=== PATIENT | male | born 1975 | race Caucasian/White ===

== ENCOUNTER 2017-12-10 16:51 | Inpatient (IN) | payer BC, OTHER ==
[~2017-12-10] VITALS: Ht 177.8 cm; Wt 96.8 kg
[2017-12-10] VITALS (19 sets, daily range): BP systolic 0–182; BP diastolic 0–94; PULSE 0–124; RESP 14–26; TEMP 99.1; O2SAT 95–100
[~2017-12-10 16:51] MED LIST: NOREPINEPHRINE 4 MG/4 ML AMP IV ONE; SODIUM BICARBONATE 8.4% INJ 50 MEQ/50 ML SYR IV ONE; ZOLP10TA3 PO
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
[2017-12-10 17:36] LABS: AUTOMATED NEUTROPHIL # 4.9 TH/MM3 (1.8-7.7); BASOPHIL % 0.2 % (0.0-2.0); EOSINOPHIL # 0.2 TH/MM3 (0-0.4); EOSINOPHIL % 1.8 % (0.0-4.0); HEMATOCRIT 41.1 % (39.0-51.0); HEMOGLOBIN 13.6 GM/DL (13.0-17.0); LYMPH % 52.8 % (9.0-44.0); LYMPHOCYTE # 6.6 TH/MM3 (1.0-4.8); MEAN CELL VOLUME 91.8 FL (80.0-100.0); MEAN CORPUSCULAR HEMOGLOBIN 30.3 PG (27.0-34.0); MEAN PLATELET VOLUME 8.8 FL (7.0-11.0); MONOCYTE # 0.8 TH/MM3 (0-0.9); NEUT % 39.2 % (16.0-70.0); PLATELET COUNT 197 TH/MM3 (150-450); RED BLOOD COUNT 4.48 MIL/MM3 (4.50-5.90); RED CELL DISTRIBUTION WIDTH 13.6 % (11.6-17.2); WHITE BLOOD COUNT 12.5 TH/MM3 (4.0-11.0)
[2017-12-10] MEDS ORDERED: NOREPINEPHRINE-DEXTROSE DRIP 250 ML IV PRN (17:45)
[2017-12-10] MEDS ORDERED: MIDAZOLAM HCL 2 MG/2 ML VIAL IV PUSH ONE (17:45)
[2017-12-10] MEDS ORDERED: TERBUTALINE INJ 1 MG/ML AMP SQ PRN (17:45)
--- NOTE | 2017-12-10 17:46 | RADRPT ---
EXAM DATE/TIME: 12/10/2017 17:33 [facility] COMPARISON: No previous studies available for comparison. INDICATIONS : Post intubation. Stemi alert. MEDICAL HISTORY : None. SURGICAL HISTORY : None. ENCOUNTER: Initial ACUITY: 1 day PAIN SCORE: Non-responsive. LOCATION: Bilateral chest FINDINGS: Endotracheal tube is present in satisfactory position with tip 4-5 cm above the clara. Nasogastric t ube descends into the stomach. There are small areas of linear parenchymal opacity in the lung bases which may be areas of scarring or atelectasis. No evidence of effusion. Cardiac contours are satisfac tory for technique and projection. CONCLUSION: Satisfactory ET tube position. Minimal bibasilar parenchymal opacities. Karsten Vazquez MD on December 10, 2017 at 17:43 Board Certified Radiologist. This report was verified electronically.
[2017-12-10 17:48] LABS: PROTHROMBIN TIME - PATIENT 10.4 SEC (9.8-11.6)
[2017-12-10] MEDS ORDERED: PROPOFOL 1000 MG/100 ML INJ 100 ML ONE (17:52)
[2017-12-10 18:00] LABS: ALBUMIN 3.3 GM/DL (3.4-5.0); ALT (GPT) 195 U/L (12-78); AST (GOT) 222 U/L (15-37); BICARBONATE 17.5 MEQ/L (21.0-32.0); BLOOD UREA NITROGEN 16 MG/DL (7-18); CALCIUM 8.1 MG/DL (8.5-10.1); CHLORIDE 106 MEQ/L (98-107); CREATININE 1.51 MG/DL (0.60-1.30); GLOMERULAR FILTRATION RATE 51 ML/MIN (>89); GLUCOSE,RANDOM 295 MG/DL (74-106); LIPASE 130 U/L (73-393); SODIUM (NA) 140 MEQ/L (136-145)
[2017-12-10 18:09] LABS: ALKALINE PHOSPHATASE 57 U/L (45-117); TOTAL BILIRUBIN ADULT 0.1 MG/DL (0.2-1.0); TOTAL PROTEIN 6.7 GM/DL (6.4-8.2)
[2017-12-10 18:19] LABS: TROPONIN I 3.95 NG/ML (0.02-0.05)
[2017-12-10 18:28] LABS: METAMYELOCYTES 1 % (0-1); MONOCYTES 4 % (0-8); NEUTROPHIL # MANUAL DIFF 4.9 TH/MM3 (1.8-7.7); POLYS (SEG NEUTROPHILS) 38 % (16-70)
[2017-12-10 18:33] LABS: LYMPHOCYTES 56 % (9-44)
--- NOTE | 2017-12-10 18:45 | RADRPT ---
EXAM DATE/TIME: 12/10/2017 18:18 [facility] COMPARISON: No previous studies available for comparison. INDICATIONS : Altered mental status post cardiac arrest. RADIATION DOSE: 35.97 CTDIvol (mGy) MEDICAL HISTORY : None SURGICAL HISTORY : None. ENCOUNTER: Initial ACUITY: 1 day PAIN SCALE: Non-responsive LOCATION: cranial TECHNIQUE: Multiple contiguous axial images were obtained of the head. Using automated exposure control and adj ustment of the mA and/or kV according to patient size, radiation dose was kept as low as reasonably a chievable to obtain optimal diagnostic quality images. DICOM format image data is available electro nically for review and comparison. FINDINGS: There is some reduction in the distinction of the ledezma-white matter junction and basal ganglia involv ing the right cerebral hemisphere concerning for a right sided infarction. No mass effect observed. V entricles remain normal in size. No hemorrhage. The coastal thickening is seen involving multiple eth moid air cells bilaterally. Calvarium is intact. CONCLUSION: 1. Concern for right-sided nonhemorrhagic cerebral infarction. Jose Glaser Jr., MD on December 10, 2017 at 18:40 Board Certified Radiologist. This report was verified electronically.
[2017-12-10] MEDS ORDERED: MAGNESIUM HYDROXIDE SUSP 30 ML CUP PO PRN (20:30)
[2017-12-10] MEDS ORDERED: ACETAMINOPHEN 325 MG TAB PO PRN (20:30)
[2017-12-10] MEDS ORDERED: LACTULOSE SYRUP 20 GM/30 ML CUP PO PRN (20:30)
[2017-12-10] MEDS ORDERED: MISCELLANEOUS NURSING INFORMATION XX SCH (20:30)
[2017-12-10] MEDS ORDERED: BISACODYL 10 MG SUPP RECTAL PRN (20:30)
[2017-12-10] MEDS ORDERED: CHLORHEXIDINE GLUCONATE 2 % 1 PACK (2 CLOTHS) TOP PRN (20:30)
[2017-12-10] MEDS ORDERED: SODIUM CHLORIDE 0.9% FLUSH 10 ML FLUSH IV FLUSH PRN ×3 (20:30→23:30)
[2017-12-10] MEDS ORDERED: SENNOSIDES 8.6 MG TAB PO PRN (20:30)
[2017-12-10] MEDS ORDERED: PROPOFOL 1000 MG/100 ML INJ 100 ML IV PRN (20:45)
[2017-12-10] MEDS: DOCUSATE SODIUM 50 MG/SENNA 8.6 MG TAB PO SCH (21:00)
[2017-12-10] MEDS: SODIUM CHLORIDE 0.9% FLUSH 10 ML FLUSH IV FLUSH SCH (21:00)
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
[2017-12-10] MEDS ORDERED: MAGNESIUM OXIDE 400 MG TAB PO PRN (21:45)
[2017-12-10] MEDS ORDERED: POTASSIUM CHLOR 40 MEQ PREMIX 100 ML IV-CENTRAL PRN (21:45)
[2017-12-10] MEDS ORDERED: POTASSIUM PHOSPHATE MONOBASIC 500 MG TAB PO/TUBE PRN (21:45)
[2017-12-10] MEDS ORDERED: POTASSIUM CHLORIDE 25 MEQ EFFERVESCENT TAB PO PRN (21:45)
[2017-12-10] MEDS ORDERED: POTASSIUM PHOSPHATE INJ 30 MMOL in SODIUM CHLOR 0.9% 250 ML INJ 250 ML IV PRN (21:45)
[2017-12-10] MEDS ORDERED: MAGNESIUM SULFATE INJ 2 GM in SODIUM CHLORIDE 0.9% INJ 96 ML IV PRN (21:45)
[2017-12-10] MEDS ORDERED: MAGNESIUM SULFATE INJ 4 GM in SODIUM CHLORIDE 0.9% INJ 92 ML IV PRN (21:45)
[2017-12-10] MEDS ORDERED: DEXTROSE 50% IN WATER 50 ML VIAL(D50) IV PUSH PRN (21:45)
[2017-12-10] MEDS ORDERED: SODIUM PHOSPHATE INJ 30 MMOL in SODIUM CHLOR 0.9% 250 ML INJ 240 ML IV PRN (21:45)
[2017-12-10] MEDS ORDERED: POTASSIUM CHLOR 20 MEQ PREMIX 100 ML IV PRN (21:45)
[2017-12-10] MEDS ORDERED: POTASSIUM PHOSPHATE MONOBASIC 500 MG TAB PO PRN (21:45)
[2017-12-10] MEDS ORDERED: GLUCAGON 1 MG/ML VIAL OTHER PRN (21:45)
[2017-12-10] MEDS: RESP: ALBUTEROL 2.5 MG/IPRATROPIUM 0.5 MG NEB (SCH) INH (21:54)
[2017-12-10] MEDS: SODIUM CHLOR 0.9% 1000 ML INJ 1,000 ML IV SCH (22:00)
[2017-12-10] MEDS ORDERED: HEPARIN-D5W 25,000 U/250 ML 250 ML IV PRN (22:00)
[2017-12-10] MEDS ORDERED: PROPOFOL 500 MG/50 ML INJ 50 ML ONE (22:15)
[2017-12-10] MEDS ORDERED: AMIODARONE INJ 450 MG in DEXTROSE 5% IN WATE(EXCEL) INJ 241 ML IV PRN ×2 (22:37)
[2017-12-10 22:39] LABS: AMORPHOUS SEDIMENT, URINE OCC; BACTERIA, URINE MANY /hpf; BILIRUBIN, URINE NEG (NEG); BLOOD, URINE MOD (NEG); GLUCOSE,URINE 300 mg/dL (NEG); KETONE, URINE TRACE mg/dL (NEG); NITRITE,URINE NEG (NEG); PH, URINE 7.5 (5.0-8.5); URINE COLOR YELLOW (YELLW/STRAW); URINE LEUKOCYTE ESTERASE NEG (NEG)
[2017-12-10] MEDS ORDERED: NOREPINEPHRINE INJ 4 MG in SODIUM CHLOR 0.9% 250 ML INJ 246 ML IV PRN (23:00)
[2017-12-10] MEDS ORDERED: HEPARIN SODIUM - IV 10,000 UNITS/10 ML VIAL IV PRN (23:00)
[2017-12-10] MEDS: HEPARIN INJ 25,000 UNITS in SODIUM CHLOR 0.9% 250 ML INJ 247.5 ML IV PRN (23:12)
[2017-12-10] MEDS: AMIODARONE INJ 450 MG in SODIUM CHLOR 0.9% (EXCEL) INJ 241 ML IV PRN (23:14)
[2017-12-10] MEDS ORDERED: Mix all IV Meds in NS IV SCH (23:30)
[2017-12-10] MEDS: PROPOFOL 1000 MG/100 ML IV PRN (23:39)
[2017-12-10] MEDS: MIDAZOLAM HCL 2 MG/2 ML VIAL IV PUSH PRN (23:43)
[2017-12-10] MEDS: MEPERIDINE HCL 25 MG/ML VIAL IV PUSH PRN (23:45)
[2017-12-10] MEDS ORDERED: CISATRACURIUM BESYLATE 10 MG/5 ML VIAL IV PUSH ONE (23:45)
[2017-12-11] VITALS (27 sets, daily range): BP systolic 90–131; BP diastolic 58–87; PULSE 51–91; RESP 16; TEMP 97.6; O2SAT 92–97
[2017-12-11] MEDS: FAMOTIDINE 20 MG/2 ML VIAL IV PUSH SCH ×3 (00:02→19:47)
[2017-12-11] MEDS: CISATRACURIUM 100 MG/NS 250 ML IV PRN ×8 (00:39→22:38)
[2017-12-11 00:51] LABS: PHOSPHORUS 2.9 MG/DL (2.5-4.9)
[2017-12-11 01:15] LABS: TROPONIN I GREATER THAN 40.00 NG/ML (0.02-0.05)
[2017-12-11] MEDS: MIDAZOLAM HCL 2 MG/2 ML VIAL IV PUSH PRN (01:54)
[2017-12-11] MEDS ORDERED: HEPARIN SODIUM - IV 10,000 UNITS/10 ML VIAL IV PRN (03:00)
[2017-12-11] MEDS: PROPOFOL 1000 MG/100 ML IV PRN ×6 (03:04→23:41)
[2017-12-11] MEDS: ARTIFICIAL TEARS OPTH OINT 3.5 APPLIC/3.5 GM TUBO EACH EYE PRN ×3 (03:08→22:10)
[2017-12-11] MEDS: RESP: ALBUTEROL 2.5 MG/IPRATROPIUM 0.5 MG NEB (SCH) INH ×4 (03:19→20:53)
[2017-12-11] MEDS: CHLORHEXIDINE GLUCONATE 2 % 1 PACK (2 CLOTHS) TOP SCH (04:00)
[2017-12-11 04:29] LABS: AUTOMATED NEUTROPHIL # 14.8 TH/MM3 (1.8-7.7); BASOPHIL # 0.1 TH/MM3 (0-0.2); BASOPHIL % 0.5 % (0.0-2.0); EOSINOPHIL % 0.2 % (0.0-4.0); HEMATOCRIT 41.7 % (39.0-51.0); LYMPH % 16.2 % (9.0-44.0); MEAN CELL VOLUME 88.8 FL (80.0-100.0); MEAN CORPUSCULAR HEMOGLOBIN 29.8 PG (27.0-34.0); MEAN CORPUSCULAR HGB CONC 33.5 % (32.0-36.0); MEAN PLATELET VOLUME 8.6 FL (7.0-11.0); MONO % 3.4 % (0.0-8.0); MONOCYTE # 0.6 TH/MM3 (0-0.9); NEUT % 79.7 % (16.0-70.0); PLATELET COUNT 223 TH/MM3 (150-450); RED CELL DISTRIBUTION WIDTH 14.2 % (11.6-17.2); WHITE BLOOD COUNT 18.6 TH/MM3 (4.0-11.0)
[2017-12-11 04:59] LABS: ALBUMIN 3.3 GM/DL (3.4-5.0); ALKALINE PHOSPHATASE 52 U/L (45-117); ALT (GPT) 268 U/L (12-78); AST (GOT) 437 U/L (15-37); BICARBONATE 22.8 MEQ/L (21.0-32.0); BLOOD UREA NITROGEN 14 MG/DL (7-18); CALCIUM 7.6 MG/DL (8.5-10.1); CHLORIDE 110 MEQ/L (98-107); GLOMERULAR FILTRATION RATE 106 ML/MIN (>89); GLUCOSE,RANDOM 180 MG/DL (74-106); MAGNESIUM 2.3 MG/DL (1.5-2.5); PHOSPHORUS 3.1 MG/DL (2.5-4.9); SODIUM (NA) 141 MEQ/L (136-145); TOTAL BILIRUBIN ADULT 0.4 MG/DL (0.2-1.0); TOTAL PROTEIN 6.8 GM/DL (6.4-8.2)
[2017-12-11] MEDS: NOREPINEPHRINE 4 MG/250 ML NS IV PRN ×4 (05:14→16:04)
--- NOTE | 2017-12-11 05:35 | PD.PROCEDR ---
Procedure Note Procedure Centerline placement A time-out was completed verifying correct patient, procedure, site, positioning , and special equipment if applicable. The patient was placed in a dependent position appropriate for central line placement based on the vein to be cannulated. The patients right groin was prepped and draped in sterile fashion. 1% Lidocaine was used to anesthetize the surrounding skin area. A triple lumen 9-Burkin[place] Cordis catheter was introduced into the the common femoral vein using the Seldinger technique and under ultrasound guidance. The catheter was threaded smoothly over the guide wire and appropriate blood return was obtained. Each lumen of the catheter was evacuated of air and flushed with sterile saline. The catheter was then sutured in place to the skin and a sterile dressing applied. Perfusion to the extremity distal to the point of catheter insertion was checked and found to be adequate. Estimated Blood Loss: 1ml The patient tolerated the procedure well and there were no complications. Buck Escobedo MD Dec 11, 2017 5:35 am
[2017-12-11] MEDS: AMIODARONE INJ 450 MG in SODIUM CHLOR 0.9% (EXCEL) INJ 241 ML IV PRN (06:27)
[2017-12-11 06:40] LABS: INTERNATIONAL NORMALIZED RATIO 1.1 RATIO
[2017-12-11] MEDS: CHLORHEXIDINE 0.12% (ORAL KIT) 15 ML CUP MT SCH ×2 (08:00→19:49)
[2017-12-11] MEDS ORDERED: INSULIN NovoLIN REGULAR SUPPLEMENTAL SCALE SQ SCH (08:00)
[2017-12-11] MEDS: SODIUM CHLOR 0.9% 1000 ML INJ 1,000 ML IV SCH ×2 (08:48→21:33)
[2017-12-11] MEDS: DOCUSATE SODIUM 50 MG/SENNA 8.6 MG TAB PO SCH ×2 (08:48→19:47)
[2017-12-11] MEDS: MEPERIDINE HCL 25 MG/ML VIAL IV PUSH PRN (08:48)
[2017-12-11] MEDS: SODIUM CHLORIDE 0.9% FLUSH 10 ML FLUSH IV FLUSH SCH ×2 (08:48→19:47)
[2017-12-11] MEDS ORDERED: ASPIRIN 325 MG TAB PO ONE (09:45)
[2017-12-11] MEDS ORDERED: DEXTROSE 50% IN WATER 50 ML VIAL(D50) IV PUSH PRN (09:45)
[2017-12-11] MEDS ORDERED: GLUCAGON 1 MG/ML VIAL OTHER PRN (09:45)
--- NOTE | 2017-12-11 09:47 | HHI.CCPN ---
Subjective Remarks/Hospital Course 42-year-old gentleman brought in by EMS after he apparently had an episode of chest pain after which he clutched his chest an collapsed at home. Patient's called 911 and initiated CPR prior to EMS arriving there. Once EMS arrived they were able to start an IV, intubated the patient and initiated ACLS protocol giving 4 rounds of epi 7 rounds of chest compressions along with 3 separate defibrillations. Initial EKG at the scene showed ST elevation, however the repeat EKG in the emergency department showed no ST elevations. The case was discussed by ED attending with timber killer client consultant who recommended hypothermia protocol and conservative management. 12/11 Patient is sedated and intubated. On Levophed, Amio and Nimbex drips. Objective Vital Signs Date Time Temp Pulse Resp B/P (MAP) Pulse Ox O2 Delivery O2 Flow Rate FiO2 12/11/17 07:28 92 50 12/11/17 06:27 60 96/69 12/11/17 04:00 92.3 16 12/10/17 19:45 Ventilator 12/10/17 17:46 15.00 Intake and Output 12/11/17 12/11/17 12/12/17 08:00 16:00 00:00 Intake Total 1562 ml Output Total 440 ml Balance 1122 ml Result Diagram: 12/11/17 0415 12/11/17 0415 Other Results Laboratory Tests Test 12/10/17 17:13 12/10/17 17:30 12/10/17 18:30 12/10/17 22:40 White Blood Count 12.5 TH/MM3 Red Blood Count 4.48 MIL/MM3 Hemoglobin 13.6 GM/DL Bedside Hemoglobin 13.3 G/DL Hematocrit 41.1 % Bedside Hematocrit 39.0 % Mean Corpuscular Volume 91.8 FL Mean Corpuscular Hemoglobin 30.3 PG Mean Corpuscular Hemoglobin Concent 33.0 % Red Cell Distribution Width 13.6 % Platelet Count 197 TH/MM3 Mean Platelet Volume 8.8 FL Neutrophils (%) (Auto) 39.2 % Lymphocytes (%) (Auto) 52.8 % Monocytes (%) (Auto) 6.0 % Eosinophils (%) (Auto) 1.8 % Basophils (%) (Auto) 0.2 % Neutrophils # (Auto) 4.9 TH/MM3 Lymphocytes # (Auto) 6.6 TH/MM3 Monocytes # (Auto) 0.8 TH/MM3 Eosinophils # (Auto) 0.2 TH/MM3 Basophils # (Auto) 0.0 TH/MM3 CBC Comment AUTO DIFF Differential Total Cells Counted 100 Neutrophils % (Manual) 38 % Lymphocytes % 56 % Monocytes % 4 % Eosinophils % 1 % Neutrophils # (Manual) 4.9 TH/MM3 Metamyelocytes 1 % Differential Comment FINAL DIFF MANUAL Atypical Lymphocytes % Platelet Estimate NORMAL Platelet Morphology Comment NORMAL Prothrombin Time 10.4 SEC Prothromb Time International Ratio 1.0 RATIO Activated Partial Thromboplast Time 22.6 SEC Bedside Sodium 139 MMOL/L Blood Urea Nitrogen 16 MG/DL Creatinine 1.51 MG/DL Random Glucose 295 MG/DL Total Protein 6.7 GM/DL Albumin 3.3 GM/DL Calcium Level 8.1 MG/DL Alkaline Phosphatase 57 U/L Aspartate Amino Transf (AST/SGOT) 222 U/L Alanine Aminotransferase (ALT/SGPT) 195 U/L Total Bilirubin 0.1 MG/DL Sodium Level 140 MEQ/L Potassium Level 3.5 MEQ/L Chloride Level 106 MEQ/L Carbon Dioxide Level 17.5 MEQ/L Bedside Potassium 3.4 MMOL/L Bedside Chloride 105 MMOL/L Anion Gap 17 MEQ/L Bedside Blood Urea Nitrogen 18 MG/DL Bedside Creatinine 1.2 MG/DL Estimat Glomerular Filtration Rate 51 ML/MIN Bedside Glucose 296 MG/DL Total Creatine Kinase 878 U/L Creatine Kinase MB 34.1 NG/ML Creatine Kinase MB % 3.9 % Troponin I 3.95 NG/ML B-Type Natriuretic Peptide 64 PG/ML Lipase 130 U/L Urine Color YELLOW Urine Turbidity HAZY Urine pH 7.5 Urine Specific [place] 1.011 Urine Protein 300 mg/dL Urine Glucose (UA) 300 mg/dL Urine Ketones TRACE mg/dL Urine Occult Blood MOD Urine Nitrite NEG Urine Bilirubin NEG Urine Urobilinogen 2.0 MG/DL Urine Leukocyte Esterase NEG Urine RBC 12 /hpf Urine WBC 16 /hpf Urine Amorphous Sediment OCC Urine Bacteria MANY /hpf Microscopic Urinalysis Comment CATH-CULTURE IND Blood Gas Puncture Site LT RADIAL Blood Gas Patient Temperature 98.6 Blood Gas HCO3 23 mmol/L Blood Gas Base Excess -0.8 mmol/L Blood Gas Oxygen Saturation 95 % Arterial Blood pH 7.44 Arterial Blood Partial Pressure CO2 35 mmHg Arterial Blood Partial Pressure O2 99 mmHG Arterial Blood Oxygen Content 19.1 Vol % Arterial Blood Carboxyhemoglobin 1.8 % Arterial Blood Methemoglobin 0.8 % Blood Gas Hemoglobin 14.2 G/DL Oxygen Delivery Device VENTILATOR Blood Gas Ventilator Setting [id number]/AC/R16/VT500/P5 Blood Gas Inspired Oxygen 50 % Urine Opiates Screen NEG Urine Barbiturates Screen NEG Urine Amphetamines Screen NEG Urine Benzodiazepines Screen POS Urine Cocaine Screen POS Urine Cannabinoids Screen NEG Test 12/10/17 23:51 12/11/17 01:00 12/11/17 04:15 12/11/17 05:00 Phosphorus Level 2.9 MG/DL 3.1 MG/DL Troponin I GREATER THAN 40.00 NG/ML Nasal Screen MRSA (PCR) MRSA NOT DETECTED White Blood Count 18.6 TH/MM3 Red Blood Count 4.70 MIL/MM3 Hemoglobin 14.0 GM/DL Hematocrit 41.7 % Mean Corpuscular Volume 88.8 FL Mean Corpuscular Hemoglobin 29.8 PG Mean Corpuscular Hemoglobin Concent 33.5 % Red Cell Distribution Width 14.2 % Platelet Count 223 TH/MM3 Mean Platelet Volume 8.6 FL Neutrophils (%) (Auto) 79.7 % Lymphocytes (%) (Auto) 16.2 % Monocytes (%) (Auto) 3.4 % Eosinophils (%) (Auto) 0.2 % Basophils (%) (Auto) 0.5 % Neutrophils # (Auto) 14.8 TH/MM3 Lymphocytes # (Auto) 3.0 TH/MM3 Monocytes # (Auto) 0.6 TH/MM3 Eosinophils # (Auto) 0.0 TH/MM3 Basophils # (Auto) 0.1 TH/MM3 CBC Comment DIFF FINAL Differential Comment Blood Urea Nitrogen 14 MG/DL Creatinine 0.80 MG/DL Random Glucose 180 MG/DL Total Protein 6.8 GM/DL Albumin 3.3 GM/DL Calcium Level 7.6 MG/DL Magnesium Level 2.3 MG/DL Alkaline Phosphatase 52 U/L Aspartate Amino Transf (AST/SGOT) 437 U/L Alanine Aminotransferase (ALT/SGPT) 268 U/L Total Bilirubin 0.4 MG/DL Sodium Level 141 MEQ/L Potassium Level 4.4 MEQ/L Chloride Level 110 MEQ/L Carbon Dioxide Level 22.8 MEQ/L Anion Gap 8 MEQ/L Estimat Glomerular Filtration Rate 106 ML/MIN Lactic Acid Level 1.3 mmol/L Prothrombin Time 11.0 SEC Prothromb Time International Ratio 1.1 RATIO Activated Partial Thromboplast Time 86.1 SEC Imaging Last Impressions Head CT 12/10/17 1714 Signed Impressions: Service Date/Time: Sunday, December 10, 2017 18:18 - CONCLUSION: 1. Concern for right-sided nonhemorrhagic cerebral infarction. Jose Glaser Jr., MD Chest X-Ray 12/10/17 0000 Signed Impressions: Service Date/Time: Sunday, December 10, 2017 17:33 - CONCLUSION: Satisfactory ET tube position. Minimal bibasilar parenchymal opacities. Karsten Vazquez MD Objective Remarks GENERAL: Sedated and intubated SKIN: Warm and dry. HEAD: Atraumatic. Normocephalic. EYES: Pupils equal and briskly reactive to light, ENT: No nasal bleeding or discharge. Mucous membranes pink and moist. NECK: Trachea midline. No JVD....INTUBATED 8-0 AT 24 LIP CARDIOVASCULAR: Regular rate and rhythm. RESPIRATORY: SPONTANEOUSLY BREATHING No accessory muscle use. Clear to auscultation. Breath sounds equal bilaterally. GASTROINTESTINAL: Abdomen soft, non-tender, nondistended. Hepatic and splenic margins not palpable. MUSCULOSKELETAL: Extremities without clubbing, cyanosis, or edema. No obvious deformities. NEUROLOGICAL: Sedated and intubated. No obvious cranial nerve deficits. Motor localizes to pain on all 4 extremities. Five out of 5 muscle strength in the arms and legs. A/P Assessment and Plan VDRF s/p V. fib arrest outside the hospital Hyperglycemia Non-STEMI ? Acute CVA on a CT Elevated LFT's Leukocytosis Plan Neuro: On Diprivan infusion for sedation. In addition patient is on Nimbex - monitor train of 4. CT brain showed non hemorrhagic cerebral infarction. For MRI brain, neuro consulted. Pulm: Continue with vent support keep sat >92% Bronchodilators, ICU vent bundle. CV: Wean off Levophed Monitor HR and BP keep MAP>65mmHg On Hypothermia protocol. Cards is following- Dr. Dubose. Check 2D echo to eval LV function. Continue with Heparin drip. Monitor PTT. Place on ASA. D/C Amio drip for elevated LFT's. : Monitor renal function, I/O's, electrolytes replacement per protocol. On NS@84ml/hr GI: On Pepcid for GI prophylaxis Monitor LFT's, check US liver, Hepatitis profile. Start tube feeds- Glucerna 1.5 with goal rate 45ml/hr ID: Place on Zosyn for possible aspiration and increase in WBC.Monitor or signs of infections ( Fever, WBC) follow up on urine cx. Check BC x 2 sets, Sputum cx Heme: Monitor CBC, coags- on Heparin drip Endo: SSI for glycemic control GI prophylaxis- on Pepcid DVT prophylaxis- On Heparin drip. Lines: Right Femoral line placed 12/11 CCT 30 mins Kayleen Diaz MD Dec 11, 2017 09:47
[2017-12-11] MEDS: PIPERACIL-TAZO 4.5 GM PREMIX 100 ML IV SCH ×3 (10:00→21:44)
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
[2017-12-11] MEDS: INSULIN NovoLIN REGULAR SUPPLEMENTAL SCALE SQ SCH ×3 (13:45→21:33)
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
--- NOTE | 2017-12-11 21:39 | EKG ---
Date Performed: 12/11/2017 Time Performed: 20:58:21 PTAGE: 42 years EKG: SINUS BRADYCARDIA PROBABLE INFERIOR MYOCARDIAL INFARCTION , PROBABLY OLD ABNORMAL ECG Ezio red to prior electrocardiogram, rate has decreased and Nonspecific ST changes no longer present. PREVIOUS TRACING : 12/10/2017 18.33 DOCTOR: Norris Duong Interpretating Date/Time 12/11/2017 21:39:40
--- NOTE | 2017-12-11 22:26 | EKG ---
Date Performed: 12/10/2017 Time Performed: 18:33:26 PTAGE: 42 years EKG: Sinus rhythm WITH SHORT OH INTERVAL INFERIOR MYOCARDIAL INFARCTION ST DEPRESSION, CONSIDER SUBENDOCARDIAL INJURY ABNORMAL ECG PREVIOUS TRACING : 10/20/2003 18.27 Compared to previous tracing ST abnormalities are less prom inent DOCTOR: Medardo Adams Interpretating Date/Time 12/11/2017 22:24:39
--- NOTE | 2017-12-11 22:30 | EKG ---
Date Performed: 12/10/2017 Time Performed: 17:04:54 PTAGE: 42 years EKG: SINUS TACHYCARDIA WITH FREQUENT VENTRICULAR PREMATURE COMPLEXES IN A BIGEMINAL PATTERN MODE RATE INTRAVENTRICULAR CONDUCTION DELAY MARKED ST ELEVATION, CONSIDER INFERIOR INJURY MARKED ST ELEVAT ION, CONSIDER ANTEROLATERAL INJURY ACUTE MO INTERPRETATION BASED ON A DEFAULT AGE OF 40 YEARS NO PREVIOUS TRACING DOCTOR: Medardo Adams Interpretating Date/Time 12/11/2017 22:29:46
[2017-12-11] MEDS: HEPARIN INJ 25,000 UNITS in SODIUM CHLOR 0.9% 250 ML INJ 247.5 ML IV PRN (22:40)
[2017-12-12] VITALS (19 sets, daily range): BP systolic 95–138; BP diastolic 50–88; PULSE 55–126; RESP 16–28; O2SAT 92–100
[2017-12-12] MEDS: INSULIN NovoLIN REGULAR SUPPLEMENTAL SCALE SQ SCH ×6 (01:45→21:45)
[2017-12-12] MEDS: RESP: ALBUTEROL 2.5 MG/IPRATROPIUM 0.5 MG NEB (SCH) INH ×4 (03:23→21:01)
[2017-12-12] MEDS: MIDAZOLAM HCL 2 MG/2 ML VIAL IV PUSH PRN ×3 (03:44→11:17)
[2017-12-12] MEDS: PROPOFOL 1000 MG/100 ML IV PRN ×5 (03:45→19:22)
[2017-12-12] MEDS: CHLORHEXIDINE GLUCONATE 2 % 1 PACK (2 CLOTHS) TOP SCH (04:00)
[2017-12-12 04:20] LABS: BASOPHIL # 0.1 TH/MM3 (0-0.2); BASOPHIL % 0.5 % (0.0-2.0); EOSINOPHIL % 0.3 % (0.0-4.0); HEMATOCRIT 40.3 % (39.0-51.0); HEMOGLOBIN 13.7 GM/DL (13.0-17.0); LYMPH % 10.4 % (9.0-44.0); LYMPHOCYTE # 1.3 TH/MM3 (1.0-4.8); MEAN CELL VOLUME 88.5 FL (80.0-100.0); MEAN PLATELET VOLUME 8.8 FL (7.0-11.0); MONO % 3.5 % (0.0-8.0); MONOCYTE # 0.5 TH/MM3 (0-0.9); NEUT % 85.3 % (16.0-70.0); PLATELET COUNT 141 TH/MM3 (150-450); RED BLOOD COUNT 4.56 MIL/MM3 (4.50-5.90); RED CELL DISTRIBUTION WIDTH 13.8 % (11.6-17.2); WHITE BLOOD COUNT 12.8 TH/MM3 (4.0-11.0)
[2017-12-12 04:40] LABS: ALKALINE PHOSPHATASE 46 U/L (45-117); ALT (GPT) 242 U/L (12-78); PHOSPHORUS 3.1 MG/DL (2.5-4.9); TOTAL BILIRUBIN ADULT 0.9 MG/DL (0.2-1.0); TOTAL PROTEIN 6.3 GM/DL (6.4-8.2)
[2017-12-12 04:49] LABS: ALBUMIN 2.9 GM/DL (3.4-5.0); AST (GOT) 504 U/L (15-37); BLOOD UREA NITROGEN 14 MG/DL (7-18); CALCIUM 7.8 MG/DL (8.5-10.1); CHLORIDE 112 MEQ/L (98-107); CREATININE 0.78 MG/DL (0.60-1.30); GLOMERULAR FILTRATION RATE 109 ML/MIN (>89); GLUCOSE,RANDOM 143 MG/DL (74-106); MAGNESIUM 2.3 MG/DL (1.5-2.5); SODIUM (NA) 141 MEQ/L (136-145)
[2017-12-12] MEDS: PIPERACIL-TAZO 4.5 GM PREMIX 100 ML IV SCH ×4 (04:51→21:44)
[2017-12-12] MEDS: DOCUSATE SODIUM 50 MG/SENNA 8.6 MG TAB PO SCH ×2 (07:44→20:21)
[2017-12-12] MEDS: FAMOTIDINE 20 MG/2 ML VIAL IV PUSH SCH ×2 (07:44→20:22)
[2017-12-12] MEDS: CHLORHEXIDINE 0.12% (ORAL KIT) 15 ML CUP MT SCH ×2 (07:45→20:23)
[2017-12-12] MEDS: SODIUM CHLORIDE 0.9% FLUSH 10 ML FLUSH IV FLUSH SCH (07:45)
[2017-12-12] MEDS: ASPIRIN 81 MG CHEW TAB CHEW SCH (07:45)
--- NOTE | 2017-12-12 07:58 | HHI.CCPN ---
Subjective Remarks/Hospital Course 42-year-old gentleman brought in by EMS after he apparently had an episode of chest pain after which he clutched his chest an collapsed at home. Patient's called 911 and initiated CPR prior to EMS arriving there. Once EMS arrived they were able to start an IV, intubated the patient and initiated ACLS protocol giving 4 rounds of epi 7 rounds of chest compressions along with 3 separate defibrillations. Initial EKG at the scene showed ST elevation, however the repeat EKG in the emergency department showed no ST elevations. The case was discussed by ED attending with community health education coordinator health outcomes liaison who recommended hypothermia protocol and conservative management. 12/11 Patient is sedated and intubated. On Levophed, Amio and Nimbex drips. 12/12 Patient remains intubated and sedated with Diprivan in addition he is on Nimbex. Off Levophed and Amio drips. Remains on Heparin drip. Objective Vital Signs Date Time Temp Pulse Resp B/P (MAP) Pulse Ox O2 Delivery O2 Flow Rate FiO2 12/12/17 07:45 16 12/12/17 06:35 74 128/79 12/12/17 04:20 95 50 12/12/17 04:00 92.7 12/10/17 19:45 Ventilator 12/10/17 17:46 15.00 Intake and Output 12/12/17 12/12/17 12/13/17 08:00 16:00 00:00 Intake Total 1680 ml Output Total 120 ml Balance 1560 ml Result Diagram: 12/12/17 0400 12/12/17 0400 Other Results Laboratory Tests Test 12/11/17 13:00 12/11/17 19:45 12/12/17 04:00 Activated Partial Thromboplast Time 66.0 SEC 64.7 SEC 57.6 SEC White Blood Count 12.8 TH/MM3 Red Blood Count 4.56 MIL/MM3 Hemoglobin 13.7 GM/DL Hematocrit 40.3 % Mean Corpuscular Volume 88.5 FL Mean Corpuscular Hemoglobin 30.0 PG Mean Corpuscular Hemoglobin Concent 34.0 % Red Cell Distribution Width 13.8 % Platelet Count 141 TH/MM3 Mean Platelet Volume 8.8 FL Neutrophils (%) (Auto) 85.3 % Lymphocytes (%) (Auto) 10.4 % Monocytes (%) (Auto) 3.5 % Eosinophils (%) (Auto) 0.3 % Basophils (%) (Auto) 0.5 % Neutrophils # (Auto) 11.0 TH/MM3 Lymphocytes # (Auto) 1.3 TH/MM3 Monocytes # (Auto) 0.5 TH/MM3 Eosinophils # (Auto) 0.0 TH/MM3 Basophils # (Auto) 0.1 TH/MM3 CBC Comment DIFF FINAL Differential Comment Blood Urea Nitrogen 14 MG/DL Creatinine 0.78 MG/DL Random Glucose 143 MG/DL Total Protein 6.3 GM/DL Albumin 2.9 GM/DL Calcium Level 7.8 MG/DL Phosphorus Level 3.1 MG/DL Magnesium Level 2.3 MG/DL Alkaline Phosphatase 46 U/L Aspartate Amino Transf (AST/SGOT) 504 U/L Alanine Aminotransferase (ALT/SGPT) 242 U/L Total Bilirubin 0.9 MG/DL Sodium Level 141 MEQ/L Potassium Level 4.4 MEQ/L Chloride Level 112 MEQ/L Carbon Dioxide Level 23.0 MEQ/L Anion Gap 6 MEQ/L Estimat Glomerular Filtration Rate 109 ML/MIN B-Type Natriuretic Peptide 208 PG/ML Imaging Last Impressions Liver Ultrasound 12/11/17 0000 Signed Impressions: Service Date/Time: November 10:26 - CONCLUSION: Solitary echogenic lesion left lobe liver I suspect a hemangioma. Central venous catheter within the IVC otherwise unremarkable study. Glenn James MD Head CT 12/10/17 1714 Signed Impressions: Service Date/Time: Sunday, December 10, 2017 18:18 - CONCLUSION: 1. Concern for right-sided nonhemorrhagic cerebral infarction. Jose Glaser Jr., MD Chest X-Ray 12/10/17 0000 Signed Impressions: Service Date/Time: Sunday, December 10, 2017 17:33 - CONCLUSION: Satisfactory ET tube position. Minimal bibasilar parenchymal opacities. Karsten Vazquez MD Objective Remarks GENERAL: Sedated and intubated SKIN: Warm and dry. HEAD: Atraumatic. Normocephalic. EYES: Pupils equal and briskly reactive to light, ENT: No nasal bleeding or discharge. Mucous membranes pink and moist. NECK: Trachea midline. No JVD....INTUBATED 8-0 AT 24 LIP CARDIOVASCULAR: Regular rate and rhythm. RESPIRATORY: SPONTANEOUSLY BREATHING No accessory muscle use. Clear to auscultation. Breath sounds equal bilaterally. GASTROINTESTINAL: Abdomen soft, non-tender, nondistended. Hepatic and splenic margins not palpable. MUSCULOSKELETAL: Extremities without clubbing, cyanosis, or edema. No obvious deformities. NEUROLOGICAL: Sedated and intubated. No obvious cranial nerve deficits. Motor localizes to pain on all 4 extremities. Five out of 5 muscle strength in the arms and legs. A/P Assessment and Plan VDRF s/p V. fib arrest outside the hospital Hyperglycemia Non-STEMI ? Acute CVA on a CT Elevated LFT's Leukocytosis Plan Neuro: On Diprivan infusion for sedation. In addition patient is on Nimbex - monitor train of 4. CT brain showed non hemorrhagic cerebral infarction. For MRI brain, neuro is following-Dr. Vasquez Check EEG Pulm: Continue with vent support keep sat >92% Bronchodilators, ICU vent bundle. CV: Wean off Levophed Monitor HR and BP keep MAP>65mmHg On Hypothermia protocol. Patient is on rewarming phase Cards is following- Dr. Dubose. For 2D echo to eval LV function. If patient recovers neurologically might be a candidate for cardiac cath per cards. Continue with Heparin drip. Monitor PTT. On ASA. : Monitor renal function, I/O's, electrolytes replacement per protocol. d/c IVF, diurese with Lasix 40mg x1 GI: On Pepcid for GI prophylaxis Monitor LFT's,Hepatitis profile pending US liver: Solitary echogenic lesion left lobe liver I suspect a hemangioma. On Glucerna 1.5 with goal rate 45ml/hr ID: Continue Zosyn for possible aspiration..Monitor or signs of infections ( Fever, WBC) follow up on urine cx. Follow up on Blood, sputum and urine cx Heme: Monitor CBC, coags- on Heparin drip Endo: SSI for glycemic control GI prophylaxis- on Pepcid DVT prophylaxis- On Heparin drip. Lines: Right Femoral line placed 12/11 Palliative care eval to asses with goals of care CCT 30 mins Kayleen Diaz MD Dec 12, 2017 07:58
[2017-12-12] MEDS: CISATRACURIUM 100 MG/NS 250 ML IV PRN ×2 (08:22)
--- NOTE | 2017-12-12 08:28 | MB ---
cc: ALESHA PEREZ MD DATE OF CONSULTATION 12/11/2017 REASON FOR CONSULTATION Stroke on head CT HISTORY OF PRESENT ILLNESS Mr. Stern is seen in the ICU, sedated and intubated. Past medical history is obtained from the medical records and a registered nurse. A 42-year-old male is brought by EMS after he apparently had an episode of chest pain and collapsed at home. The patient's called and initiated CPR, they intubated the patient and initiated ACLS protocol. Initial EKG showed ST elevation and the emergency department did show ST elevation. Hypothermia protocol was recommended with conservative management. The head CT scan done in the intensive care unit revealed a possible concern for stroke and neurology was consulted. REVIEW OF SYSTEMS Unable to obtain. The patient is sedated and intubated. PAST MEDICAL HISTORY Chronic back pain ALLERGIES No known allergies. PAST SURGICAL HISTORY Unobtainable MEDICATIONS Ambien 10 mg FAMILY HISTORY Unable to obtain. SOCIAL HISTORY Uses alcohol occasionally, three-quarters of a pack of tobacco and review of medical records reveals previous substance abuse. PHYSICAL EXAM GENERAL: The patient is intubated and sedated. HEENT: Atraumatic, normocephalic. Pupils equal, react to light. NECK: Trachea in the midline. CARDIOVASCULAR: Regular rate and rhythm. RESPIRATORY: Clear. No wheezes. GASTROINTESTINAL: Soft abdomen not distended. MUSCULOSKELETAL: No cyanosis, edema or clubbing. NEUROLOGIC: Sedated and intubated. Pupils 2 mm reacting. No gaze deviation. Plantars are bilaterally diminished. DIAGNOSTICS IMAGING STUDIES - Head CT scan without contrast revealed reduction in distinction between ledezma- white matter junction and the basal ganglia on the right cerebral hemisphere concerning for right-sided infarction. No mass effect was observed. Ventricles remained normal in size, no hemorrhage. Abnormal head CT scan findings. ASSESSMENT/PLAN 1. Neuro checks q. one hourly. 2. MRI brain without contrast after the completion of hypothermia protocol which would be tomorrow mid day as per registered e. 3. I discussed the case with Dr. Diaz, attending and registered nurse and agreed that we need to do an MRI to verify the abnormal radiological findings and also to allow mild permissive hypertension 160-170/85-90 for next 24 hours. 4. DVT prophylaxis. 5. GI prophylaxis. 6. Continue supportive therapy. Thank you for the opportunity to participate in the care of this patient. MD MIGNON Solorzano/JAZZ /10:58 PM /8:06 AM MTDD
--- NOTE | 2017-12-12 11:02 | PD.CARD.PN ---
Subjective Subjective Remarks intubated, sedated, hypothermia stopped @ 9 am today Objective Medications Current Medications Medications (Trade) Dose Ordered Sig/Yuri Route Start Time Stop Time Status Last Admin (Brethine Inj) 1 mg UNSCH PRN SQ 12/10/17 17:45 (NS Flush) 2 ml UNSCH PRN IV FLUSH 12/10/17 20:30 (NS Flush) 2 ml BID IV FLUSH 12/10/17 21:00 12/12/17 07:45 (Tylenol) 650 mg Q6H PRN PO 12/10/17 20:30 (Pepcid Inj) 20 mg Q12HR IV PUSH 12/10/17 21:00 12/12/17 07:44 (Versed Inj) 2 mg Q1H PRN IV PUSH 12/10/17 20:30 12/12/17 06:49 (Zofran Inj) 4 mg Q6H PRN IV PUSH 12/10/17 20:30 (Duoneb Neb) 1 ampule Q6HR NEB INH 12/10/17 22:00 12/12/17 08:44 (Duoneb Neb) 1 ampule Q2HR NEB PRN INH 12/10/17 20:30 Miscellaneous Information 1 Q361D XX 12/10/17 20:30 12/10/17 20:30 (Chlorhexidine 2% Cloth) 3 pack Taper DAILY@04 TOP 12/11/17 04:00 12/07/18 03:59 (Chlorhexidine 2% Cloth) 3 pack UNSCH PRN TOP 12/10/17 20:30 (Chelsea-Colace) 1 tab BID PO 12/10/17 21:00 12/12/17 07:44 (Milk Of Magnesia Liq) 30 ml Q12H PRN PO 12/10/17 20:30 (Senokot) 17.2 mg Q12H PRN PO 12/10/17 20:30 (Dulcolax Supp) 10 mg DAILY PRN RECTAL 12/10/17 20:30 (Lactulose Liq) 30 ml DAILY PRN PO 12/10/17 20:30 (Peridex 0.12% Liq) 15 ml BID@08,20 MT 12/11/17 08:00 12/12/17 07:45 (Heparin Inj) 2,500 units UNSCH PRN IV 12/11/17 03:00 Potassium Chloride 100 ml @ 50 mls/hr Q2H PRN IV-CENTRAL 12/10/17 21:45 Potassium Chloride 100 ml @ 50 mls/hr Q2H PRN IV 12/10/17 21:45 (K-Lyte Cl Eff) 50 meq UNSCH PRN PO 12/10/17 21:45 Potassium Chloride 100 ml @ 25 mls/hr UNSCH PRN IV-CENTRAL 12/10/17 21:45 Potassium Chloride 100 ml @ 50 mls/hr Q2H PRN IV 12/10/17 21:45 Magnesium Sulfate 4 gm/Sodium Chloride 100 ml @ 50 mls/hr UNSCH PRN IV 12/10/17 21:45 (Mag-Ox) 800 mg UNSCH PRN PO 12/10/17 21:45 Magnesium Sulfate 2 gm/Sodium Chloride 100 ml @ 50 mls/hr UNSCH PRN IV 12/10/17 21:45 (K-Phos) 2,000 mg Q4H PRN PO 12/10/17 21:45 Sodium Phosphate 30 mmol/Sodium Chloride 250 ml @ 42 mls/hr UNSCH PRN IV 12/10/17 21:45 (K-Phos) 2,000 mg UNSCH PRN PO/TUBE 12/10/17 21:45 Potassium Phosphate 30 mmol/ Sodium Chloride 260 ml @ 42 mls/hr UNSCH PRN IV 12/10/17 21:45 (Heparin Inj) 5,000 units UNSCH PRN IV 12/10/17 23:00 12/10/17 23:13 Heparin Sodium (Porcine) 69682 units/Sodium Chloride 250 ml @ 10 mls/hr TITRATE PRN IV 12/10/17 23:00 12/11/17 22:40 Norepinephrine Bitartrate 4 mg/ Sodium Chloride 250 ml @ 7.5 mls/hr TITRATE PRN IV 12/10/17 23:00 12/10/17 23:13 (Ativan Inj) 1 mg Q1H PRN IV PUSH 12/10/17 23:30 (fentaNYL INJ) 50 mcg Q1H PRN IV PUSH 12/10/17 23:30 12/12/17 06:49 Miscellaneous Information ml @ 0 mls/hr UNSCH IV 12/10/17 23:30 (NS Flush) 2 ml UNSCH PRN IV FLUSH 12/10/17 23:30 (NS Flush) 2 ml UNSCH PRN IV FLUSH 12/10/17 23:30 (Demerol Inj) 25 mg Q2H PRN IV PUSH 12/10/17 23:30 12/11/17 08:48 (Lacrilube Opht Oint) 1 applic Q4H PRN EACH EYE 12/10/17 23:30 12/11/17 22:10 Norepinephrine Bitartrate 4 mg/ Sodium Chloride 250 ml @ 7.5 mls/hr Q24H PRN IV 12/10/17 23:30 12/11/17 16:04 Cisatracurium Besylate 100 mg/ Sodium Chloride 250 ml @ 44.55 mls/ hr TITRATE PRN IV 12/10/17 23:45 12/12/17 08:22 (Aspirin Chew) 81 mg DAILY CHEW 12/12/17 09:00 12/12/17 07:45 Piperacillin Sod/ Tazobactam Sod 100 ml @ 200 mls/hr Q6H IV 12/11/17 10:00 12/12/17 09:34 (D50w (Vial) Inj) 50 ml UNSCH PRN IV PUSH 12/11/17 09:45 (Glucagon Inj) 1 mg UNSCH PRN OTHER 12/11/17 09:45 (NovoLIN R SUPPLEMENTAL SCALE) 1 Q4H SQ 12/11/17 09:45 Propofol 100 ml @ 2.7 mls/hr TITRATE PRN IV 12/12/17 05:15 12/12/17 08:27 Vital Signs / I&O Vital Signs Date Time Temp Pulse Resp B/P (MAP) Pulse Ox O2 Delivery O2 Flow Rate FiO2 12/12/17 08:44 95 50 12/12/17 08:00 96.3 79 16 114/78 (90) 96 119/71 (87) 12/12/17 08:00 50 12/12/17 08:00 79 12/12/17 07:45 16 12/12/17 06:35 74 128/79 12/12/17 06:19 74 129/77 12/12/17 06:00 70 12/12/17 04:20 95 50 12/12/17 04:00 63 12/12/17 04:00 92.7 63 16 117/83 (94) 98 122/76 (91) 12/12/17 04:00 50 18 03:55 68 125/77 12/12/17 02:00 55 12/12/17 01:03 94 50 18 00:20 56 114/74 18 00:00 50 18 00:00 65 12/12/17 00:00 91.9 65 16 135/88 (104) 92 138/85 (102) 12/11/17 22:14 54 124/80 18 22:05 97 50 18 22:00 53 18 20:00 55 18 20:00 50 12/11/17 20:00 91.8 55 16 118/86 (97) 94 131/86 (101) 12/11/17 19:30 51 115/72 12/11/17 19:05 93 50 18 18:00 51 18 17:00 59 12/11/17 16:16 92 50 18 16:04 56 112/74 18 16:00 50 18 16:00 54 18 16:00 91.9 54 16 124/82 (96) 92 124/79 (94) 12/11/17 15:00 91.6 54 16 123/79 (94) 94 18 15:00 54 18 14:00 56 18 14:00 91.9 56 16 96/65 (75) 95 12/11/17 13:00 51 18 13:00 91.9 51 16 104/67 (79) 97 18 12:00 91.6 53 16 93/62 (72) 94 18 12:00 50 18 12:00 53 18 11:30 91.9 52 16 90/60 (70) 92 18 11:25 93 50 18 11:00 92.1 55 16 90/62 (71) 94 18 11:00 55 I/O 12/11/1718 18 12/12/17 12/12/17 12/12/17 07:00 15:00 23:00 07:00 15:00 23:00 Intake Total 1612 ml 850 ml 900 ml 1659 ml 302 ml Output Total 500 ml 495 ml 430 ml 210 ml 20 ml Balance 1112 ml 355 ml 470 ml 1449 ml 282 ml Intake IV Total 1612 ml 850 ml 900 ml 1429 ml 302 ml Tube Feeding 230 ml Output Urine Total 500 ml 495 ml 430 ml 210 ml 20 ml # Voids 75 Physical Exam GENERAL: SKIN: Warm and dry. HEAD: Normocephalic. EYES: No scleral icterus. No injection or drainage. NECK: Supple, trachea midline. No JVD or lymphadenopathy. CARDIOVASCULAR: Regular rate and rhythm without murmurs, gallops, or rubs. RESPIRATORY: Breath sounds equal bilaterally. No accessory muscle use. GASTROINTESTINAL: Abdomen soft, non-tender, nondistended. MUSCULOSKELETAL: No cyanosis, or edema. BACK: Nontender without obvious deformity. No CVA tenderness. Laboratory Laboratory Tests Test 12/11/17 13:00 12/11/17 19:45 12/12/17 04:00 Activated Partial Thromboplast Time 66.0 SEC 64.7 SEC 57.6 SEC White Blood Count 12.8 TH/MM3 Red Blood Count 4.56 MIL/MM3 Hemoglobin 13.7 GM/DL Hematocrit 40.3 % Mean Corpuscular Volume 88.5 FL Mean Corpuscular Hemoglobin 30.0 PG Mean Corpuscular Hemoglobin Concent 34.0 % Red Cell Distribution Width 13.8 % Platelet Count 141 TH/MM3 Mean Platelet Volume 8.8 FL Neutrophils (%) (Auto) 85.3 % Lymphocytes (%) (Auto) 10.4 % Monocytes (%) (Auto) 3.5 % Eosinophils (%) (Auto) 0.3 % Basophils (%) (Auto) 0.5 % Neutrophils # (Auto) 11.0 TH/MM3 Lymphocytes # (Auto) 1.3 TH/MM3 Monocytes # (Auto) 0.5 TH/MM3 Eosinophils # (Auto) 0.0 TH/MM3 Basophils # (Auto) 0.1 TH/MM3 CBC Comment DIFF FINAL Differential Comment Blood Urea Nitrogen 14 MG/DL Creatinine 0.78 MG/DL Random Glucose 143 MG/DL Total Protein 6.3 GM/DL Albumin 2.9 GM/DL Calcium Level 7.8 MG/DL Phosphorus Level 3.1 MG/DL Magnesium Level 2.3 MG/DL Alkaline Phosphatase 46 U/L Aspartate Amino Transf (AST/SGOT) 504 U/L Alanine Aminotransferase (ALT/SGPT) 242 U/L Total Bilirubin 0.9 MG/DL Sodium Level 141 MEQ/L Potassium Level 4.4 MEQ/L Chloride Level 112 MEQ/L Carbon Dioxide Level 23.0 MEQ/L Anion Gap 6 MEQ/L Estimat Glomerular Filtration Rate 109 ML/MIN B-Type Natriuretic Peptide 208 PG/ML Assessment and Plan Problem List: (1) STEMI (ST elevation myocardial infarction) ICD Codes: I21.3 - ST elevation (STEMI) myocardial infarction of unspecified site (2) Cocaine abuse ICD Codes: F14.10 - Cocaine abuse, uncomplicated (3) Cardiac arrest ICD Codes: I46.9 - Cardiac arrest, cause unspecified (4) Head trauma ICD Codes: S09.90XA - Unspecified injury of head, initial encounter (5) CVA (cerebral vascular accident) ICD Codes: I63.9 - Cerebral infarction, unspecified (6) Tobacco abuse ICD Codes: Z72.0 - Tobacco use (7) Encephalopathy ICD Codes: G93.40 - Encephalopathy, unspecified Assessment and Plan 1.) s/p cardiac arrest - initial gcs=3, possible acute cva, completed hypothermia protocol, mri results pending, on aspirin, heparin drip, sedation weaning attempt probably today, reported ef@50-55% on echo this am, official report pending, repeat ekg wnl; cath if neurologic prognosis is adequate and patient or surrogate consents, dc tobacco and cocaine Ameya Dubose MD Dec 12, 2017 11:02
--- NOTE | 2017-12-12 11:21 | RADRPT ---
EXAM DATE/TIME: 12/12/2017 10:21 [facility] COMPARISON: CT BRAIN W/O CONTRAST, December 10, 2017, 18:18. INDICATIONS : CVA. MEDICAL HISTORY : None. SURGICAL HISTORY : ORIF right arm. ENCOUNTER: Initial ACUITY: 1 day PAIN SCORE: 0/10 LOCATION: cranial TECHNIQUE: Multiplanar, multisequence MRI of the brain was performed without contrast. FINDINGS: CEREBRUM: The ventricles are normal for age. No evidence of midline shift, mass lesion, hemorrhage or acute in farction. No extraaxial fluid collections are seen. The pituitary gland and suprasellar cistern are normal in configuration. WHITE MATTER: No significant signal abnormalities are seen in the white matter. POSTERIOR FOSSA: The cerebellum and brainstem are intact. The 4th ventricle is midline. The cerebellopontine angle is unremarkable. The cerebellar tonsils are normal in position. DIFFUSION IMAGING: No focal areas of restricted diffusion are seen. No evidence of acute infarction. EXTRACRANIAL: The visualized portions of the orbits and paranasal sinuses are unremarkable. CONCLUSION: Normal examination. Addy Souza MD on December 12, 2017 at 11:18 Board Certified Radiologist. This report was verified electronically.
[2017-12-12] MEDS: NOREPINEPHRINE 4 MG/250 ML NS IV PRN ×2 (11:30)
--- NOTE | 2017-12-12 11:50 | RADRPT ---
EXAM DATE/TIME: 12/12/2017 11:21 [facility] COMPARISON: CHEST SINGLE AP, December 10, 2017, 17:33. INDICATIONS : Shortness of breath. MEDICAL HISTORY : Cardiac arrest SURGICAL HISTORY : None. ENCOUNTER: Subsequent ACUITY: 2 days PAIN SCORE: Non-responsive. LOCATION: Bilateral chest FINDINGS: Portable AP view of the chest demonstrates a normal-sized cardiac silhouette. Endotracheal tube tip i s at the aortic knob level measuring 4.1 cm from the clara a nasogastric tube courses beyond the GE junction. Lungs are mildly underinflated and there are interstitial opacities bilaterally, new since the prior study and there is a retrocardiac/left lower lobe consolidation versus atelectasis. No pneu mothorax or definite pleural effusion is identified. Bones and soft tissues demonstrate no acute find ing. CONCLUSION: 1. There are new bilateral abnormal interstitial opacities. Although nonspecific pulmonary edema coul d have this appearance. 2. There is a new left lower lobe atelectasis versus airspace consolidation. Karsten Figueroa MD on December 12, 2017 at 11:47 Board Certified Radiologist. This report was verified electronically.
[2017-12-12] MEDS ORDERED: FUROSEMIDE 40 MG/4 ML VIAL IV PUSH ONE (12:15)
--- NOTE | 2017-12-12 12:58 | EKG ---
Date Performed: 12/12/2017 Time Performed: 05:05:48 PTAGE: 42 years EKG: Sinus rhythm . Prolonged QT interval Inferior infarct - age undetermined Septal and lateral ST-T changes are nonsp ecific Abnormal ECG No significant change from prior electrocardiogram. DOCTOR: Norris Duong Interpretating Date/Time 12/12/2017 12:57:44
[2017-12-12 14:45] LABS: HEPATITIS A AB IGM NEGATIVE (NEGATIVE); HEPATITIS B CORE AB IGM NEGATIVE (NEGATIVE); HEPATITIS B SURFACE ANTIGEN NEGATIVE (NEGATIVE); HEPATITIS C AB IgG NEGATIVE (NEGATIVE)
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
--- NOTE | 2017-12-12 18:24 | MG ---
cc: BRIGETTE BARRIOS M.D. Lab No: Date: Age: Sex: M Race: Intubated, chest pain, collapsed. Heparin, aspirin. Diffuse 5 Hz, 60 microvolt to 70 microvolt rhythms are noted. Some muscle artifact is seen over the central head region. The recording overall is synchronous and symmetric. Bitemporal muscle artifact is seen throughout much of the recording. At times, some bitemporal 4 Hz slowing is noted. Photic stimulation is performed without significant posterior driving. IMPRESSION: Diffuse slowing consistent with a moderate diffuse encephalopathy. I did not see any epileptiform or seizure activity. No hemisphere asymmetry was noted. MD CYNDY Mckay/ZOLTAN /5:55 PM /6:03 PM
--- NOTE | 2017-12-12 19:59 | ECHRPT ---
Indication: V-FIB CONCLUSIONS The left ventricular systolic function is low normal with an estimated ejection fraction in the rang e of 50- 55%. Normal left ventricular size. Wall thickness is normal. No definite regional wall motion abnorm alities. Mild to moderate calcification of the left coronary cusp of the aortic valve. There is mild tricuspid valve regurgitation. The estimated pulmonary arterial pressure is 49 mmHg. BP: 96 / 69 HR: 60 Rhythm: Sinus MEASUREMENTS (Male / Female) Normal Values Technical Quality:Good 2D ECHO LV Diastolic Diameter PLAX 4.7 cm 4.2 - 5.9 / 3.9 - 5.3 cm LV Systolic Diameter PLAX 3.7 cm IVS Diastolic Thickness 1.0 cm 0.6 - 1.0 / 0.6 - 0.9 cm LVPW Diastolic Thickness 1.1 cm 0.6 - 1.0 / 0.6 - 0.9 cm LV Relative Wall Thickness 0.4 RV Internal Dim ED PLAX 2.9 cm LVOT Diameter 2.0 cm LA Systolic Diameter LX 3.5 cm 3.0 - 4.0 / 2.7 - 3.8 cm LV Ejection Fraction MOD 4C 52.3 % LV Cardiac Index MOD 4C 1291.9 cm/minm LV Ejection Fraction 4C AL 53.8 % LV Cardiac Index 4C AL 1369.6 cm/minm M-MODE Aortic Root Diameter MM 2.8 cm LA Systolic Diameter MM 3.3 cm LA Ao Ratio MM 1.2 AV Cusp Separation MM 1.7 cm DOPPLER AV Peak Velocity 115.0 cm/s AV Peak Gradient 5.3 mmHg LVOT Peak Velocity 86.9 cm/s LVOT Peak Gradient 3.0 mmHg AV Area Cont Eq pk 2.4 cm MV Area PHT 3.7 cm Mitral E Point Velocity 60.7 cm/s Mitral A Point Velocity 74.5 cm/s Mitral E to A Ratio 0.8 LV E' Lateral Velocity 8.6 cm/s Mitral E to LV E' Lateral Ratio 7.1 LV E' Septal Velocity 6.8 cm/s Mitral E to LV E' Septal Ratio 8.9 TR Peak Velocity 314.0 cm/s TR Peak Gradient 39.4 mmHg Right Atrial Pressure 10.0 mmHg Pulmonary Artery Systolic Pressu 49.4 mmHg Right Ventricular Systolic Press 49.4 mmHg PV Peak Velocity 125.0 cm/s PV Peak Gradient 6.3 mmHg FINDINGS LEFT VENTRICLE The left ventricular systolic function is low normal with an estimated ejection fraction in the rang e of 50- 55%. Normal left ventricular size. Wall thickness is normal. No definite regional wall motion abnormalities are present. RIGHT VENTRICLE Normal right ventricular size and systolic function. LEFT ATRIUM The left atrial size is normal. RIGHT ATRIUM The right atrial size is normal. ATRIAL SEPTUM Normal atrial septal thickness without atrial level shunting by limited color doppler interrogation. AORTA The aortic root and proximal ascending aorta are normal in size on limited imaging. MITRAL VALVE Structurally normal mitral valve. No mitral valve stenosis or regurgitation. AORTIC VALVE Trileaflet aortic valve. Calcification of the left coronary cusp. TRICUSPID VALVE Structurally normal tricuspid valve. There is mild tricuspid valve regurgitation. The estimated pulmonary arterial pressure is 49 mmHg. PULMONARY VALVE Trivial pulmonary valve regurgitation. VESSELS The inferior vena cava is normal in size. PERICARDIUM No pericardial effusion. Deng Vázquez MD (Electronically Signed) Final Date:12 December 2017 19:58
[2017-12-13] VITALS (19 sets, daily range): BP systolic 103–133; BP diastolic 53–70; PULSE 76–107; RESP 12–19; TEMP 99.5; O2SAT 99–100
[2017-12-13] MEDS: PROPOFOL 1000 MG/100 ML IV PRN ×5 (01:24→21:35)
[2017-12-13] MEDS: INSULIN NovoLIN REGULAR SUPPLEMENTAL SCALE SQ SCH ×6 (01:45→20:41)
[2017-12-13] MEDS: RESP: ALBUTEROL 2.5 MG/IPRATROPIUM 0.5 MG NEB (SCH) INH ×4 (03:06→20:07)
[2017-12-13] MEDS: CHLORHEXIDINE GLUCONATE 2 % 1 PACK (2 CLOTHS) TOP SCH (03:14)
[2017-12-13] MEDS: PIPERACIL-TAZO 4.5 GM PREMIX 100 ML IV SCH ×4 (03:14→20:41)
[2017-12-13 04:34] LABS: BASOPHIL # 0.1 TH/MM3 (0-0.2); BASOPHIL % 0.5 % (0.0-2.0); EOSINOPHIL % 0.4 % (0.0-4.0); HEMATOCRIT 35.4 % (39.0-51.0); LYMPH % 19.7 % (9.0-44.0); LYMPHOCYTE # 2.2 TH/MM3 (1.0-4.8); MEAN CORPUSCULAR HEMOGLOBIN 29.8 PG (27.0-34.0); MEAN CORPUSCULAR HGB CONC 33.9 % (32.0-36.0); MEAN PLATELET VOLUME 9.3 FL (7.0-11.0); MONO % 7.3 % (0.0-8.0); MONOCYTE # 0.8 TH/MM3 (0-0.9); NEUT % 72.1 % (16.0-70.0); PLATELET COUNT 134 TH/MM3 (150-450); RED BLOOD COUNT 4.02 MIL/MM3 (4.50-5.90); RED CELL DISTRIBUTION WIDTH 13.6 % (11.6-17.2); WHITE BLOOD COUNT 11.1 TH/MM3 (4.0-11.0)
[2017-12-13 04:56] LABS: ALBUMIN 2.5 GM/DL (3.4-5.0); ALT (GPT) 172 U/L (12-78); AST (GOT) 225 U/L (15-37); BICARBONATE 29.5 MEQ/L (21.0-32.0); BLOOD UREA NITROGEN 10 MG/DL (7-18); CHLORIDE 107 MEQ/L (98-107); CREATININE 0.81 MG/DL (0.60-1.30); GLOMERULAR FILTRATION RATE 105 ML/MIN (>89); GLUCOSE,RANDOM 119 MG/DL (74-106); MAGNESIUM 2.1 MG/DL (1.5-2.5); PHOSPHORUS 2.6 MG/DL (2.5-4.9); SODIUM (NA) 145 MEQ/L (136-145)
[2017-12-13 04:58] LABS: ALKALINE PHOSPHATASE 47 U/L (45-117); TOTAL BILIRUBIN ADULT 0.4 MG/DL (0.2-1.0); TOTAL PROTEIN 5.9 GM/DL (6.4-8.2)
[2017-12-13] MEDS: POTASSIUM CHLOR 40 MEQ PREMIX 100 ML IV-CENTRAL PRN (05:21)
[2017-12-13] MEDS: NOREPINEPHRINE 4 MG/250 ML NS IV PRN ×2 (05:22)
[2017-12-13] MEDS: HEPARIN SODIUM - IV 10,000 UNITS/10 ML VIAL IV PRN (06:47)
[2017-12-13] MEDS: CHLORHEXIDINE 0.12% (ORAL KIT) 15 ML CUP MT SCH ×2 (08:00→20:00)
--- NOTE | 2017-12-13 08:23 | HHI.CCPN ---
Subjective Remarks/Hospital Course 42-year-old gentleman brought in by EMS after he apparently had an episode of chest pain after which he clutched his chest an collapsed at home. Patient's called 911 and initiated CPR prior to EMS arriving there. Once EMS arrived they were able to start an IV, intubated the patient and initiated ACLS protocol giving 4 rounds of epi 7 rounds of chest compressions along with 3 separate defibrillations. Initial EKG at the scene showed ST elevation, however the repeat EKG in the emergency department showed no ST elevations. The case was discussed by ED attending with office automation clerk law firm receptionist who recommended hypothermia protocol and conservative management. 12/11 Patient is sedated and intubated. On Levophed, Amio and Nimbex drips. 12/12 Patient remains intubated and sedated with Diprivan in addition he is on Nimbex. Off Levophed and Amio drips. Remains on Heparin drip. 12/13 Patient remains intubated and sedated with Diprivan. Placed on Levophed 3 mics overnight, on heparin drip. T:101.7 last night. Objective Vital Signs Date Time Temp Pulse Resp B/P (MAP) Pulse Ox O2 Delivery O2 Flow Rate FiO2 12/13/17 07:59 100 40 12/13/17 06:00 96 12/13/17 05:22 116/53 12/13/17 04:00 100.6 16 12/10/17 19:45 Ventilator 12/10/17 17:46 15.00 Intake and Output 12/13/17 12/13/17 12/14/17 08:00 16:00 00:00 Intake Total 855 ml Output Total 1100 ml Balance -245 ml Result Diagram: 12/13/17 0310 12/13/17 0310 Other Results Laboratory Tests Test 12/13/17 03:10 White Blood Count 11.1 TH/MM3 Red Blood Count 4.02 MIL/MM3 Hemoglobin 12.0 GM/DL Hematocrit 35.4 % Mean Corpuscular Volume 88.0 FL Mean Corpuscular Hemoglobin 29.8 PG Mean Corpuscular Hemoglobin Concent 33.9 % Red Cell Distribution Width 13.6 % Platelet Count 134 TH/MM3 Mean Platelet Volume 9.3 FL Neutrophils (%) (Auto) 72.1 % Lymphocytes (%) (Auto) 19.7 % Monocytes (%) (Auto) 7.3 % Eosinophils (%) (Auto) 0.4 % Basophils (%) (Auto) 0.5 % Neutrophils # (Auto) 8.0 TH/MM3 Lymphocytes # (Auto) 2.2 TH/MM3 Monocytes # (Auto) 0.8 TH/MM3 Eosinophils # (Auto) 0.0 TH/MM3 Basophils # (Auto) 0.1 TH/MM3 CBC Comment DIFF FINAL Differential Comment Activated Partial Thromboplast Time 32.2 SEC Blood Urea Nitrogen 10 MG/DL Creatinine 0.81 MG/DL Random Glucose 119 MG/DL Total Protein 5.9 GM/DL Albumin 2.5 GM/DL Calcium Level 8.0 MG/DL Phosphorus Level 2.6 MG/DL Magnesium Level 2.1 MG/DL Alkaline Phosphatase 47 U/L Aspartate Amino Transf (AST/SGOT) 225 U/L Alanine Aminotransferase (ALT/SGPT) 172 U/L Total Bilirubin 0.4 MG/DL Sodium Level 145 MEQ/L Potassium Level 3.1 MEQ/L Chloride Level 107 MEQ/L Carbon Dioxide Level 29.5 MEQ/L Anion Gap 9 MEQ/L Estimat Glomerular Filtration Rate 105 ML/MIN Imaging Last Impressions Chest X-Ray 12/12/17 0000 Signed Impressions: Service Date/Time: Tuesday, December 12, 2017 11:21 - CONCLUSION: 1. There are new bilateral abnormal interstitial opacities. Although nonspecific pulmonary edema could have this appearance. 2. There is a new left lower lobe atelectasis versus airspace consolidation. Karsten Figueroa MD Brain MRI 12/12/17 0000 Signed Impressions: Service Date/Time: Tuesday, December 12, 2017 10:21 - CONCLUSION: Normal examination. Addy Souza MD Liver Ultrasound 12/11/17 0000 Signed Impressions: Service Date/Time: November 10:26 - CONCLUSION: Solitary echogenic lesion left lobe liver I suspect a hemangioma. Central venous catheter within the IVC otherwise unremarkable study. Glenn James MD Head CT 12/10/17 [id number] Signed Impressions: Service Date/Time: Sunday, December 10, 2017 18:18 - CONCLUSION: 1. Concern for right-sided nonhemorrhagic cerebral infarction. Jose Glaser Jr., MD Objective Remarks GENERAL: Sedated and intubated SKIN: Warm and dry. HEAD: Atraumatic. Normocephalic. EYES: Pupils equal and briskly reactive to light, ENT: No nasal bleeding or discharge. Mucous membranes pink and moist. NECK: Trachea midline. No JVD....INTUBATED 8-0 AT 24 LIP CARDIOVASCULAR: Regular rate and rhythm. RESPIRATORY: SPONTANEOUSLY BREATHING No accessory muscle use. Clear to auscultation. Breath sounds equal bilaterally. GASTROINTESTINAL: Abdomen soft, non-tender, nondistended. Hepatic and splenic margins not palpable. MUSCULOSKELETAL: Extremities without clubbing, cyanosis, or edema. No obvious deformities. NEUROLOGICAL: Sedated and intubated. No obvious cranial nerve deficits. Motor localizes to pain on all 4 extremities. Five out of 5 muscle strength in the arms and legs. A/P Assessment and Plan VDRF s/p V. fib arrest outside the hospital Hyperglycemia Non-STEMI ? Acute CVA on a CT Elevated LFT's Leukocytosis Plan Neuro: On Diprivan infusion for sedation. Off Nimbex, daily sedation vacation CT brain showed non hemorrhagic cerebral infarction. MRI brain 12/12: within normal, neuro is following-Dr. Vasquez EEG: moderate diffuse encephalopathy, no seizure activity Pulm: Continue with vent support keep sat >92% Bronchodilators, ICU vent bundle. CV: Wean off Levophed Monitor HR and BP keep MAP>65mmHg s/p Hypothermia protocol. Cards is following- Dr. Dubose. Echo showed EF 50-55% If patient recovers neurologically might be a candidate for cardiac cath per cards. Continue with Heparin drip. Monitor PTT. On ASA. : Monitor renal function, I/O's, electrolytes replacement per protocol. Will need K replacement today GI: On Pepcid for GI prophylaxis Monitor LFT's,Hepatitis profile negative US liver: Solitary echogenic lesion left lobe liver I suspect a hemangioma. On Glucerna 1.5 with goal rate 45ml/hr ID: Continue Zosyn, add Vanco . Panculture ( Blood, sputum, UA with cx if indicated) Blood, sputum 12/11: NGTD, urine cx: 12/10: No growth Heme: Monitor CBC, coags- on Heparin drip Endo: SSI for glycemic control GI prophylaxis- on Pepcid DVT prophylaxis- On Heparin drip. Lines: Right Femoral line placed 12/11 Palliative care eval to asses with goals of care CCT 30 mins Emily,Alaa MD Dec 13, 2017 08:23
[2017-12-13] MEDS ORDERED: VANCOMYCIN 1 GM/200 ML INJ 200 ML IV SCH (08:30)
[2017-12-13] MEDS: VANCOMYCIN 1,000 MG/NS 250 ML IV SCH ×4 (08:50→20:38)
[2017-12-13] MEDS: DOCUSATE SODIUM 50 MG/SENNA 8.6 MG TAB PO SCH ×2 (08:50→20:38)
[2017-12-13] MEDS: ASPIRIN 81 MG CHEW TAB CHEW SCH (08:50)
[2017-12-13] MEDS: FAMOTIDINE 20 MG/2 ML VIAL IV PUSH SCH ×2 (09:00→20:38)
--- NOTE | 2017-12-13 09:00 | PD.CARD.PN ---
Subjective Subjective Remarks intubated, sedated, nurse, Nilesh, reports patient not following commands and posturing off sedation this am Objective Medications Current Medications Medications (Trade) Dose Ordered Sig/Yuri Route Start Time Stop Time Status Last Admin (Brethine Inj) 1 mg UNSCH PRN SQ 12/10/17 17:45 (Tylenol) 650 mg Q6H PRN PO 12/10/17 20:30 12/12/17 20:42 (Pepcid Inj) 20 mg Q12HR IV PUSH 12/10/17 21:00 12/12/17 20:22 (Versed Inj) 2 mg Q1H PRN IV PUSH 12/10/17 20:30 12/12/17 11:17 (Zofran Inj) 4 mg Q6H PRN IV PUSH 12/10/17 20:30 (Duoneb Neb) 1 ampule Q6HR NEB INH 12/10/17 22:00 12/13/17 08:02 (Duoneb Neb) 1 ampule Q2HR NEB PRN INH 12/10/17 20:30 Miscellaneous Information 1 Q361D XX 12/10/17 20:30 12/10/17 20:30 (Chlorhexidine 2% Cloth) 3 pack Taper DAILY@04 TOP 12/11/17 04:00 12/07/18 03:59 12/13/17 03:14 (Chlorhexidine 2% Cloth) 3 pack UNSCH PRN TOP 12/10/17 20:30 (Chelsea-Colace) 1 tab BID PO 12/10/17 21:00 12/13/17 08:50 (Milk Of Magnesia Liq) 30 ml Q12H PRN PO 12/10/17 20:30 (Senokot) 17.2 mg Q12H PRN PO 12/10/17 20:30 (Dulcolax Supp) 10 mg DAILY PRN RECTAL 12/10/17 20:30 (Lactulose Liq) 30 ml DAILY PRN PO 12/10/17 20:30 (Peridex 0.12% Liq) 15 ml BID@08,20 MT 12/11/17 08:00 12/12/17 20:23 (Heparin Inj) 2,500 units UNSCH PRN IV 12/11/17 03:00 12/13/17 06:47 Potassium Chloride 100 ml @ 50 mls/hr Q2H PRN IV-CENTRAL 12/10/17 21:45 12/13/17 05:21 Potassium Chloride 100 ml @ 50 mls/hr Q2H PRN IV 12/10/17 21:45 (K-Lyte Cl Eff) 50 meq UNSCH PRN PO 12/10/17 21:45 Potassium Chloride 100 ml @ 25 mls/hr UNSCH PRN IV-CENTRAL 12/10/17 21:45 Potassium Chloride 100 ml @ 50 mls/hr Q2H PRN IV 12/10/17 21:45 Magnesium Sulfate 4 gm/Sodium Chloride 100 ml @ 50 mls/hr UNSCH PRN IV 12/10/17 21:45 (Mag-Ox) 800 mg UNSCH PRN PO 12/10/17 21:45 Magnesium Sulfate 2 gm/Sodium Chloride 100 ml @ 50 mls/hr UNSCH PRN IV 12/10/17 21:45 (K-Phos) 2,000 mg Q4H PRN PO 12/10/17 21:45 Sodium Phosphate 30 mmol/Sodium Chloride 250 ml @ 42 mls/hr UNSCH PRN IV 12/10/17 21:45 (K-Phos) 2,000 mg UNSCH PRN PO/TUBE 12/10/17 21:45 Potassium Phosphate 30 mmol/ Sodium Chloride 260 ml @ 42 mls/hr UNSCH PRN IV 12/10/17 21:45 (Heparin Inj) 5,000 units UNSCH PRN IV 12/10/17 23:00 12/10/17 23:13 Heparin Sodium (Porcine) 87511 units/Sodium Chloride 250 ml @ 10 mls/hr TITRATE PRN IV 12/10/17 23:00 12/11/17 22:40 (Ativan Inj) 1 mg Q1H PRN IV PUSH 12/10/17 23:30 (fentaNYL INJ) 50 mcg Q1H PRN IV PUSH 12/10/17 23:30 12/12/17 11:17 Miscellaneous Information ml @ 0 mls/hr UNSCH IV 12/10/17 23:30 (NS Flush) 2 ml UNSCH PRN IV FLUSH 12/10/17 23:30 (NS Flush) 2 ml UNSCH PRN IV FLUSH 12/10/17 23:30 (Demerol Inj) 25 mg Q2H PRN IV PUSH 12/10/17 23:30 1/18/18 08:48 (Lacrilube Opht Oint) 1 applic Q4H PRN EACH EYE 12/10/17 23:30 12/11/17 22:10 Norepinephrine Bitartrate 4 mg/ Sodium Chloride 250 ml @ 7.5 mls/hr Q24H PRN IV 12/10/17 23:30 12/13/17 05:22 Cisatracurium Besylate 100 mg/ Sodium Chloride 250 ml @ 44.55 mls/ hr TITRATE PRN IV 12/10/17 23:45 12/12/17 08:22 (Aspirin Chew) 81 mg DAILY CHEW 12/12/17 09:00 12/13/17 08:50 Piperacillin Sod/ Tazobactam Sod 100 ml @ 200 mls/hr Q6H IV 12/11/17 10:00 12/13/17 08:51 (D50w (Vial) Inj) 50 ml UNSCH PRN IV PUSH 12/11/17 09:45 (Glucagon Inj) 1 mg UNSCH PRN OTHER 12/11/17 09:45 (NovoLIN R SUPPLEMENTAL SCALE) 1 Q4H SQ 12/11/17 09:45 Propofol 100 ml @ 2.7 mls/hr TITRATE PRN IV 12/12/17 23:45 12/13/17 06:31 Vancomycin HCl 1000 mg/Sodium Chloride 250 ml @ 250 mls/hr Q12H IV 12/13/17 09:00 12/13/17 08:50 Vital Signs / I&O Vital Signs Date Time Temp Pulse Resp B/P (MAP) Pulse Ox O2 Delivery O2 Flow Rate FiO2 12/13/17 07:59 100 40 12/13/17 06:00 96 12/13/17 05:22 81 116/53 12/13/17 04:10 100 50 12/13/17 04:00 91 12/13/17 04:00 100.6 91 16 111/63 (79) 100 128/59 (82) 12/13/17 04:00 50 12/13/17 02:00 81 12/13/17 01:09 100 50 12/13/17 00:00 79 12/13/17 00:00 50 12/13/17 00:00 100.4 79 19 103/57 (72) 100 110/53 (72) 12/13/17 00:00 79 110/53 12/12/17 22:02 98 50 12/12/17 22:00 126 12/12/17 21:45 19 12/12/17 20:00 101.7 86 21 95/50 (65) 100 115/56 (75) 12/12/17 20:00 60 12/12/17 20:00 86 12/12/17 19:07 100 60 12/12/17 18:19 109 103/58 12/12/17 18:00 121 12/12/17 17:17 112 121/67 12/12/17 16:00 123 12/12/17 16:00 60 12/12/17 16:00 102.2 123 28 121/76 (91) 100 132/74 (93) 12/12/17 15:50 100 60 12/12/17 14:30 118 142/67 12/12/17 14:00 98 12/12/17 12:27 26 12/12/17 12:15 91 108/60 12/12/17 12:11 94 60 12/12/17 12:00 89 12/12/17 12:00 98.8 89 21 115/82 (93) 96 96/55 (69) 12/12/17 12:00 60 12/12/17 11:45 84 98/60 12/12/17 11:40 86 87/51 12/12/17 11:35 83 86/49 12/12/17 11:30 50 12/12/17 11:30 84 73/41 12/12/17 10:30 100 12/12/17 10:00 98 I/O 12/12/17 12/12/17 12/12/17 12/13/17 12/13/17 12/13/17 07:00 15:00 23:00 07:00 15:00 23:00 Intake Total 1659 ml 402 ml 731 ml 855 ml Output Total 210 ml 90 ml 3100 ml 1100 ml Balance 1449 ml 312 ml -2369 ml -245 ml Intake IV Total 1429 ml 402 ml 512 ml 458 ml Tube Feeding 230 ml 99 ml 397 ml Tube Irrigant 120 ml Output Urine Total 210 ml 90 ml 3100 ml 1100 ml # Voids 75 # Bowel Movements 0 Physical Exam GENERAL: SKIN: Warm and dry. HEAD: Normocephalic. EYES: No scleral icterus. No injection or drainage. NECK: Supple, trachea midline. No JVD or lymphadenopathy. CARDIOVASCULAR: Regular rate and rhythm without murmurs, gallops, or rubs. RESPIRATORY: Breath sounds equal bilaterally. No accessory muscle use. GASTROINTESTINAL: Abdomen soft, non-tender, nondistended. MUSCULOSKELETAL: No cyanosis, or edema. BACK: Nontender without obvious deformity. No CVA tenderness. Laboratory Laboratory Tests Test 12/13/17 03:10 White Blood Count 11.1 TH/MM3 Red Blood Count 4.02 MIL/MM3 Hemoglobin 12.0 GM/DL Hematocrit 35.4 % Mean Corpuscular Volume 88.0 FL Mean Corpuscular Hemoglobin 29.8 PG Mean Corpuscular Hemoglobin Concent 33.9 % Red Cell Distribution Width 13.6 % Platelet Count 134 TH/MM3 Mean Platelet Volume 9.3 FL Neutrophils (%) (Auto) 72.1 % Lymphocytes (%) (Auto) 19.7 % Monocytes (%) (Auto) 7.3 % Eosinophils (%) (Auto) 0.4 % Basophils (%) (Auto) 0.5 % Neutrophils # (Auto) 8.0 TH/MM3 Lymphocytes # (Auto) 2.2 TH/MM3 Monocytes # (Auto) 0.8 TH/MM3 Eosinophils # (Auto) 0.0 TH/MM3 Basophils # (Auto) 0.1 TH/MM3 CBC Comment DIFF FINAL Differential Comment Activated Partial Thromboplast Time 32.2 SEC Blood Urea Nitrogen 10 MG/DL Creatinine 0.81 MG/DL Random Glucose 119 MG/DL Total Protein 5.9 GM/DL Albumin 2.5 GM/DL Calcium Level 8.0 MG/DL Phosphorus Level 2.6 MG/DL Magnesium Level 2.1 MG/DL Alkaline Phosphatase 47 U/L Aspartate Amino Transf (AST/SGOT) 225 U/L Alanine Aminotransferase (ALT/SGPT) 172 U/L Total Bilirubin 0.4 MG/DL Sodium Level 145 MEQ/L Potassium Level 3.1 MEQ/L Chloride Level 107 MEQ/L Carbon Dioxide Level 29.5 MEQ/L Anion Gap 9 MEQ/L Estimat Glomerular Filtration Rate 105 ML/MIN Assessment and Plan Problem List: (1) STEMI (ST elevation myocardial infarction) ICD Codes: I21.3 - ST elevation (STEMI) myocardial infarction of unspecified site (2) Cocaine abuse ICD Codes: F14.10 - Cocaine abuse, uncomplicated (3) Cardiac arrest ICD Codes: I46.9 - Cardiac arrest, cause unspecified (4) Head trauma ICD Codes: S09.90XA - Unspecified injury of head, initial encounter (5) CVA (cerebral vascular accident) ICD Codes: I63.9 - Cerebral infarction, unspecified (6) Tobacco abuse ICD Codes: Z72.0 - Tobacco use (7) Encephalopathy ICD Codes: G93.40 - Encephalopathy, unspecified Assessment and Plan 1.) s/p cardiac arrest - initial gcs=3, possible acute cva, completed hypothermia protocol, mri brain wnl, on aspirin, heparin drip, failed sedation weaning attempt 12/12/17, 12/13/17, reported ef@50-55% on ech, official report pending, repeat ekg wnl; cath if neurologic prognosis is adequate and patient or surrogate consents, dc tobacco and cocaine; palliative care following, eeg c/ w moderate encephalopathy, prognosis appears poor; off pressors Ameya Dubose MD Dec 13, 2017 09:00
[2017-12-13] MEDS: HEPARIN INJ 25,000 UNITS in SODIUM CHLOR 0.9% 250 ML INJ 247.5 ML IV PRN (10:46)
[2017-12-13 19:23] LABS: BILIRUBIN, URINE NEG (NEG); BLOOD, URINE SMALL (NEG); GLUCOSE,URINE NEG (NEG); KETONE, URINE TRACE mg/dL (NEG); NITRITE,URINE NEG (NEG); PH, URINE 8.5 (5.0-8.5); SQUAMOUS EPITHELIAL CELL URINE <1 /hpf (0-5); URINE COLOR YELLOW (YELLW/STRAW); URINE LEUKOCYTE ESTERASE NEG (NEG)
[2017-12-13] MEDS: DEXMEDETOMIDINE INJ 400 MCG in SODIUM CHLORIDE 0.9% INJ 100 ML IV PRN (23:16)
[2017-12-13] MEDS ORDERED: LORazepam 2 MG/ML VIAL ONE (23:37)
[2017-12-13] MEDS ORDERED: LORazepam 2 MG/ML VIAL IV ONE (23:45)
[2017-12-14] VITALS (18 sets, daily range): BP systolic 85–143; BP diastolic 48–79; PULSE 66–129; RESP 14–24; O2SAT 86–100
[2017-12-14] MEDS: INSULIN NovoLIN REGULAR SUPPLEMENTAL SCALE SQ SCH ×6 (01:45→20:49)
[2017-12-14] MEDS: RESP: ALBUTEROL 2.5 MG/IPRATROPIUM 0.5 MG NEB (SCH) INH ×4 (03:25→19:48)
[2017-12-14] MEDS: CHLORHEXIDINE GLUCONATE 2 % 1 PACK (2 CLOTHS) TOP SCH (04:00)
[2017-12-14] MEDS: PIPERACIL-TAZO 4.5 GM PREMIX 100 ML IV SCH ×4 (04:45→20:49)
[2017-12-14 05:31] LABS: AUTOMATED NEUTROPHIL # 8.1 TH/MM3 (1.8-7.7); BASOPHIL % 0.3 % (0.0-2.0); EOSINOPHIL # 0.2 TH/MM3 (0-0.4); EOSINOPHIL % 1.4 % (0.0-4.0); HEMATOCRIT 32.4 % (39.0-51.0); HEMOGLOBIN 10.8 GM/DL (13.0-17.0); LYMPH % 14.8 % (9.0-44.0); LYMPHOCYTE # 1.6 TH/MM3 (1.0-4.8); MEAN CELL VOLUME 88.9 FL (80.0-100.0); MEAN CORPUSCULAR HEMOGLOBIN 29.6 PG (27.0-34.0); MEAN CORPUSCULAR HGB CONC 33.3 % (32.0-36.0); MEAN PLATELET VOLUME 8.9 FL (7.0-11.0); MONO % 7.5 % (0.0-8.0); MONOCYTE # 0.8 TH/MM3 (0-0.9); PLATELET COUNT 118 TH/MM3 (150-450); RED BLOOD COUNT 3.65 MIL/MM3 (4.50-5.90); RED CELL DISTRIBUTION WIDTH 13.6 % (11.6-17.2); WHITE BLOOD COUNT 10.7 TH/MM3 (4.0-11.0)
[2017-12-14 05:46] LABS: ALBUMIN 2.5 GM/DL (3.4-5.0); AST (GOT) 141 U/L (15-37); BLOOD UREA NITROGEN 11 MG/DL (7-18); CALCIUM 8.7 MG/DL (8.5-10.1); CHLORIDE 109 MEQ/L (98-107); CREATININE 0.83 MG/DL (0.60-1.30); GLOMERULAR FILTRATION RATE 102 ML/MIN (>89); GLUCOSE,RANDOM 114 MG/DL (74-106); MAGNESIUM 2.1 MG/DL (1.5-2.5); SODIUM (NA) 144 MEQ/L (136-145)
[2017-12-14 05:49] LABS: ALKALINE PHOSPHATASE 42 U/L (45-117); ALT (GPT) 140 U/L (12-78); PHOSPHORUS 2.7 MG/DL (2.5-4.9); TOTAL BILIRUBIN ADULT 0.4 MG/DL (0.2-1.0); TOTAL PROTEIN 6.2 GM/DL (6.4-8.2)
[2017-12-14] MEDS ORDERED: SODIUM BICARBONATE 8.4% INJ 50 ML ONE (07:06)
[2017-12-14] MEDS ORDERED: CALCIUM CHLORIDE 10% SOLN 1 GRAM/10 ML SYR ONE (07:07)
[2017-12-14] MEDS ORDERED: CALCIUM GLUCONATE 10% 1 GM/10 ML VIAL ONE (07:07)
--- NOTE | 2017-12-14 07:48 | HHI.CCPN ---
Subjective Remarks/Hospital Course 42-year-old gentleman brought in by EMS after he apparently had an episode of chest pain after which he clutched his chest an collapsed at home. Patient's called 911 and initiated CPR prior to EMS arriving there. Once EMS arrived they were able to start an IV, intubated the patient and initiated ACLS protocol giving 4 rounds of epi 7 rounds of chest compressions along with 3 separate defibrillations. Initial EKG at the scene showed ST elevation, however the repeat EKG in the emergency department showed no ST elevations. The case was discussed by ED attending with siding mechanic skin lap bonder who recommended hypothermia protocol and conservative management. 12/11 Patient is sedated and intubated. On Levophed, Amio and Nimbex drips. 12/12 Patient remains intubated and sedated with Diprivan in addition he is on Nimbex. Off Levophed and Amio drips. Remains on Heparin drip. 12/13 Patient remains intubated and sedated with Diprivan. Placed on Levophed 3 mics overnight, on heparin drip. T:101.7 last night. 12/14 No events overnight. Off Levophed. Afebrile. Off Diprivan placed on Precedex drip overnight. T:101.1 Objective Vital Signs Date Time Temp Pulse Resp B/P (MAP) Pulse Ox O2 Delivery O2 Flow Rate FiO2 12/14/17 07:16 100 40 12/14/17 06:00 92 12/14/17 04:00 100.2 20 109/58 (75) 111/53 (72) 12/10/17 19:45 Ventilator 12/10/17 17:46 15.00 Intake and Output 12/14/17 12/14/17 12/15/17 08:00 16:00 00:00 Intake Total 100 ml Output Total 900 ml Balance -800 ml Result Diagram: 12/14/17 0455 12/14/17 0455 Other Results Laboratory Tests Test 12/13/17 13:20 12/13/17 18:40 12/13/17 21:31 12/14/17 04:55 Activated Partial Thromboplast Time 40.1 SEC 27.6 SEC Urine Color YELLOW Urine Turbidity HAZY Urine pH 8.5 Urine Specific [place] 1.034 Urine Protein 30 mg/dL Urine Glucose (UA) NEG mg/dL Urine Ketones TRACE mg/dL Urine Occult Blood SMALL Urine Nitrite NEG Urine Bilirubin NEG Urine Urobilinogen LESS THAN 2.0 MG/DL Urine Leukocyte Esterase NEG Urine RBC 1 /hpf Urine WBC 1 /hpf Urine Squamous Epithelial Cells <1 /hpf Microscopic Urinalysis Comment CATH-CULT NOT IND Potassium Level 3.5 MEQ/L 3.5 MEQ/L White Blood Count 10.7 TH/MM3 Red Blood Count 3.65 MIL/MM3 Hemoglobin 10.8 GM/DL Hematocrit 32.4 % Mean Corpuscular Volume 88.9 FL Mean Corpuscular Hemoglobin 29.6 PG Mean Corpuscular Hemoglobin Concent 33.3 % Red Cell Distribution Width 13.6 % Platelet Count 118 TH/MM3 Mean Platelet Volume 8.9 FL Neutrophils (%) (Auto) 76.0 % Lymphocytes (%) (Auto) 14.8 % Monocytes (%) (Auto) 7.5 % Eosinophils (%) (Auto) 1.4 % Basophils (%) (Auto) 0.3 % Neutrophils # (Auto) 8.1 TH/MM3 Lymphocytes # (Auto) 1.6 TH/MM3 Monocytes # (Auto) 0.8 TH/MM3 Eosinophils # (Auto) 0.2 TH/MM3 Basophils # (Auto) 0.0 TH/MM3 CBC Comment DIFF FINAL Differential Comment Blood Urea Nitrogen 11 MG/DL Creatinine 0.83 MG/DL Random Glucose 114 MG/DL Total Protein 6.2 GM/DL Albumin 2.5 GM/DL Calcium Level 8.7 MG/DL Phosphorus Level 2.7 MG/DL Magnesium Level 2.1 MG/DL Alkaline Phosphatase 42 U/L Aspartate Amino Transf (AST/SGOT) 141 U/L Alanine Aminotransferase (ALT/SGPT) 140 U/L Total Bilirubin 0.4 MG/DL Sodium Level 144 MEQ/L Chloride Level 109 MEQ/L Carbon Dioxide Level 28.0 MEQ/L Anion Gap 7 MEQ/L Estimat Glomerular Filtration Rate 102 ML/MIN Imaging Last Impressions Chest X-Ray 12/12/17 0000 Signed Impressions: Service Date/Time: Tuesday, December 12, 2017 11:21 - CONCLUSION: 1. There are new bilateral abnormal interstitial opacities. Although nonspecific pulmonary edema could have this appearance. 2. There is a new left lower lobe atelectasis versus airspace consolidation. Karsten Figueroa MD Brain MRI 12/12/17 0000 Signed Impressions: Service Date/Time: Tuesday, December 12, 2017 10:21 - CONCLUSION: Normal examination. Addy Souza MD Liver Ultrasound 12/11/17 0000 Signed Impressions: Service Date/Time: November 10:26 - CONCLUSION: Solitary echogenic lesion left lobe liver I suspect a hemangioma. Central venous catheter within the IVC otherwise unremarkable study. Glenn James MD Head CT 12/10/17 1714 Signed Impressions: Service Date/Time: Sunday, December 10, 2017 18:18 - CONCLUSION: 1. Concern for right-sided nonhemorrhagic cerebral infarction. Jose Glaser Jr., MD Objective Remarks GENERAL: Sedated and intubated SKIN: Warm and dry. HEAD: Atraumatic. Normocephalic. EYES: Pupils equal and briskly reactive to light, ENT: No nasal bleeding or discharge. Mucous membranes pink and moist. NECK: Trachea midline. No JVD....INTUBATED 8-0 AT 24 LIP CARDIOVASCULAR: Regular rate and rhythm. RESPIRATORY: SPONTANEOUSLY BREATHING No accessory muscle use. Clear to auscultation. Breath sounds equal bilaterally. GASTROINTESTINAL: Abdomen soft, non-tender, nondistended. Hepatic and splenic margins not palpable. MUSCULOSKELETAL: Extremities without clubbing, cyanosis, or edema. No obvious deformities. NEUROLOGICAL: Sedated and intubated. No obvious cranial nerve deficits. Motor localizes to pain on all 4 extremities. Five out of 5 muscle strength in the arms and legs. A/P Assessment and Plan VDRF s/p V. fib arrest outside the hospital Hyperglycemia Non-STEMI ? Acute CVA on a CT Elevated LFT's Leukocytosis Plan Neuro: Off Diprivan , on Precedex drip ,daily sedation vacation CT brain showed non hemorrhagic cerebral infarction. MRI brain 12/12: within normal, neuro is following-Dr. Vasquez EEG: moderate diffuse encephalopathy, no seizure activity Pulm: Continue with vent support keep sat >92% Bronchodilators, ICU vent bundle. CV: Off Levophed Monitor HR and BP keep MAP>65mmHg s/p Hypothermia protocol. Cards is following- Dr. Dubose. Echo showed EF 50-55% If patient recovers neurologically might be a candidate for cardiac cath per cards. Continue with Heparin drip. Monitor PTT. On ASA. : Monitor renal function, I/O's, electrolytes replacement per protocol. GI: On Pepcid for GI prophylaxis Monitor LFT's,Hepatitis profile negative US liver: Solitary echogenic lesion left lobe liver I suspect a hemangioma. On Glucerna 1.5 with goal rate 45ml/hr ID: Continue Zosyn, Vanco . Pancultured 12/13 ( Blood, sputum) ID eval Blood, sputum 12/11: NGTD, urine cx: 12/10: No growth Sputum cx: Group A beta strep. Heme: Monitor CBC, coags- on Heparin drip Endo: SSI for glycemic control GI prophylaxis- on Pepcid DVT prophylaxis- On Heparin drip. Lines: Right Femoral line placed 12/11 Palliative care is following CCT 30 mins Kayleen Diaz MD Dec 14, 2017 07:48
[2017-12-14] MEDS: CHLORHEXIDINE 0.12% (ORAL KIT) 15 ML CUP MT SCH ×2 (08:00→20:00)
[2017-12-14] MEDS: FAMOTIDINE 20 MG/2 ML VIAL IV PUSH SCH ×2 (08:03→20:49)
[2017-12-14] MEDS: LORazepam 2 MG/ML VIAL IV PUSH PRN ×3 (08:03→22:07)
[2017-12-14] MEDS: VANCOMYCIN 1,000 MG/NS 250 ML IV SCH ×4 (08:04→20:48)
[2017-12-14] MEDS: DOCUSATE SODIUM 50 MG/SENNA 8.6 MG TAB PO SCH ×2 (09:00→20:49)
--- NOTE | 2017-12-14 10:58 | PD.CARD.PN ---
Subjective Subjective Remarks intubated, sedated, nurse, Nilesh, reports patient beginning to possibly be following some commands off sedation this am according to nurseNilesh Objective Medications Current Medications Medications (Trade) Dose Ordered Sig/Yuri Route Start Time Stop Time Status Last Admin (Brethine Inj) 1 mg UNSCH PRN SQ 12/10/17 17:45 (Tylenol) 650 mg Q6H PRN PO 12/10/17 20:30 12/12/17 20:42 (Pepcid Inj) 20 mg Q12HR IV PUSH 12/10/17 21:00 12/14/17 08:03 (Versed Inj) 2 mg Q1H PRN IV PUSH 12/10/17 20:30 12/12/17 11:17 (Zofran Inj) 4 mg Q6H PRN IV PUSH 12/10/17 20:30 (Duoneb Neb) 1 ampule Q6HR NEB INH 12/10/17 22:00 12/14/17 07:26 (Duoneb Neb) 1 ampule Q2HR NEB PRN INH 12/10/17 20:30 Miscellaneous Information 1 Q361D XX 12/10/17 20:30 12/10/17 20:30 (Chlorhexidine 2% Cloth) 3 pack Taper DAILY@04 TOP 12/11/17 04:00 12/07/18 03:59 12/14/17 04:00 (Chlorhexidine 2% Cloth) 3 pack UNSCH PRN TOP 12/10/17 20:30 ([place]-Colace) 1 tab BID PO 12/10/17 21:00 12/13/17 08:50 (Milk Of Magnesia Liq) 30 ml Q12H PRN PO 12/10/17 20:30 (Senokot) 17.2 mg Q12H PRN PO 12/10/17 20:30 (Dulcolax Supp) 10 mg DAILY PRN RECTAL 12/10/17 20:30 (Lactulose Liq) 30 ml DAILY PRN PO 12/10/17 20:30 (Peridex 0.12% Liq) 15 ml BID@08,20 MT 12/11/17 08:00 12/14/17 08:00 (Heparin Inj) 2,500 units UNSCH PRN IV 12/11/17 03:00 12/13/17 06:47 Potassium Chloride 100 ml @ 50 mls/hr Q2H PRN IV-CENTRAL 12/10/17 21:45 12/13/17 05:21 Potassium Chloride 100 ml @ 50 mls/hr Q2H PRN IV 12/10/17 21:45 (K-Lyte Cl Eff) 50 meq UNSCH PRN PO 12/10/17 21:45 Potassium Chloride 100 ml @ 25 mls/hr UNSCH PRN IV-CENTRAL 12/10/17 21:45 Potassium Chloride 100 ml @ 50 mls/hr Q2H PRN IV 12/10/17 21:45 Magnesium Sulfate 4 gm/Sodium Chloride 100 ml @ 50 mls/hr UNSCH PRN IV 12/10/17 21:45 (Mag-Ox) 800 mg UNSCH PRN PO 12/10/17 21:45 Magnesium Sulfate 2 gm/Sodium Chloride 100 ml @ 50 mls/hr UNSCH PRN IV 12/10/17 21:45 (K-Phos) 2,000 mg Q4H PRN PO 12/10/17 21:45 Sodium Phosphate 30 mmol/Sodium Chloride 250 ml @ 42 mls/hr UNSCH PRN IV 12/10/17 21:45 (K-Phos) 2,000 mg UNSCH PRN PO/TUBE 12/10/17 21:45 Potassium Phosphate 30 mmol/ Sodium Chloride 260 ml @ 42 mls/hr UNSCH PRN IV 12/10/17 21:45 (Heparin Inj) 5,000 units UNSCH PRN IV 12/10/17 23:00 12/10/17 23:13 Heparin Sodium (Porcine) 91511 units/Sodium Chloride 250 ml @ 10 mls/hr TITRATE PRN IV 12/10/17 23:00 12/13/17 10:46 (Ativan Inj) 1 mg Q1H PRN IV PUSH 12/10/17 23:30 12/14/17 08:03 (fentaNYL INJ) 50 mcg Q1H PRN IV PUSH 12/10/17 23:30 12/12/17 11:17 Miscellaneous Information ml @ 0 mls/hr UNSCH IV 12/10/17 23:30 (NS Flush) 2 ml UNSCH PRN IV FLUSH 12/10/17 23:30 (NS Flush) 2 ml UNSCH PRN IV FLUSH 12/10/17 23:30 (Demerol Inj) 25 mg Q2H PRN IV PUSH 12/10/17 23:30 12/11/17 08:48 (Lacrilube Opht Oint) 1 applic Q4H PRN EACH EYE 12/10/17 23:30 12/11/17 22:10 (Aspirin Chew) 81 mg DAILY CHEW 12/12/17 09:00 12/13/17 08:50 Piperacillin Sod/ Tazobactam Sod 100 ml @ 200 mls/hr Q6H IV 12/11/17 10:00 12/14/17 04:45 (D50w (Vial) Inj) 50 ml UNSCH PRN IV PUSH 12/11/17 09:45 (Glucagon Inj) 1 mg UNSCH PRN OTHER 12/11/17 09:45 (NovoLIN R SUPPLEMENTAL SCALE) 1 Q4H SQ 12/11/17 09:45 Vancomycin HCl 1000 mg/Sodium Chloride 250 ml @ 250 mls/hr Q12H IV 12/13/17 09:00 12/14/17 08:04 Dexmedetomidine HCl 400 mcg/ Sodium Chloride 104 ml @ 0 mls/hr TITRATE PRN IV 12/13/17 22:30 12/13/17 23:16 Vital Signs / I&O Vital Signs Date Time Temp Pulse Resp B/P (MAP) Pulse Ox O2 Delivery O2 Flow Rate FiO2 12/14/17 07:16 100 40 12/14/17 06:00 92 12/14/17 04:06 100 40 12/14/17 04:00 101 12/14/17 04:00 40 12/14/17 04:00 100.2 101 20 109/58 (75) 91 111/53 (72) 12/14/17 02:00 105 12/14/17 00:00 101.1 129 21 143/73 (96) 89 129/79 (96) 12/14/17 00:00 129 12/14/17 00:00 40 12/13/17 22:30 100 40 12/13/17 22:00 107 12/13/17 20:07 100 40 12/13/17 20:00 40 12/13/17 20:00 107 12/13/17 20:00 100.6 107 12 116/70 (85) 99 118/66 (83) 12/13/17 18:00 86 12/13/17 16:00 40 12/13/17 16:00 86 12/13/17 16:00 99.5 76 16 105/57 (73) 100 12/13/17 15:48 100 40 12/13/17 14:00 86 12/13/17 12:00 40 12/13/17 12:00 40 12/13/17 12:00 86 12/13/17 12:00 100.2 98 16 108/66 (80) 100 133/66 (88) 12/13/17 11:45 100 40 I/O 12/13/17 12/13/17 12/13/17 12/14/17 12/14/17 12/14/17 07:00 15:00 23:00 07:00 15:00 23:00 Intake Total 855 ml 969 ml 100 ml Output Total 1100 ml 1700 ml 900 ml Balance -245 ml -731 ml -800 ml Intake IV Total 458 ml 200 ml 100 ml Tube Feeding 397 ml 569 ml Other 200 ml Output Urine Total 1100 ml 1700 ml 900 ml # Bowel Movements 2 2 Physical Exam GENERAL: SKIN: Warm and dry. HEAD: Normocephalic. EYES: No scleral icterus. No injection or drainage. NECK: Supple, trachea midline. No JVD or lymphadenopathy. CARDIOVASCULAR: Regular rate and rhythm without murmurs, gallops, or rubs. RESPIRATORY: Breath sounds equal bilaterally. No accessory muscle use. GASTROINTESTINAL: Abdomen soft, non-tender, nondistended. MUSCULOSKELETAL: No cyanosis, or edema. BACK: Nontender without obvious deformity. No CVA tenderness. Laboratory Laboratory Tests Test 12/13/17 13:20 12/13/17 18:40 12/13/17 21:31 12/14/17 04:55 Activated Partial Thromboplast Time 40.1 SEC 27.6 SEC Urine Color YELLOW Urine Turbidity HAZY Urine pH 8.5 Urine Specific [place] 1.034 Urine Protein 30 mg/dL Urine Glucose (UA) NEG mg/dL Urine Ketones TRACE mg/dL Urine Occult Blood SMALL Urine Nitrite NEG Urine Bilirubin NEG Urine Urobilinogen LESS THAN 2.0 MG/DL Urine Leukocyte Esterase NEG Urine RBC 1 /hpf Urine WBC 1 /hpf Urine Squamous Epithelial Cells <1 /hpf Microscopic Urinalysis Comment CATH-CULT NOT IND Potassium Level 3.5 MEQ/L 3.5 MEQ/L White Blood Count 10.7 TH/MM3 Red Blood Count 3.65 MIL/MM3 Hemoglobin 10.8 GM/DL Hematocrit 32.4 % Mean Corpuscular Volume 88.9 FL Mean Corpuscular Hemoglobin 29.6 PG Mean Corpuscular Hemoglobin Concent 33.3 % Red Cell Distribution Width 13.6 % Platelet Count 118 TH/MM3 Mean Platelet Volume 8.9 FL Neutrophils (%) (Auto) 76.0 % Lymphocytes (%) (Auto) 14.8 % Monocytes (%) (Auto) 7.5 % Eosinophils (%) (Auto) 1.4 % Basophils (%) (Auto) 0.3 % Neutrophils # (Auto) 8.1 TH/MM3 Lymphocytes # (Auto) 1.6 TH/MM3 Monocytes # (Auto) 0.8 TH/MM3 Eosinophils # (Auto) 0.2 TH/MM3 Basophils # (Auto) 0.0 TH/MM3 CBC Comment DIFF FINAL Differential Comment Blood Urea Nitrogen 11 MG/DL Creatinine 0.83 MG/DL Random Glucose 114 MG/DL Total Protein 6.2 GM/DL Albumin 2.5 GM/DL Calcium Level 8.7 MG/DL Phosphorus Level 2.7 MG/DL Magnesium Level 2.1 MG/DL Alkaline Phosphatase 42 U/L Aspartate Amino Transf (AST/SGOT) 141 U/L Alanine Aminotransferase (ALT/SGPT) 140 U/L Total Bilirubin 0.4 MG/DL Sodium Level 144 MEQ/L Chloride Level 109 MEQ/L Carbon Dioxide Level 28.0 MEQ/L Anion Gap 7 MEQ/L Estimat Glomerular Filtration Rate 102 ML/MIN Test 12/14/17 08:30 12/14/17 10:14 Activated Partial Thromboplast Time 28.2 SEC Lab Scanned Report Lab Reports - Other [id number] Assessment and Plan Problem List: (1) STEMI (ST elevation myocardial infarction) ICD Codes: I21.3 - ST elevation (STEMI) myocardial infarction of unspecified site (2) Cocaine abuse ICD Codes: F14.10 - Cocaine abuse, uncomplicated (3) Cardiac arrest ICD Codes: I46.9 - Cardiac arrest, cause unspecified (4) Head trauma ICD Codes: S09.90XA - Unspecified injury of head, initial encounter (5) CVA (cerebral vascular accident) ICD Codes: I63.9 - Cerebral infarction, unspecified (6) Tobacco abuse ICD Codes: Z72.0 - Tobacco use (7) Encephalopathy ICD Codes: G93.40 - Encephalopathy, unspecified Assessment and Plan 1.) s/p cardiac arrest - initial gcs=3, possible acute cva, completed hypothermia protocol, mri brain wnl, on aspirin, heparin drip, failed sedation weaning attempt 12/12/17, 12/13/17, reported ef@50-55% on ech, official report pending, repeat ekg wnl; cath if neurologic prognosis is adequate and patient or surrogate consents, dc tobacco and cocaine; palliative care following, eeg c/ w moderate encephalopathy, prognosis appears possibly improving off pressors Ameya Dubose MD Dec 14, 2017 10:58
[2017-12-14] MEDS: ASPIRIN 81 MG CHEW TAB CHEW SCH (11:19)
[2017-12-14] MEDS: HEPARIN INJ 25,000 UNITS in SODIUM CHLOR 0.9% 250 ML INJ 247.5 ML IV PRN (14:37)
[2017-12-14] MEDS: DEXMEDETOMIDINE INJ 400 MCG in SODIUM CHLORIDE 0.9% INJ 100 ML IV PRN ×2 (14:38→21:01)
[2017-12-14] MEDS ORDERED: PROPOFOL 500 MG/50 ML INJ 50 ML ONE (15:33)
--- NOTE | 2017-12-14 15:58 | PD.ID.CON ---
History of Present Illness Service ID Consult Requested By Dr Baig Reason for Consult fever, PNA Primary Care Physician Unknown Diagnoses: History of Present Illness 42-year-old male brought in by EMS on 12/10 after he collapsed at home. Patient's called 911 and initiated CPR prior to EMS arriving there. sp ACLS defibrillations in filed. Pt was intubated, placed on mech vent' and started on pressors Pt came on STEMI alert but cath is delauyed P neurological outcome Pt was on hypothermia protocol and after it was completed developped fever up to 102 BC negative 2/2 @ 3 days and 2/2 @ 1 day Urine negative Today pt is afebrile. Over 24 hrs T [id number] Grew GAS in sputum clx from 12/11 Repeat sputum clx no growth so far 12/12 CXR showed a new left lower lobe atelectasis versus airspace consolidation Review of Systems ROS Limitations: Clinical Condition, Intubated, Altered Mental Status Past Family Social History Allergies: Coded Allergies: No Known Allergies (Verified Allergy, Unknown, 12/10/17) Active Ordered Medications Medications where reviewed in EMR Antibiotics Include: vancomycin zosyn Physical Exam Vital Signs Vital Signs Date Time Temp Pulse Resp B/P (MAP) Pulse Ox O2 Delivery O2 Flow Rate FiO2 12/14/17 14:00 68 12/14/17 12:00 40 12/14/17 12:00 68 12/14/17 12:00 99.0 66 16 85/51 (62) 100 88/48 (61) 12/14/17 11:47 100 40 12/14/17 10:00 68 12/14/17 08:00 68 12/14/17 08:00 99.3 94 17 105/69 (81) 94 130/77 (94) 12/14/17 08:00 40 12/14/17 07:16 100 40 12/14/17 06:00 92 12/14/17 04:06 100 40 12/14/17 04:00 101 12/14/17 04:00 40 12/14/17 04:00 100.2 101 20 109/58 (75) 91 111/53 (72) 12/14/17 02:00 105 12/14/17 00:00 101.1 129 21 143/73 (96) 89 129/79 (96) 12/14/17 00:00 129 12/14/17 00:00 40 12/13/17 22:30 100 40 12/13/17 22:00 107 12/13/17 20:07 100 40 12/13/17 20:00 40 12/13/17 20:00 107 12/13/17 20:00 100.6 107 12 116/70 (85) 99 118/66 (83) 12/13/17 18:00 86 12/13/17 16:00 40 12/13/17 16:00 86 12/13/17 16:00 99.5 76 16 105/57 (73) 100 12/13/17 15:48 100 40 Physical Exam CONSTITUTIONAL/GENERAL: This is an adequately nourished patient, in no apparent distress. TUBES/LINES/DRAINS: SKIN: No jaundice, rashes, or lesions. Skin temperature appropriate. Not diaphoretic. No [place] lesions, no splintere hemorrhages HEAD: Atraumatic. Normocephalic. EYES: Pupils equal and round and reactive. Extraocular motions intact. No scleral icterus. No injection or drainage. Fundi not examined. ENT: Hearing grossly normal. Nose without bleeding or purulent drainage. Throat without visible erythema, exudates, masses, or lesions. NECK: Trachea midline. Supple, nontender. No palpable thyroid enlargement or nodularity. CARDIOVASCULAR: Regular rate and rhythm without murmurs, gallops, or rubs. No JVD. Peripheral pulses symmetric. RESPIRATORY/CHEST: Symmetric, unlabored respirations. Clear to auscultation. Breath sounds equal bilaterally. No wheezes, rales, or rhonchi. GASTROINTESTINAL: Abdomen soft, non-tender, nondistended. No hepato-splenomegaly , or palpable masses. No guarding. Bowel sounds present. GENITOURINARY: Without palpable bladder distension. Dan catheter in place with clear yellow urine MUSCULOSKELETAL: Extremities without clubbing, cyanosis, or edema. No joint tenderness or effusion noted. No calf tenderness. No mottling or clubbing. LYMPHATICS: No palpable cervical or supraclavicular adenopathy. NEUROLOGICAL: Unresponsive, but RN reports some response with eye opening to stimulation PSYCHIATRIC: unable to assess Laboratory Laboratory Tests Test 12/13/17 18:40 12/13/17 21:31 12/14/17 04:55 12/14/17 08:30 Urine Color YELLOW Urine Turbidity HAZY Urine pH 8.5 Urine Specific [place] 1.034 Urine Protein 30 Urine Glucose (UA) NEG Urine Ketones TRACE Urine Occult Blood SMALL Urine Nitrite NEG Urine Bilirubin NEG Urine Urobilinogen LESS THAN 2.0 Urine Leukocyte Esterase NEG Urine RBC 1 Urine WBC 1 Urine Squamous Epithelial Cells <1 Microscopic Urinalysis Comment CATH-CULT NOT IND Potassium Level 3.5 3.5 White Blood Count 10.7 Red Blood Count 3.65 Hemoglobin 10.8 Hematocrit 32.4 Mean Corpuscular Volume 88.9 Mean Corpuscular Hemoglobin 29.6 Mean Corpuscular Hemoglobin Concent 33.3 Red Cell Distribution Width 13.6 Platelet Count 118 Mean Platelet Volume 8.9 Neutrophils (%) (Auto) 76.0 Lymphocytes (%) (Auto) 14.8 Monocytes (%) (Auto) 7.5 Eosinophils (%) (Auto) 1.4 Basophils (%) (Auto) 0.3 Neutrophils # (Auto) 8.1 Lymphocytes # (Auto) 1.6 Monocytes # (Auto) 0.8 Eosinophils # (Auto) 0.2 Basophils # (Auto) 0.0 CBC Comment DIFF FINAL Differential Comment Activated Partial Thromboplast Time 27.6 28.2 Blood Urea Nitrogen 11 Creatinine 0.83 Random Glucose 114 Total Protein 6.2 Albumin 2.5 Calcium Level 8.7 Phosphorus Level 2.7 Magnesium Level 2.1 Alkaline Phosphatase 42 Aspartate Amino Transf (AST/SGOT) 141 Alanine Aminotransferase (ALT/SGPT) 140 Total Bilirubin 0.4 Sodium Level 144 Chloride Level 109 Carbon Dioxide Level 28.0 Anion Gap 7 Estimat Glomerular Filtration Rate 102 Test 12/14/17 10:14 Lab Scanned Report Lab Reports - Other Date/Time Source Procedure Growth Status 12/13/17 18:28 Blood Peripheral Aerobic Blood Culture - Preliminary NO GROWTH IN 1 DAY Resulted 12/13/17 18:28 Blood Peripheral Anaerobic Blood Culture - Preliminary NO GROWTH IN 1 DAY Resulted 12/13/17 18:40 Sputum Endotracheal Gram Stain - Final Resulted 12/13/17 18:40 Sputum Endotracheal Sputum Culture - Preliminary NO GROWTH IN 24 HOURS. Resulted 12/10/17 17:30 Urine Clean Catch Urine Culture - Final NO GROWTH IN 48 HOURS. Complete Result Diagram: 12/14/17 0455 12/14/17 0455 Imaging Last Impressions Chest X-Ray 12/12/17 0000 Signed Impressions: Service Date/Time: Tuesday, December 12, 2017 11:21 - CONCLUSION: 1. There are new bilateral abnormal interstitial opacities. Although nonspecific pulmonary edema could have this appearance. 2. There is a new left lower lobe atelectasis versus airspace consolidation. Karsten Figueroa MD Brain MRI 12/12/17 0000 Signed Impressions: Service Date/Time: Tuesday, December 12, 2017 10:21 - CONCLUSION: Normal examination. Addy Souza MD Liver Ultrasound 12/11/17 0000 Signed Impressions: Service Date/Time: November 10:26 - CONCLUSION: Solitary echogenic lesion left lobe liver I suspect a hemangioma. Central venous catheter within the IVC otherwise unremarkable study. Glenn James MD Head CT 12/10/17 1714 Signed Impressions: Service Date/Time: Sunday, December 10, 2017 18:18 - CONCLUSION: 1. Concern for right-sided nonhemorrhagic cerebral infarction. Jose Glaser Jr., MD Assessment and Plan Assessment and Plan STEMI Cocaine abiuse SDp cardiac arrest Encephalopathy Acute VDRF Fever, differetial anclude PNA, UTI, bloodstream infx, also can be non - infectious cont broad spectrum abx (zosyn, vanco ) for now Discussed Condition With Jovanni Dubose,Neli Toledo MD Dec 14, 2017 15:58
[2017-12-14] MEDS ORDERED: RASS Change Order XX ONE (16:45)
[2017-12-14] MEDS: HEPARIN SODIUM - IV 10,000 UNITS/10 ML VIAL IV PRN (17:58)
[2017-12-14] MEDS: PROPOFOL 1000 MG/100 ML IV PRN (20:49)
[2017-12-15] VITALS (23 sets, daily range): BP systolic 89–154; BP diastolic 49–94; PULSE 65–119; RESP 15–41; TEMP 99.4; O2SAT 90–100
[2017-12-15] MEDS: INSULIN NovoLIN REGULAR SUPPLEMENTAL SCALE SQ SCH ×6 (01:36→21:45)
[2017-12-15] MEDS: PIPERACIL-TAZO 4.5 GM PREMIX 100 ML IV SCH ×4 (03:27→22:00)
[2017-12-15] MEDS: CHLORHEXIDINE GLUCONATE 2 % 1 PACK (2 CLOTHS) TOP SCH (03:27)
[2017-12-15] MEDS: LORazepam 2 MG/ML VIAL IV PUSH PRN (04:00)
[2017-12-15] MEDS: DEXMEDETOMIDINE INJ 400 MCG in SODIUM CHLORIDE 0.9% INJ 100 ML IV PRN ×2 (04:29→14:35)
[2017-12-15] MEDS: HEPARIN SODIUM - IV 10,000 UNITS/10 ML VIAL IV PRN ×2 (05:23→22:04)
[2017-12-15 05:31] LABS: AUTOMATED NEUTROPHIL # 4.5 TH/MM3 (1.8-7.7); BASOPHIL % 0.4 % (0.0-2.0); EOSINOPHIL # 0.3 TH/MM3 (0-0.4); EOSINOPHIL % 3.7 % (0.0-4.0); HEMATOCRIT 28.9 % (39.0-51.0); HEMOGLOBIN 10.1 GM/DL (13.0-17.0); LYMPH % 24.4 % (9.0-44.0); LYMPHOCYTE # 1.8 TH/MM3 (1.0-4.8); MEAN CELL VOLUME 88.1 FL (80.0-100.0); MEAN CORPUSCULAR HEMOGLOBIN 30.7 PG (27.0-34.0); MEAN CORPUSCULAR HGB CONC 34.9 % (32.0-36.0); MEAN PLATELET VOLUME 9.1 FL (7.0-11.0); MONO % 11.1 % (0.0-8.0); MONOCYTE # 0.8 TH/MM3 (0-0.9); NEUT % 60.4 % (16.0-70.0); PLATELET COUNT 127 TH/MM3 (150-450); RED BLOOD COUNT 3.28 MIL/MM3 (4.50-5.90); RED CELL DISTRIBUTION WIDTH 13.4 % (11.6-17.2); WHITE BLOOD COUNT 7.4 TH/MM3 (4.0-11.0)
[2017-12-15 05:51] LABS: ALBUMIN 2.4 GM/DL (3.4-5.0); AST (GOT) 100 U/L (15-37); BICARBONATE 26.2 MEQ/L (21.0-32.0); BLOOD UREA NITROGEN 20 MG/DL (7-18); CALCIUM 8.5 MG/DL (8.5-10.1); CHLORIDE 111 MEQ/L (98-107); CREATININE 0.74 MG/DL (0.60-1.30); GLOMERULAR FILTRATION RATE 116 ML/MIN (>89); GLUCOSE,RANDOM 111 MG/DL (74-106); MAGNESIUM 2.3 MG/DL (1.5-2.5); SODIUM (NA) 144 MEQ/L (136-145)
[2017-12-15 05:53] LABS: ALT (GPT) 113 U/L (12-78); PHOSPHORUS 3.3 MG/DL (2.5-4.9)
[2017-12-15 05:56] LABS: ALKALINE PHOSPHATASE 37 U/L (45-117); TOTAL BILIRUBIN ADULT 0.4 MG/DL (0.2-1.0); TOTAL PROTEIN 6.1 GM/DL (6.4-8.2)
[2017-12-15] MEDS: POTASSIUM CHLOR 20 MEQ PREMIX 100 ML IV PRN ×2 (06:50→10:06)
[2017-12-15] MEDS: CHLORHEXIDINE 0.12% (ORAL KIT) 15 ML CUP MT SCH ×2 (08:00→20:00)
[2017-12-15] MEDS: FAMOTIDINE 20 MG/2 ML VIAL IV PUSH SCH ×2 (08:23→21:00)
[2017-12-15] MEDS: VANCOMYCIN 1,000 MG/NS 250 ML IV SCH ×4 (08:23→21:00)
[2017-12-15] MEDS: ASPIRIN 81 MG CHEW TAB CHEW SCH (08:23)
[2017-12-15] MEDS: DOCUSATE SODIUM 50 MG/SENNA 8.6 MG TAB PO SCH ×2 (08:23→21:00)
[2017-12-15] MEDS: POTASSIUM CHLOR 40 MEQ PREMIX 100 ML IV-CENTRAL PRN (08:26)
--- NOTE | 2017-12-15 09:01 | HHI.CCPN ---
Subjective Remarks/Hospital Course 42-year-old gentleman brought in by EMS after he apparently had an episode of chest pain after which he clutched his chest an collapsed at home. Patient's called 911 and initiated CPR prior to EMS arriving there. Once EMS arrived they were able to start an IV, intubated the patient and initiated ACLS protocol giving 4 rounds of epi 7 rounds of chest compressions along with 3 separate defibrillations. Initial EKG at the scene showed ST elevation, however the repeat EKG in the emergency department showed no ST elevations. The case was discussed by ED attending with real estate underwriter low emission automobile designer who recommended hypothermia protocol and conservative management. 12/11 Patient is sedated and intubated. On Levophed, Amio and Nimbex drips. 12/12 Patient remains intubated and sedated with Diprivan in addition he is on Nimbex. Off Levophed and Amio drips. Remains on Heparin drip. 12/13 Patient remains intubated and sedated with Diprivan. Placed on Levophed 3 mics overnight, on heparin drip. T:101.7 last night. 12/14 No events overnight. Off Levophed. Afebrile. Off Diprivan placed on Precedex drip overnight. T:101.1 12/15 Patient remains intubated and sedated with Diprivan and Precedex drip. Afebrile. Objective Vital Signs Date Time Temp Pulse Resp B/P (MAP) Pulse Ox O2 Delivery O2 Flow Rate FiO2 12/15/17 08:30 99.3 86 25 99/56 (70) 90 89/50 (63) 12/15/17 08:11 40 Intake and Output 12/15/17 12/15/17 12/16/17 08:00 16:00 00:00 Intake Total 634 ml Output Total 300 ml Balance 334 ml Result Diagram: 12/15/17 0405 12/15/17 0405 Other Results Laboratory Tests Test 12/14/17 10:14 12/14/17 16:03 12/15/17 01:15 12/15/17 04:05 Lab Scanned Report Lab Reports - Other [id number] Activated Partial Thromboplast Time 28.8 SEC 30.4 SEC 28.7 SEC White Blood Count 7.4 TH/MM3 Red Blood Count 3.28 MIL/MM3 Hemoglobin 10.1 GM/DL Hematocrit 28.9 % Mean Corpuscular Volume 88.1 FL Mean Corpuscular Hemoglobin 30.7 PG Mean Corpuscular Hemoglobin Concent 34.9 % Red Cell Distribution Width 13.4 % Platelet Count 127 TH/MM3 Mean Platelet Volume 9.1 FL Neutrophils (%) (Auto) 60.4 % Lymphocytes (%) (Auto) 24.4 % Monocytes (%) (Auto) 11.1 % Eosinophils (%) (Auto) 3.7 % Basophils (%) (Auto) 0.4 % Neutrophils # (Auto) 4.5 TH/MM3 Lymphocytes # (Auto) 1.8 TH/MM3 Monocytes # (Auto) 0.8 TH/MM3 Eosinophils # (Auto) 0.3 TH/MM3 Basophils # (Auto) 0.0 TH/MM3 CBC Comment DIFF FINAL Differential Comment Blood Urea Nitrogen 20 MG/DL Creatinine 0.74 MG/DL Random Glucose 111 MG/DL Total Protein 6.1 GM/DL Albumin 2.4 GM/DL Calcium Level 8.5 MG/DL Phosphorus Level 3.3 MG/DL Magnesium Level 2.3 MG/DL Alkaline Phosphatase 37 U/L Aspartate Amino Transf (AST/SGOT) 100 U/L Alanine Aminotransferase (ALT/SGPT) 113 U/L Total Bilirubin 0.4 MG/DL Sodium Level 144 MEQ/L Potassium Level 3.2 MEQ/L Chloride Level 111 MEQ/L Carbon Dioxide Level 26.2 MEQ/L Anion Gap 7 MEQ/L Estimat Glomerular Filtration Rate 116 ML/MIN Imaging Last Impressions Chest X-Ray 12/12/17 0000 Signed Impressions: Service Date/Time: Tuesday, December 12, 2017 11:21 - CONCLUSION: 1. There are new bilateral abnormal interstitial opacities. Although nonspecific pulmonary edema could have this appearance. 2. There is a new left lower lobe atelectasis versus airspace consolidation. Karsten Figueroa MD Brain MRI 12/12/17 0000 Signed Impressions: Service Date/Time: Tuesday, December 12, 2017 10:21 - CONCLUSION: Normal examination. Addy Souza MD Liver Ultrasound 12/11/17 0000 Signed Impressions: Service Date/Time: November 10:26 - CONCLUSION: Solitary echogenic lesion left lobe liver I suspect a hemangioma. Central venous catheter within the IVC otherwise unremarkable study. Glenn James MD Head CT 12/10/17 0400 Signed Impressions: Service Date/Time: Sunday, December 10, 2017 18:18 - CONCLUSION: 1. Concern for right-sided nonhemorrhagic cerebral infarction. Jose Glaser Jr., MD Objective Remarks GENERAL: Sedated and intubated SKIN: Warm and dry. HEAD: Atraumatic. Normocephalic. EYES: Pupils equal and briskly reactive to light, ENT: No nasal bleeding or discharge. Mucous membranes pink and moist. NECK: Trachea midline. No JVD....INTUBATED 8-0 AT 24 LIP CARDIOVASCULAR: Regular rate and rhythm. RESPIRATORY: SPONTANEOUSLY BREATHING No accessory muscle use. Clear to auscultation. Breath sounds equal bilaterally. GASTROINTESTINAL: Abdomen soft, non-tender, nondistended. Hepatic and splenic margins not palpable. MUSCULOSKELETAL: Extremities without clubbing, cyanosis, or edema. No obvious deformities. NEUROLOGICAL: Sedated and intubated. No obvious cranial nerve deficits. Motor localizes to pain on all 4 extremities. Five out of 5 muscle strength in the arms and legs. A/P Assessment and Plan VDRF s/p V. fib arrest outside the hospital Hyperglycemia Non-STEMI ? Acute CVA on a CT Elevated LFT's Leukocytosis Plan Neuro: On Precedex drip, change Diprivan drip to Fentanyl ,daily sedation vacation CT brain showed non hemorrhagic cerebral infarction. MRI brain 12/12: within normal, neuro is following-Dr. Vasquez EEG: moderate diffuse encephalopathy, no seizure activity Pulm: Continue with vent support keep sat >92% Bronchodilators, ICU vent bundle. SBT daily as giovanna. Check CXR CV: Monitor HR and BP keep MAP>65mmHg s/p Hypothermia protocol. Cards is following- Dr. Dbuose. Echo showed EF 50-55% If patient recovers neurologically might be a candidate for cardiac cath per cards. Continue with Heparin drip. Monitor PTT. On ASA. : Monitor renal function, I/O's, electrolytes replacement per protocol. Will need K replacement today GI: On Pepcid for GI prophylaxis Monitor LFT's,Hepatitis profile negative US liver: Solitary echogenic lesion left lobe liver I suspect a hemangioma. On Glucerna 1.5 with goal rate 45ml/hr ID: Continue Zosyn, Vanco . Pancultured 12/13 ( Blood, sputum) ID is following Blood, sputum 12/11: NGTD, urine cx: 12/10: No growth Sputum cx: Group A beta strep. Heme: Monitor CBC, coags- on Heparin drip Endo: SSI for glycemic control GI prophylaxis- on Pepcid DVT prophylaxis- On Heparin drip. Lines: Right Femoral line placed 12/11, d/c central line Peripheral IV's Palliative care is following CCT 30 mins Kayleen Diaz MD Dec 15, 2017 09:01
--- NOTE | 2017-12-15 09:35 | RADRPT ---
EXAM DATE/TIME: 12/15/2017 09:03 [facility] COMPARISON: CHEST SINGLE AP, December 12, 2017, 11:21. INDICATIONS : Shortness of breath. MEDICAL HISTORY : Cardiac arrest SURGICAL HISTORY : None. ENCOUNTER: Subsequent ACUITY: 4 - 6 days PAIN SCORE: Non-responsive. LOCATION: Bilateral chest FINDINGS: Stable ETT and NGT. Progressive patchy airspace disease in the left lower lung zone. Mild persistent diffuse interstitial prominence. Cardiomediastinal contours are stable. Remainder of the exam is unch anged. CONCLUSION: 1. Stable ETT and NGT. 2. Progressive patchy left lower lung zone airspace disease. 3. Persistent mild interstitial prominence likely reflecting positive fluid balance. Tucker Zimmer MD on December 15, 2017 at 9:31 Board Certified Radiologist. This report was verified electronically.
[2017-12-15] MEDS: fentaNYL DRIP 250 ML IV PRN (10:22)
[2017-12-15] MEDS ORDERED: FUROSEMIDE 40 MG/4 ML VIAL IV PUSH ONE (10:30)
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
--- NOTE | 2017-12-15 13:33 | PD.CARD.PN ---
Subjective Subjective Remarks intubated, sedated, sedation wean not attempted today per nurse Objective Medications Current Medications Medications (Trade) Dose Ordered Sig/Yuri Route Start Time Stop Time Status Last Admin (Brethine Inj) 1 mg UNSCH PRN SQ 12/10/17 17:45 (Tylenol) 650 mg Q6H PRN PO 12/10/17 20:30 12/12/17 20:42 (Pepcid Inj) 20 mg Q12HR IV PUSH 12/10/17 21:00 12/15/17 08:23 (Versed Inj) 2 mg Q1H PRN IV PUSH 12/10/17 20:30 12/12/17 11:17 (Zofran Inj) 4 mg Q6H PRN IV PUSH 12/10/17 20:30 (Duoneb Neb) 1 ampule Q2HR NEB PRN INH 12/10/17 20:30 Miscellaneous Information 1 Q361D XX 12/10/17 20:30 12/10/17 20:30 (Chlorhexidine 2% Cloth) 3 pack Taper DAILY@04 TOP 12/11/17 04:00 12/07/18 03:59 12/15/17 03:27 (Chlorhexidine 2% Cloth) 3 pack UNSCH PRN TOP 12/10/17 20:30 (Chelsea-Colace) 1 tab BID PO 12/10/17 21:00 12/13/17 08:50 (Milk Of Magnesia Liq) 30 ml Q12H PRN PO 12/10/17 20:30 (Senokot) 17.2 mg Q12H PRN PO 12/10/17 20:30 (Dulcolax Supp) 10 mg DAILY PRN RECTAL 12/10/17 20:30 (Lactulose Liq) 30 ml DAILY PRN PO 12/10/17 20:30 (Peridex 0.12% Liq) 15 ml BID@08,20 MT 12/11/17 08:00 12/15/17 08:00 (Heparin Inj) 2,500 units UNSCH PRN IV 12/11/17 03:00 12/15/17 05:23 Potassium Chloride 100 ml @ 50 mls/hr Q2H PRN IV-CENTRAL 12/10/17 21:45 12/15/17 08:26 Potassium Chloride 100 ml @ 50 mls/hr Q2H PRN IV 12/10/17 21:45 12/15/17 10:06 (K-Lyte Cl Eff) 50 meq UNSCH PRN PO 12/10/17 21:45 Potassium Chloride 100 ml @ 25 mls/hr UNSCH PRN IV-CENTRAL 12/10/17 21:45 Potassium Chloride 100 ml @ 50 mls/hr Q2H PRN IV 12/10/17 21:45 Magnesium Sulfate 4 gm/Sodium Chloride 100 ml @ 50 mls/hr UNSCH PRN IV 12/10/17 21:45 (Mag-Ox) 800 mg UNSCH PRN PO 12/10/17 21:45 Magnesium Sulfate 2 gm/Sodium Chloride 100 ml @ 50 mls/hr UNSCH PRN IV 12/10/17 21:45 (K-Phos) 2,000 mg Q4H PRN PO 12/10/17 21:45 Sodium Phosphate 30 mmol/Sodium Chloride 250 ml @ 42 mls/hr UNSCH PRN IV 12/10/17 21:45 (K-Phos) 2,000 mg UNSCH PRN PO/TUBE 12/10/17 21:45 Potassium Phosphate 30 mmol/ Sodium Chloride 260 ml @ 42 mls/hr UNSCH PRN IV 12/10/17 21:45 (Heparin Inj) 5,000 units UNSCH PRN IV 12/10/17 23:00 12/10/17 23:13 Heparin Sodium (Porcine) 80198 units/Sodium Chloride 250 ml @ 10 mls/hr TITRATE PRN IV 12/10/17 23:00 12/14/17 14:37 (Ativan Inj) 1 mg Q1H PRN IV PUSH 12/10/17 23:30 12/15/17 04:00 (fentaNYL INJ) 50 mcg Q1H PRN IV PUSH 12/10/17 23:30 12/15/17 11:32 Miscellaneous Information ml @ 0 mls/hr UNSCH IV 12/10/17 23:30 (NS Flush) 2 ml UNSCH PRN IV FLUSH 12/10/17 23:30 (NS Flush) 2 ml UNSCH PRN IV FLUSH 12/10/17 23:30 (Demerol Inj) 25 mg Q2H PRN IV PUSH 12/10/17 23:30 12/11/17 08:48 (Lacrilube Opht Oint) 1 applic Q4H PRN EACH EYE 12/10/17 23:30 12/11/17 22:10 (Aspirin Chew) 81 mg DAILY CHEW 12/12/17 09:00 12/15/17 08:23 Piperacillin Sod/ Tazobactam Sod 100 ml @ 200 mls/hr Q6H IV 12/11/17 10:00 12/15/17 10:04 (D50w (Vial) Inj) 50 ml UNSCH PRN IV PUSH 12/11/17 09:45 (Glucagon Inj) 1 mg UNSCH PRN OTHER 12/11/17 09:45 (NovoLIN R SUPPLEMENTAL SCALE) 1 Q4H SQ 12/11/17 09:45 Vancomycin HCl 1000 mg/Sodium Chloride 250 ml @ 250 mls/hr Q12H IV 12/13/17 09:00 12/15/17 08:23 Dexmedetomidine HCl 400 mcg/ Sodium Chloride 104 ml @ 4.81 mls/hr TITRATE PRN IV 12/13/17 22:30 12/15/17 04:29 Propofol 100 ml @ 2.802 mls/ hr TITRATE PRN IV 12/14/17 15:45 12/14/17 20:49 Fentanyl Citrate 250 ml @ 5 mls/hr TITRATE PRN IV 12/15/17 10:00 12/15/17 10:22 Vital Signs / I&O Vital Signs Date Time Temp Pulse Resp B/P (MAP) Pulse Ox O2 Delivery O2 Flow Rate FiO2 12/15/17 11:59 96 40 12/15/17 10:04 19 12/15/17 10:00 101 12/15/17 08:30 99.3 86 25 99/56 (70) 90 89/50 (63) 12/15/17 08:15 40 12/15/17 08:15 99.1 119 41 109/63 (78) 91 154/94 (114) 12/15/17 08:11 90 40 12/15/17 08:00 40 12/15/17 08:00 96 12/15/17 08:00 99.4 96 15 107/72 (84) 94 129/75 (93) 12/15/17 07:39 40 12/15/17 07:38 98 40 12/15/17 07:35 98 40 12/15/17 07:00 68 12/15/17 06:00 69 12/15/17 04:26 100 50 12/15/17 04:00 82 12/15/17 04:00 98.6 82 23 106/56 (73) 91 93/49 (64) 12/15/17 04:00 50 12/15/17 02:00 65 12/15/17 00:00 72 12/15/17 00:00 97.9 72 17 106/61 (76) 97 101/59 (73) 12/15/17 00:00 50 12/14/17 23:30 94 50 12/14/17 22:00 77 12/14/17 20:00 98.8 105 14 101/79 (86) 88 117/70 (86) 12/14/17 20:00 105 12/14/17 20:00 50 12/14/17 19:40 97 50 12/14/17 18:00 68 12/14/17 16:00 99.0 86 24 93/54 (67) 86 90/52 (65) 12/14/17 16:00 40 12/14/17 16:00 68 12/14/17 15:36 100 40 12/14/17 14:00 68 I/O 12/14/17 12/14/17 12/14/17 12/15/17 12/15/17 12/15/17 07:00 15:00 23:00 07:00 15:00 23:00 Intake Total 100 ml 1115 ml 634 ml Output Total 900 ml 600 ml 300 ml Balance -800 ml 515 ml 334 ml Intake IV Total 100 ml 350 ml 100 ml Tube Feeding 565 ml 534 ml Other 200 ml Output Urine Total 900 ml 600 ml 300 ml # Bowel Movements 2 2 Physical Exam GENERAL: SKIN: Warm and dry. HEAD: Normocephalic. EYES: No scleral icterus. No injection or drainage. NECK: Supple, trachea midline. No JVD or lymphadenopathy. CARDIOVASCULAR: Regular rate and rhythm without murmurs, gallops, or rubs. RESPIRATORY: Breath sounds equal bilaterally. No accessory muscle use. GASTROINTESTINAL: Abdomen soft, non-tender, nondistended. MUSCULOSKELETAL: No cyanosis, or edema. BACK: Nontender without obvious deformity. No CVA tenderness. Laboratory Laboratory Tests Test 12/14/17 16:03 12/15/17 01:15 12/15/17 04:05 Activated Partial Thromboplast Time 28.8 SEC 30.4 SEC 28.7 SEC White Blood Count 7.4 TH/MM3 Red Blood Count 3.28 MIL/MM3 Hemoglobin 10.1 GM/DL Hematocrit 28.9 % Mean Corpuscular Volume 88.1 FL Mean Corpuscular Hemoglobin 30.7 PG Mean Corpuscular Hemoglobin Concent 34.9 % Red Cell Distribution Width 13.4 % Platelet Count 127 TH/MM3 Mean Platelet Volume 9.1 FL Neutrophils (%) (Auto) 60.4 % Lymphocytes (%) (Auto) 24.4 % Monocytes (%) (Auto) 11.1 % Eosinophils (%) (Auto) 3.7 % Basophils (%) (Auto) 0.4 % Neutrophils # (Auto) 4.5 TH/MM3 Lymphocytes # (Auto) 1.8 TH/MM3 Monocytes # (Auto) 0.8 TH/MM3 Eosinophils # (Auto) 0.3 TH/MM3 Basophils # (Auto) 0.0 TH/MM3 CBC Comment DIFF FINAL Differential Comment Blood Urea Nitrogen 20 MG/DL Creatinine 0.74 MG/DL Random Glucose 111 MG/DL Total Protein 6.1 GM/DL Albumin 2.4 GM/DL Calcium Level 8.5 MG/DL Phosphorus Level 3.3 MG/DL Magnesium Level 2.3 MG/DL Alkaline Phosphatase 37 U/L Aspartate Amino Transf (AST/SGOT) 100 U/L Alanine Aminotransferase (ALT/SGPT) 113 U/L Total Bilirubin 0.4 MG/DL Sodium Level 144 MEQ/L Potassium Level 3.2 MEQ/L Chloride Level 111 MEQ/L Carbon Dioxide Level 26.2 MEQ/L Anion Gap 7 MEQ/L Estimat Glomerular Filtration Rate 116 ML/MIN Imaging Last 24 hours Impressions Chest X-Ray 12/15/17 0000 Signed Impressions: Service Date/Time: Friday, December 15, 2017 09:03 - CONCLUSION: 1. Stable ETT and NGT. 2. Progressive patchy left lower lung zone airspace disease. 3. Persistent mild interstitial prominence likely reflecting positive fluid balance. Tucker Zimmer MD Assessment and Plan Problem List: (1) STEMI (ST elevation myocardial infarction) ICD Codes: I21.3 - ST elevation (STEMI) myocardial infarction of unspecified site (2) Cocaine abuse ICD Codes: F14.10 - Cocaine abuse, uncomplicated (3) Cardiac arrest ICD Codes: I46.9 - Cardiac arrest, cause unspecified (4) Head trauma ICD Codes: S09.90XA - Unspecified injury of head, initial encounter (5) CVA (cerebral vascular accident) ICD Codes: I63.9 - Cerebral infarction, unspecified (6) Tobacco abuse ICD Codes: Z72.0 - Tobacco use (7) Encephalopathy ICD Codes: G93.40 - Encephalopathy, unspecified Assessment and Plan 1.) s/p cardiac arrest - initial gcs=3, possible acute cva, completed hypothermia protocol, mri brain wnl, on aspirin, heparin drip, failed sedation weaning attempt 12/12/17, 12/13/17, reported ef@50-55% on ech, official report pending, repeat ekg wnl; cath if neurologic prognosis is adequate and patient or surrogate consents, dc tobacco and cocaine; palliative care following, eeg c/ w moderate encephalopathy, prognosis appears possibly improving off pressors; awaiting re assessment of mental status off sedation and surrogate or patient goals of treatment Ameya Dubose MD Dec 15, 2017 13:33
[2017-12-15] MEDS: HEPARIN INJ 25,000 UNITS in SODIUM CHLOR 0.9% 250 ML INJ 247.5 ML IV PRN (14:37)
[2017-12-15] MEDS: DEXMEDETOMIDINE INJ 1,000 MCG in SODIUM CHLOR 0.9% 250 ML INJ 240 ML IV PRN (17:30)
--- NOTE | 2017-12-15 18:54 | HHI.IDPN ---
Subjective Subjective Remarks pt has low grade fever Mental status is not improving and now on sedation 2/2 agitation Antibiotics vancomycin zosyn Allergies: Coded Allergies: No Known Allergies (Verified Allergy, Unknown, 12/10/17) Objective . Vital Signs Date Time Temp Pulse Resp B/P (MAP) Pulse Ox O2 Delivery O2 Flow Rate FiO2 12/15/17 18:00 71 12/15/17 16:00 92 12/15/17 16:00 40 12/15/17 16:00 100.2 74 17 107/64 (78) 98 114/67 (83) 12/15/17 15:34 99 40 12/15/17 14:00 92 12/15/17 12:32 20 12/15/17 12:00 106 12/15/17 12:00 100.0 105 28 98/54 (69) 124/77 (93) 12/15/17 12:00 40 12/15/17 11:59 96 40 12/15/17 10:00 101 12/15/17 08:30 99.3 86 25 99/56 (70) 90 89/50 (63) 12/15/17 08:15 40 12/15/17 08:15 99.1 119 41 109/63 (78) 91 154/94 (114) 12/15/17 08:11 90 40 12/15/17 08:00 40 12/15/17 08:00 96 12/15/17 08:00 99.4 96 15 107/72 (84) 94 129/75 (93) 12/15/17 07:39 40 12/15/17 07:38 98 40 12/15/17 07:35 98 40 12/15/17 07:00 68 12/15/17 06:00 69 12/15/17 04:26 100 50 12/15/17 04:00 82 12/15/17 04:00 98.6 82 23 106/56 (73) 91 93/49 (64) 12/15/17 04:00 50 12/15/17 02:00 65 12/15/17 00:00 72 12/15/17 00:00 97.9 72 17 106/61 (76) 97 101/59 (73) 12/15/17 00:00 50 12/14/17 23:30 94 50 12/14/17 22:00 77 12/14/17 20:00 98.8 105 14 101/79 (86) 88 117/70 (86) 12/14/17 20:00 105 12/14/17 20:00 50 12/14/17 19:40 97 50 12/15/17 12/15/17 12/16/17 15:00 23:00 07:00 Intake Total 646 ml 863 ml Output Total 4250 ml Balance 646 ml -3387 ml Intake Oral 0 ml IV Total 646 ml 223 ml Tube Feeding 540 ml Other 100 ml Output Urine Total 4250 ml # Bowel Movements 3 . Laboratory Tests Test 12/14/17 04:55 12/15/17 04:05 White Blood Count 10.7 TH/MM3 7.4 TH/MM3 Red Blood Count 3.65 MIL/MM3 3.28 MIL/MM3 Hemoglobin 10.8 GM/DL 10.1 GM/DL Hematocrit 32.4 % 28.9 % Mean Corpuscular Volume 88.9 FL 88.1 FL Mean Corpuscular Hemoglobin 29.6 PG 30.7 PG Mean Corpuscular Hemoglobin Concent 33.3 % 34.9 % Red Cell Distribution Width 13.6 % 13.4 % Platelet Count 118 TH/MM3 127 TH/MM3 Mean Platelet Volume 8.9 FL 9.1 FL Neutrophils (%) (Auto) 76.0 % 60.4 % Lymphocytes (%) (Auto) 14.8 % 24.4 % Monocytes (%) (Auto) 7.5 % 11.1 % Eosinophils (%) (Auto) 1.4 % 3.7 % Basophils (%) (Auto) 0.3 % 0.4 % Neutrophils # (Auto) 8.1 TH/MM3 4.5 TH/MM3 Lymphocytes # (Auto) 1.6 TH/MM3 1.8 TH/MM3 Monocytes # (Auto) 0.8 TH/MM3 0.8 TH/MM3 Eosinophils # (Auto) 0.2 TH/MM3 0.3 TH/MM3 Basophils # (Auto) 0.0 TH/MM3 0.0 TH/MM3 CBC Comment DIFF FINAL DIFF FINAL Differential Comment Laboratory Tests Test 12/13/17 21:31 12/14/17 04:55 12/15/17 04:05 12/15/17 18:05 Potassium Level 3.5 MEQ/L 3.5 MEQ/L 3.2 MEQ/L Blood Urea Nitrogen 11 MG/DL 20 MG/DL Creatinine 0.83 MG/DL 0.74 MG/DL Random Glucose 114 MG/DL 111 MG/DL Total Protein 6.2 GM/DL 6.1 GM/DL Albumin 2.5 GM/DL 2.4 GM/DL Calcium Level 8.7 MG/DL 8.5 MG/DL Phosphorus Level 2.7 MG/DL 3.3 MG/DL Magnesium Level 2.1 MG/DL 2.3 MG/DL Alkaline Phosphatase 42 U/L 37 U/L Aspartate Amino Transf (AST/SGOT) 141 U/L 100 U/L Alanine Aminotransferase (ALT/SGPT) 140 U/L 113 U/L Total Bilirubin 0.4 MG/DL 0.4 MG/DL Sodium Level 144 MEQ/L 144 MEQ/L Chloride Level 109 MEQ/L 111 MEQ/L Carbon Dioxide Level 28.0 MEQ/L 26.2 MEQ/L Anion Gap 7 MEQ/L 7 MEQ/L Estimat Glomerular Filtration Rate 102 ML/MIN 116 ML/MIN Microbiology Date/Time Source Procedure Growth Status 12/13/17 18:28 Blood Peripheral Aerobic Blood Culture - Preliminary NO GROWTH IN 2 DAYS Resulted 12/13/17 18:28 Blood Peripheral Anaerobic Blood Culture - Preliminary NO GROWTH IN 2 DAYS Resulted 12/13/17 18:23 Blood Peripheral Aerobic Blood Culture - Preliminary NO GROWTH IN 2 DAYS Resulted 12/13/17 18:23 Blood Peripheral Anaerobic Blood Culture - Preliminary NO GROWTH IN 2 DAYS Resulted 12/13/17 18:40 Sputum Endotracheal Gram Stain - Final Resulted 12/13/17 18:40 Sputum Endotracheal Sputum Culture - Preliminary IMMATURE GROWTH - REINCUBATE Resulted Imaging Last Impressions Chest X-Ray 12/15/17 0000 Signed Impressions: Service Date/Time: Friday, December 15, 2017 09:03 - CONCLUSION: 1. Stable ETT and NGT. 2. Progressive patchy left lower lung zone airspace disease. 3. Persistent mild interstitial prominence likely reflecting positive fluid balance. Tucker Zimmer MD Brain MRI 12/12/17 0000 Signed Impressions: Service Date/Time: Tuesday, December 12, 2017 10:21 - CONCLUSION: Normal examination. Addy Souza MD Liver Ultrasound 12/11/17 0000 Signed Impressions: Service Date/Time: November 10:26 - CONCLUSION: Solitary echogenic lesion left lobe liver I suspect a hemangioma. Central venous catheter within the IVC otherwise unremarkable study. Glenn James MD Head CT 12/10/17 1714 Signed Impressions: Service Date/Time: Sunday, December 10, 2017 18:18 - CONCLUSION: 1. Concern for right-sided nonhemorrhagic cerebral infarction. Jose Glaser Jr., MD Physical Exam CONSTITUTIONAL/GENERAL: This is an adequately nourished patient, in no apparent distress. TUBES/LINES/DRAINS: SKIN: No jaundice, rashes, or lesions. Skin temperature appropriate. Not diaphoretic. No [place] lesions, no splinter hemorrhages EYES: Pupils equal and round and reactive. Extraocular motions intact. No scleral icterus. No injection or drainage. Fundi not examined. ENT: Hearing grossly normal. Nose without bleeding or purulent drainage. Throat without visible erythema, exudates, masses, or lesions. NECK: Trachea midline. Supple, nontender. No palpable thyroid enlargement or nodularity. CARDIOVASCULAR: Regular rate and rhythm without murmurs, gallops, or rubs. No JVD. Peripheral pulses symmetric. RESPIRATORY/CHEST: Symmetric, unlabored respirations. Clear to auscultation. Breath sounds equal bilaterally. No wheezes, rales, or rhonchi. GASTROINTESTINAL: Abdomen soft, non-tender, nondistended. No hepato-splenomegaly , or palpable masses. No guarding. Bowel sounds present. GENITOURINARY: Without palpable bladder distension. Dan catheter in place with clear yellow urine MUSCULOSKELETAL: Extremities without clubbing, cyanosis, or edema. No joint tenderness or effusion noted. No calf tenderness. No mottling or clubbing. LYMPHATICS: No palpable cervical or supraclavicular adenopathy. NEUROLOGICAL: Unresponsive, sedated 2/2 prior agitation PSYCHIATRIC: unable to assess Assessment & Plan Remarks STEMI Cocaine abiuse SDp cardiac arrest Encephalopathy Acute VDRF ? PNA - sputum is + for growth again Fever, differetial anclude PNA, UTI, bloodstream infx, also can be non - infectious: again low grade fever cont broad spectrum abx (zosyn, vanco ) for now fu sputum clx and will de-escalate based on sputum clx result dw Neli Davis MD Dec 15, 2017 18:54
[2017-12-16] VITALS (18 sets, daily range): BP systolic 94–130; BP diastolic 53–75; PULSE 62–100; RESP 16–38; TEMP 99–101.3; O2SAT 92–100
[2017-12-16] MEDS: INSULIN NovoLIN REGULAR SUPPLEMENTAL SCALE SQ SCH ×6 (01:45→21:45)
[2017-12-16] MEDS: PIPERACIL-TAZO 4.5 GM PREMIX 100 ML IV SCH ×2 (02:18→11:34)
[2017-12-16] MEDS: DEXMEDETOMIDINE INJ 1,000 MCG in SODIUM CHLOR 0.9% 250 ML INJ 240 ML IV PRN ×3 (02:18→21:36)
[2017-12-16] MEDS: CHLORHEXIDINE GLUCONATE 2 % 1 PACK (2 CLOTHS) TOP SCH (02:18)
[2017-12-16] MEDS: fentaNYL DRIP 250 ML IV PRN (02:19)
[2017-12-16] MEDS ORDERED: SODIUM CHLORID 0.9% 500 ML INJ 500 ML IV ONE (03:00)
[2017-12-16 03:10] LABS: AUTOMATED NEUTROPHIL # 3.4 TH/MM3 (1.8-7.7); BASOPHIL % 0.4 % (0.0-2.0); EOSINOPHIL # 0.3 TH/MM3 (0-0.4); EOSINOPHIL % 5.4 % (0.0-4.0); HEMATOCRIT 28.7 % (39.0-51.0); LYMPH % 25.7 % (9.0-44.0); LYMPHOCYTE # 1.6 TH/MM3 (1.0-4.8); MEAN CELL VOLUME 88.2 FL (80.0-100.0); MEAN CORPUSCULAR HEMOGLOBIN 30.7 PG (27.0-34.0); MEAN CORPUSCULAR HGB CONC 34.8 % (32.0-36.0); MEAN PLATELET VOLUME 8.9 FL (7.0-11.0); MONO % 12.8 % (0.0-8.0); MONOCYTE # 0.8 TH/MM3 (0-0.9); NEUT % 55.7 % (16.0-70.0); PLATELET COUNT 134 TH/MM3 (150-450); RED BLOOD COUNT 3.25 MIL/MM3 (4.50-5.90); RED CELL DISTRIBUTION WIDTH 13.6 % (11.6-17.2); WHITE BLOOD COUNT 6.1 TH/MM3 (4.0-11.0)
[2017-12-16 03:31] LABS: ALBUMIN 2.4 GM/DL (3.4-5.0); ALT (GPT) 122 U/L (12-78); AST (GOT) 108 U/L (15-37); BICARBONATE 28.3 MEQ/L (21.0-32.0); BLOOD UREA NITROGEN 25 MG/DL (7-18); CHLORIDE 112 MEQ/L (98-107); GLOMERULAR FILTRATION RATE 124 ML/MIN (>89); GLUCOSE,RANDOM 114 MG/DL (74-106); SODIUM (NA) 146 MEQ/L (136-145)
[2017-12-16 03:33] LABS: ALKALINE PHOSPHATASE 35 U/L (45-117); TOTAL BILIRUBIN ADULT 0.3 MG/DL (0.2-1.0); TOTAL PROTEIN 6.3 GM/DL (6.4-8.2)
[2017-12-16] MEDS: HEPARIN SODIUM - IV 10,000 UNITS/10 ML VIAL IV PRN ×3 (03:54→23:04)
[2017-12-16] MEDS: SODIUM CHLOR 0.9% 1000 ML INJ 1,000 ML IV SCH ×2 (03:55→13:18)
--- NOTE | 2017-12-16 07:01 | HHI.CCPN ---
Subjective Remarks/Hospital Course 42-year-old gentleman brought in by EMS after he apparently had an episode of chest pain after which he clutched his chest an collapsed at home. Patient's called 911 and initiated CPR prior to EMS arriving there. Once EMS arrived they were able to start an IV, intubated the patient and initiated ACLS protocol giving 4 rounds of epi 7 rounds of chest compressions along with 3 separate defibrillations. Initial EKG at the scene showed ST elevation, however the repeat EKG in the emergency department showed no ST elevations. The case was discussed by ED attending with buffing wheel operator concrete pump operator who recommended hypothermia protocol and conservative management. 12/11 Patient is sedated and intubated. On Levophed, Amio and Nimbex drips. 12/12 Patient remains intubated and sedated with Diprivan in addition he is on Nimbex. Off Levophed and Amio drips. Remains on Heparin drip. 12/13 Patient remains intubated and sedated with Diprivan. Placed on Levophed 3 mics overnight, on heparin drip. T:101.7 last night. 12/14 No events overnight. Off Levophed. Afebrile. Off Diprivan placed on Precedex drip overnight. T:101.1 12/15 Patient remains intubated and sedated with Diprivan and Precedex drip. Afebrile. 12/16 Patient is sedated with Precedex and Fentanyl infusion. T:100.0 last night. Objective Vital Signs Date Time Temp Pulse Resp B/P (MAP) Pulse Ox O2 Delivery O2 Flow Rate FiO2 12/16/17 06:00 62 12/16/17 04:00 98.1 16 94/53 (67) 98 109/62 (78) 12/16/17 04:00 40 Intake and Output 12/16/17 12/16/17 12/17/17 08:00 16:00 00:00 Intake Total 1557 ml Output Total 450 ml Balance 1107 ml Result Diagram: 12/16/17 0215 12/16/17 0215 Other Results Laboratory Tests Test 12/15/17 18:05 12/15/17 19:05 12/16/17 02:15 Potassium Level 3.6 MEQ/L 3.6 MEQ/L Activated Partial Thromboplast Time 30.6 SEC 34.8 SEC White Blood Count 6.1 TH/MM3 Red Blood Count 3.25 MIL/MM3 Hemoglobin 10.0 GM/DL Hematocrit 28.7 % Mean Corpuscular Volume 88.2 FL Mean Corpuscular Hemoglobin 30.7 PG Mean Corpuscular Hemoglobin Concent 34.8 % Red Cell Distribution Width 13.6 % Platelet Count 134 TH/MM3 Mean Platelet Volume 8.9 FL Neutrophils (%) (Auto) 55.7 % Lymphocytes (%) (Auto) 25.7 % Monocytes (%) (Auto) 12.8 % Eosinophils (%) (Auto) 5.4 % Basophils (%) (Auto) 0.4 % Neutrophils # (Auto) 3.4 TH/MM3 Lymphocytes # (Auto) 1.6 TH/MM3 Monocytes # (Auto) 0.8 TH/MM3 Eosinophils # (Auto) 0.3 TH/MM3 Basophils # (Auto) 0.0 TH/MM3 CBC Comment DIFF FINAL Differential Comment Blood Urea Nitrogen 25 MG/DL Creatinine 0.70 MG/DL Random Glucose 114 MG/DL Total Protein 6.3 GM/DL Albumin 2.4 GM/DL Calcium Level 8.0 MG/DL Alkaline Phosphatase 35 U/L Aspartate Amino Transf (AST/SGOT) 108 U/L Alanine Aminotransferase (ALT/SGPT) 122 U/L Total Bilirubin 0.3 MG/DL Sodium Level 146 MEQ/L Chloride Level 112 MEQ/L Carbon Dioxide Level 28.3 MEQ/L Anion Gap 6 MEQ/L Estimat Glomerular Filtration Rate 124 ML/MIN Imaging Last Impressions Chest X-Ray 12/15/17 0000 Signed Impressions: Service Date/Time: Friday, December 15, 2017 09:03 - CONCLUSION: 1. Stable ETT and NGT. 2. Progressive patchy left lower lung zone airspace disease. 3. Persistent mild interstitial prominence likely reflecting positive fluid balance. Tucker Zimmer MD Brain MRI 12/12/17 0000 Signed Impressions: Service Date/Time: Tuesday, December 12, 2017 10:21 - CONCLUSION: Normal examination. Addy Souza MD Liver Ultrasound 12/11/17 0000 Signed Impressions: Service Date/Time: November 10:26 - CONCLUSION: Solitary echogenic lesion left lobe liver I suspect a hemangioma. Central venous catheter within the IVC otherwise unremarkable study. Glenn James MD Head CT 12/10/17 1718 Signed Impressions: Service Date/Time: Sunday, December 10, 2017 18:18 - CONCLUSION: 1. Concern for right-sided nonhemorrhagic cerebral infarction. Jose Glaser Jr., MD Objective Remarks GENERAL: Sedated and intubated SKIN: Warm and dry. HEAD: Atraumatic. Normocephalic. EYES: Pupils equal and briskly reactive to light, ENT: No nasal bleeding or discharge. Mucous membranes pink and moist. NECK: Trachea midline. No JVD....INTUBATED 8-0 AT 24 LIP CARDIOVASCULAR: Regular rate and rhythm. RESPIRATORY: SPONTANEOUSLY BREATHING No accessory muscle use. Clear to auscultation. Breath sounds equal bilaterally. GASTROINTESTINAL: Abdomen soft, non-tender, nondistended. Hepatic and splenic margins not palpable. MUSCULOSKELETAL: Extremities without clubbing, cyanosis, or edema. No obvious deformities. NEUROLOGICAL: Sedated and intubated. No obvious cranial nerve deficits. Motor localizes to pain on all 4 extremities. Five out of 5 muscle strength in the arms and legs. A/P Assessment and Plan VDRF s/p V. fib arrest outside the hospital Hyperglycemia Non-STEMI ? Acute CVA on a CT Elevated LFT's Leukocytosis Plan Neuro: On Precedex drip, Fentanyl infusion for sedation and vent synchrony, daily sedation vacation CT brain showed non hemorrhagic cerebral infarction. MRI brain 12/12: within normal, neuro is following-Dr. Vasquez EEG: moderate diffuse encephalopathy, no seizure activity UDS: + Cocaine, Benzo Pulm: Continue with vent support keep sat >92% Bronchodilators, ICU vent bundle. SBT daily as giovanna. CV: Monitor HR and BP keep MAP>65mmHg s/p Hypothermia protocol. Cards is following- Dr. Dubose. Echo showed EF 50-55% If patient recovers neurologically might be a candidate for cardiac cath per cards. Continue with Heparin drip. Monitor PTT. On ASA. : Monitor renal function, I/O's, electrolytes replacement per protocol. Decrease INF NS@75ml/hr GI: On Pepcid for GI prophylaxis Monitor LFT's,Hepatitis profile negative US liver: Solitary echogenic lesion left lobe liver I suspect a hemangioma. On Glucerna 1.5 with goal rate 45ml/hr ID: Continue Zosyn, Vanco . Pancultured 12/13 ( Blood, sputum) ID is following Blood, sputum 12/11: NGTD, urine cx: 12/10: No growth Sputum cx: Group A beta strep. Heme: Monitor CBC, coags- on Heparin drip Endo: SSI for glycemic control GI prophylaxis- on Pepcid DVT prophylaxis- On Heparin drip. Lines: Peripheral IV's Palliative care is following Level 3 Kayleen Diaz MD Dec 16, 2017 07:01
[2017-12-16] MEDS: RESP: ALBUTEROL 2.5 MG/IPRATROPIUM 0.5 MG NEB (PRN) INH (07:33)
[2017-12-16] MEDS: CHLORHEXIDINE 0.12% (ORAL KIT) 15 ML CUP MT SCH ×2 (07:54→20:00)
[2017-12-16] MEDS: ARTIFICIAL TEARS OPTH OINT 3.5 APPLIC/3.5 GM TUBO EACH EYE PRN (07:55)
[2017-12-16] MEDS: FAMOTIDINE 20 MG/2 ML VIAL IV PUSH SCH ×2 (07:55→21:26)
[2017-12-16] MEDS: ASPIRIN 81 MG CHEW TAB CHEW SCH (07:56)
[2017-12-16] MEDS: DOCUSATE SODIUM 50 MG/SENNA 8.6 MG TAB PO SCH ×2 (07:56→21:00)
[2017-12-16] MEDS: VANCOMYCIN 1,000 MG/NS 250 ML IV SCH ×2 (07:57)
--- NOTE | 2017-12-16 12:04 | HHI.IDPN ---
Subjective Subjective Remarks intermittent low grade fever Mental status is about the same Antibiotics vancomycin zosyn Allergies: Coded Allergies: No Known Allergies (Verified Allergy, Unknown, 12/10/17) Objective . Vital Signs Date Time Temp Pulse Resp B/P (MAP) Pulse Ox O2 Delivery O2 Flow Rate FiO2 12/16/17 10:47 40 12/16/17 10:45 92 40 12/16/17 08:00 99.0 80 18 95/71 (79) 100 125/75 (92) 12/16/17 08:00 40 12/16/17 08:00 80 12/16/17 07:33 97 40 12/16/17 06:00 62 12/16/17 04:00 98.1 62 16 94/53 (67) 98 109/62 (78) 12/16/17 04:00 40 12/16/17 04:00 62 12/16/17 03:39 99 40 12/16/17 02:00 64 12/16/17 00:00 98.6 71 19 106/58 (74) 98 12/16/17 00:00 40 12/16/17 00:00 71 12/15/17 23:11 99 40 12/15/17 22:00 66 12/15/17 20:00 69 12/15/17 20:00 100.0 69 18 102/60 (74) 96 110/64 (79) 12/15/17 20:00 40 12/15/17 19:53 96 40 12/15/17 18:00 71 12/15/17 16:00 92 12/15/17 16:00 40 12/15/17 16:00 100.2 74 17 107/64 (78) 98 114/67 (83) 12/15/17 15:34 99 40 12/15/17 14:00 92 12/15/17 12:32 20 12/15/17 12:00 106 12/15/17 12:00 100.0 105 28 98/54 (69) 124/77 (93) 12/15/17 12:00 40 12/15/17 11:59 96 40 . Laboratory Tests Test 12/15/17 04:05 12/16/17 02:15 White Blood Count 7.4 TH/MM3 6.1 TH/MM3 Red Blood Count 3.28 MIL/MM3 3.25 MIL/MM3 Hemoglobin 10.1 GM/DL 10.0 GM/DL Hematocrit 28.9 % 28.7 % Mean Corpuscular Volume 88.1 FL 88.2 FL Mean Corpuscular Hemoglobin 30.7 PG 30.7 PG Mean Corpuscular Hemoglobin Concent 34.9 % 34.8 % Red Cell Distribution Width 13.4 % 13.6 % Platelet Count 127 TH/MM3 134 TH/MM3 Mean Platelet Volume 9.1 FL 8.9 FL Neutrophils (%) (Auto) 60.4 % 55.7 % Lymphocytes (%) (Auto) 24.4 % 25.7 % Monocytes (%) (Auto) 11.1 % 12.8 % Eosinophils (%) (Auto) 3.7 % 5.4 % Basophils (%) (Auto) 0.4 % 0.4 % Neutrophils # (Auto) 4.5 TH/MM3 3.4 TH/MM3 Lymphocytes # (Auto) 1.8 TH/MM3 1.6 TH/MM3 Monocytes # (Auto) 0.8 TH/MM3 0.8 TH/MM3 Eosinophils # (Auto) 0.3 TH/MM3 0.3 TH/MM3 Basophils # (Auto) 0.0 TH/MM3 0.0 TH/MM3 CBC Comment DIFF FINAL DIFF FINAL Differential Comment Laboratory Tests Test 12/15/17 04:05 12/15/17 18:05 12/16/17 02:15 Blood Urea Nitrogen 20 MG/DL 25 MG/DL Creatinine 0.74 MG/DL 0.70 MG/DL Random Glucose 111 MG/DL 114 MG/DL Total Protein 6.1 GM/DL 6.3 GM/DL Albumin 2.4 GM/DL 2.4 GM/DL Calcium Level 8.5 MG/DL 8.0 MG/DL Phosphorus Level 3.3 MG/DL Magnesium Level 2.3 MG/DL Alkaline Phosphatase 37 U/L 35 U/L Aspartate Amino Transf (AST/SGOT) 100 U/L 108 U/L Alanine Aminotransferase (ALT/SGPT) 113 U/L 122 U/L Total Bilirubin 0.4 MG/DL 0.3 MG/DL Sodium Level 144 MEQ/L 146 MEQ/L Potassium Level 3.2 MEQ/L 3.6 MEQ/L 3.6 MEQ/L Chloride Level 111 MEQ/L 112 MEQ/L Carbon Dioxide Level 26.2 MEQ/L 28.3 MEQ/L Anion Gap 7 MEQ/L 6 MEQ/L Estimat Glomerular Filtration Rate 116 ML/MIN 124 ML/MIN Microbiology Date/Time Source Procedure Growth Status 12/13/17 18:28 Blood Peripheral Aerobic Blood Culture - Preliminary NO GROWTH IN 3 DAYS Resulted 12/13/17 18:28 Blood Peripheral Anaerobic Blood Culture - Preliminary NO GROWTH IN 3 DAYS Resulted 12/13/17 18:23 Blood Peripheral Aerobic Blood Culture - Preliminary NO GROWTH IN 3 DAYS Resulted 12/13/17 18:23 Blood Peripheral Anaerobic Blood Culture - Preliminary NO GROWTH IN 3 DAYS Resulted 12/13/17 18:40 Sputum Endotracheal Gram Stain - Final Complete 12/13/17 18:40 Sputum Endotracheal Sputum Culture - Final RARE GROWTH NORMAL RESPIRATORY PHILIP Complete Imaging Last Impressions Chest X-Ray 12/15/17 0000 Signed Impressions: Service Date/Time: Friday, December 15, 2017 09:03 - CONCLUSION: 1. Stable ETT and NGT. 2. Progressive patchy left lower lung zone airspace disease. 3. Persistent mild interstitial prominence likely reflecting positive fluid balance. Tucker Zimmer MD Brain MRI 12/12/17 0000 Signed Impressions: Service Date/Time: Tuesday, December 12, 2017 10:21 - CONCLUSION: Normal examination. Addy Souza MD Liver Ultrasound 12/11/17 0000 Signed Impressions: Service Date/Time: November 10:26 - CONCLUSION: Solitary echogenic lesion left lobe liver I suspect a hemangioma. Central venous catheter within the IVC otherwise unremarkable study. Glenn James MD Head CT 12/10/17 1714 Signed Impressions: Service Date/Time: Sunday, December 10, 2017 18:18 - CONCLUSION: 1. Concern for right-sided nonhemorrhagic cerebral infarction. Jose Glaser Jr., MD Physical Exam CONSTITUTIONAL/GENERAL: This is an adequately nourished patient, in no apparent distress. TUBES/LINES/DRAINS: SKIN: No jaundice, rashes, or lesions. Skin temperature appropriate. Not diaphoretic. No [place] lesions, no splinter hemorrhages EYES: Pupils equal and round and reactive. Extraocular motions intact. No scleral icterus. No injection or drainage. Fundi not examined. ENT: Hearing grossly normal. Nose without bleeding or purulent drainage. Throat without visible erythema, exudates, masses, or lesions. NECK: Trachea midline. Supple, nontender. CARDIOVASCULAR: Regular rate and rhythm without murmurs, gallops, or rubs. No JVD. Peripheral pulses symmetric. RESPIRATORY/CHEST: Symmetric, unlabored respirations. Clear to auscultation. Breath sounds equal bilaterally. No wheezes, rales, or rhonchi. GASTROINTESTINAL: Abdomen soft, non-tender, nondistended. No hepato-splenomegaly , or palpable masses. No guarding. Bowel sounds present. GENITOURINARY: Without palpable bladder distension. Dan catheter in place with clear yellow urine MUSCULOSKELETAL: Extremities without clubbing, cyanosis, or edema. No joint tenderness or effusion noted. No calf tenderness. No mottling or clubbing. NEUROLOGICAL: eyes opened, makes eye contact, maybe trying to mouth something, but not following commands or answering questions PSYCHIATRIC: unable to assess Assessment & Plan Remarks STEMI Cocaine abuse SDp cardiac arrest Encephalopathy Acute VDRF ? PNA - Fever, differential anclude PNA, UTI, bloodstream infx, also can be non - infectious: again low grade fever vero santiago start CFTX anticipate 7 days of total abx if improving dw Neli Davis MD Dec 16, 2017 12:04
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
--- NOTE | 2017-12-16 14:12 | PD.CARD.PN ---
Subjective Subjective Remarks intubated, sedated, not tolerating sedation wean or cpap; eye tracking voice, girlfriend reports he squeezes her hand and orients toward her Objective Medications Current Medications Medications (Trade) Dose Ordered Sig/Yuri Route Start Time Stop Time Status Last Admin (Brethine Inj) 1 mg UNSCH PRN SQ 12/10/17 17:45 (Tylenol) 650 mg Q6H PRN PO 12/10/17 20:30 12/12/17 20:42 (Pepcid Inj) 20 mg Q12HR IV PUSH 12/10/17 21:00 12/16/17 07:55 (Versed Inj) 2 mg Q1H PRN IV PUSH 12/10/17 20:30 12/12/17 11:17 (Zofran Inj) 4 mg Q6H PRN IV PUSH 12/10/17 20:30 (Duoneb Neb) 1 ampule Q2HR NEB PRN INH 12/10/17 20:30 12/16/17 07:33 Miscellaneous Information 1 Q361D XX 12/10/17 20:30 12/10/17 20:30 (Chlorhexidine 2% Cloth) Taper DAILY@04 TOP 12/11/17 04:00 12/07/18 03:59 12/16/17 02:18 (Chlorhexidine 2% Cloth) 3 pack UNSCH PRN TOP 12/10/17 20:30 (Chelsea-Colace) 1 tab BID PO 12/10/17 21:00 12/13/17 08:50 (Milk Of Magnesia Liq) 30 ml Q12H PRN PO 12/10/17 20:30 (Senokot) 17.2 mg Q12H PRN PO 12/10/17 20:30 (Dulcolax Supp) 10 mg DAILY PRN RECTAL 12/10/17 20:30 (Lactulose Liq) 30 ml DAILY PRN PO 12/10/17 20:30 (Peridex 0.12% Liq) 15 ml BID@08,20 MT 12/11/17 08:00 12/16/17 07:54 (Heparin Inj) 2,500 units UNSCH PRN IV 12/11/17 03:00 12/16/17 03:54 Potassium Chloride 100 ml @ 50 mls/hr Q2H PRN IV-CENTRAL 12/10/17 21:45 12/15/17 08:26 Potassium Chloride 100 ml @ 50 mls/hr Q2H PRN IV 12/10/17 21:45 12/15/17 10:06 (K-Lyte Cl Eff) 50 meq UNSCH PRN PO 12/10/17 21:45 Potassium Chloride 100 ml @ 25 mls/hr UNSCH PRN IV-CENTRAL 12/10/17 21:45 Potassium Chloride 100 ml @ 50 mls/hr Q2H PRN IV 12/10/17 21:45 Magnesium Sulfate 4 gm/Sodium Chloride 100 ml @ 50 mls/hr UNSCH PRN IV 12/10/17 21:45 (Mag-Ox) 800 mg UNSCH PRN PO 12/10/17 21:45 Magnesium Sulfate 2 gm/Sodium Chloride 100 ml @ 50 mls/hr UNSCH PRN IV 12/10/17 21:45 (K-Phos) 2,000 mg Q4H PRN PO 12/10/17 21:45 Sodium Phosphate 30 mmol/Sodium Chloride 250 ml @ 42 mls/hr UNSCH PRN IV 12/10/17 21:45 (K-Phos) 2,000 mg UNSCH PRN PO/TUBE 12/10/17 21:45 Potassium Phosphate 30 mmol/ Sodium Chloride 260 ml @ 42 mls/hr UNSCH PRN IV 12/10/17 21:45 (Heparin Inj) 5,000 units UNSCH PRN IV 12/10/17 23:00 12/10/17 23:13 Heparin Sodium (Porcine) 58340 units/Sodium Chloride 250 ml @ 10 mls/hr TITRATE PRN IV 12/10/17 23:00 12/15/17 14:37 (Ativan Inj) 1 mg Q1H PRN IV PUSH 12/10/17 23:30 12/15/17 04:00 (fentaNYL INJ) 50 mcg Q1H PRN IV PUSH 12/10/17 23:30 12/15/17 11:32 Miscellaneous Information ml @ 0 mls/hr UNSCH IV 12/10/17 23:30 (NS Flush) 2 ml UNSCH PRN IV FLUSH 12/10/17 23:30 (NS Flush) 2 ml UNSCH PRN IV FLUSH 12/10/17 23:30 (Demerol Inj) 25 mg Q2H PRN IV PUSH 12/10/17 23:30 12/11/17 08:48 (Lacrilube Opht Oint) 1 applic Q4H PRN EACH EYE 12/10/17 23:30 12/16/17 07:55 (Aspirin Chew) 81 mg DAILY CHEW 12/12/17 09:00 12/16/17 07:56 (D50w (Vial) Inj) 50 ml UNSCH PRN IV PUSH 12/11/17 09:45 (Glucagon Inj) 1 mg UNSCH PRN OTHER 12/11/17 09:45 (NovoLIN R SUPPLEMENTAL SCALE) 1 Q4H SQ 12/11/17 09:45 Propofol 100 ml @ 2.802 mls/ hr TITRATE PRN IV 12/14/17 15:45 12/14/17 20:49 Fentanyl Citrate 250 ml @ 5 mls/hr TITRATE PRN IV 12/15/17 10:00 12/16/17 02:19 Dexmedetomidine HCl 1000 mcg/ Sodium Chloride 250 ml @ 4.62 mls/hr TITRATE PRN IV 12/15/17 17:00 12/16/17 02:18 Sodium Chloride 1,000 ml @ 75 mls/hr [id number] IV 12/16/17 03:30 12/16/17 03:55 Ceftriaxone Sodium 2000 mg/ Sodium Chloride 100 ml @ 200 mls/hr Q24H IV 12/16/17 14:00 Vital Signs / I&O Vital Signs Date Time Temp Pulse Resp B/P (MAP) Pulse Ox O2 Delivery O2 Flow Rate FiO2 12/16/17 10:47 40 12/16/17 10:45 92 40 12/16/17 08:00 99.0 80 18 95/71 (79) 100 125/75 (92) 12/16/17 08:00 40 12/16/17 08:00 80 12/16/17 07:33 97 40 12/16/17 06:00 62 12/16/17 04:00 98.1 62 16 94/53 (67) 98 109/62 (78) 12/16/17 04:00 40 12/16/17 04:00 62 12/16/17 03:39 99 40 12/16/17 02:00 64 12/16/17 00:00 98.6 71 19 106/58 (74) 98 12/16/17 00:00 40 12/16/17 00:00 71 12/15/17 23:11 99 40 12/15/17 22:00 66 12/15/17 20:00 69 12/15/17 20:00 100.0 69 18 102/60 (74) 96 110/64 (79) 12/15/17 20:00 40 12/15/17 19:53 96 40 12/15/17 18:00 71 12/15/17 16:00 92 12/15/17 16:00 40 12/15/17 16:00 100.2 74 17 107/64 (78) 98 114/67 (83) 12/15/17 15:34 99 40 I/O 12/15/17 12/15/17 12/15/17 12/16/17 12/16/17 12/16/17 07:00 15:00 23:00 07:00 15:00 23:00 Intake Total 634 ml 646 ml 1113 ml 1557 ml Output Total 300 ml 4250 ml 450 ml Balance 334 ml 646 ml -3137 ml 1107 ml Intake Oral 0 ml IV Total 100 ml 646 ml 473 ml 1100 ml Tube Feeding 534 ml 540 ml 457 ml Other 100 ml Output Urine Total 300 ml 4250 ml 450 ml # Bowel Movements 3 0 Physical Exam GENERAL: SKIN: Warm and dry. HEAD: Normocephalic. EYES: No scleral icterus. No injection or drainage. NECK: Supple, trachea midline. No JVD or lymphadenopathy. CARDIOVASCULAR: Regular rate and rhythm without murmurs, gallops, or rubs. RESPIRATORY: Breath sounds equal bilaterally. No accessory muscle use. GASTROINTESTINAL: Abdomen soft, non-tender, nondistended. MUSCULOSKELETAL: No cyanosis, or edema. BACK: Nontender without obvious deformity. No CVA tenderness. Laboratory Laboratory Tests Test 12/15/17 18:05 12/15/17 19:05 12/16/17 02:15 12/16/17 11:00 Potassium Level 3.6 MEQ/L 3.6 MEQ/L Activated Partial Thromboplast Time 30.6 SEC 34.8 SEC 31.0 SEC White Blood Count 6.1 TH/MM3 Red Blood Count 3.25 MIL/MM3 Hemoglobin 10.0 GM/DL Hematocrit 28.7 % Mean Corpuscular Volume 88.2 FL Mean Corpuscular Hemoglobin 30.7 PG Mean Corpuscular Hemoglobin Concent 34.8 % Red Cell Distribution Width 13.6 % Platelet Count 134 TH/MM3 Mean Platelet Volume 8.9 FL Neutrophils (%) (Auto) 55.7 % Lymphocytes (%) (Auto) 25.7 % Monocytes (%) (Auto) 12.8 % Eosinophils (%) (Auto) 5.4 % Basophils (%) (Auto) 0.4 % Neutrophils # (Auto) 3.4 TH/MM3 Lymphocytes # (Auto) 1.6 TH/MM3 Monocytes # (Auto) 0.8 TH/MM3 Eosinophils # (Auto) 0.3 TH/MM3 Basophils # (Auto) 0.0 TH/MM3 CBC Comment DIFF FINAL Differential Comment Blood Urea Nitrogen 25 MG/DL Creatinine 0.70 MG/DL Random Glucose 114 MG/DL Total Protein 6.3 GM/DL Albumin 2.4 GM/DL Calcium Level 8.0 MG/DL Alkaline Phosphatase 35 U/L Aspartate Amino Transf (AST/SGOT) 108 U/L Alanine Aminotransferase (ALT/SGPT) 122 U/L Total Bilirubin 0.3 MG/DL Sodium Level 146 MEQ/L Chloride Level 112 MEQ/L Carbon Dioxide Level 28.3 MEQ/L Anion Gap 6 MEQ/L Estimat Glomerular Filtration Rate 124 ML/MIN Assessment and Plan Problem List: (1) STEMI (ST elevation myocardial infarction) ICD Codes: I21.3 - ST elevation (STEMI) myocardial infarction of unspecified site (2) Cocaine abuse ICD Codes: F14.10 - Cocaine abuse, uncomplicated (3) Cardiac arrest ICD Codes: I46.9 - Cardiac arrest, cause unspecified (4) Head trauma ICD Codes: S09.90XA - Unspecified injury of head, initial encounter (5) CVA (cerebral vascular accident) ICD Codes: I63.9 - Cerebral infarction, unspecified (6) Tobacco abuse ICD Codes: Z72.0 - Tobacco use (7) Encephalopathy ICD Codes: G93.40 - Encephalopathy, unspecified Assessment and Plan 1.) s/p cardiac arrest - initial gcs=3, possible acute cva, completed hypothermia protocol, mri brain wnl, on aspirin, heparin drip, failed sedation weaning attempt 12/12/17, 12/13/17, reported ef@50-55% on echo,, repeat ekg wnl; cath if neurologic prognosis is adequate and patient or surrogate consents, dc tobacco and cocaine; palliative care following, eeg c/w moderate encephalopathy , prognosis appears possibly improving off pressors; awaiting re assessment of mental status off sedation and surrogate or patient goals of treatment Ameya Dubose MD Dec 16, 2017 14:12
[2017-12-16] MEDS: cefTRIAXone INJ 2,000 MG in SODIUM CHLORIDE 0.9% INJ 100 ML IV SCH (15:14)
[2017-12-17] VITALS (24 sets, daily range): BP systolic 97–193; BP diastolic 56–104; PULSE 60–106; RESP 16–39; TEMP 98.8–100.8; O2SAT 81–100
[2017-12-17] MEDS: fentaNYL DRIP 250 ML IV PRN ×2 (00:26→22:06)
[2017-12-17] MEDS: INSULIN NovoLIN REGULAR SUPPLEMENTAL SCALE SQ SCH ×6 (01:45→21:45)
[2017-12-17] MEDS: SODIUM CHLOR 0.9% 1000 ML INJ 1,000 ML IV SCH ×2 (02:37→16:21)
[2017-12-17] MEDS: CHLORHEXIDINE GLUCONATE 2 % 1 PACK (2 CLOTHS) TOP SCH (04:00)
--- NOTE | 2017-12-17 04:08 | RADRPT ---
EXAM DATE/TIME: 12/17/2017 02:50 [facility] COMPARISON: CHEST SINGLE AP, December 15, 2017, 9:03. INDICATIONS : Shortness of breath. MEDICAL HISTORY : Cardiac arrest SURGICAL HISTORY : ORIF right arm ENCOUNTER: Subsequent ACUITY: 1 week PAIN SCORE: Non-responsive. LOCATION: Bilateral chest FINDINGS: ET tube tip is 1.8 cm above the clara. Gastric tube traverses the [id number]. Interval developm ent of patchy airspace opacities in the right perihilar and infrahilar region and increasing airspace opacities in the left lower lung. The heart is enlarged, stable in appearance. Both hemidiaphragms remain well delineated. CONCLUSION: 1. Increasing airspace opacities central and lower lungs bilaterally. 2. ET tube tip is now within 2 cm of the clara. Jose Duong MD on December 17, 2017 at 4:05 Board Certified Radiologist. This report was verified electronically.
[2017-12-17 04:48] LABS: AUTOMATED NEUTROPHIL # 2.8 TH/MM3 (1.8-7.7); BASOPHIL % 0.5 % (0.0-2.0); EOSINOPHIL # 0.2 TH/MM3 (0-0.4); HEMOGLOBIN 9.2 GM/DL (13.0-17.0); LYMPH % 32.5 % (9.0-44.0); LYMPHOCYTE # 1.8 TH/MM3 (1.0-4.8); MEAN CELL VOLUME 87.1 FL (80.0-100.0); MEAN CORPUSCULAR HEMOGLOBIN 30.7 PG (27.0-34.0); MEAN CORPUSCULAR HGB CONC 35.3 % (32.0-36.0); MEAN PLATELET VOLUME 8.5 FL (7.0-11.0); MONO % 13.5 % (0.0-8.0); MONOCYTE # 0.8 TH/MM3 (0-0.9); NEUT % 49.5 % (16.0-70.0); PLATELET COUNT 125 TH/MM3 (150-450); RED BLOOD COUNT 2.99 MIL/MM3 (4.50-5.90); RED CELL DISTRIBUTION WIDTH 13.4 % (11.6-17.2); WHITE BLOOD COUNT 5.6 TH/MM3 (4.0-11.0)
[2017-12-17 05:13] LABS: ALBUMIN 2.2 GM/DL (3.4-5.0); AST (GOT) 82 U/L (15-37); BICARBONATE 28.1 MEQ/L (21.0-32.0); BLOOD UREA NITROGEN 21 MG/DL (7-18); CHLORIDE 110 MEQ/L (98-107); CREATININE 0.58 MG/DL (0.60-1.30); GLOMERULAR FILTRATION RATE 154 ML/MIN (>89); GLUCOSE,RANDOM 111 MG/DL (74-106); MAGNESIUM 2.3 MG/DL (1.5-2.5); SODIUM (NA) 144 MEQ/L (136-145)
[2017-12-17 05:15] LABS: ALKALINE PHOSPHATASE 35 U/L (45-117); ALT (GPT) 127 U/L (12-78); PHOSPHORUS 3.6 MG/DL (2.5-4.9); TOTAL BILIRUBIN ADULT 0.2 MG/DL (0.2-1.0)
[2017-12-17] MEDS: DEXMEDETOMIDINE INJ 1,000 MCG in SODIUM CHLOR 0.9% 250 ML INJ 240 ML IV PRN ×3 (05:49→21:31)
[2017-12-17] MEDS: HEPARIN INJ 25,000 UNITS in SODIUM CHLOR 0.9% 250 ML INJ 247.5 ML IV PRN ×2 (05:51→23:23)
[2017-12-17] MEDS: RESP: ALBUTEROL 2.5 MG/IPRATROPIUM 0.5 MG NEB (PRN) INH (07:24)
[2017-12-17] MEDS: CHLORHEXIDINE 0.12% (ORAL KIT) 15 ML CUP MT SCH ×2 (08:00→20:00)
[2017-12-17] MEDS: DOCUSATE SODIUM 50 MG/SENNA 8.6 MG TAB PO SCH ×2 (08:30→21:00)
[2017-12-17] MEDS: FAMOTIDINE 20 MG/2 ML VIAL IV PUSH SCH ×2 (08:30→21:51)
[2017-12-17] MEDS: ASPIRIN 81 MG CHEW TAB CHEW SCH (08:30)
--- NOTE | 2017-12-17 13:34 | HHI.HCPN ---
Follow-up palliative care visit for ongoing support and conversations regarding goals of care. Spoke with RN Chana. Reports no change in patient's condition , awaiting input from metalsmith regarding sedation lightening and CPAP trails. Mr. Stern appears to be resting comfortably. Girlfriend at bedside. Spoke with aunt/health care proxy, Alicja. She is appropriately struggling with patient's medical condition. Answered her questions and concerns to the best of my ability. She understands she may be faced with decisions regarding tracheostomy and peg tube in the coming days. Remains appreciative of ongoing honest conversations regarding Mr. Stern's medical condition. Spoke with patient's ex-, Estee. Answered her questions and concerns to the best of my ability. She voices concern regarding Mr. Stern's inability to tolerate sedation lightening and CPAP trails over the past few days. Reflects on the dynamics and difficulty with their 2 sons. Offered emotional support and clinical supportive sessions with sons if desired. Tentative plan remains for family meeting Friday12-22-17. Will contact Jerm[facility] daily to provide medical updates. They have palliative care contact information and remain in contact with nursing [place] [facility] Palliative care will continue to follow throughout hospitalization. Kina Glaser, COMMUNICATIONS LEAD Dec 17, 2017 13:34
[2017-12-17] MEDS: cefTRIAXone INJ 2,000 MG in SODIUM CHLORIDE 0.9% INJ 100 ML IV SCH (13:43)
--- NOTE | 2017-12-17 14:29 | PD.CARD.PN ---
Subjective Subjective Remarks intubated, sedated, not tolerating sedation wean or cpap; eye tracking voice, girlfriend reports he squeezes her hand and orients toward her, nursing reports patient is not following simple commands, cpap trial not attempted today Objective Medications Current Medications Medications (Trade) Dose Ordered Sig/Yuri Route Start Time Stop Time Status Last Admin (Brethine Inj) 1 mg UNSCH PRN SQ 12/10/17 17:45 (Tylenol) 650 mg Q6H PRN PO 12/10/17 20:30 12/12/17 20:42 (Pepcid Inj) 20 mg Q12HR IV PUSH 12/10/17 21:00 12/17/17 08:30 (Versed Inj) 2 mg Q1H PRN IV PUSH 12/10/17 20:30 12/12/17 11:17 (Zofran Inj) 4 mg Q6H PRN IV PUSH 12/10/17 20:30 (Duoneb Neb) 1 ampule Q2HR NEB PRN INH 12/10/17 20:30 12/16/17 07:33 Miscellaneous Information 1 Q361D XX 12/10/17 20:30 12/10/17 20:30 (Chlorhexidine 2% Cloth) Taper DAILY@04 TOP 12/11/17 04:00 12/07/18 03:59 12/17/17 04:00 (Chlorhexidine 2% Cloth) 3 pack UNSCH PRN TOP 12/10/17 20:30 (Chelsea-Colace) 1 tab BID PO 12/10/17 21:00 12/17/17 08:30 (Milk Of Magnesia Liq) 30 ml Q12H PRN PO 12/10/17 20:30 (Senokot) 17.2 mg Q12H PRN PO 12/10/17 20:30 (Dulcolax Supp) 10 mg DAILY PRN RECTAL 12/10/17 20:30 (Lactulose Liq) 30 ml DAILY PRN PO 12/10/17 20:30 (Peridex 0.12% Liq) 15 ml BID@08,20 MT 12/11/17 08:00 12/17/17 08:00 (Heparin Inj) 2,500 units UNSCH PRN IV 12/11/17 03:00 12/16/17 23:04 Potassium Chloride 100 ml @ 50 mls/hr Q2H PRN IV-CENTRAL 12/10/17 21:45 12/15/17 08:26 Potassium Chloride 100 ml @ 50 mls/hr Q2H PRN IV 12/10/17 21:45 12/15/17 10:06 (K-Lyte Cl Eff) 50 meq UNSCH PRN PO 12/10/17 21:45 Potassium Chloride 100 ml @ 25 mls/hr UNSCH PRN IV-CENTRAL 12/10/17 21:45 Potassium Chloride 100 ml @ 50 mls/hr Q2H PRN IV 12/10/17 21:45 Magnesium Sulfate 4 gm/Sodium Chloride 100 ml @ 50 mls/hr UNSCH PRN IV 12/10/17 21:45 (Mag-Ox) 800 mg UNSCH PRN PO 12/10/17 21:45 Magnesium Sulfate 2 gm/Sodium Chloride 100 ml @ 50 mls/hr UNSCH PRN IV 12/10/17 21:45 (K-Phos) 2,000 mg Q4H PRN PO 12/10/17 21:45 Sodium Phosphate 30 mmol/Sodium Chloride 250 ml @ 42 mls/hr UNSCH PRN IV 12/10/17 21:45 (K-Phos) 2,000 mg UNSCH PRN PO/TUBE 12/10/17 21:45 Potassium Phosphate 30 mmol/ Sodium Chloride 260 ml @ 42 mls/hr UNSCH PRN IV 12/10/17 21:45 (Heparin Inj) 5,000 units UNSCH PRN IV 12/10/17 23:00 12/10/17 23:13 Heparin Sodium (Porcine) 93942 units/Sodium Chloride 250 ml @ 10 mls/hr TITRATE PRN IV 12/10/17 23:00 12/17/17 05:51 (Ativan Inj) 1 mg Q1H PRN IV PUSH 12/10/17 23:30 12/15/17 04:00 (fentaNYL INJ) 50 mcg Q1H PRN IV PUSH 12/10/17 23:30 12/15/17 11:32 Miscellaneous Information ml @ 0 mls/hr UNSCH IV 12/10/17 23:30 (NS Flush) 2 ml UNSCH PRN IV FLUSH 12/10/17 23:30 (NS Flush) 2 ml UNSCH PRN IV FLUSH 12/10/17 23:30 (Demerol Inj) 25 mg Q2H PRN IV PUSH 12/10/17 23:30 12/11/17 08:48 (Lacrilube Opht Oint) 1 applic Q4H PRN EACH EYE 12/10/17 23:30 12/16/17 07:55 (Aspirin Chew) 81 mg DAILY CHEW 12/12/17 09:00 12/17/17 08:30 (D50w (Vial) Inj) 50 ml UNSCH PRN IV PUSH 12/11/17 09:45 (Glucagon Inj) 1 mg UNSCH PRN OTHER 12/11/17 09:45 (NovoLIN R SUPPLEMENTAL SCALE) 1 Q4H SQ 12/11/17 09:45 Propofol 100 ml @ 2.802 mls/ hr TITRATE PRN IV 12/14/17 15:45 12/14/17 20:49 Fentanyl Citrate 250 ml @ 5 mls/hr TITRATE PRN IV 12/15/17 10:00 12/17/17 00:26 Dexmedetomidine HCl 1000 mcg/ Sodium Chloride 250 ml @ 4.62 mls/hr TITRATE PRN IV 12/15/17 17:00 12/17/17 13:40 Sodium Chloride 1,000 ml @ 75 mls/hr [id number] IV 12/16/17 03:30 12/17/17 02:37 Ceftriaxone Sodium 2000 mg/ Sodium Chloride 100 ml @ 200 mls/hr Q24H IV 12/16/17 14:00 12/17/17 13:43 Vital Signs / I&O Vital Signs Date Time Temp Pulse Resp B/P (MAP) Pulse Ox O2 Delivery O2 Flow Rate FiO2 12/17/17 12:00 76 12/17/17 12:00 40 12/17/17 12:00 100.5 76 18 104/78 (87) 99 134/70 (91) 12/17/17 11:18 99 40 12/17/17 11:00 70 12/17/17 10:00 76 12/17/17 09:00 68 12/17/17 08:00 61 12/17/17 08:00 98.8 61 16 97/58 (71) 99 118/61 (80) 12/17/17 08:00 40 12/17/17 07:25 99 40 12/17/17 07:00 65 12/17/17 06:00 63 12/17/17 04:20 100 40 12/17/17 04:00 100.2 60 16 98/61 (73) 100 111/62 (78) 12/17/17 04:00 60 12/17/17 04:00 40 12/17/17 02:00 63 12/17/17 01:06 97 40 12/17/17 00:00 100.8 67 16 102/56 (71) 98 112/60 (77) 12/17/17 00:00 40 12/17/17 00:00 67 12/16/17 22:15 96 40 12/16/17 22:00 70 12/16/17 20:00 101.3 72 16 112/61 (78) 98 130/71 (90) 12/16/17 20:00 40 12/16/17 20:00 72 12/16/17 19:04 99 40 12/16/17 18:00 75 12/16/17 16:00 100.7 74 16 112/59 (76) 96 123/71 (88) 12/16/17 16:00 40 12/16/17 16:00 80 12/16/17 15:16 97 40 I/O 12/16/17 12/16/17 12/16/17 12/17/17 12/17/17 12/17/17 07:00 15:00 23:00 07:00 15:00 23:00 Intake Total 1557 ml 3384 ml 2312 ml Output Total 450 ml 1600 ml 675 ml Balance 1107 ml 1784 ml 1637 ml IV Total 1100 ml 2777 ml 1750 ml Tube Feeding 457 ml 607 ml 512 ml Other 50 ml Output Urine Total 450 ml 1600 ml 675 ml # Bowel Movements 0 2 0 Physical Exam GENERAL: SKIN: Warm and dry. HEAD: Normocephalic. EYES: No scleral icterus. No injection or drainage. NECK: Supple, trachea midline. No JVD or lymphadenopathy. CARDIOVASCULAR: Regular rate and rhythm without murmurs, gallops, or rubs. RESPIRATORY: Breath sounds equal bilaterally. No accessory muscle use. GASTROINTESTINAL: Abdomen soft, non-tender, nondistended. MUSCULOSKELETAL: No cyanosis, or edema. BACK: Nontender without obvious deformity. No CVA tenderness. Laboratory Laboratory Tests Test 12/16/17 21:27 12/17/17 04:25 12/17/17 13:30 Activated Partial Thromboplast Time 37.4 SEC 40.1 SEC 34.2 SEC White Blood Count 5.6 TH/MM3 Red Blood Count 2.99 MIL/MM3 Hemoglobin 9.2 GM/DL Hematocrit 26.0 % Mean Corpuscular Volume 87.1 FL Mean Corpuscular Hemoglobin 30.7 PG Mean Corpuscular Hemoglobin Concent 35.3 % Red Cell Distribution Width 13.4 % Platelet Count 125 TH/MM3 Mean Platelet Volume 8.5 FL Neutrophils (%) (Auto) 49.5 % Lymphocytes (%) (Auto) 32.5 % Monocytes (%) (Auto) 13.5 % Eosinophils (%) (Auto) 4.0 % Basophils (%) (Auto) 0.5 % Neutrophils # (Auto) 2.8 TH/MM3 Lymphocytes # (Auto) 1.8 TH/MM3 Monocytes # (Auto) 0.8 TH/MM3 Eosinophils # (Auto) 0.2 TH/MM3 Basophils # (Auto) 0.0 TH/MM3 CBC Comment DIFF FINAL Differential Comment Blood Urea Nitrogen 21 MG/DL Creatinine 0.58 MG/DL Random Glucose 111 MG/DL Total Protein 6.0 GM/DL Albumin 2.2 GM/DL Calcium Level 8.0 MG/DL Phosphorus Level 3.6 MG/DL Magnesium Level 2.3 MG/DL Alkaline Phosphatase 35 U/L Aspartate Amino Transf (AST/SGOT) 82 U/L Alanine Aminotransferase (ALT/SGPT) 127 U/L Total Bilirubin 0.2 MG/DL Sodium Level 144 MEQ/L Potassium Level 3.7 MEQ/L Chloride Level 110 MEQ/L Carbon Dioxide Level 28.1 MEQ/L Anion Gap 6 MEQ/L Estimat Glomerular Filtration Rate 154 ML/MIN Imaging Last 24 hours Impressions Chest X-Ray 12/17/17 0600 Signed Impressions: Service Date/Time: Sunday, December 17, 2017 02:50 - CONCLUSION: 1. Increasing airspace opacities central and lower lungs bilaterally. 2. ET tube tip is now within 2 cm of the clara. Jose Duong MD Assessment and Plan Problem List: (1) STEMI (ST elevation myocardial infarction) ICD Codes: I21.3 - ST elevation (STEMI) myocardial infarction of unspecified site (2) Cocaine abuse ICD Codes: F14.10 - Cocaine abuse, uncomplicated (3) Cardiac arrest ICD Codes: I46.9 - Cardiac arrest, cause unspecified (4) Head trauma ICD Codes: S09.90XA - Unspecified injury of head, initial encounter (5) CVA (cerebral vascular accident) ICD Codes: I63.9 - Cerebral infarction, unspecified (6) Tobacco abuse ICD Codes: Z72.0 - Tobacco use (7) Encephalopathy ICD Codes: G93.40 - Encephalopathy, unspecified Assessment and Plan 1.) s/p cardiac arrest - initial gcs=3, possible acute cva, completed hypothermia protocol, mri brain wnl, on aspirin, heparin drip, failed sedation weaning attempt 12/12/17, 12/13/17, reported ef@50-55% on echo,, repeat ekg wnl; cath if neurologic prognosis is adequate and patient or surrogate consents, dc tobacco and cocaine; palliative care following, eeg c/w moderate encephalopathy , prognosis appears possibly improving off pressors; awaiting re assessment of mental status off sedation and surrogate or patient goals of treatment, palliative care following, family meeting set for 12/22/17 Ameya Dubose MD Dec 17, 2017 14:29
[2017-12-17] MEDS: PROPOFOL 1000 MG/100 ML IV PRN (21:53)
[2017-12-17] MEDS: HEPARIN SODIUM - IV 10,000 UNITS/10 ML VIAL IV PRN (23:03)
--- NOTE | 2017-12-17 23:13 | HHI.CCPN ---
Subjective Remarks/Hospital Course 42-year-old gentleman brought in by EMS after he apparently had an episode of chest pain after which he clutched his chest an collapsed at home. Patient's called 911 and initiated CPR prior to EMS arriving there. Once EMS arrived they were able to start an IV, intubated the patient and initiated ACLS protocol giving 4 rounds of epi 7 rounds of chest compressions along with 3 separate defibrillations. Initial EKG at the scene showed ST elevation, however the repeat EKG in the emergency department showed no ST elevations. The case was discussed by ED attending with digital imaging technician workers compensation adjuster who recommended hypothermia protocol and conservative management. 12/11 Patient is sedated and intubated. On Levophed, Amio and Nimbex drips. 12/12 Patient remains intubated and sedated with Diprivan in addition he is on Nimbex. Off Levophed and Amio drips. Remains on Heparin drip. 12/13 Patient remains intubated and sedated with Diprivan. Placed on Levophed 3 mics overnight, on heparin drip. T:101.7 last night. 12/14 No events overnight. Off Levophed. Afebrile. Off Diprivan placed on Precedex drip overnight. T:101.1 12/15 Patient remains intubated and sedated with Diprivan and Precedex drip. Afebrile. 12/16 Patient is sedated with Precedex and Fentanyl infusion. T:100.0 last night. Subjective 12/17: Tube feeds are currently goal. With Glucerna 1.5 at 45. Requiring dexmedetomidine for sedation while also on fentanyl drip. We'll start on quetiapine and scheduled oxycodone. Non purposeful movements to stimulation specifically with left upper extremity Objective Vital Signs Date Time Temp Pulse Resp B/P (MAP) Pulse Ox O2 Delivery O2 Flow Rate FiO2 12/17/17 22:00 86 12/17/17 21:26 100 100 12/17/17 20:00 100.8 39 193/104 (133) Intake and Output 12/17/17 12/17/17 12/18/17 08:00 16:00 00:00 Intake Total 2312 ml 600 ml 1742 ml Output Total 675 ml 1250 ml Balance 1637 ml 600 ml 492 ml Result Diagram: 12/17/17 0425 12/17/17 0425 Other Results Microbiology Date/Time Source Procedure Growth Status 12/13/17 18:28 Blood Peripheral Aerobic Blood Culture - Preliminary NO GROWTH IN 4 DAYS Resulted 12/13/17 18:28 Blood Peripheral Anaerobic Blood Culture - Preliminary NO GROWTH IN 4 DAYS Resulted 12/13/17 18:40 Sputum Endotracheal Gram Stain - Final Complete 12/13/17 18:40 Sputum Endotracheal Sputum Culture - Final RARE GROWTH NORMAL RESPIRATORY PHILIP Complete 12/10/17 17:30 Urine Clean Catch Urine Culture - Final NO GROWTH IN 48 HOURS. Complete Imaging Last Impressions Chest X-Ray 12/17/17 0600 Signed Impressions: Service Date/Time: Sunday, December 17, 2017 02:50 - CONCLUSION: 1. Increasing airspace opacities central and lower lungs bilaterally. 2. ET tube tip is now within 2 cm of the clara. Jose Duong MD Brain MRI 12/12/17 0000 Signed Impressions: Service Date/Time: Tuesday, December 12, 2017 10:21 - CONCLUSION: Normal examination. Addy Souza MD Liver Ultrasound 12/11/17 0000 Signed Impressions: Service Date/Time: November 10:26 - CONCLUSION: Solitary echogenic lesion left lobe liver I suspect a hemangioma. Central venous catheter within the IVC otherwise unremarkable study. Glenn James MD Head CT 12/10/17 1714 Signed Impressions: Service Date/Time: Sunday, December 10, 2017 18:18 - CONCLUSION: 1. Concern for right-sided nonhemorrhagic cerebral infarction. Jose Glaser Jr., MD Objective Remarks GENERAL: 42-year-old male currently orotracheally intubated SKIN: Warm and dry. HEAD: Atraumatic. Normocephalic. EYES: Pupils equal and briskly reactive to light by 2 mm bilaterally, ENT: No nasal bleeding or discharge. Mucous membranes pink and moist. NECK: Trachea midline. No JVD. CARDIOVASCULAR: RRR. S1, S2 no S4. Without murmur RESPIRATORY: Few crackles appreciated in the left. The right lower lobes posteriorly. No wheezing GASTROINTESTINAL: Abdomen soft, non-tender, nondistended. Positive bowel sounds appreciated MUSCULOSKELETAL: Extremities with trace bilateral lower extremity edema. No obvious deformities. NEUROLOGICAL: Sedated and intubated. No obvious cranial nerve deficits. Motor localizes to pain on all 4 extremities. Five out of 5 muscle strength in the arms and legs. Urinary Catheter: Yes Assessment to: Continue Dan insert reason: Prolonged Immobilization Vascular Central Line Catheter: No Assessment to: Continue A/P Assessment and Plan Neuro: Acute toxic metabolic encephalopathy UDS positive for cocaine and benzodiazepines On dexmedetomidine drip at 1.5 mcg/kg per minute, Fentanyl infusion 150 an hour for sedation and vent synchrony,daily sedation vacation CT brain showed possible non hemorrhagic cerebral infarction. MRI brain 12/12: within normal, neuro is following-Dr. Vasquez EEG: moderate diffuse encephalopathy, no seizure activity UDS: + Cocaine, Benzo Start quetiapine 25 twice a day and schedule oxycodone 5 mg to 6 hours scheduled in attempt to wean sedation Pulm: Acute respiratory failure PRVC 16/500/11/28/ Ventilator bundle Albuterol/ipratropium aerosols every 6 hours with albuterol aerosols every 2 hours. Dyspnea Continue with vent support keep sat >92% SBT daily as giovanna. Chest x-ray 12/17 revealed worsening left greater than right lower lobe infiltrates CV: OHCA - V. fib Elevated troponin Monitor HR and BP keep MAP>65mmHg s/p Hypothermia protocol. Cards is following- Dr. Dubose. Echo showed EF 50-55% If patient recovers neurologically might be a candidate for cardiac cath per cards. Continue with Heparin drip 8 1800 units an hour. Monitor PTT. On ASA. 81 mg daily Renal/: Monitor renal function, I/O's, electrolytes replacement per protocol. Currently on NS@75ml/hr GI: Elevated transaminases Looser 1.5 goal 45 cc an hour. Recommend beneprotein off propofol with goal 55 cc an hour On lansoprazole for GI prophylaxis Monitor LFT's,Hepatitis profile negative US liver: Solitary echogenic lesion left lobe liver I suspect a hemangioma. ID: Previously on piperacillin/tazobactam and vancomycin Currently on ceftriaxone per infectious disease. Pancultured 12/13 ( Blood, sputum) ID is following Blood, 12/11 urine cx: 12/10: No growth Sputum cx 12/11: Group A beta strep. Heme: Anemia/normocytic Thrombocytopenia Monitor CBC, coags- on Heparin drip Endo: Hyperglycemia Novulin R with Accu-Cheks every 4 hours to maintain euglycemia/moderate regimen for glycemic control GI prophylaxis- on lansoprazole DVT prophylaxis- On Heparin drip. Lines: Peripheral IV's Palliative care is following Level II follow-up Parag Pepper MD Dec 17, 2017 23:12
[2017-12-17] MEDS ORDERED: RESP: ALBUTEROL 2.5 MG/3 ML NEB (PRN) NEB (23:15)
[2017-12-17] MEDS ORDERED: ACETAMINOPHEN 650 MG/20.3 ML UDC OG-TUBE PRN (23:15)
[2017-12-17] MEDS ORDERED: POTASSIUM CHLORIDE 20 MEQ PWD PACKET PO ONE (23:30)
[2017-12-17] MEDS: oxyCODONE HCL ORAL CONC 5 MG/0.25 ML SYRINGE NG SCH (23:40)
[2017-12-18] VITALS (16 sets, daily range): BP systolic 95–131; BP diastolic 47–67; PULSE 61–90; RESP 15–22; TEMP 99.9–100.4; O2SAT 97–100
[2017-12-18] MEDS: INSULIN NovoLIN REGULAR SUPPLEMENTAL SCALE SQ SCH ×6 (01:45→21:28)
[2017-12-18] MEDS: CHLORHEXIDINE GLUCONATE 2 % 1 PACK (2 CLOTHS) TOP SCH (04:00)
[2017-12-18 05:22] LABS: HEMATOCRIT 26.4 % (39.0-51.0); HEMOGLOBIN 9.4 GM/DL (13.0-17.0); MEAN CELL VOLUME 85.7 FL (80.0-100.0); MEAN CORPUSCULAR HEMOGLOBIN 30.6 PG (27.0-34.0); MEAN CORPUSCULAR HGB CONC 35.7 % (32.0-36.0); MEAN PLATELET VOLUME 8.6 FL (7.0-11.0); PLATELET COUNT 147 TH/MM3 (150-450); RED BLOOD COUNT 3.08 MIL/MM3 (4.50-5.90); RED CELL DISTRIBUTION WIDTH 13.2 % (11.6-17.2); WHITE BLOOD COUNT 8.7 TH/MM3 (4.0-11.0)
[2017-12-18] MEDS: DEXMEDETOMIDINE INJ 1,000 MCG in SODIUM CHLOR 0.9% 250 ML INJ 240 ML IV PRN ×3 (05:32→22:53)
[2017-12-18 05:40] LABS: BICARBONATE 26.5 MEQ/L (21.0-32.0); CALCIUM 8.1 MG/DL (8.5-10.1); CREATININE 0.52 MG/DL (0.60-1.30); MAGNESIUM 2.1 MG/DL (1.5-2.5); PHOSPHORUS 3.2 MG/DL (2.5-4.9)
[2017-12-18] MEDS: ARTIFICIAL TEARS OPTH SOLN 15 ML BTL EACH EYE SCH ×3 (05:51→20:41)
[2017-12-18] MEDS: oxyCODONE HCL ORAL CONC 5 MG/0.25 ML SYRINGE NG SCH ×4 (05:52→23:39)
[2017-12-18] MEDS: CHLORHEXIDINE 0.12% (ORAL KIT) 15 ML CUP MT SCH ×2 (08:00→20:00)
[2017-12-18] MEDS: ASPIRIN 81 MG CHEW TAB CHEW SCH (08:11)
[2017-12-18] MEDS: LANSOPRAZOLE SOLUTAB 30 MG TAB NG SCH (08:11)
[2017-12-18] MEDS: QUEtiapine FUMARATE 25 MG TAB PO SCH ×2 (08:11→20:40)
[2017-12-18] MEDS: DOCUSATE SODIUM 50 MG/SENNA 8.6 MG TAB PO SCH ×2 (08:11→20:40)
--- NOTE | 2017-12-18 10:23 | PD.CARD.PN ---
Subjective Subjective Remarks intubated, sedated, not tolerating sedation wean or cpap; eye tracking voice, nurse reports he squeezes her hand and orients toward her, nursing reports patient is following simple commands, however Dr Pepper states the opposite today , cpap trial not attempted today Objective Medications Current Medications Medications (Trade) Dose Ordered Sig/Yuri Route Start Time Stop Time Status Last Admin (Brethine Inj) 1 mg UNSCH PRN SQ 12/10/17 17:45 (Versed Inj) 2 mg Q1H PRN IV PUSH 12/10/17 20:30 12/12/17 11:17 (Zofran Inj) 4 mg Q6H PRN IV PUSH 12/10/17 20:30 Miscellaneous Information 1 [id number] XX 12/10/17 20:30 12/10/17 20:30 (Chlorhexidine 2% Cloth) Taper DAILY@04 TOP 12/11/17 04:00 12/07/18 03:59 12/18/17 04:00 (Chlorhexidine 2% Cloth) 3 pack UNSCH PRN TOP 12/10/17 20:30 (Chelsea-Colace) 1 tab BID PO 12/10/17 21:00 12/17/17 08:30 (Milk Of Magnesia Liq) 30 ml Q12H PRN PO 12/10/17 20:30 (Senokot) 17.2 mg Q12H PRN PO 12/10/17 20:30 (Dulcolax Supp) 10 mg DAILY PRN RECTAL 12/10/17 20:30 (Lactulose Liq) 30 ml DAILY PRN PO 12/10/17 20:30 (Peridex 0.12% Liq) 15 ml BID@08,20 MT 12/11/17 08:00 12/17/17 08:00 (Heparin Inj) 2,500 units UNSCH PRN IV 12/11/17 03:00 12/17/17 23:03 Potassium Chloride 100 ml @ 50 mls/hr Q2H PRN IV-CENTRAL 12/10/17 21:45 12/15/17 08:26 Potassium Chloride 100 ml @ 50 mls/hr Q2H PRN IV 12/10/17 21:45 12/15/17 10:06 (K-Lyte Cl Eff) 50 meq UNSCH PRN PO 12/10/17 21:45 Potassium Chloride 100 ml @ 25 mls/hr UNSCH PRN IV-CENTRAL 12/10/17 21:45 Potassium Chloride 100 ml @ 50 mls/hr Q2H PRN IV 12/10/17 21:45 Magnesium Sulfate 4 gm/Sodium Chloride 100 ml @ 50 mls/hr UNSCH PRN IV 12/10/17 21:45 (Mag-Ox) 800 mg UNSCH PRN PO 12/10/17 21:45 Magnesium Sulfate 2 gm/Sodium Chloride 100 ml @ 50 mls/hr UNSCH PRN IV 12/10/17 21:45 (K-Phos) 2,000 mg Q4H PRN PO 12/10/17 21:45 Sodium Phosphate 30 mmol/Sodium Chloride 250 ml @ 42 mls/hr UNSCH PRN IV 12/10/17 21:45 (K-Phos) 2,000 mg UNSCH PRN PO/TUBE 12/10/17 21:45 Potassium Phosphate 30 mmol/ Sodium Chloride 260 ml @ 42 mls/hr UNSCH PRN IV 12/10/17 21:45 (Heparin Inj) 5,000 units UNSCH PRN IV 12/10/17 23:00 12/10/17 23:13 Heparin Sodium (Porcine) 77844 units/Sodium Chloride 250 ml @ 10 mls/hr TITRATE PRN IV 12/10/17 23:00 12/17/17 23:23 (Ativan Inj) 1 mg Q1H PRN IV PUSH 12/10/17 23:30 12/15/17 04:00 (fentaNYL INJ) 50 mcg Q1H PRN IV PUSH 12/10/17 23:30 12/15/17 11:32 Miscellaneous Information ml @ 0 mls/hr UNSCH IV 12/10/17 23:30 (NS Flush) 2 ml UNSCH PRN IV FLUSH 12/10/17 23:30 (NS Flush) 2 ml UNSCH PRN IV FLUSH 12/10/17 23:30 (Aspirin Chew) 81 mg DAILY CHEW 12/12/17 09:00 12/18/17 08:11 (D50w (Vial) Inj) 50 ml UNSCH PRN IV PUSH 12/11/17 09:45 (Glucagon Inj) 1 mg UNSCH PRN OTHER 12/11/17 09:45 (NovoLIN R SUPPLEMENTAL SCALE) 1 Q4H SQ 12/11/17 09:45 Propofol 100 ml @ 2.802 mls/ hr TITRATE PRN IV 12/14/17 15:45 12/17/17 21:53 Fentanyl Citrate 250 ml @ 5 mls/hr TITRATE PRN IV 12/15/17 10:00 12/17/17 22:06 Dexmedetomidine HCl 1000 mcg/ Sodium Chloride 250 ml @ 4.62 mls/hr TITRATE PRN IV 12/15/17 17:00 12/18/17 05:32 Ceftriaxone Sodium 2000 mg/ Sodium Chloride 100 ml @ 200 mls/hr Q24H IV 12/16/17 14:00 12/17/17 13:43 (Tylenol 650 Mg/ 20 ml Liq) 650 mg Q6H PRN OG-TUBE 12/17/17 23:15 (Tears Naturale Opth Soln) 1 drop Q8HR EACH EYE 12/18/17 06:00 12/18/17 05:51 (Albuterol Neb) 2.5 mg Q2HR NEB PRN NEB 12/17/17 23:15 (Prevacid Odt) 30 mg DAILY NG 12/18/17 09:00 12/18/17 08:11 (Roxicodone Intensol Liq) 5 mg Q6HR NG 12/18/17 00:00 12/18/17 05:52 (SEROquel) 25 mg BID PO 12/18/17 09:00 12/18/17 08:11 Vital Signs / I&O Vital Signs Date Time Temp Pulse Resp B/P (MAP) Pulse Ox O2 Delivery O2 Flow Rate FiO2 12/18/17 08:00 61 12/18/17 08:00 65 12/18/17 08:00 97.5 61 15 95/51 (66) 100 95/47 (63) 12/18/17 06:00 62 12/18/17 04:00 65 12/18/17 04:00 99.9 69 15 109/65 (80) 100 118/59 (78) 12/18/17 04:00 69 12/18/17 03:34 100 55 12/18/17 02:00 69 12/18/17 00:00 99.9 81 19 101/58 (72) 100 109/56 (73) 12/18/17 00:00 65 12/18/17 00:00 81 12/17/17 23:55 100 65 12/17/17 22:00 86 12/17/17 21:26 100 100 12/17/17 20:00 106 12/17/17 20:00 100.8 106 39 193/104 (133) 81 12/17/17 20:00 40 12/17/17 18:00 73 12/17/17 17:00 71 12/17/17 16:00 100.0 77 19 114/67 (83) 85 139/72 (94) 12/17/17 16:00 40 12/17/17 16:00 77 12/17/17 15:00 83 12/17/17 14:00 74 12/17/17 13:00 68 12/17/17 12:00 76 12/17/17 12:00 40 12/17/17 12:00 100.5 76 18 104/78 (87) 99 134/70 (91) 12/17/17 11:18 99 40 12/17/17 11:00 70 I/O 12/17/17 12/17/17 12/17/17 12/18/17 12/18/17 12/18/17 06:59 14:59 22:59 06:59 14:59 22:59 Intake Total 2312 ml 600 ml 2242 ml 984 ml Output Total 675 ml 1250 ml 1050 ml Balance 1637 ml 600 ml 992 ml -66 ml IV Total 1750 ml 600 ml 1500 ml 500 ml Tube Feeding 512 ml 562 ml 384 ml Other 50 ml 180 ml 100 ml Output Urine Total 675 ml 1250 ml 1050 ml # Bowel Movements 0 1 Physical Exam GENERAL: SKIN: Warm and dry. HEAD: Normocephalic. EYES: No scleral icterus. No injection or drainage. NECK: Supple, trachea midline. No JVD or lymphadenopathy. CARDIOVASCULAR: Regular rate and rhythm without murmurs, gallops, or rubs. RESPIRATORY: Breath sounds equal bilaterally. No accessory muscle use. GASTROINTESTINAL: Abdomen soft, non-tender, nondistended. MUSCULOSKELETAL: No cyanosis, or edema. BACK: Nontender without obvious deformity. No CVA tenderness. Laboratory Laboratory Tests Test 12/17/17 13:30 12/17/17 21:30 12/18/17 02:10 12/18/17 04:40 Activated Partial Thromboplast Time 34.2 SEC 26.6 SEC 42.6 SEC White Blood Count 8.7 TH/MM3 Red Blood Count 3.08 MIL/MM3 Hemoglobin 9.4 GM/DL Hematocrit 26.4 % Mean Corpuscular Volume 85.7 FL Mean Corpuscular Hemoglobin 30.6 PG Mean Corpuscular Hemoglobin Concent 35.7 % Red Cell Distribution Width 13.2 % Platelet Count 147 TH/MM3 Mean Platelet Volume 8.6 FL Blood Urea Nitrogen 14 MG/DL Creatinine 0.52 MG/DL Random Glucose 110 MG/DL Calcium Level 8.1 MG/DL Phosphorus Level 3.2 MG/DL Magnesium Level 2.1 MG/DL Sodium Level 140 MEQ/L Potassium Level 3.9 MEQ/L Chloride Level 107 MEQ/L Carbon Dioxide Level 26.5 MEQ/L Anion Gap 7 MEQ/L Estimat Glomerular Filtration Rate 174 ML/MIN Ammonia 42 MCMOL/L Amylase Level 41 U/L Lipase 43 U/L Assessment and Plan Problem List: (1) STEMI (ST elevation myocardial infarction) ICD Codes: I21.3 - ST elevation (STEMI) myocardial infarction of unspecified site (2) Cocaine abuse ICD Codes: F14.10 - Cocaine abuse, uncomplicated (3) Cardiac arrest ICD Codes: I46.9 - Cardiac arrest, cause unspecified (4) Head trauma ICD Codes: S09.90XA - Unspecified injury of head, initial encounter (5) CVA (cerebral vascular accident) ICD Codes: I63.9 - Cerebral infarction, unspecified (6) Tobacco abuse ICD Codes: Z72.0 - Tobacco use (7) Encephalopathy ICD Codes: G93.40 - Encephalopathy, unspecified Assessment and Plan 1.) s/p cardiac arrest - initial gcs=3, possible acute cva, completed hypothermia protocol, mri brain wnl, on aspirin, heparin drip, failed sedation weaning attempt 12/12/17, 12/13/17, reported ef@50-55% on echo,, repeat ekg wnl; cath if neurologic prognosis is adequate and patient or surrogate consents, dc tobacco and cocaine; palliative care following, eeg c/w moderate encephalopathy , prognosis appears possibly improving off pressors; awaiting re assessment of mental status off sedation and surrogate or patient goals of treatment, palliative care following, family meeting set for 12/22/17 Ameya Dubose MD Dec 18, 2017 10:23
--- NOTE | 2017-12-18 12:03 | HHI.CCPN ---
Subjective Remarks/Hospital Course 42-year-old gentleman brought in by EMS after he apparently had an episode of chest pain after which he clutched his chest an collapsed at home. Patient's called 911 and initiated CPR prior to EMS arriving there. Once EMS arrived they were able to start an IV, intubated the patient and initiated ACLS protocol giving 4 rounds of epi 7 rounds of chest compressions along with 3 separate defibrillations. Initial EKG at the scene showed ST elevation, however the repeat EKG in the emergency department showed no ST elevations. The case was discussed by ED attending with commissions coordinator professor of public administration who recommended hypothermia protocol and conservative management. 12/11 Patient is sedated and intubated. On Levophed, Amio and Nimbex drips. 12/12 Patient remains intubated and sedated with Diprivan in addition he is on Nimbex. Off Levophed and Amio drips. Remains on Heparin drip. 12/13 Patient remains intubated and sedated with Diprivan. Placed on Levophed 3 mics overnight, on heparin drip. T:101.7 last night. 12/14 No events overnight. Off Levophed. Afebrile. Off Diprivan placed on Precedex drip overnight. T:101.1 12/15 Patient remains intubated and sedated with Diprivan and Precedex drip. Afebrile. 12/16 Patient is sedated with Precedex and Fentanyl infusion. T:100.0 last night. 12/17: Tube feeds are currently goal. With Glucerna 1.5 at 45. Requiring dexmedetomidine for sedation while also on fentanyl drip. We'll start on quetiapine and scheduled oxycodone. Non purposeful movements to stimulation specifically with left upper extremity Subjective 12/18: Max 100.8. Currently 98.9. More awake and alert and interactive today. Ex- states asking "what happened". Explained in depth out of hospital cardiac arrest and events leading to his current situation. He nods head as if he understands. Objective Vital Signs Date Time Temp Pulse Resp B/P (MAP) Pulse Ox O2 Delivery O2 Flow Rate FiO2 12/18/17 11:15 100 40 12/18/17 10:00 65 12/18/17 08:00 97.5 15 95/51 (66) 95/47 (63) Intake and Output 12/18/17 12/18/17 12/19/17 08:00 16:00 00:00 Intake Total 734 ml Output Total 1050 ml Balance -316 ml Result Diagram: 12/18/17 0440 12/18/17 0440 Other Results Microbiology Date/Time Source Procedure Growth Status 12/13/17 18:28 Blood Peripheral Aerobic Blood Culture - Final NO GROWTH IN 5 DAYS Complete 12/13/17 18:28 Blood Peripheral Anaerobic Blood Culture - Final NO GROWTH IN 5 DAYS Complete 12/13/17 18:40 Sputum Endotracheal Gram Stain - Final Complete 12/13/17 18:40 Sputum Endotracheal Sputum Culture - Final RARE GROWTH NORMAL RESPIRATORY PHILIP Complete 12/10/17 17:30 Urine Clean Catch Urine Culture - Final NO GROWTH IN 48 HOURS. Complete Imaging Last Impressions Chest X-Ray 12/17/17 0600 Signed Impressions: Service Date/Time: Sunday, December 17, 2017 02:50 - CONCLUSION: 1. Increasing airspace opacities central and lower lungs bilaterally. 2. ET tube tip is now within 2 cm of the clara. Jose Duong MD Brain MRI 12/12/17 0000 Signed Impressions: Service Date/Time: Tuesday, December 12, 2017 10:21 - CONCLUSION: Normal examination. Addy Souza MD Liver Ultrasound 12/11/17 0000 Signed Impressions: Service Date/Time: November 10:26 - CONCLUSION: Solitary echogenic lesion left lobe liver I suspect a hemangioma. Central venous catheter within the IVC otherwise unremarkable study. Glenn James MD Head CT 12/10/17 1714 Signed Impressions: Service Date/Time: Sunday, December 10, 2017 18:18 - CONCLUSION: 1. Concern for right-sided nonhemorrhagic cerebral infarction. Jose Glaser Jr., MD Objective Remarks GENERAL: 42-year-old male currently orotracheally intubated SKIN: Warm and dry. No rash HEAD: Atraumatic. Normocephalic. EYES: Pupils equal and briskly reactive to light by 2 mm bilaterally, ENT: No nasal bleeding or discharge. Mucous membranes pink and moist. NECK: Trachea midline. No JVD. CARDIOVASCULAR: RRR. S1, S2 no S4. Without murmur RESPIRATORY: Few crackles appreciated in the left. The right lower lobes posteriorly. No wheezing GASTROINTESTINAL: Abdomen soft, non-tender, nondistended. Positive bowel sounds appreciated MUSCULOSKELETAL: Extremities with trace bilateral lower extremity edema. No obvious deformities. NEUROLOGICAL: Sedated and intubated. No obvious cranial nerve deficits. Motor localizes to pain on all 4 extremities. Five out of 5 muscle strength in the arms and legs. Urinary Catheter: No Assessment to: Continue Vascular Central Line Catheter: No Assessment to: Continue A/P Assessment and Plan Neuro/Psych: Acute toxic metabolic encephalopathy UDS positive for cocaine and benzodiazepines On dexmedetomidine drip at 1.5 mcg/kg per minute, Fentanyl infusion 150 an hour for sedation and vent synchrony,daily sedation vacation CT brain showed possible non hemorrhagic cerebral infarction. MRI brain 12/12: within normal, neuro is following-Dr. Vasquez EEG: moderate diffuse encephalopathy, no seizure activity UDS: + Cocaine, Benzo Initiated quetiapine 25 twice a day and scheduled oxycodone 5 mg to 6 hours scheduled in attempt to wean sedation on 12/17 Pulm: Acute respiratory failure PRVC 16/500/11/28/39 Ventilator bundle Albuterol/ipratropium aerosols every 6 hours with albuterol aerosols every 2 hours. Dyspnea Continue with vent support keep sat >92% SBT daily as giovanna. Will attempt today 12/18 Chest x-ray 12/17 revealed worsening left greater than right lower lobe infiltrates CV: OHCA - V. fib Elevated troponin Monitor HR and BP keep MAP>65mmHg s/p Hypothermia protocol. Cards is following- Dr. Dubose. Echo showed EF 50-55% If patient recovers neurologically might be a candidate for cardiac cath per cards. Continue with Heparin drip @ 1800 units an hour. Monitor PTT. On ASA. 81 mg daily Renal/: Monitor renal function, I/O's, electrolytes replacement per protocol. Discontinue IV fluids GI: Elevated transaminases Glucerna 1.5 goal 45 cc an hour. Recommend beneprotein off propofol with goal 55 cc an hour On lansoprazole 30 mg daily for GI prophylaxis Monitor LFT's,Hepatitis profile negative US liver: Solitary echogenic lesion left lobe liver I suspect a hemangioma. ID: Previously on piperacillin/tazobactam and vancomycin Currently on ceftriaxone per infectious disease. Pancultured 12/13 ( Blood, sputum) ID is following Blood, 12/11 urine cx: 12/10: No growth Sputum cx 12/11: Group A beta strep. Heme: Anemia/normocytic Thrombocytopenia Monitor CBC, coags- on Heparin drip Endo: Hyperglycemia Novulin R with Accu-Cheks every 4 hours to maintain euglycemia/moderate regimen for glycemic control GI prophylaxis- on lansoprazole DVT prophylaxis- On Heparin drip. Lines: Peripheral IV's Palliative care is following Level II follow-up Parag Pepper MD Dec 18, 2017 12:03
[2017-12-18] MEDS ORDERED: LACTULOSE SYRUP 20 GM/30 ML CUP PO ONE (12:15)
--- NOTE | 2017-12-18 13:59 | HHI.HCPN ---
Palliative care supportive visit for ongoing communication with Mr. Stern's aunt/HCP and ex-. Spoke with Dr. Pepper and patient's nurse. Mr. Stern is reported to be more alert, following commands, and tolerating CPAP trails. Patient's girlfriend at bedside. Did not visit with girlfriend. Per family meeting 12/15: Aunt Alicja/HCP would like no medical information to anyone except Alicja (HCP), Keegan (Alicja spouse), Estee (ex-), sons ( Familia and Wu). They would like girlfriend, Jina to get medical information from the aunt. Alicja will give PIN number to other family if she decides she wants them to have it due to miscommunication and misinformation amongst relatives. Telephone conversation with aunmiles Helm. Updated her with information provided from Dr. Pepper and RN. She is pleased with the information and hopeful he will continue to make progress. Denies any questions or concerns at this time. States she remains in contact with ex-. Plan remains for Friday family meeting. Telephone conversation with ex-, Estee. Confirms she was up to visit with Mr. Stern earlier today, sons also present with her. She is happy and more hopeful with his progress and overall condition today. She denies any questions or concerns at this time. Reports she is getting the boys something to eat and will be back up this afternoon. Offered supportive visit for sons when they return, declined at this time stating "they were very upset last night, we thought we were going to lose him then" but everyone is doing better today. Offered emotional support. Plan to follow-up with autumnmiles Helm and Estee again tomorrow. Meeting planned for Friday 12/22 at 330pm. Palliative care will continue to follow throughout hospitalization. Kina Glaser [employer], [employer] Dec 18, 2017 13:59
--- NOTE | 2017-12-18 15:21 | HHI.IDPN ---
Subjective Subjective Remarks cont to have primarily low grade fever Antibiotics CFTX Allergies: Coded Allergies: No Known Allergies (Verified Allergy, Unknown, 12/10/17) Objective . Vital Signs Date Time Temp Pulse Resp B/P (MAP) Pulse Ox O2 Delivery O2 Flow Rate FiO2 12/18/17 11:15 100 40 12/18/17 10:00 65 12/18/17 08:00 61 12/18/17 08:00 65 12/18/17 08:00 97.5 61 15 95/51 (66) 100 95/47 (63) 12/18/17 06:00 62 12/18/17 04:00 65 12/18/17 04:00 99.9 69 15 109/65 (80) 100 118/59 (78) 12/18/17 04:00 69 12/18/17 03:34 100 55 12/18/17 02:00 69 12/18/17 00:00 99.9 81 19 101/58 (72) 100 109/56 (73) 12/18/17 00:00 65 12/18/17 00:00 81 12/17/17 23:55 100 65 12/17/17 22:00 86 12/17/17 21:26 100 100 12/17/17 20:00 106 12/17/17 20:00 100.8 106 39 193/104 (133) 81 12/17/17 20:00 40 12/17/17 18:00 73 12/17/17 17:00 71 12/17/17 16:00 100.0 77 19 114/67 (83) 85 139/72 (94) 12/17/17 16:00 40 12/17/17 16:00 77 . Laboratory Tests Test 12/17/17 04:25 12/18/17 04:40 White Blood Count 5.6 TH/MM3 8.7 TH/MM3 Red Blood Count 2.99 MIL/MM3 3.08 MIL/MM3 Hemoglobin 9.2 GM/DL 9.4 GM/DL Hematocrit 26.0 % 26.4 % Mean Corpuscular Volume 87.1 FL 85.7 FL Mean Corpuscular Hemoglobin 30.7 PG 30.6 PG Mean Corpuscular Hemoglobin Concent 35.3 % 35.7 % Red Cell Distribution Width 13.4 % 13.2 % Platelet Count 125 TH/MM3 147 TH/MM3 Mean Platelet Volume 8.5 FL 8.6 FL Neutrophils (%) (Auto) 49.5 % Lymphocytes (%) (Auto) 32.5 % Monocytes (%) (Auto) 13.5 % Eosinophils (%) (Auto) 4.0 % Basophils (%) (Auto) 0.5 % Neutrophils # (Auto) 2.8 TH/MM3 Lymphocytes # (Auto) 1.8 TH/MM3 Monocytes # (Auto) 0.8 TH/MM3 Eosinophils # (Auto) 0.2 TH/MM3 Basophils # (Auto) 0.0 TH/MM3 CBC Comment DIFF FINAL Differential Comment Laboratory Tests Test 12/17/17 04:25 12/18/17 04:40 Blood Urea Nitrogen 21 MG/DL 14 MG/DL Creatinine 0.58 MG/DL 0.52 MG/DL Random Glucose 111 MG/DL 110 MG/DL Total Protein 6.0 GM/DL Albumin 2.2 GM/DL Calcium Level 8.0 MG/DL 8.1 MG/DL Phosphorus Level 3.6 MG/DL 3.2 MG/DL Magnesium Level 2.3 MG/DL 2.1 MG/DL Alkaline Phosphatase 35 U/L Aspartate Amino Transf (AST/SGOT) 82 U/L Alanine Aminotransferase (ALT/SGPT) 127 U/L Total Bilirubin 0.2 MG/DL Sodium Level 144 MEQ/L 140 MEQ/L Potassium Level 3.7 MEQ/L 3.9 MEQ/L Chloride Level 110 MEQ/L 107 MEQ/L Carbon Dioxide Level 28.1 MEQ/L 26.5 MEQ/L Anion Gap 6 MEQ/L 7 MEQ/L Estimat Glomerular Filtration Rate 154 ML/MIN 174 ML/MIN Ammonia 42 MCMOL/L Amylase Level 41 U/L Lipase 43 U/L Imaging Last Impressions Chest X-Ray 12/17/17 0600 Signed Impressions: Service Date/Time: Sunday, December 17, 2017 02:50 - CONCLUSION: 1. Increasing airspace opacities central and lower lungs bilaterally. 2. ET tube tip is now within 2 cm of the clara. Jose Duong MD Brain MRI 12/12/17 0000 Signed Impressions: Service Date/Time: Tuesday, December 12, 2017 10:21 - CONCLUSION: Normal examination. Addy Souza MD Liver Ultrasound 12/11/17 0000 Signed Impressions: Service Date/Time: November 10:26 - CONCLUSION: Solitary echogenic lesion left lobe liver I suspect a hemangioma. Central venous catheter within the IVC otherwise unremarkable study. Glenn James MD Head CT 12/10/17 7114 Signed Impressions: Service Date/Time: Sunday, December 10, 2017 18:18 - CONCLUSION: 1. Concern for right-sided nonhemorrhagic cerebral infarction. Jose Glaser Jr., MD Physical Exam CONSTITUTIONAL/GENERAL: This is an adequately nourished patient, in no apparent distress. TUBES/LINES/DRAINS: SKIN: No jaundice, rashes, or lesions. Skin temperature appropriate. Not diaphoretic. No [place] lesions, no splinter hemorrhages EYES: Pupils equal and round and reactive. Extraocular motions intact. No scleral icterus. No injection or drainage. Fundi not examined. ENT: Hearing grossly normal. Nose without bleeding or purulent drainage. Throat without visible erythema, exudates, masses, or lesions. NECK: Trachea midline. Supple, nontender. CARDIOVASCULAR: Regular rate and rhythm without murmurs, gallops, or rubs. No JVD. Peripheral pulses symmetric. RESPIRATORY/CHEST: Symmetric, unlabored respirations. Clear to auscultation. Breath sounds equal bilaterally. No wheezes, rales, or rhonchi. GASTROINTESTINAL: Abdomen soft, non-tender, nondistended. No hepato-splenomegaly , or palpable masses. No guarding. Bowel sounds present. GENITOURINARY: Without palpable bladder distension. Dan catheter in place with clear yellow urine MUSCULOSKELETAL: Extremities without clubbing, cyanosis, or edema. No joint tenderness or effusion noted. No calf tenderness. No mottling or clubbing. NEUROLOGICAL: sedated, not responding PSYCHIATRIC: unable to assess Assessment & Plan Remarks STEMI Cocaine abuse SDp cardiac arrest Encephalopathy Acute VDRF ? PNA - Fever, differential anclude PNA, UTI, bloodstream infx, also can be non - infectious: again low grade fever cont CFTX anticipate 7 days of total abx if improving rechk blood clx, UA/C+S and sputum dw Neli Davis MD Dec 18, 2017 15:21
[2017-12-18] MEDS: cefTRIAXone INJ 2,000 MG in SODIUM CHLORIDE 0.9% INJ 100 ML IV SCH (16:11)
[2017-12-18] MEDS: fentaNYL DRIP 250 ML IV PRN (17:32)
[2017-12-18 23:59] LABS: AMORPHOUS SEDIMENT, URINE RARE; BILIRUBIN, URINE NEG (NEG); BLOOD, URINE SMALL (NEG); GLUCOSE,URINE NEG (NEG); KETONE, URINE TRACE mg/dL (NEG); MUCUS URINE MANY /lpf (OCC); NITRITE,URINE NEG (NEG); SQUAMOUS EPITHELIAL CELL URINE <1 /hpf (0-5); URINE COLOR YELLOW (YELLW/STRAW); URINE LEUKOCYTE ESTERASE NEG (NEG)
[2017-12-19] VITALS (18 sets, daily range): BP systolic 93–145; BP diastolic 49–80; PULSE 62–102; RESP 10–18; TEMP 98.2–99.6; O2SAT 90–100
[2017-12-19] MEDS: INSULIN NovoLIN REGULAR SUPPLEMENTAL SCALE SQ SCH ×6 (01:13→20:44)
[2017-12-19] MEDS: CHLORHEXIDINE GLUCONATE 2 % 1 PACK (2 CLOTHS) TOP SCH ×2 (03:07→22:44)
[2017-12-19] MEDS: fentaNYL DRIP 250 ML IV PRN ×2 (03:26→14:23)
[2017-12-19] MEDS: oxyCODONE HCL ORAL CONC 5 MG/0.25 ML SYRINGE NG SCH ×4 (05:37→23:10)
[2017-12-19] MEDS: ARTIFICIAL TEARS OPTH SOLN 15 ML BTL EACH EYE SCH ×3 (05:37→20:42)
[2017-12-19] MEDS: DEXMEDETOMIDINE INJ 1,000 MCG in SODIUM CHLOR 0.9% 250 ML INJ 240 ML IV PRN ×2 (06:22→20:42)
[2017-12-19] MEDS: ASPIRIN 81 MG CHEW TAB CHEW SCH (07:30)
[2017-12-19] MEDS: LANSOPRAZOLE SOLUTAB 30 MG TAB NG SCH (07:30)
[2017-12-19] MEDS: LACTULOSE SYRUP 20 GM/30 ML CUP PO SCH (07:30)
[2017-12-19] MEDS: QUEtiapine FUMARATE 25 MG TAB PO SCH ×2 (07:30→20:42)
[2017-12-19] MEDS: DOCUSATE SODIUM 50 MG/SENNA 8.6 MG TAB PO SCH ×2 (07:30→20:27)
[2017-12-19] MEDS: CHLORHEXIDINE 0.12% (ORAL KIT) 15 ML CUP MT SCH ×2 (07:32→20:00)
[2017-12-19] MEDS: HEPARIN INJ 25,000 UNITS in SODIUM CHLOR 0.9% 250 ML INJ 247.5 ML IV PRN ×2 (07:48→21:51)
--- NOTE | 2017-12-19 07:49 | HHI.CCPN ---
Subjective Remarks/Hospital Course 42-year-old gentleman brought in by EMS after he apparently had an episode of chest pain after which he clutched his chest an collapsed at home. Patient's called 911 and initiated CPR prior to EMS arriving there. Once EMS arrived they were able to start an IV, intubated the patient and initiated ACLS protocol giving 4 rounds of epi 7 rounds of chest compressions along with 3 separate defibrillations. Initial EKG at the scene showed ST elevation, however the repeat EKG in the emergency department showed no ST elevations. The case was discussed by ED attending with certified medical aide tension machine operator who recommended hypothermia protocol and conservative management. 12/11 Patient is sedated and intubated. On Levophed, Amio and Nimbex drips. 12/12 Patient remains intubated and sedated with Diprivan in addition he is on Nimbex. Off Levophed and Amio drips. Remains on Heparin drip. 12/13 Patient remains intubated and sedated with Diprivan. Placed on Levophed 3 mics overnight, on heparin drip. T:101.7 last night. 12/14 No events overnight. Off Levophed. Afebrile. Off Diprivan placed on Precedex drip overnight. T:101.1 12/15 Patient remains intubated and sedated with Diprivan and Precedex drip. Afebrile. 12/16 Patient is sedated with Precedex and Fentanyl infusion. T:100.0 last night. 12/17: Tube feeds are currently goal. With Glucerna 1.5 at 45. Requiring dexmedetomidine for sedation while also on fentanyl drip. We'll start on quetiapine and scheduled oxycodone. Non purposeful movements to stimulation specifically with left upper extremity Subjective 12/18: Max 100.8. Currently 98.9. More awake and alert and interactive today. Ex- states asking "what happened". Explained in depth out of hospital cardiac arrest and events leading to his current situation. He nods head as if he understands. 12/19 No events overnight . Sedated with Fentanyl and Precedex drips. T:100.4 last night. Remains on Heparin drip. Objective Vital Signs Date Time Temp Pulse Resp B/P (MAP) Pulse Ox O2 Delivery O2 Flow Rate FiO2 1/26/18 06:00 63 12/19/17 04:15 35 12/19/17 04:07 98 12/19/17 04:00 99.1 18 93/49 (64) Intake and Output 12/19/17 12/19/17 12/20/17 08:00 16:00 00:00 Intake Total 735 ml Output Total 600 ml Balance 135 ml Result Diagram: 12/18/17 0440 12/18/17 0440 Other Results Laboratory Tests Test 12/18/17 10:50 12/18/17 21:30 12/18/17 21:40 Activated Partial Thromboplast Time 38.4 SEC 34.8 SEC Urine Color YELLOW Urine Turbidity CLEAR Urine pH 6.0 Urine Specific [place] 1.026 Urine Protein TRACE mg/dL Urine Glucose (UA) NEG mg/dL Urine Ketones TRACE mg/dL Urine Occult Blood SMALL Urine Nitrite NEG Urine Bilirubin NEG Urine Urobilinogen LESS THAN 2.0 MG/DL Urine Leukocyte Esterase NEG Urine RBC 64 /hpf Urine WBC 2 /hpf Urine Squamous Epithelial Cells <1 /hpf Urine Amorphous Sediment RARE Urine Mucus MANY /lpf Microscopic Urinalysis Comment CATH-CULT NOT IND Imaging Last Impressions Chest X-Ray 12/17/17 0600 Signed Impressions: Service Date/Time: Sunday, December 17, 2017 02:50 - CONCLUSION: 1. Increasing airspace opacities central and lower lungs bilaterally. 2. ET tube tip is now within 2 cm of the clara. Jose Duong MD Brain MRI 12/12/17 0000 Signed Impressions: Service Date/Time: Tuesday, December 12, 2017 10:21 - CONCLUSION: Normal examination. Addy Souza MD Liver Ultrasound 12/11/17 0000 Signed Impressions: Service Date/Time: November 10:26 - CONCLUSION: Solitary echogenic lesion left lobe liver I suspect a hemangioma. Central venous catheter within the IVC otherwise unremarkable study. Glenn James MD Head CT 12/10/17 1714 Signed Impressions: Service Date/Time: Sunday, December 10, 2017 18:18 - CONCLUSION: 1. Concern for right-sided nonhemorrhagic cerebral infarction. Jose Glaser Jr., MD Objective Remarks GENERAL: 42-year-old male currently orotracheally intubated SKIN: Warm and dry. No rash HEAD: Atraumatic. Normocephalic. EYES: Pupils equal and briskly reactive to light by 2 mm bilaterally, ENT: No nasal bleeding or discharge. Mucous membranes pink and moist. NECK: Trachea midline. No JVD. CARDIOVASCULAR: RRR. S1, S2 no S4. Without murmur RESPIRATORY: Few crackles appreciated in the left. The right lower lobes posteriorly. No wheezing GASTROINTESTINAL: Abdomen soft, non-tender, nondistended. Positive bowel sounds appreciated MUSCULOSKELETAL: Extremities with trace bilateral lower extremity edema. No obvious deformities. NEUROLOGICAL: Sedated and intubated. No obvious cranial nerve deficits. Motor localizes to pain on all 4 extremities. Five out of 5 muscle strength in the arms and legs. A/P Assessment and Plan Neuro/Psych: Acute toxic metabolic encephalopathy UDS positive for cocaine and benzodiazepines On Precedex and Fentanyl infusion for sedation and vent synchrony,daily sedation vacation CT brain showed possible non hemorrhagic cerebral infarction. MRI brain 12/12: within normal, neuro is following-Dr. Vasquez EEG: moderate diffuse encephalopathy, no seizure activity UDS: + Cocaine, Benzo Quetiapine 25 mg BID and oxycodone 5 mg to 6 hours scheduled in attempt to wean sedation on 12/17 Pulm: Acute respiratory failure PRVC 16/500/1//40 Ventilator bundle Albuterol/ipratropium aerosols every 6 hours with albuterol aerosols every 2 hours. Dyspnea Continue with vent support keep sat >92% SBT daily as giovanna. CV: OHCA - V. fib Elevated troponin Monitor HR and BP keep MAP>65mmHg s/p Hypothermia protocol. Cards is following- Dr. Dubose. Echo showed EF 50-55% If patient recovers neurologically might be a candidate for cardiac cath per cards. Continue with Heparin drip @ 1800 units an hour. Monitor PTT. On ASA. 81 mg daily Renal/: Monitor renal function, I/O's, electrolytes replacement per protocol. GI: Elevated transaminases Glucerna 1.5 goal 45 cc an hour. On lansoprazole 30 mg daily for GI prophylaxis Monitor LFT's,Hepatitis profile negative US liver: Solitary echogenic lesion left lobe liver I suspect a hemangioma. ID: Previously on piperacillin/tazobactam and vancomycin Currently on ceftriaxone per infectious disease. ID is following. Follow up on Blood and sputum cxs from 12/18 Blood, 12/11 urine cx: 12/10: No growth Sputum cx 12/11: Group A beta strep. Heme: Anemia/normocytic Thrombocytopenia Monitor CBC, coags- on Heparin drip Endo: Hyperglycemia Novulin R with Accu-Cheks every 4 hours to maintain euglycemia/moderate regimen for glycemic control GI prophylaxis- on lansoprazole DVT prophylaxis- On Heparin drip. Lines: Peripheral IV's Palliative care is following Check labs today Level III Kayleen Diaz MD Dec 19, 2017 07:49
[2017-12-19 09:25] LABS: AUTOMATED NEUTROPHIL # 5.7 TH/MM3 (1.8-7.7); BASOPHIL % 0.4 % (0.0-2.0); EOSINOPHIL # 0.2 TH/MM3 (0-0.4); EOSINOPHIL % 2.2 % (0.0-4.0); HEMATOCRIT 29.6 % (39.0-51.0); HEMOGLOBIN 10.4 GM/DL (13.0-17.0); LYMPH % 24.6 % (9.0-44.0); LYMPHOCYTE # 2.2 TH/MM3 (1.0-4.8); MEAN CELL VOLUME 85.8 FL (80.0-100.0); MEAN CORPUSCULAR HEMOGLOBIN 30.1 PG (27.0-34.0); MEAN CORPUSCULAR HGB CONC 35.1 % (32.0-36.0); MEAN PLATELET VOLUME 8.7 FL (7.0-11.0); MONO % 8.4 % (0.0-8.0); MONOCYTE # 0.7 TH/MM3 (0-0.9); NEUT % 64.4 % (16.0-70.0); PLATELET COUNT 204 TH/MM3 (150-450); RED BLOOD COUNT 3.45 MIL/MM3 (4.50-5.90); RED CELL DISTRIBUTION WIDTH 13.3 % (11.6-17.2); WHITE BLOOD COUNT 8.9 TH/MM3 (4.0-11.0)
--- NOTE | 2017-12-19 09:28 | PD.CARD.PN ---
Subjective Subjective Remarks intubated, sedated, appears better oriented to voice and simple commands today , tolerated cpap x 2.5 hours yesterday Objective Medications Current Medications Medications (Trade) Dose Ordered Sig/Yuri Route Start Time Stop Time Status Last Admin (Brethine Inj) 1 mg UNSCH PRN SQ 12/10/17 17:45 (Versed Inj) 2 mg Q1H PRN IV PUSH 12/10/17 20:30 12/12/17 11:17 (Zofran Inj) 4 mg Q6H PRN IV PUSH 12/10/17 20:30 Miscellaneous Information 1 Q361D XX 12/10/17 20:30 12/10/17 20:30 (Chlorhexidine 2% Cloth) Taper DAILY@04 TOP 12/11/17 04:00 12/07/18 03:59 12/18/17 04:00 (Chlorhexidine 2% Cloth) 3 pack UNSCH PRN TOP 12/10/17 20:30 ([place]sea-Colace) 1 tab BID PO 12/10/17 21:00 12/18/17 20:40 (Milk Of Magnesia Liq) 30 ml Q12H PRN PO 12/10/17 20:30 (Senokot) 17.2 mg Q12H PRN PO 12/10/17 20:30 (Dulcolax Supp) 10 mg DAILY PRN RECTAL 12/10/17 20:30 (Lactulose Liq) 30 ml DAILY PRN PO 12/10/17 20:30 (Peridex 0.12% Liq) 15 ml BID@08,20 MT 12/11/17 08:00 12/18/17 20:00 (Heparin Inj) 2,500 units UNSCH PRN IV 12/11/17 03:00 12/17/17 23:03 Potassium Chloride 100 ml @ 50 mls/hr Q2H PRN IV-CENTRAL 12/10/17 21:45 12/15/17 08:26 Potassium Chloride 100 ml @ 50 mls/hr Q2H PRN IV 12/10/17 21:45 12/15/17 10:06 (K-Lyte Cl Eff) 50 meq UNSCH PRN PO 12/10/17 21:45 Potassium Chloride 100 ml @ 25 mls/hr UNSCH PRN IV-CENTRAL 12/10/17 21:45 Potassium Chloride 100 ml @ 50 mls/hr Q2H PRN IV 12/10/17 21:45 Magnesium Sulfate 4 gm/Sodium Chloride 100 ml @ 50 mls/hr UNSCH PRN IV 12/10/17 21:45 (Mag-Ox) 800 mg UNSCH PRN PO 12/10/17 21:45 Magnesium Sulfate 2 gm/Sodium Chloride 100 ml @ 50 mls/hr UNSCH PRN IV 12/10/17 21:45 (K-Phos) 2,000 mg Q4H PRN PO 12/10/17 21:45 Sodium Phosphate 30 mmol/Sodium Chloride 250 ml @ 42 mls/hr UNSCH PRN IV 12/10/17 21:45 (K-Phos) 2,000 mg UNSCH PRN PO/TUBE 12/10/17 21:45 Potassium Phosphate 30 mmol/ Sodium Chloride 260 ml @ 42 mls/hr UNSCH PRN IV 12/10/17 21:45 (Heparin Inj) 5,000 units UNSCH PRN IV 12/10/17 23:00 12/10/17 23:13 Heparin Sodium (Porcine) 77533 units/Sodium Chloride 250 ml @ 10 mls/hr TITRATE PRN IV 12/10/17 23:00 12/19/17 07:48 (Ativan Inj) 1 mg Q1H PRN IV PUSH 12/10/17 23:30 12/15/17 04:00 (fentaNYL INJ) 50 mcg Q1H PRN IV PUSH 12/10/17 23:30 12/15/17 11:32 Miscellaneous Information ml @ 0 mls/hr UNSCH IV 12/10/17 23:30 (NS Flush) 2 ml UNSCH PRN IV FLUSH 12/10/17 23:30 (NS Flush) 2 ml UNSCH PRN IV FLUSH 12/10/17 23:30 (Aspirin Chew) 81 mg DAILY CHEW 12/12/17 09:00 12/19/17 07:30 (D50w (Vial) Inj) 50 ml UNSCH PRN IV PUSH 12/11/17 09:45 (Glucagon Inj) 1 mg UNSCH PRN OTHER 12/11/17 09:45 (NovoLIN R SUPPLEMENTAL SCALE) 1 Q4H SQ 12/11/17 09:45 Propofol 100 ml @ 2.802 mls/ hr TITRATE PRN IV 12/14/17 15:45 12/17/17 21:53 Fentanyl Citrate 250 ml @ 5 mls/hr TITRATE PRN IV 12/15/17 10:00 12/19/17 03:26 Dexmedetomidine HCl 1000 mcg/ Sodium Chloride 250 ml @ 4.62 mls/hr TITRATE PRN IV 12/15/17 17:00 12/19/17 06:22 Ceftriaxone Sodium 2000 mg/ Sodium Chloride 100 ml @ 200 mls/hr Q24H IV 12/16/17 14:00 12/18/17 16:11 (Tylenol 650 Mg/ 20 ml Liq) 650 mg Q6H PRN OG-TUBE 12/17/17 23:15 (Tears Naturale Opth Soln) 1 drop Q8HR EACH EYE 12/18/17 06:00 12/19/17 05:37 (Albuterol Neb) 2.5 mg Q2HR NEB PRN NEB 12/17/17 23:15 (Prevacid Odt) 30 mg DAILY NG 12/18/17 09:00 12/19/17 07:30 (Roxicodone Intensol Liq) 5 mg Q6HR NG 12/18/17 00:00 12/19/17 05:37 (SEROquel) 25 mg BID PO 12/18/17 09:00 12/19/17 07:30 (Lactulose Liq) 30 ml DAILY PO 12/19/17 09:00 12/19/17 07:30 Vital Signs / I&O Vital Signs Date Time Temp Pulse Resp B/P (MAP) Pulse Ox O2 Delivery O2 Flow Rate FiO2 12/19/17 08:00 100.0 102 13 131/63 (85) 90 12/19/17 08:00 102 12/19/17 08:00 35 12/19/17 07:52 100 35 12/19/17 07:52 35 12/19/17 06:00 63 12/19/17 04:15 35 12/19/17 04:07 98 35 12/19/17 04:00 64 12/19/17 04:00 40 12/19/17 04:00 99.1 64 18 93/49 (64) 94 12/19/17 02:00 64 12/19/17 01:08 99 40 12/19/17 00:00 99.6 64 16 107/58 (74) 100 12/19/17 00:00 64 12/19/17 00:00 40 12/18/17 22:06 100 40 12/18/17 22:00 65 12/18/17 20:00 40 12/18/17 20:00 100.4 65 16 102/54 (70) 100 Arterial Line 12/18/17 20:00 65 12/18/17 19:03 100 40 12/18/17 18:00 68 12/18/17 16:00 40 12/18/17 16:00 74 12/18/17 16:00 99.9 74 20 119/60 (79) 100 12/18/17 15:50 97 40 12/18/17 12:00 99.5 90 22 131/65 (87) 99 127/67 (87) 12/18/17 12:00 40 12/18/17 12:00 65 12/18/17 11:15 40 12/18/17 11:15 100 40 12/18/17 10:00 65 I/O 12/18/17 12/18/17 12/18/17 12/19/17 12/19/17 12/19/17 07:00 15:00 23:00 07:00 15:00 23:00 Intake Total 984 ml 250 ml 710 ml 735 ml Output Total 1050 ml 1800 ml 600 ml Balance -66 ml 250 ml -1090 ml 135 ml IV Total 500 ml 250 ml 350 ml 500 ml Tube Feeding 384 ml 270 ml 235 ml Tube Irrigant 90 ml Other 100 ml Output Urine Total 1050 ml 1800 ml 600 ml # Bowel Movements 1 1 Physical Exam GENERAL: SKIN: Warm and dry. HEAD: Normocephalic. EYES: No scleral icterus. No injection or drainage. NECK: Supple, trachea midline. No JVD or lymphadenopathy. CARDIOVASCULAR: Regular rate and rhythm without murmurs, gallops, or rubs. RESPIRATORY: Breath sounds equal bilaterally. No accessory muscle use. GASTROINTESTINAL: Abdomen soft, non-tender, nondistended. MUSCULOSKELETAL: No cyanosis, or edema. BACK: Nontender without obvious deformity. No CVA tenderness. Laboratory Laboratory Tests Test 12/18/17 10:50 12/18/17 21:30 12/18/17 21:40 12/19/17 09:00 Activated Partial Thromboplast Time 38.4 SEC 34.8 SEC 40.7 SEC Urine Color YELLOW Urine Turbidity CLEAR Urine pH 6.0 Urine Specific [place] 1.026 Urine Protein TRACE mg/dL Urine Glucose (UA) NEG mg/dL Urine Ketones TRACE mg/dL Urine Occult Blood SMALL Urine Nitrite NEG Urine Bilirubin NEG Urine Urobilinogen LESS THAN 2.0 MG/DL Urine Leukocyte Esterase NEG Urine RBC 64 /hpf Urine WBC 2 /hpf Urine Squamous Epithelial Cells <1 /hpf Urine Amorphous Sediment RARE Urine Mucus MANY /lpf Microscopic Urinalysis Comment CATH-CULT NOT IND Assessment and Plan Problem List: (1) STEMI (ST elevation myocardial infarction) ICD Codes: I21.3 - ST elevation (STEMI) myocardial infarction of unspecified site (2) Cocaine abuse ICD Codes: F14.10 - Cocaine abuse, uncomplicated (3) Cardiac arrest ICD Codes: I46.9 - Cardiac arrest, cause unspecified (4) Head trauma ICD Codes: S09.90XA - Unspecified injury of head, initial encounter (5) CVA (cerebral vascular accident) ICD Codes: I63.9 - Cerebral infarction, unspecified (6) Tobacco abuse ICD Codes: Z72.0 - Tobacco use (7) Encephalopathy ICD Codes: G93.40 - Encephalopathy, unspecified Assessment and Plan 1.) s/p cardiac arrest - initial gcs=3, possible acute cva, completed hypothermia protocol, mri brain wnl, on aspirin, heparin drip, failed sedation weaning attempt 12/12/17, 12/13/17, reported ef@50-55% on echo,, repeat ekg wnl; cath if neurologic prognosis is adequate and patient or surrogate consents, dc tobacco and cocaine; palliative care following, eeg c/w moderate encephalopathy , prognosis appears possibly improving off pressors; mental status appears to be improving, palliative care following, family meeting set for 12/22/17 for discussion of treatment options and goals Ameya Dubose MD Dec 19, 2017 09:28
[2017-12-19 09:49] LABS: ALBUMIN 2.2 GM/DL (3.4-5.0); ALKALINE PHOSPHATASE 40 U/L (45-117); ALT (GPT) 91 U/L (12-78); AST (GOT) 40 U/L (15-37); BICARBONATE 27.6 MEQ/L (21.0-32.0); BLOOD UREA NITROGEN 16 MG/DL (7-18); CALCIUM 8.9 MG/DL (8.5-10.1); CHLORIDE 105 MEQ/L (98-107); CREATININE 0.64 MG/DL (0.60-1.30); GLOMERULAR FILTRATION RATE 137 ML/MIN (>89); GLUCOSE,RANDOM 103 MG/DL (74-106); MAGNESIUM 2.3 MG/DL (1.5-2.5); PHOSPHORUS 3.3 MG/DL (2.5-4.9); SODIUM (NA) 140 MEQ/L (136-145); TOTAL BILIRUBIN ADULT 0.3 MG/DL (0.2-1.0); TOTAL PROTEIN 6.6 GM/DL (6.4-8.2)
[2017-12-19] MEDS: MIDAZOLAM HCL 2 MG/2 ML VIAL IV PUSH PRN ×2 (10:36→14:11)
--- NOTE | 2017-12-19 11:31 | HHI.HCPN ---
Palliative care visit for ongoing support and communication with patient's aunt/ HCP, Alicja, and ex-, Estee. Upon arrival to unit Estee speaking with RN for update. RN reports Mr. Stern tolerated CPAP about 2.5hrs this morning , became agitated with BM and had to be placed back on full ventilator support to increase sedation r/t increased agitation. Estee and 1 son in to visit with patient. Thankful for ongoing communication, updates and support. Deny any questions or concerns at this time. Confirm meeting Friday 12/22 at 330pm. Follow-up telephone call to aunt/HCP, Alicja. Updated her on above. She denies any questions or concerns at this time. Appreciative of call and update. Confirms meeting for Friday 12/22 at 330pm. Palliative care will continue to follow throughout the hospitalization. Kina Glaser E BUSINESS MANAGER, STACKER DRIVER Dec 19, 2017 11:30
[2017-12-19] MEDS: cefTRIAXone INJ 2,000 MG in SODIUM CHLORIDE 0.9% INJ 100 ML IV SCH (14:11)
[2017-12-19] MEDS: ONDANSETRON HCL 4 MG/2 ML VIAL IV PUSH PRN ×2 (14:12→20:41)
--- NOTE | 2017-12-19 14:33 | RADRPT ---
EXAM DATE/TIME: 12/19/2017 13:55 [facility] COMPARISON: No previous studies available for comparison. INDICATIONS : Vomiting and hard distended abdomen. MEDICAL HISTORY : Cardiac arrest. SURGICAL HISTORY : ORIF right arm ENCOUNTER: Subsequent ACUITY: 2 weeks PAIN SCORE: Non-responsive. LOCATION: Bilateral Abdomen. FINDINGS: Nasogastric tube across the GE junction. Gas-filled large and small bowel loops. More small bowel and large bowel. There is no free air or o bstruction. CONCLUSION: Probable ileus. There is no free air. Teodoro Wong MD FACR on December 19, 2017 at 14:30 Board Certified Radiologist. This report was verified electronically.
[2017-12-19] MEDS: METOCLOPRAMIDE HCL 10 MG/2 ML VIAL IV PUSH SCH ×2 (17:12→20:41)
[2017-12-20] VITALS (20 sets, daily range): BP systolic 114–172; BP diastolic 59–130; PULSE 68–95; RESP 7–23; TEMP 97.8–100.4; O2SAT 84–100
[2017-12-20] MEDS: INSULIN NovoLIN REGULAR SUPPLEMENTAL SCALE SQ SCH ×6 (01:45→21:14)
[2017-12-20] MEDS: fentaNYL DRIP 250 ML IV PRN ×2 (01:56→15:18)
[2017-12-20] MEDS: ONDANSETRON HCL 4 MG/2 ML VIAL IV PUSH PRN (01:56)
[2017-12-20 05:08] LABS: ALBUMIN 2.4 GM/DL (3.4-5.0); ALT (GPT) 82 U/L (12-78); AST (GOT) 36 U/L (15-37); BICARBONATE 23.4 MEQ/L (21.0-32.0); CALCIUM 8.5 MG/DL (8.5-10.1); CHLORIDE 105 MEQ/L (98-107); CREATININE 0.52 MG/DL (0.60-1.30); GLOMERULAR FILTRATION RATE 174 ML/MIN (>89); GLUCOSE,RANDOM 102 MG/DL (74-106); SODIUM (NA) 138 MEQ/L (136-145)
[2017-12-20 05:10] LABS: ALKALINE PHOSPHATASE 39 U/L (45-117); TOTAL BILIRUBIN ADULT 0.3 MG/DL (0.2-1.0)
[2017-12-20 05:11] LABS: BLOOD UREA NITROGEN 13 MG/DL (7-18)
[2017-12-20] MEDS: METOCLOPRAMIDE HCL 10 MG/2 ML VIAL IV PUSH SCH ×3 (05:11→21:15)
[2017-12-20] MEDS: ARTIFICIAL TEARS OPTH SOLN 15 ML BTL EACH EYE SCH ×3 (05:11→21:14)
[2017-12-20] MEDS: oxyCODONE HCL ORAL CONC 5 MG/0.25 ML SYRINGE NG SCH ×4 (05:11→21:16)
[2017-12-20] MEDS: DEXMEDETOMIDINE INJ 1,000 MCG in SODIUM CHLOR 0.9% 250 ML INJ 240 ML IV PRN ×3 (05:15→21:14)
[2017-12-20 05:32] LABS: AUTOMATED NEUTROPHIL # 6.2 TH/MM3 (1.8-7.7); BASOPHIL % 0.3 % (0.0-2.0); EOSINOPHIL # 0.1 TH/MM3 (0-0.4); EOSINOPHIL % 0.9 % (0.0-4.0); HEMATOCRIT 31.7 % (39.0-51.0); HEMOGLOBIN 11.2 GM/DL (13.0-17.0); LYMPH % 13.4 % (9.0-44.0); LYMPHOCYTE # 1.1 TH/MM3 (1.0-4.8); MEAN CELL VOLUME 85.6 FL (80.0-100.0); MEAN CORPUSCULAR HEMOGLOBIN 30.3 PG (27.0-34.0); MEAN CORPUSCULAR HGB CONC 35.4 % (32.0-36.0); MEAN PLATELET VOLUME 9.5 FL (7.0-11.0); MONO % 7.8 % (0.0-8.0); MONOCYTE # 0.6 TH/MM3 (0-0.9); NEUT % 77.6 % (16.0-70.0); PLATELET COUNT 198 TH/MM3 (150-450); RED BLOOD COUNT 3.71 MIL/MM3 (4.50-5.90); RED CELL DISTRIBUTION WIDTH 13.3 % (11.6-17.2)
--- NOTE | 2017-12-20 06:51 | HHI.CCPN ---
Subjective Remarks/Hospital Course 42-year-old gentleman brought in by EMS after he apparently had an episode of chest pain after which he clutched his chest an collapsed at home. Patient's called 911 and initiated CPR prior to EMS arriving there. Once EMS arrived they were able to start an IV, intubated the patient and initiated ACLS protocol giving 4 rounds of epi 7 rounds of chest compressions along with 3 separate defibrillations. Initial EKG at the scene showed ST elevation, however the repeat EKG in the emergency department showed no ST elevations. The case was discussed by ED attending with rotary filter operator seo professional who recommended hypothermia protocol and conservative management. 12/11 Patient is sedated and intubated. On Levophed, Amio and Nimbex drips. 12/12 Patient remains intubated and sedated with Diprivan in addition he is on Nimbex. Off Levophed and Amio drips. Remains on Heparin drip. 12/13 Patient remains intubated and sedated with Diprivan. Placed on Levophed 3 mics overnight, on heparin drip. T:101.7 last night. 12/14 No events overnight. Off Levophed. Afebrile. Off Diprivan placed on Precedex drip overnight. T:101.1 12/15 Patient remains intubated and sedated with Diprivan and Precedex drip. Afebrile. 12/16 Patient is sedated with Precedex and Fentanyl infusion. T:100.0 last night. 12/17: Tube feeds are currently goal. With Glucerna 1.5 at 45. Requiring dexmedetomidine for sedation while also on fentanyl drip. We'll start on quetiapine and scheduled oxycodone. Non purposeful movements to stimulation specifically with left upper extremity Subjective 12/18: Max 100.8. Currently 98.9. More awake and alert and interactive today. Ex- states asking "what happened". Explained in depth out of hospital cardiac arrest and events leading to his current situation. He nods head as if he understands. 12/19 No events overnight . Sedated with Fentanyl and Precedex drips. T:100.4 last night. Remains on Heparin drip. 12/20 Patient remains intubated and on Precedex and Fentanyl drips for sedation. T:100.8 Objective Vital Signs Date Time Temp Pulse Resp B/P (MAP) Pulse Ox O2 Delivery O2 Flow Rate FiO2 12/20/17 06:00 95 12/20/17 04:02 99 35 12/20/17 04:00 99.5 21 122/79 (93) Intake and Output 12/20/17 12/20/17 12/21/17 08:00 16:00 00:00 Intake Total 469 ml Output Total 675 ml Balance -206 ml Result Diagram: 12/20/17 0340 12/20/17 0340 Other Results Laboratory Tests Test 12/19/17 09:00 12/19/17 18:57 12/20/17 03:40 White Blood Count 8.9 TH/MM3 8.0 TH/MM3 Red Blood Count 3.45 MIL/MM3 3.71 MIL/MM3 Hemoglobin 10.4 GM/DL 11.2 GM/DL Hematocrit 29.6 % 31.7 % Mean Corpuscular Volume 85.8 FL 85.6 FL Mean Corpuscular Hemoglobin 30.1 PG 30.3 PG Mean Corpuscular Hemoglobin Concent 35.1 % 35.4 % Red Cell Distribution Width 13.3 % 13.3 % Platelet Count 204 TH/MM3 198 TH/MM3 Mean Platelet Volume 8.7 FL 9.5 FL Neutrophils (%) (Auto) 64.4 % 77.6 % Lymphocytes (%) (Auto) 24.6 % 13.4 % Monocytes (%) (Auto) 8.4 % 7.8 % Eosinophils (%) (Auto) 2.2 % 0.9 % Basophils (%) (Auto) 0.4 % 0.3 % Neutrophils # (Auto) 5.7 TH/MM3 6.2 TH/MM3 Lymphocytes # (Auto) 2.2 TH/MM3 1.1 TH/MM3 Monocytes # (Auto) 0.7 TH/MM3 0.6 TH/MM3 Eosinophils # (Auto) 0.2 TH/MM3 0.1 TH/MM3 Basophils # (Auto) 0.0 TH/MM3 0.0 TH/MM3 CBC Comment DIFF FINAL DIFF FINAL Differential Comment Activated Partial Thromboplast Time 40.7 SEC 41.7 SEC Blood Urea Nitrogen 16 MG/DL 13 MG/DL Creatinine 0.64 MG/DL 0.52 MG/DL Random Glucose 103 MG/DL 102 MG/DL Total Protein 6.6 GM/DL 7.0 GM/DL Albumin 2.2 GM/DL 2.4 GM/DL Calcium Level 8.9 MG/DL 8.5 MG/DL Phosphorus Level 3.3 MG/DL Magnesium Level 2.3 MG/DL Alkaline Phosphatase 40 U/L 39 U/L Aspartate Amino Transf (AST/SGOT) 40 U/L 36 U/L Alanine Aminotransferase (ALT/SGPT) 91 U/L 82 U/L Total Bilirubin 0.3 MG/DL 0.3 MG/DL Sodium Level 140 MEQ/L 138 MEQ/L Potassium Level 3.6 MEQ/L 3.6 MEQ/L Chloride Level 105 MEQ/L 105 MEQ/L Carbon Dioxide Level 27.6 MEQ/L 23.4 MEQ/L Anion Gap 7 MEQ/L 10 MEQ/L Estimat Glomerular Filtration Rate 137 ML/MIN 174 ML/MIN Ammonia 24 MCMOL/L Hematology Comments Imaging Last Impressions Abdomen X-Ray 12/19/17 0000 Signed Impressions: Service Date/Time: Tuesday, December 19, 2017 13:55 - CONCLUSION: Probable ileus. There is no free air. Teodoro Wong MD FACR Chest X-Ray 12/17/17 0600 Signed Impressions: Service Date/Time: Sunday, December 17, 2017 02:50 - CONCLUSION: 1. Increasing airspace opacities central and lower lungs bilaterally. 2. ET tube tip is now within 2 cm of the clara. Jose Duong MD Brain MRI 12/12/17 0000 Signed Impressions: Service Date/Time: Tuesday, December 12, 2017 10:21 - CONCLUSION: Normal examination. Addy Souza MD Liver Ultrasound 12/11/17 0000 Signed Impressions: Service Date/Time: November 10:26 - CONCLUSION: Solitary echogenic lesion left lobe liver I suspect a hemangioma. Central venous catheter within the IVC otherwise unremarkable study. Glenn James MD Head CT 12/10/17 1714 Signed Impressions: Service Date/Time: Sunday, December 10, 2017 18:18 - CONCLUSION: 1. Concern for right-sided nonhemorrhagic cerebral infarction. Jose Glaser Jr., MD Objective Remarks GENERAL: 42-year-old male currently orotracheally intubated SKIN: Warm and dry. No rash HEAD: Atraumatic. Normocephalic. EYES: Pupils equal and briskly reactive to light by 2 mm bilaterally, ENT: No nasal bleeding or discharge. Mucous membranes pink and moist. NECK: Trachea midline. No JVD. CARDIOVASCULAR: RRR. S1, S2 no S4. Without murmur RESPIRATORY: Few crackles appreciated in the left. The right lower lobes posteriorly. No wheezing GASTROINTESTINAL: Abdomen soft, non-tender,distended. Positive bowel sounds appreciated MUSCULOSKELETAL: Extremities with trace bilateral lower extremity edema. No obvious deformities. NEUROLOGICAL: Sedated and intubated. No obvious cranial nerve deficits. Motor localizes to pain on all 4 extremities. Five out of 5 muscle strength in the arms and legs. A/P Assessment and Plan Neuro/Psych: Acute toxic metabolic encephalopathy UDS positive for cocaine and benzodiazepines On Precedex and Fentanyl infusion for sedation and vent synchrony,daily sedation vacation CT brain showed possible non hemorrhagic cerebral infarction. MRI brain 12/12: within normal, neuro is following-Dr. Vasquez EEG: moderate diffuse encephalopathy, no seizure activity UDS: + Cocaine, Benzo Quetiapine 25 mg BID and oxycodone 5 mg to 6 hours scheduled in attempt to wean sedation on 12/17 Pulm: Acute respiratory failure PRVC 16/500/11/28/39 Ventilator bundle Albuterol/ipratropium aerosols every 6 hours with albuterol aerosols every 2 hours. Dyspnea Continue with vent support keep sat >92% SBT daily as giovanna. CV: OHCA - V. fib Elevated troponin Monitor HR and BP keep MAP>65mmHg. Place on Lopressor 25mg Q8 s/p Hypothermia protocol. Cards is following- Dr. Dubose. Echo showed EF 50-55% If patient recovers neurologically might be a candidate for cardiac cath per cards. Continue with Heparin drip @ 1800 units an hour. Monitor PTT. On ASA. 81 mg daily Renal/: Monitor renal function, I/O's, electrolytes replacement per protocol. GI: Elevated transaminases TF held for emesis (Glucerna 1.5 goal 45 cc an hour) KUB abdomen yesterday showed probable ileus. On Reglan 5mg Q8, Lactulose Will check CT abd/pelvis today On lansoprazole 30 mg daily for GI prophylaxis Monitor LFT's,Hepatitis profile negative US liver: Solitary echogenic lesion left lobe liver I suspect a hemangioma. ID: Previously on piperacillin/tazobactam and vancomycin Currently on ceftriaxone per infectious disease. ID is following. Follow up on Blood and sputum cxs from 12/18 Blood, 12/11 urine cx: 12/10: No growth Sputum cx 12/11: Group A beta strep. Heme: Anemia/normocytic Thrombocytopenia Monitor CBC, coags- on Heparin drip Endo: Hyperglycemia Novulin R with Accu-Cheks every 4 hours to maintain euglycemia/moderate regimen for glycemic control GI prophylaxis- on lansoprazole DVT prophylaxis- On Heparin drip. Lines: Peripheral IV's Palliative care is following Level III Kayleen Diaz MD Dec 20, 2017 06:51
[2017-12-20] MEDS: ASPIRIN 81 MG CHEW TAB CHEW SCH (09:00)
[2017-12-20] MEDS: DOCUSATE SODIUM 50 MG/SENNA 8.6 MG TAB PO SCH ×2 (09:00→21:00)
[2017-12-20] MEDS: LANSOPRAZOLE SOLUTAB 30 MG TAB NG SCH (09:00)
[2017-12-20] MEDS: QUEtiapine FUMARATE 25 MG TAB PO SCH ×2 (09:00→21:00)
[2017-12-20] MEDS: LACTULOSE SYRUP 20 GM/30 ML CUP PO SCH (09:00)
[2017-12-20] MEDS ORDERED: IOHEXOL 350 MG/ML 10 ML VIAL (for RAD DIAG) IVCONTRAST ONE (09:11)
--- NOTE | 2017-12-20 09:33 | RADRPT ---
EXAM DATE/TIME: 12/20/2017 09:09 [facility] COMPARISON: CHEST SINGLE AP, December 17, 2017, 2:50. ABDOMEN KUB ONLY, December 19, 2017, 13:55. INDICATIONS : Abdominal distension, fever; evaluate for ileus. IV CONTRAST: 95 cc Omnipaque 350 (iohexol) IV ORAL CONTRAST: No oral contrast ingested. RADIATION DOSE: 16.41 CTDIvol (mGy) MEDICAL HISTORY : Myocardial infarction. SURGICAL HISTORY : None. ENCOUNTER: Initial ACUITY: 2 days PAIN SCALE: Non-responsive LOCATION: upper quadrant TECHNIQUE: Volumetric scanning of the abdomen and pelvis was performed. Using automated exposure control and ad justment of the mA and/or kV according to patient size, radiation dose was kept as low as reasonably achievable to obtain optimal diagnostic quality images. DICOM format image data is available electro nically for review and comparison. FINDINGS: LOWER LUNGS: The lung bases demonstrate bilateral patchy areas of airspace consolidation. LIVER: Homogeneous density without lesion. There is no dilation of the biliary tree. No calcified gallston es. SPLEEN: Normal size without lesion. PANCREAS: Within normal limits. KIDNEYS: Normal in size and shape. There is no mass, stone or hydronephrosis. ADRENAL GLANDS: Within normal limits. VASCULAR: There is no aortic aneurysm. BOWEL/MESENTERY: The stomach and duodenum demonstrate normal caliber without evidence of wall thickening or obstructio n. There is a rapid transition point between the fourth portion of the duodenum and proximal jejunum with the very proximal jejunum collapsed and a rapid transition to fluid dilated jejunum and ileum id entified with the transition is in the left upper quadrant. The axial and coronal images demonstrate a focal area of calcific density seen within the mesenteric fat on axial image 3 through 61 and coron al image 395. Etiology of this is unknown. The colon is air-filled and largely decompressed. ABDOMINAL WALL: Within normal limits. RETROPERITONEUM: There is no lymphadenopathy. BLADDER: No wall thickening or mass. REPRODUCTIVE: Within normal limits. INGUINAL: There is no lymphadenopathy or hernia. MUSCULOSKELETAL: Within normal limits for patient age. CONCLUSION: There is abnormal dilation of the jejunum and ileum. There is transition from a normal appearing duod enum and optimal jejunum to a fluid dilated small bowel identified within the left upper quadrant. Th ere is a focal calcific density identified within the adjacent mesenteric fat. This does not may repr esent an area of calcified adhesion.. Guillermina Lee MD on December 20, 2017 at 9:24 Board Certified Radiologist. This report was verified electronically.
--- NOTE | 2017-12-20 11:22 | PD.CARD.PN ---
Subjective Subjective Remarks intubated, sedated, appears oriented Objective Medications Current Medications Medications (Trade) Dose Ordered Sig/Yuri Route Start Time Stop Time Status Last Admin (Brethine Inj) 1 mg UNSCH PRN SQ 12/10/17 17:45 (Versed Inj) 2 mg Q1H PRN IV PUSH 12/10/17 20:30 12/19/17 14:11 (Zofran Inj) 4 mg Q6H PRN IV PUSH 12/10/17 20:30 12/20/17 01:56 Miscellaneous Information 1 Q361D XX 12/10/17 20:30 12/10/17 20:30 (Chlorhexidine 2% Cloth) Taper DAILY@04 TOP 12/11/17 04:00 12/07/18 03:59 12/18/17 04:00 (Chlorhexidine 2% Cloth) 3 pack UNSCH PRN TOP 12/10/17 20:30 (Chelsea-Colace) 1 tab BID PO 12/10/17 21:00 12/18/17 20:40 (Milk Of Magnesia Liq) 30 ml Q12H PRN PO 12/10/17 20:30 (Senokot) 17.2 mg Q12H PRN PO 12/10/17 20:30 (Dulcolax Supp) 10 mg DAILY PRN RECTAL 12/10/17 20:30 (Lactulose Liq) 30 ml DAILY PRN PO 12/10/17 20:30 (Peridex 0.12% Liq) 15 ml BID@08,20 MT 12/11/17 08:00 12/18/17 20:00 (Heparin Inj) 2,500 units UNSCH PRN IV 12/11/17 03:00 12/17/17 23:03 Potassium Chloride 100 ml @ 50 mls/hr Q2H PRN IV-CENTRAL 12/10/17 21:45 12/15/17 08:26 Potassium Chloride 100 ml @ 50 mls/hr Q2H PRN IV 12/10/17 21:45 12/15/17 10:06 (K-Lyte Cl Eff) 50 meq UNSCH PRN PO 12/10/17 21:45 Potassium Chloride 100 ml @ 25 mls/hr UNSCH PRN IV-CENTRAL 12/10/17 21:45 Potassium Chloride 100 ml @ 50 mls/hr Q2H PRN IV 12/10/17 21:45 Magnesium Sulfate 4 gm/Sodium Chloride 100 ml @ 50 mls/hr UNSCH PRN IV 12/10/17 21:45 (Mag-Ox) 800 mg UNSCH PRN PO 12/10/17 21:45 Magnesium Sulfate 2 gm/Sodium Chloride 100 ml @ 50 mls/hr UNSCH PRN IV 12/10/17 21:45 (K-Phos) 2,000 mg Q4H PRN PO 12/10/17 21:45 Sodium Phosphate 30 mmol/Sodium Chloride 250 ml @ 42 mls/hr UNSCH PRN IV 12/10/17 21:45 (K-Phos) 2,000 mg UNSCH PRN PO/TUBE 12/10/17 21:45 Potassium Phosphate 30 mmol/ Sodium Chloride 260 ml @ 42 mls/hr UNSCH PRN IV 12/10/17 21:45 (Heparin Inj) 5,000 units UNSCH PRN IV 12/10/17 23:00 12/10/17 23:13 Heparin Sodium (Porcine) 13923 units/Sodium Chloride 250 ml @ 10 mls/hr TITRATE PRN IV 12/10/17 23:00 12/19/17 21:51 (Ativan Inj) 1 mg Q1H PRN IV PUSH 12/10/17 23:30 12/15/17 04:00 (fentaNYL INJ) 50 mcg Q1H PRN IV PUSH 12/10/17 23:30 12/15/17 11:32 Miscellaneous Information ml @ 0 mls/hr UNSCH IV 12/10/17 23:30 (NS Flush) 2 ml UNSCH PRN IV FLUSH 12/10/17 23:30 (NS Flush) 2 ml UNSCH PRN IV FLUSH 12/10/17 23:30 (Aspirin Chew) 81 mg DAILY CHEW 12/12/17 09:00 12/19/17 07:30 (D50w (Vial) Inj) 50 ml UNSCH PRN IV PUSH 12/11/17 09:45 (Glucagon Inj) 1 mg UNSCH PRN OTHER 12/11/17 09:45 (NovoLIN R SUPPLEMENTAL SCALE) 1 Q4H SQ 12/11/17 09:45 Propofol 100 ml @ 2.802 mls/ hr TITRATE PRN IV 12/14/17 15:45 12/17/17 21:53 Fentanyl Citrate 250 ml @ 5 mls/hr TITRATE PRN IV 12/15/17 10:00 12/20/17 01:56 Dexmedetomidine HCl 1000 mcg/ Sodium Chloride 250 ml @ 4.62 mls/hr TITRATE PRN IV 12/15/17 17:00 12/20/17 05:15 Ceftriaxone Sodium 2000 mg/ Sodium Chloride 100 ml @ 200 mls/hr Q24H IV 12/16/17 14:00 12/19/17 14:11 (Tylenol 650 Mg/ 20 ml Liq) 650 mg Q6H PRN OG-TUBE 12/17/17 23:15 12/19/17 10:36 (Tears Naturale Opth Soln) 1 drop Q8HR EACH EYE 12/18/17 06:00 12/20/17 05:11 (Albuterol Neb) 2.5 mg Q2HR NEB PRN NEB 12/17/17 23:15 (Prevacid Odt) 30 mg DAILY NG 12/18/17 09:00 12/19/17 07:30 (Roxicodone Intensol Liq) 5 mg Q6HR NG 12/18/17 00:00 12/20/17 05:11 (SEROquel) 25 mg BID PO 12/18/17 09:00 12/19/17 20:42 (Lactulose Liq) 30 ml DAILY PO 12/19/17 09:00 12/19/17 07:30 (Reglan Inj) 5 mg Q8HR IV PUSH 12/19/17 16:45 12/20/17 05:11 Vital Signs / I&O Vital Signs Date Time Temp Pulse Resp B/P (MAP) Pulse Ox O2 Delivery O2 Flow Rate FiO2 12/20/17 11:10 93 35 12/20/17 08:45 100 100 12/20/17 07:32 95 35 12/20/17 06:00 95 12/20/17 04:02 99 35 12/20/17 04:00 92 12/20/17 04:00 99.5 92 21 122/79 (93) 100 12/20/17 04:00 35 12/20/17 02:00 82 12/20/17 01:02 99 35 12/20/17 00:00 100.8 78 16 114/59 (77) 97 12/20/17 00:00 35 12/20/17 00:00 78 12/19/17 22:00 80 12/19/17 20:34 99 35 12/19/17 20:00 99.1 93 16 145/80 (101) 99 12/19/17 20:00 35 12/19/17 20:00 93 12/19/17 18:00 95 12/19/17 17:06 100 35 12/19/17 16:00 62 12/19/17 16:00 98.8 62 16 123/72 (89) 96 12/19/17 16:00 35 12/19/17 14:00 70 12/19/17 12:03 97 35 12/19/17 12:00 72 12/19/17 12:00 35 12/19/17 12:00 100.8 72 10 122/61 (81) 96 I/O 12/19/17 12/19/17 12/19/17 12/20/17 12/20/17 12/20/17 07:00 15:00 23:00 07:00 15:00 23:00 Intake Total 735 ml 595 ml 835 ml 469 ml Output Total 600 ml 700 ml 675 ml Balance 135 ml 595 ml 135 ml -206 ml IV Total 500 ml 595 ml 500 ml 250 ml Tube Feeding 235 ml 245 ml 219 ml Tube Irrigant 90 ml Output Urine Total 600 ml 700 ml 675 ml # Bowel Movements 1 2 Physical Exam GENERAL: SKIN: Warm and dry. HEAD: Normocephalic. EYES: No scleral icterus. No injection or drainage. NECK: Supple, trachea midline. No JVD or lymphadenopathy. CARDIOVASCULAR: Regular rate and rhythm without murmurs, gallops, or rubs. RESPIRATORY: Breath sounds equal bilaterally. No accessory muscle use. GASTROINTESTINAL: Abdomen soft, non-tender, nondistended. MUSCULOSKELETAL: No cyanosis, or edema. BACK: Nontender without obvious deformity. No CVA tenderness. Laboratory Laboratory Tests Test 12/19/17 18:57 12/20/17 03:40 Activated Partial Thromboplast Time 41.7 SEC White Blood Count 8.0 TH/MM3 Red Blood Count 3.71 MIL/MM3 Hemoglobin 11.2 GM/DL Hematocrit 31.7 % Mean Corpuscular Volume 85.6 FL Mean Corpuscular Hemoglobin 30.3 PG Mean Corpuscular Hemoglobin Concent 35.4 % Red Cell Distribution Width 13.3 % Platelet Count 198 TH/MM3 Mean Platelet Volume 9.5 FL Neutrophils (%) (Auto) 77.6 % Lymphocytes (%) (Auto) 13.4 % Monocytes (%) (Auto) 7.8 % Eosinophils (%) (Auto) 0.9 % Basophils (%) (Auto) 0.3 % Neutrophils # (Auto) 6.2 TH/MM3 Lymphocytes # (Auto) 1.1 TH/MM3 Monocytes # (Auto) 0.6 TH/MM3 Eosinophils # (Auto) 0.1 TH/MM3 Basophils # (Auto) 0.0 TH/MM3 CBC Comment DIFF FINAL Differential Comment Hematology Comments Blood Urea Nitrogen 13 MG/DL Creatinine 0.52 MG/DL Random Glucose 102 MG/DL Total Protein 7.0 GM/DL Albumin 2.4 GM/DL Calcium Level 8.5 MG/DL Alkaline Phosphatase 39 U/L Aspartate Amino Transf (AST/SGOT) 36 U/L Alanine Aminotransferase (ALT/SGPT) 82 U/L Total Bilirubin 0.3 MG/DL Sodium Level 138 MEQ/L Potassium Level 3.6 MEQ/L Chloride Level 105 MEQ/L Carbon Dioxide Level 23.4 MEQ/L Anion Gap 10 MEQ/L Estimat Glomerular Filtration Rate 174 ML/MIN Imaging Last 24 hours Impressions Abdomen/Pelvis CT 12/20/17 0000 Signed Impressions: Service Date/Time: Wednesday, December 20, 2017 09:09 - CONCLUSION: There is abnormal dilation of the jejunum and ileum. There is transition from a normal appearing duodenum and optimal jejunum to a fluid dilated small bowel identified within the left upper quadrant. There is a focal calcific density identified within the adjacent mesenteric fat. This does not may represent an area of calcified adhesion.. Guillermina Lee MD Assessment and Plan Problem List: (1) STEMI (ST elevation myocardial infarction) ICD Codes: I21.3 - ST elevation (STEMI) myocardial infarction of unspecified site (2) Cocaine abuse ICD Codes: F14.10 - Cocaine abuse, uncomplicated (3) Cardiac arrest ICD Codes: I46.9 - Cardiac arrest, cause unspecified (4) Head trauma ICD Codes: S09.90XA - Unspecified injury of head, initial encounter (5) CVA (cerebral vascular accident) ICD Codes: I63.9 - Cerebral infarction, unspecified (6) Tobacco abuse ICD Codes: Z72.0 - Tobacco use (7) Encephalopathy ICD Codes: G93.40 - Encephalopathy, unspecified Assessment and Plan 1.) s/p cardiac arrest - initial gcs=3, possible acute cva, completed hypothermia protocol, mri brain wnl, on aspirin, heparin drip, failed sedation weaning attempt 12/12/17, 12/13/17, reported ef@50-55% on echo,, repeat ekg wnl; cath if neurologic prognosis is adequate and patient or surrogate consents, dc tobacco and cocaine; palliative care following, eeg c/w moderate encephalopathy , prognosis appears possibly improving off pressors; mental status appears to be approaching baseline, pre arrest. rec to patient [facility], d/w nurse to notify surrogate jagdish as i will be leaving for vacation this week and rec doing the [facility] friday12/22/17, palliative care following, family meeting set for 12/22/17 for discussion of treatment options and goals Ameya Dubose MD Dec 20, 2017 11:22
[2017-12-20] MEDS: CHLORHEXIDINE 0.12% (ORAL KIT) 15 ML CUP MT SCH ×2 (11:53→20:00)
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
[2017-12-20] MEDS: cefTRIAXone INJ 2,000 MG in SODIUM CHLORIDE 0.9% INJ 100 ML IV SCH (15:04)
[2017-12-20] MEDS: HEPARIN INJ 25,000 UNITS in SODIUM CHLOR 0.9% 250 ML INJ 247.5 ML IV PRN (15:26)
[2017-12-20] MEDS: HEPARIN SODIUM - IV 10,000 UNITS/10 ML VIAL IV PRN (15:51)
[2017-12-20] MEDS ORDERED: MORPHINE SULFATE 2 MG/ML INJ IM PRN (16:30)
[2017-12-20] MEDS: METOPROLOL TARTRATE 25 MG TAB PO SCH ×2 (16:30→21:16)
--- NOTE | 2017-12-20 18:35 | HHI.IDPN ---
Subjective Subjective Remarks intermittent low grade fever mental status back to normal Antibiotics CFTX Allergies: Coded Allergies: No Known Allergies (Verified Allergy, Unknown, 12/10/17) Objective . Vital Signs Date Time Temp Pulse Resp B/P (MAP) Pulse Ox O2 Delivery O2 Flow Rate FiO2 12/20/17 16:00 99.7 83 7 167/130 (142) 99 12/20/17 16:00 83 12/20/17 16:00 35 12/20/17 15:55 35 12/20/17 15:36 94 35 12/20/17 14:00 83 12/20/17 12:00 97.8 90 15 165/75 (105) 12/20/17 12:00 90 12/20/17 12:00 35 12/20/17 11:10 93 35 12/20/17 10:00 88 12/20/17 08:45 100 100 12/20/17 08:00 35 12/20/17 08:00 95 12/20/17 08:00 100.4 95 23 172/77 (108) 95 12/20/17 07:32 95 35 12/20/17 06:00 95 12/20/17 04:02 99 35 12/20/17 04:00 92 12/20/17 04:00 99.5 92 21 122/79 (93) 100 12/20/17 04:00 35 12/20/17 02:00 82 12/20/17 01:02 99 35 12/20/17 00:00 100.8 78 16 114/59 (77) 97 12/20/17 00:00 35 12/20/17 00:00 78 12/19/17 22:00 80 12/19/17 20:34 99 35 12/19/17 20:00 99.1 93 16 145/80 (101) 99 12/19/17 20:00 35 12/19/17 20:00 93 . Laboratory Tests Test 12/19/17 09:00 12/20/17 03:40 White Blood Count 8.9 TH/MM3 8.0 TH/MM3 Red Blood Count 3.45 MIL/MM3 3.71 MIL/MM3 Hemoglobin 10.4 GM/DL 11.2 GM/DL Hematocrit 29.6 % 31.7 % Mean Corpuscular Volume 85.8 FL 85.6 FL Mean Corpuscular Hemoglobin 30.1 PG 30.3 PG Mean Corpuscular Hemoglobin Concent 35.1 % 35.4 % Red Cell Distribution Width 13.3 % 13.3 % Platelet Count 204 TH/MM3 198 TH/MM3 Mean Platelet Volume 8.7 FL 9.5 FL Neutrophils (%) (Auto) 64.4 % 77.6 % Lymphocytes (%) (Auto) 24.6 % 13.4 % Monocytes (%) (Auto) 8.4 % 7.8 % Eosinophils (%) (Auto) 2.2 % 0.9 % Basophils (%) (Auto) 0.4 % 0.3 % Neutrophils # (Auto) 5.7 TH/MM3 6.2 TH/MM3 Lymphocytes # (Auto) 2.2 TH/MM3 1.1 TH/MM3 Monocytes # (Auto) 0.7 TH/MM3 0.6 TH/MM3 Eosinophils # (Auto) 0.2 TH/MM3 0.1 TH/MM3 Basophils # (Auto) 0.0 TH/MM3 0.0 TH/MM3 CBC Comment DIFF FINAL DIFF FINAL Differential Comment Hematology Comments Laboratory Tests Test 12/19/17 09:00 12/20/17 03:40 12/20/17 14:59 Blood Urea Nitrogen 16 MG/DL 13 MG/DL Creatinine 0.64 MG/DL 0.52 MG/DL Random Glucose 103 MG/DL 102 MG/DL Total Protein 6.6 GM/DL 7.0 GM/DL Albumin 2.2 GM/DL 2.4 GM/DL Calcium Level 8.9 MG/DL 8.5 MG/DL Phosphorus Level 3.3 MG/DL Magnesium Level 2.3 MG/DL Alkaline Phosphatase 40 U/L 39 U/L Aspartate Amino Transf (AST/SGOT) 40 U/L 36 U/L Alanine Aminotransferase (ALT/SGPT) 91 U/L 82 U/L Total Bilirubin 0.3 MG/DL 0.3 MG/DL Sodium Level 140 MEQ/L 138 MEQ/L Potassium Level 3.6 MEQ/L 3.6 MEQ/L Chloride Level 105 MEQ/L 105 MEQ/L Carbon Dioxide Level 27.6 MEQ/L 23.4 MEQ/L Anion Gap 7 MEQ/L 10 MEQ/L Estimat Glomerular Filtration Rate 137 ML/MIN 174 ML/MIN Ammonia 24 MCMOL/L Microbiology Date/Time Source Procedure Growth Status 12/18/17 18:35 Blood Peripheral Aerobic Blood Culture - Preliminary NO GROWTH IN 2 DAYS Resulted 12/18/17 18:35 Blood Peripheral Anaerobic Blood Culture - Preliminary NO GROWTH IN 2 DAYS Resulted 12/18/17 18:30 Blood Peripheral Aerobic Blood Culture - Preliminary NO GROWTH IN 2 DAYS Resulted 12/18/17 18:30 Blood Peripheral Anaerobic Blood Culture - Preliminary NO GROWTH IN 2 DAYS Resulted 12/18/17 15:50 Sputum Endotracheal Gram Stain - Final Complete 12/18/17 15:50 Sputum Endotracheal Sputum Culture - Final NO GROWTH IN 48 HOURS. Complete Imaging Last Impressions Abdomen/Pelvis CT 12/20/17 0000 Signed Impressions: Service Date/Time: Wednesday, December 20, 2017 09:09 - CONCLUSION: There is abnormal dilation of the jejunum and ileum. There is transition from a normal appearing duodenum and optimal jejunum to a fluid dilated small bowel identified within the left upper quadrant. There is a focal calcific density identified within the adjacent mesenteric fat. This does not may represent an area of calcified adhesion.. Guillermina Lee MD Abdomen X-Ray 12/19/17 0000 Signed Impressions: Service Date/Time: Tuesday, December 19, 2017 13:55 - CONCLUSION: Probable ileus. There is no free air. Teodoro Wong MD FACR Chest X-Ray 12/17/17 0600 Signed Impressions: Service Date/Time: Sunday, December 17, 2017 02:50 - CONCLUSION: 1. Increasing airspace opacities central and lower lungs bilaterally. 2. ET tube tip is now within 2 cm of the clara. Jose Duong MD Brain MRI 12/12/17 0000 Signed Impressions: Service Date/Time: Tuesday, December 12, 2017 10:21 - CONCLUSION: Normal examination. Addy Souza MD Liver Ultrasound 12/11/17 0000 Signed Impressions: Service Date/Time: November 10:26 - CONCLUSION: Solitary echogenic lesion left lobe liver I suspect a hemangioma. Central venous catheter within the IVC otherwise unremarkable study. Glenn James MD Head CT 12/10/17 1714 Signed Impressions: Service Date/Time: Sunday, December 10, 2017 18:18 - CONCLUSION: 1. Concern for right-sided nonhemorrhagic cerebral infarction. Jose Glaser Jr., MD Physical Exam CONSTITUTIONAL/GENERAL: This is an adequately nourished patient, in no apparent distress. TUBES/LINES/DRAINS: SKIN: No jaundice, rashes, or lesions. Skin temperature appropriate. Not diaphoretic. No Jan[place]ay lesions, no splinter hemorrhages EYES: Pupils equal and round and reactive. Extraocular motions intact. No scleral icterus. No injection or drainage. Fundi not examined. ENT: Hearing grossly normal. Nose without bleeding or purulent drainage. Throat without visible erythema, exudates, masses, or lesions. NECK: Trachea midline. Supple, nontender. CARDIOVASCULAR: Regular rate and rhythm without murmurs, gallops, or rubs. No JVD. Peripheral pulses symmetric. RESPIRATORY/CHEST: Symmetric, unlabored respirations. Clear to auscultation. Breath sounds equal bilaterally. No wheezes, rales, or rhonchi. GASTROINTESTINAL: Abdomen soft,+tender, + distended. No hepato-splenomegaly, or palpable masses. No guarding. Bowel sounds present. GENITOURINARY: Without palpable bladder distension. Dan catheter in place with clear yellow urine MUSCULOSKELETAL: Extremities without clubbing, cyanosis, or edema. No joint tenderness or effusion noted. No calf tenderness. No mottling or clubbing. NEUROLOGICAL: sedated, not responding PSYCHIATRIC: unable to assess Assessment & Plan Remarks STEMI Cocaine abuse SDp cardiac arrest Encephalopathy - improved neuro status Acute VDRF ? PNA - Fever, differential anclude PNA, UTI, bloodstream infx, also can be non - infectious: again low grade fever repeat clx negative Ileus : CT results noted complete abx chk stool for c.diff dw Neli Davis MD Dec 20, 2017 18:35
[2017-12-20] MEDS: PANTOPRAZOLE SODIUM 40 MG VIAL IV PUSH SCH (18:54)
[2017-12-21] VITALS (17 sets, daily range): BP systolic 108–130; BP diastolic 57–73; PULSE 53–76; RESP 15–22; TEMP 97.6–99.1; O2SAT 92–100
[2017-12-21] MEDS: INSULIN NovoLIN REGULAR SUPPLEMENTAL SCALE SQ SCH ×5 (01:45→21:45)
[2017-12-21 01:56] LABS: % SATURATION IRON PROFILE 18.7 % (20-50); IRON (FE) 39 MCG/DL (65-175); TOTAL IRON BINDING CAPACITY 209 MCG/DL (250-450)
[2017-12-21 01:59] LABS: FERRITIN 474 NG/ML (26-388)
[2017-12-21] MEDS: fentaNYL DRIP 250 ML IV PRN ×2 (02:01→15:18)
[2017-12-21] MEDS: HEPARIN SODIUM - IV 10,000 UNITS/10 ML VIAL IV PRN (02:05)
[2017-12-21] MEDS: CHLORHEXIDINE GLUCONATE 2 % 1 PACK (2 CLOTHS) TOP SCH (04:00)
[2017-12-21] MEDS: DEXMEDETOMIDINE INJ 1,000 MCG in SODIUM CHLOR 0.9% 250 ML INJ 240 ML IV PRN ×3 (04:22→23:01)
--- NOTE | 2017-12-21 04:44 | RADRPT ---
EXAM DATE/TIME: 12/21/2017 03:27 [facility] COMPARISON: CHEST SINGLE AP, December 17, 2017, 2:50. INDICATIONS : Shortness of breath, possible pulmonary disease. MEDICAL HISTORY : Myocardial infarction. SURGICAL HISTORY : None. ENCOUNTER: Subsequent ACUITY: 1 week PAIN SCORE: Non-responsive. LOCATION: Bilateral chest FINDINGS: ET tube is well placed. The heart size is mild enlarged. There some hazy density at the left base. Th is also some mild increased density at the mid right lung. CONCLUSION: 1. Cardiomegaly. 2. Suspected consolidation or atelectasis at the left base and the right midlung. Karsten Pina MD on December 21, 2017 at 4:41 Board Certified Radiologist. This report was verified electronically.
[2017-12-21] MEDS: PANTOPRAZOLE SODIUM 40 MG VIAL IV PUSH SCH ×2 (05:17→15:16)
[2017-12-21] MEDS: METOCLOPRAMIDE HCL 10 MG/2 ML VIAL IV PUSH SCH ×3 (05:18→23:00)
[2017-12-21] MEDS: ARTIFICIAL TEARS OPTH SOLN 15 ML BTL EACH EYE SCH ×3 (05:19→23:00)
[2017-12-21] MEDS: oxyCODONE HCL ORAL CONC 5 MG/0.25 ML SYRINGE NG SCH ×3 (05:19→17:49)
[2017-12-21] MEDS: METOPROLOL TARTRATE 25 MG TAB PO SCH ×3 (05:19→22:00)
[2017-12-21] MEDS: HEPARIN INJ 25,000 UNITS in SODIUM CHLOR 0.9% 250 ML INJ 247.5 ML IV PRN ×2 (05:27→18:42)
[2017-12-21 05:58] LABS: AUTOMATED NEUTROPHIL # 5.6 TH/MM3 (1.8-7.7); BASOPHIL % 0.5 % (0.0-2.0); EOSINOPHIL # 0.3 TH/MM3 (0-0.4); EOSINOPHIL % 3.2 % (0.0-4.0); HEMOGLOBIN 9.9 GM/DL (13.0-17.0); LYMPH % 21.9 % (9.0-44.0); LYMPHOCYTE # 1.8 TH/MM3 (1.0-4.8); MEAN CORPUSCULAR HEMOGLOBIN 29.9 PG (27.0-34.0); MEAN CORPUSCULAR HGB CONC 35.2 % (32.0-36.0); MEAN PLATELET VOLUME 8.9 FL (7.0-11.0); MONO % 6.6 % (0.0-8.0); MONOCYTE # 0.5 TH/MM3 (0-0.9); NEUT % 67.8 % (16.0-70.0); PLATELET COUNT 279 TH/MM3 (150-450); RED CELL DISTRIBUTION WIDTH 13.1 % (11.6-17.2); WHITE BLOOD COUNT 8.3 TH/MM3 (4.0-11.0)
[2017-12-21 06:19] LABS: ALBUMIN 2.3 GM/DL (3.4-5.0); AST (GOT) 36 U/L (15-37); BICARBONATE 28.8 MEQ/L (21.0-32.0); BLOOD UREA NITROGEN 12 MG/DL (7-18); CALCIUM 8.9 MG/DL (8.5-10.1); CHLORIDE 103 MEQ/L (98-107); CREATININE 0.53 MG/DL (0.60-1.30); GLOMERULAR FILTRATION RATE 170 ML/MIN (>89); GLUCOSE,RANDOM 96 MG/DL (74-106); SODIUM (NA) 140 MEQ/L (136-145)
[2017-12-21 06:20] LABS: ALT (GPT) 65 U/L (12-78); PHOSPHORUS 3.1 MG/DL (2.5-4.9)
[2017-12-21 06:22] LABS: ALKALINE PHOSPHATASE 35 U/L (45-117); TOTAL BILIRUBIN ADULT 0.3 MG/DL (0.2-1.0); TOTAL PROTEIN 6.4 GM/DL (6.4-8.2)
[2017-12-21] MEDS: CHLORHEXIDINE 0.12% (ORAL KIT) 15 ML CUP MT SCH ×2 (08:00→22:59)
--- NOTE | 2017-12-21 08:57 | PD.CARD.PN ---
Subjective Subjective Remarks intubated, sedated, oriented Objective Medications Current Medications Medications (Trade) Dose Ordered Sig/Yuri Route Start Time Stop Time Status Last Admin (Brethine Inj) 1 mg UNSCH PRN SQ 12/10/17 17:45 (Versed Inj) 2 mg Q1H PRN IV PUSH 12/10/17 20:30 12/19/17 14:11 (Zofran Inj) 4 mg Q6H PRN IV PUSH 12/10/17 20:30 12/20/17 01:56 Miscellaneous Information 1 Q361D XX 12/10/17 20:30 12/10/17 20:30 (Chlorhexidine 2% Cloth) Taper DAILY@04 TOP 12/11/17 04:00 12/07/18 03:59 12/21/17 04:00 (Chlorhexidine 2% Cloth) 3 pack UNSCH PRN TOP 12/10/17 20:30 (Chelsea-Colace) 1 tab BID PO 12/10/17 21:00 12/18/17 20:40 (Milk Of Magnesia Liq) 30 ml Q12H PRN PO 12/10/17 20:30 (Senokot) 17.2 mg Q12H PRN PO 12/10/17 20:30 (Dulcolax Supp) 10 mg DAILY PRN RECTAL 12/10/17 20:30 (Lactulose Liq) 30 ml DAILY PRN PO 12/10/17 20:30 (Peridex 0.12% Liq) 15 ml BID@08,20 MT 12/11/17 08:00 12/20/17 20:00 (Heparin Inj) 2,500 units UNSCH PRN IV 12/11/17 03:00 12/21/17 02:05 Potassium Chloride 100 ml @ 50 mls/hr Q2H PRN IV-CENTRAL 12/10/17 21:45 12/15/17 08:26 Potassium Chloride 100 ml @ 50 mls/hr Q2H PRN IV 12/10/17 21:45 12/15/17 10:06 (K-Lyte Cl Eff) 50 meq UNSCH PRN PO 12/10/17 21:45 Potassium Chloride 100 ml @ 25 mls/hr UNSCH PRN IV-CENTRAL 12/10/17 21:45 Potassium Chloride 100 ml @ 50 mls/hr Q2H PRN IV 12/10/17 21:45 Magnesium Sulfate 4 gm/Sodium Chloride 100 ml @ 50 mls/hr UNSCH PRN IV 12/10/17 21:45 (Mag-Ox) 800 mg UNSCH PRN PO 12/10/17 21:45 Magnesium Sulfate 2 gm/Sodium Chloride 100 ml @ 50 mls/hr UNSCH PRN IV 12/10/17 21:45 (K-Phos) 2,000 mg Q4H PRN PO 12/10/17 21:45 Sodium Phosphate 30 mmol/Sodium Chloride 250 ml @ 42 mls/hr UNSCH PRN IV 12/10/17 21:45 (K-Phos) 2,000 mg UNSCH PRN PO/TUBE 12/10/17 21:45 Potassium Phosphate 30 mmol/ Sodium Chloride 260 ml @ 42 mls/hr UNSCH PRN IV 12/10/17 21:45 (Heparin Inj) 5,000 units UNSCH PRN IV 12/10/17 23:00 12/10/17 23:13 Heparin Sodium (Porcine) 35551 units/Sodium Chloride 250 ml @ 10 mls/hr TITRATE PRN IV 12/10/17 23:00 12/21/17 05:27 (Ativan Inj) 1 mg Q1H PRN IV PUSH 12/10/17 23:30 12/15/17 04:00 (fentaNYL INJ) 50 mcg Q1H PRN IV PUSH 12/10/17 23:30 12/15/17 11:32 Miscellaneous Information ml @ 0 mls/hr UNSCH IV 12/10/17 23:30 (NS Flush) 2 ml UNSCH PRN IV FLUSH 12/10/17 23:30 12/20/17 21:15 (NS Flush) 2 ml UNSCH PRN IV FLUSH 12/10/17 23:30 (Aspirin Chew) 81 mg DAILY CHEW 12/12/17 09:00 12/19/17 07:30 (D50w (Vial) Inj) 50 ml UNSCH PRN IV PUSH 12/11/17 09:45 (Glucagon Inj) 1 mg UNSCH PRN OTHER 12/11/17 09:45 (NovoLIN R SUPPLEMENTAL SCALE) 1 Q4H SQ 12/11/17 09:45 Propofol 100 ml @ 2.802 mls/ hr TITRATE PRN IV 12/14/17 15:45 12/17/17 21:53 Fentanyl Citrate 250 ml @ 5 mls/hr TITRATE PRN IV 12/15/17 10:00 12/21/17 02:01 Dexmedetomidine HCl 1000 mcg/ Sodium Chloride 250 ml @ 4.62 mls/hr TITRATE PRN IV 12/15/17 17:00 12/21/17 04:22 Ceftriaxone Sodium 2000 mg/ Sodium Chloride 100 ml @ 200 mls/hr Q24H IV 12/16/17 14:00 12/20/17 15:04 (Tylenol 650 Mg/ 20 ml Liq) 650 mg Q6H PRN OG-TUBE 12/17/17 23:15 12/19/17 10:36 (Tears Naturale Opth Soln) 1 drop Q8HR EACH EYE 12/18/17 06:00 12/21/17 05:19 (Albuterol Neb) 2.5 mg Q2HR NEB PRN NEB 12/17/17 23:15 (Roxicodone Intensol Liq) 5 mg Q6HR NG 12/18/17 00:00 12/20/17 05:11 (SEROquel) 25 mg BID PO 12/18/17 09:00 12/19/17 20:42 (Lactulose Liq) 30 ml DAILY PO 12/19/17 09:00 12/19/17 07:30 (Reglan Inj) 5 mg Q8HR IV PUSH 12/19/17 16:45 12/21/17 05:18 (Protonix Inj) 40 mg Q12H IV PUSH 12/20/17 17:00 12/21/17 05:17 (Lopressor) 25 mg Q8HR PO 12/20/17 16:30 (Morphine Inj) 1 mg Q4H PRN IM 12/20/17 16:30 Vital Signs / I&O Vital Signs Date Time Temp Pulse Resp B/P (MAP) Pulse Ox O2 Delivery O2 Flow Rate FiO2 12/21/17 07:40 98 35 12/21/17 07:40 35 12/21/17 06:00 59 12/21/17 04:00 98.8 62 15 130/73 (92) 100 12/21/17 04:00 67 12/21/17 04:00 35 12/21/17 03:12 98 100 12/21/17 02:00 63 12/21/17 00:00 35 12/21/17 00:00 62 12/21/17 00:00 98.6 62 16 108/57 (74) 98 12/20/17 23:30 99 35 12/20/17 22:00 77 12/20/17 20:00 82 12/20/17 20:00 35 12/20/17 20:00 98.8 82 15 140/76 (97) 84 12/20/17 19:38 100 35 12/20/17 18:00 68 12/20/17 16:00 99.7 83 7 167/130 (142) 99 12/20/17 16:00 83 12/20/17 16:00 35 12/20/17 15:55 35 12/20/17 15:36 94 35 12/20/17 14:00 83 12/20/17 12:00 97.8 90 15 165/75 (105) 12/20/17 12:00 90 12/20/17 12:00 35 12/20/17 11:10 93 35 12/20/17 10:00 88 I/O 12/20/17 12/20/17 12/20/17 12/21/17 12/21/17 12/21/17 07:00 15:00 23:00 07:00 15:00 23:00 Intake Total 469 ml 250 ml 500 ml Output Total 675 ml 1550 ml 500 ml Balance -206 ml -1300 ml 0 ml IV Total 250 ml 250 ml 500 ml Tube Feeding 219 ml Output Urine Total 675 ml 950 ml 500 ml Emesis 600 ml # Bowel Movements 2 1 0 Physical Exam GENERAL: SKIN: Warm and dry. HEAD: Normocephalic. EYES: No scleral icterus. No injection or drainage. NECK: Supple, trachea midline. No JVD or lymphadenopathy. CARDIOVASCULAR: Regular rate and rhythm without murmurs, gallops, or rubs. RESPIRATORY: Breath sounds equal bilaterally. No accessory muscle use. GASTROINTESTINAL: Abdomen soft, non-tender, nondistended. MUSCULOSKELETAL: No cyanosis, or edema. BACK: Nontender without obvious deformity. No CVA tenderness. Laboratory Laboratory Tests Test 12/20/17 11:26 12/21/17 00:25 12/21/17 04:05 Activated Partial Thromboplast Time 39.0 SEC 34.3 SEC Iron Level 39 MCG/DL Total Iron Binding Capacity 209 MCG/DL Percent Iron Saturation 18.7 % Ferritin 474 NG/ML White Blood Count 8.3 TH/MM3 Red Blood Count 3.30 MIL/MM3 Hemoglobin 9.9 GM/DL Hematocrit 28.0 % Mean Corpuscular Volume 85.0 FL Mean Corpuscular Hemoglobin 29.9 PG Mean Corpuscular Hemoglobin Concent 35.2 % Red Cell Distribution Width 13.1 % Platelet Count 279 TH/MM3 Mean Platelet Volume 8.9 FL Neutrophils (%) (Auto) 67.8 % Lymphocytes (%) (Auto) 21.9 % Monocytes (%) (Auto) 6.6 % Eosinophils (%) (Auto) 3.2 % Basophils (%) (Auto) 0.5 % Neutrophils # (Auto) 5.6 TH/MM3 Lymphocytes # (Auto) 1.8 TH/MM3 Monocytes # (Auto) 0.5 TH/MM3 Eosinophils # (Auto) 0.3 TH/MM3 Basophils # (Auto) 0.0 TH/MM3 CBC Comment DIFF FINAL Differential Comment Blood Urea Nitrogen 12 MG/DL Creatinine 0.53 MG/DL Random Glucose 96 MG/DL Total Protein 6.4 GM/DL Albumin 2.3 GM/DL Calcium Level 8.9 MG/DL Phosphorus Level 3.1 MG/DL Magnesium Level 2.0 MG/DL Alkaline Phosphatase 35 U/L Aspartate Amino Transf (AST/SGOT) 36 U/L Alanine Aminotransferase (ALT/SGPT) 65 U/L Total Bilirubin 0.3 MG/DL Sodium Level 140 MEQ/L Potassium Level 3.2 MEQ/L Chloride Level 103 MEQ/L Carbon Dioxide Level 28.8 MEQ/L Anion Gap 8 MEQ/L Estimat Glomerular Filtration Rate 170 ML/MIN Imaging Last 24 hours Impressions Chest X-Ray 12/21/17 0000 Signed Impressions: Service Date/Time: Thursday, December 21, 2017 03:27 - CONCLUSION: 1. Cardiomegaly. 2. Suspected consolidation or atelectasis at the left base and the right midlung. Karsten Pina MD Assessment and Plan Problem List: (1) STEMI (ST elevation myocardial infarction) ICD Codes: I21.3 - ST elevation (STEMI) myocardial infarction of unspecified site (2) Cocaine abuse ICD Codes: F14.10 - Cocaine abuse, uncomplicated (3) Cardiac arrest ICD Codes: I46.9 - Cardiac arrest, cause unspecified (4) Head trauma ICD Codes: S09.90XA - Unspecified injury of head, initial encounter (5) CVA (cerebral vascular accident) ICD Codes: I63.9 - Cerebral infarction, unspecified (6) Tobacco abuse ICD Codes: Z72.0 - Tobacco use (7) Encephalopathy ICD Codes: G93.40 - Encephalopathy, unspecified Assessment and Plan 1.) s/p cardiac arrest - initial gcs=3, possible acute cva, completed hypothermia protocol, mri brain wnl, on aspirin, heparin drip, failed sedation weaning attempt 12/12/17, 12/13/17, reported ef@50-55% on echo,, repeat ekg wnl; cath if neurologic prognosis is adequate and patient or surrogate consents, dc tobacco and cocaine; palliative care following, eeg c/w moderate encephalopathy , prognosis appears possibly improving off pressors; mental status appears to be approaching baseline, pre arrest. rec to patient [facility], d/w nurse to notify surrogate jagdish as i will be leaving for vacation this week and rec doing the [facility] friday12/22/17, palliative care following, family meeting set for 12/22/17 for discussion of treatment options and goals Ameya Dubose MD Dec 21, 2017 08:57
[2017-12-21] MEDS: DOCUSATE SODIUM 50 MG/SENNA 8.6 MG TAB PO SCH ×2 (09:00→23:00)
[2017-12-21] MEDS: QUEtiapine FUMARATE 25 MG TAB PO SCH ×2 (09:00→23:00)
[2017-12-21] MEDS: LACTULOSE SYRUP 20 GM/30 ML CUP PO SCH (09:00)
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
--- NOTE | 2017-12-21 14:07 | PD.PROCEDR ---
GI Procedure PROCEDURE PERFORMED Enteroscopy INDICATION FOR PROCEDURE Questionable lesion between the duodenum and jejunum on CT scan PROCEDURE: The procedure, risks and benefits were discussed with Mr. Stern and informed consent was obtained. Anesthesia sedated him with Diprivan. He was placed in the left lateral decubitus position. Enteroscopy The Pentax videoscope was introduced through the oropharynx and advanced to the second portion of the duodenum under direct visualization. Scope was advanced deep in the jejunum to at least the mid jejunum then gradually withdrawn back to the stomach with visualization of the mucosa and the folds, Retroflexion was performed in the stomach. ESTIMATED BLOOD LOSS: None SPECIMENS REMOVED: None COMPLICATIONS: None IMPRESSION: Normal exam except some NG tube irritation in the stomach, the area that mentioned on CT scan looked normal there was no abnormality on the scope and the duodenum or jejunum Possible mild ileus PLAN: Start tube feeding if needed Patient can be started on heparin again We will sign off at this point David Bui MD Dec 21, 2017 14:06
--- NOTE | 2017-12-21 14:09 | HHI.GIFU ---
Subjective Remarks Patient laying in bed comfortably, awake, intubated, and sitting just no question and stating that he had mild abdominal discomfort Objective Vitals I&O Vital Signs Date Time Temp Pulse Resp B/P (MAP) Pulse Ox O2 Delivery O2 Flow Rate FiO2 12/21/17 11:17 100 35 12/21/17 08:00 98.2 71 18 130/59 (82) 99 12/21/17 08:00 35 12/21/17 07:40 98 35 12/21/17 07:40 35 12/21/17 06:00 59 12/21/17 04:00 98.8 62 15 130/73 (92) 100 12/21/17 04:00 67 12/21/17 04:00 35 12/21/17 03:12 98 100 12/21/17 02:00 63 12/21/17 00:00 35 12/21/17 00:00 62 12/21/17 00:00 98.6 62 16 108/57 (74) 98 12/20/17 23:30 99 35 12/20/17 22:00 77 12/20/17 20:00 82 12/20/17 20:00 35 12/20/17 20:00 98.8 82 15 140/76 (97) 84 12/20/17 19:38 100 35 12/20/17 18:00 68 12/20/17 16:00 99.7 83 7 167/130 (142) 99 12/20/17 16:00 83 12/20/17 16:00 35 12/20/17 15:55 35 12/20/17 15:36 94 35 I/O 12/20/17 12/20/17 12/20/17 12/21/17 12/21/17 12/21/17 07:00 15:00 23:00 07:00 15:00 23:00 Intake Total 469 ml 250 ml 500 ml 300 ml Output Total 675 ml 1550 ml 500 ml Balance -206 ml -1300 ml 0 ml 300 ml IV Total 250 ml 250 ml 500 ml Tube Feeding 219 ml Other 300 ml Output Urine Total 675 ml 950 ml 500 ml Emesis 600 ml # Bowel Movements 2 1 0 Laboratory Laboratory Tests Test 12/21/17 00:25 12/21/17 04:05 12/21/17 12:10 Activated Partial Thromboplast Time 34.3 64.7 Iron Level 39 Total Iron Binding Capacity 209 Percent Iron Saturation 18.7 Ferritin 474 White Blood Count 8.3 Red Blood Count 3.30 Hemoglobin 9.9 Hematocrit 28.0 Mean Corpuscular Volume 85.0 Mean Corpuscular Hemoglobin 29.9 Mean Corpuscular Hemoglobin Concent 35.2 Red Cell Distribution Width 13.1 Platelet Count 279 Mean Platelet Volume 8.9 Neutrophils (%) (Auto) 67.8 Lymphocytes (%) (Auto) 21.9 Monocytes (%) (Auto) 6.6 Eosinophils (%) (Auto) 3.2 Basophils (%) (Auto) 0.5 Neutrophils # (Auto) 5.6 Lymphocytes # (Auto) 1.8 Monocytes # (Auto) 0.5 Eosinophils # (Auto) 0.3 Basophils # (Auto) 0.0 CBC Comment DIFF FINAL Differential Comment Blood Urea Nitrogen 12 Creatinine 0.53 Random Glucose 96 Total Protein 6.4 Albumin 2.3 Calcium Level 8.9 Phosphorus Level 3.1 Magnesium Level 2.0 Alkaline Phosphatase 35 Aspartate Amino Transf (AST/SGOT) 36 Alanine Aminotransferase (ALT/SGPT) 65 Total Bilirubin 0.3 Sodium Level 140 Potassium Level 3.2 Chloride Level 103 Carbon Dioxide Level 28.8 Anion Gap 8 Estimat Glomerular Filtration Rate 170 Tumor Marker Alpha Fetoprotein 2.6 Date/Time Source Procedure Growth Status 12/18/17 18:35 Blood Peripheral Aerobic Blood Culture - Preliminary NO GROWTH IN 3 DAYS Resulted 12/18/17 18:35 Blood Peripheral Anaerobic Blood Culture - Preliminary NO GROWTH IN 3 DAYS Resulted 12/18/17 15:50 Sputum Endotracheal Gram Stain - Final Complete 12/18/17 15:50 Sputum Endotracheal Sputum Culture - Final NO GROWTH IN 48 HOURS. Complete 12/10/17 17:30 Urine Clean Catch Urine Culture - Final NO GROWTH IN 48 HOURS. Complete Physical Exam HEENT: Pupils round and reactive to light; normocephalic; atraumatic; no jaundice. ET tube secured NECK: Neck is supple, no JVD, no lymphadenopathy. CHEST: Chest is clear to auscultation and percussion. CARDIAC: Regular rate and rhythm with no murmur gallop or rubs. ABDOMEN: Mildly distended, mild tenderness and bloating; no hepatosplenomegaly; 1 bowel sound gurgle lower right quadrant, Oral gastric tube out but will be placed back in EXTREMITIES: No clubbing, cyanosis, or edema. SKIN: Normal; no rash; no jaundice. 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 Assessment and Plan Plan Patient was seen and examined, patient seems to be comfortable, mild abdominal discomfort according to him, had questionable lesion on the CT scan in the junction between the duodenum and jejunum, enteroscopy was done today IMPRESSION: Normal exam except some NG tube irritation in the stomach, the area that mentioned on CT scan looked normal there was no abnormality on the scope and the duodenum or jejunum Possible mild ileus PLAN: Start tube feeding if needed Patient can be started on heparin again We will sign off at this point David Bui MD Dec 21, 2017 14:09
[2017-12-21] MEDS: cefTRIAXone INJ 2,000 MG in SODIUM CHLORIDE 0.9% INJ 100 ML IV SCH (15:17)
[2017-12-21] MEDS: ASPIRIN 81 MG CHEW TAB CHEW SCH (15:18)
[2017-12-21] MEDS: POTASSIUM CHLOR 20 MEQ PREMIX 100 ML IV PRN ×2 (15:18→23:01)
--- NOTE | 2017-12-21 17:12 | HHI.CCPN ---
Subjective Remarks/Hospital Course 42-year-old gentleman brought in by EMS after he apparently had an episode of chest pain after which he clutched his chest an collapsed at home. Patient's called 911 and initiated CPR prior to EMS arriving there. Once EMS arrived they were able to start an IV, intubated the patient and initiated ACLS protocol giving 4 rounds of epi 7 rounds of chest compressions along with 3 separate defibrillations. Initial EKG at the scene showed ST elevation, however the repeat EKG in the emergency department showed no ST elevations. The case was discussed by ED attending with delivery director fire prevention inspector who recommended hypothermia protocol and conservative management. 12/11 Patient is sedated and intubated. On Levophed, Amio and Nimbex drips. 12/12 Patient remains intubated and sedated with Diprivan in addition he is on Nimbex. Off Levophed and Amio drips. Remains on Heparin drip. 12/13 Patient remains intubated and sedated with Diprivan. Placed on Levophed 3 mics overnight, on heparin drip. T:101.7 last night. 12/14 No events overnight. Off Levophed. Afebrile. Off Diprivan placed on Precedex drip overnight. T:101.1 12/15 Patient remains intubated and sedated with Diprivan and Precedex drip. Afebrile. 12/16 Patient is sedated with Precedex and Fentanyl infusion. T:100.0 last night. 12/17: Tube feeds are currently goal. With Glucerna 1.5 at 45. Requiring dexmedetomidine for sedation while also on fentanyl drip. We'll start on quetiapine and scheduled oxycodone. Non purposeful movements to stimulation specifically with left upper extremity 12/18: Max 100.8. Currently 98.9. More awake and alert and interactive today. Ex- states asking "what happened". Explained in depth out of hospital cardiac arrest and events leading to his current situation. He nods head as if he understands. 12/19 No events overnight . Sedated with Fentanyl and Precedex drips. T:100.4 last night. Remains on Heparin drip. 12/20 Patient remains intubated and on Precedex and Fentanyl drips for sedation. T:100.8 Subjective 12/21: Afebrile. EKG revealed NG tube trauma. No signs of gastritis or duodenitis. Okay to restart tube feeding today. Appears comfortable on ventilator point commands. Objective Vital Signs Date Time Temp Pulse Resp B/P (MAP) Pulse Ox O2 Delivery O2 Flow Rate FiO2 12/21/17 14:58 96 35 12/21/17 08:00 98.2 71 18 130/59 (82) Intake and Output 12/21/17 12/21/17 12/22/17 08:00 16:00 00:00 Intake Total 500 ml 300 ml Output Total 500 ml Balance 0 ml 300 ml Result Diagram: 12/21/17 0405 12/21/17 0405 Other Results Microbiology Date/Time Source Procedure Growth Status 12/18/17 18:35 Blood Peripheral Aerobic Blood Culture - Preliminary NO GROWTH IN 3 DAYS Resulted 12/18/17 18:35 Blood Peripheral Anaerobic Blood Culture - Preliminary NO GROWTH IN 3 DAYS Resulted 12/18/17 15:50 Sputum Endotracheal Gram Stain - Final Complete 12/18/17 15:50 Sputum Endotracheal Sputum Culture - Final NO GROWTH IN 48 HOURS. Complete 12/10/17 17:30 Urine Clean Catch Urine Culture - Final NO GROWTH IN 48 HOURS. Complete Imaging Last Impressions Chest X-Ray 12/21/17 0000 Signed Impressions: Service Date/Time: Thursday, December 21, 2017 03:27 - CONCLUSION: 1. Cardiomegaly. 2. Suspected consolidation or atelectasis at the left base and the right midlung. Karsten Pina MD Abdomen/Pelvis CT 12/20/17 0000 Signed Impressions: Service Date/Time: Wednesday, December 20, 2017 09:09 - CONCLUSION: There is abnormal dilation of the jejunum and ileum. There is transition from a normal appearing duodenum and optimal jejunum to a fluid dilated small bowel identified within the left upper quadrant. There is a focal calcific density identified within the adjacent mesenteric fat. This does not may represent an area of calcified adhesion.. Guillermina Lee MD Abdomen X-Ray 12/19/17 0000 Signed Impressions: Service Date/Time: Tuesday, December 19, 2017 13:55 - CONCLUSION: Probable ileus. There is no free air. Teodoro Wong MD FACR Brain MRI 12/12/17 0000 Signed Impressions: Service Date/Time: Tuesday, December 12, 2017 10:21 - CONCLUSION: Normal examination. Addy Souza MD Liver Ultrasound 12/11/17 0000 Signed Impressions: Service Date/Time: November 10:26 - CONCLUSION: Solitary echogenic lesion left lobe liver I suspect a hemangioma. Central venous catheter within the IVC otherwise unremarkable study. Glenn James MD Head CT 12/10/17 1714 Signed Impressions: Service Date/Time: Sunday, December 10, 2017 18:18 - CONCLUSION: 1. Concern for right-sided nonhemorrhagic cerebral infarction. Jose Glaser Jr., MD Objective Remarks GENERAL: 42-year-old male currently orotracheally intubated SKIN: Warm and dry. No rash HEAD: Atraumatic. Normocephalic. EYES: Pupils equal and briskly reactive to light by 2 mm bilaterally, ENT: No nasal bleeding or discharge. Mucous membranes pink and moist. NECK: Trachea midline. No JVD. CARDIOVASCULAR: RRR. S1, S2 no S4. Without murmur RESPIRATORY: Few crackles appreciated in the left. The right lower lobes posteriorly. No wheezing GASTROINTESTINAL: Abdomen soft, non-tender,distended. Positive bowel sounds appreciated MUSCULOSKELETAL: Extremities with trace bilateral lower extremity edema. No obvious deformities. NEUROLOGICAL: Sedated and intubated. No obvious cranial nerve deficits. Motor localizes to pain on all 4 extremities. Five out of 5 muscle strength in the arms and legs. A/P Assessment and Plan Neuro/Psych: Acute toxic metabolic encephalopathy UDS positive for cocaine and benzodiazepines On dexmedetomidine and Fentanyl infusion for sedation and vent synchrony,daily sedation vacation CT brain showed possible non hemorrhagic cerebral infarction. MRI brain 12/12: within normal, neuro is following-Dr. Vasquez EEG: moderate diffuse encephalopathy, no seizure activity UDS: + Cocaine, Benzo Quetiapine 25 mg BID and oxycodone 5 mg to 6 hours scheduled in attempt to wean sedation on 12/17 Pulm: Acute respiratory failure PRVC 16/500/11/28/40 Ventilator bundle Albuterol/ipratropium aerosols every 6 hours with albuterol aerosols every 2 hours. Dyspnea Continue with vent support keep sat >92% SBT daily as giovanna. CV: OHCA - V. fib Elevated troponin Monitor HR and BP keep MAP>65mmHg. Place on Lopressor 25mg Q8 s/p Hypothermia protocol. Cards is following- Dr. Dubose. Echo showed EF 50-55% Plan for cardiac catheterization 12/[address] Dubose Continue with Heparin drip @ 1800 units an hour. Monitor PTT. On ASA. 81 mg daily Renal/: Hypokalemia Monitor renal function, I/O's, electrolytes replacement per protocol. 40 Milliequivalents KCl by tube1 now. Recheck in a.m. GI: Elevated transaminases Objective vomiting TF held for emesis (Glucerna 1.5 goal 45 cc an hour) KUB abdomen yesterday showed probable ileus. On metoclopramide 5mg Q8, Lactulose CT abdomen/pelvis post revealed possible distention jejunum/ileum with no signs of obstructive process. EGD 12/21 revealed indeed to suction. No signs obstructive process. Okay to restart tube feeding today On lansoprazole 30 mg daily for GI prophylaxis Monitor LFT's,Hepatitis profile negative US liver: Solitary echogenic lesion left lobe liver I suspect a hemangioma. ID: Previously on piperacillin/tazobactam and vancomycin Currently on ceftriaxone per infectious disease. ID is following. Follow up on Blood and sputum cxs from 12/18 Blood, 12/11 urine cx: 12/10: No growth Sputum cx 12/11: Group A beta strep. Heme: Anemia/normocytic Thrombocytopenia Monitor CBC, coags- on Heparin drip Endo: Hyperglycemia Novulin R with Accu-Cheks every 4 hours to maintain euglycemia/moderate regimen for glycemic control GI prophylaxis- on lansoprazole DVT prophylaxis- On Heparin drip. Lines: Peripheral IV's Palliative care is following Level II Parag Pepper MD Dec 21, 2017 17:12
[2017-12-21] MEDS ORDERED: POTASSIUM CHLORIDE 20 MEQ PWD PACKET NG ONE (17:15)
[2017-12-21] MEDS: RESP: ALBUTEROL 2.5 MG/IPRATROPIUM 0.5 MG NEB (SCH) NEB (21:01)
[2017-12-22] VITALS (35 sets, daily range): BP systolic 100–149; BP diastolic 53–73; PULSE 48–82; RESP 6–22; TEMP 97.6–98.5; O2SAT 83–100
[2017-12-22] MEDS: fentaNYL DRIP 250 ML IV PRN ×2 (01:34→18:55)
[2017-12-22] MEDS: INSULIN NovoLIN REGULAR SUPPLEMENTAL SCALE SQ SCH ×6 (01:34→21:45)
[2017-12-22] MEDS: oxyCODONE HCL ORAL CONC 5 MG/0.25 ML SYRINGE NG SCH ×3 (01:35→18:37)
[2017-12-22] MEDS: CHLORHEXIDINE GLUCONATE 2 % 1 PACK (2 CLOTHS) TOP SCH (01:35)
[2017-12-22] MEDS: RESP: ALBUTEROL 2.5 MG/IPRATROPIUM 0.5 MG NEB (SCH) NEB ×4 (03:26→19:47)
[2017-12-22 04:21] LABS: AUTOMATED NEUTROPHIL # 3.6 TH/MM3 (1.8-7.7); BASOPHIL % 0.6 % (0.0-2.0); EOSINOPHIL # 0.3 TH/MM3 (0-0.4); EOSINOPHIL % 4.5 % (0.0-4.0); HEMOGLOBIN 10.1 GM/DL (13.0-17.0); LYMPH % 27.8 % (9.0-44.0); LYMPHOCYTE # 1.7 TH/MM3 (1.0-4.8); MEAN CELL VOLUME 85.5 FL (80.0-100.0); MEAN CORPUSCULAR HEMOGLOBIN 29.7 PG (27.0-34.0); MEAN CORPUSCULAR HGB CONC 34.8 % (32.0-36.0); MEAN PLATELET VOLUME 8.7 FL (7.0-11.0); MONO % 7.4 % (0.0-8.0); MONOCYTE # 0.4 TH/MM3 (0-0.9); NEUT % 59.7 % (16.0-70.0); PLATELET COUNT 308 TH/MM3 (150-450); RED BLOOD COUNT 3.39 MIL/MM3 (4.50-5.90); RED CELL DISTRIBUTION WIDTH 13.4 % (11.6-17.2)
[2017-12-22 04:42] LABS: ALBUMIN 2.3 GM/DL (3.4-5.0); AST (GOT) 39 U/L (15-37); BICARBONATE 28.5 MEQ/L (21.0-32.0); BLOOD UREA NITROGEN 12 MG/DL (7-18); CALCIUM 8.9 MG/DL (8.5-10.1); CHLORIDE 104 MEQ/L (98-107); CREATININE 0.53 MG/DL (0.60-1.30); GLOMERULAR FILTRATION RATE 170 ML/MIN (>89); GLUCOSE,RANDOM 84 MG/DL (74-106); SODIUM (NA) 139 MEQ/L (136-145)
[2017-12-22 04:44] LABS: ALT (GPT) 59 U/L (12-78); PHOSPHORUS 3.5 MG/DL (2.5-4.9)
[2017-12-22 04:46] LABS: ALKALINE PHOSPHATASE 34 U/L (45-117); TOTAL BILIRUBIN ADULT 0.3 MG/DL (0.2-1.0); TOTAL PROTEIN 6.2 GM/DL (6.4-8.2)
[2017-12-22] MEDS: ONDANSETRON HCL 4 MG/2 ML VIAL IV PUSH PRN (05:57)
[2017-12-22] MEDS: DEXMEDETOMIDINE INJ 1,000 MCG in SODIUM CHLOR 0.9% 250 ML INJ 240 ML IV PRN ×3 (05:57→22:03)
[2017-12-22] MEDS: METOCLOPRAMIDE HCL 10 MG/2 ML VIAL IV PUSH SCH ×3 (05:57→22:04)
[2017-12-22] MEDS: PANTOPRAZOLE SODIUM 40 MG VIAL IV PUSH SCH ×2 (05:57→16:26)
[2017-12-22] MEDS: ARTIFICIAL TEARS OPTH SOLN 15 ML BTL EACH EYE SCH ×3 (05:59→22:08)
[2017-12-22] MEDS: METOPROLOL TARTRATE 25 MG TAB PO SCH ×3 (05:59→22:00)
[2017-12-22] MEDS: CHLORHEXIDINE 0.12% (ORAL KIT) 15 ML CUP MT SCH ×2 (08:00→22:08)
[2017-12-22] MEDS: LACTULOSE SYRUP 20 GM/30 ML CUP PO SCH (08:15)
[2017-12-22] MEDS: DOCUSATE SODIUM 50 MG/SENNA 8.6 MG TAB PO SCH ×2 (08:15→22:04)
[2017-12-22] MEDS: QUEtiapine FUMARATE 25 MG TAB PO SCH ×2 (08:15→22:04)
[2017-12-22] MEDS: ASPIRIN 81 MG CHEW TAB CHEW SCH (08:15)
[2017-12-22] MEDS: HEPARIN INJ 25,000 UNITS in SODIUM CHLOR 0.9% 250 ML INJ 247.5 ML IV PRN (08:17)
--- NOTE | 2017-12-22 12:14 | HHI.CCPN ---
Subjective Remarks/Hospital Course 42-year-old gentleman brought in by EMS after he apparently had an episode of chest pain after which he clutched his chest an collapsed at home. Patient's called 911 and initiated CPR prior to EMS arriving there. Once EMS arrived they were able to start an IV, intubated the patient and initiated ACLS protocol giving 4 rounds of epi 7 rounds of chest compressions along with 3 separate defibrillations. Initial EKG at the scene showed ST elevation, however the repeat EKG in the emergency department showed no ST elevations. The case was discussed by ED attending with aviation safety technician campaign consultant who recommended hypothermia protocol and conservative management. 12/11 Patient is sedated and intubated. On Levophed, Amio and Nimbex drips. 12/12 Patient remains intubated and sedated with Diprivan in addition he is on Nimbex. Off Levophed and Amio drips. Remains on Heparin drip. 12/13 Patient remains intubated and sedated with Diprivan. Placed on Levophed 3 mics overnight, on heparin drip. T:101.7 last night. 12/14 No events overnight. Off Levophed. Afebrile. Off Diprivan placed on Precedex drip overnight. T:101.1 12/15 Patient remains intubated and sedated with Diprivan and Precedex drip. Afebrile. 12/16 Patient is sedated with Precedex and Fentanyl infusion. T:100.0 last night. 12/17: Tube feeds are currently goal. With Glucerna 1.5 at 45. Requiring dexmedetomidine for sedation while also on fentanyl drip. We'll start on quetiapine and scheduled oxycodone. Non purposeful movements to stimulation specifically with left upper extremity 12/18: Max 100.8. Currently 98.9. More awake and alert and interactive today. Ex- states asking "what happened". Explained in depth out of hospital cardiac arrest and events leading to his current situation. He nods head as if he understands. 12/19 No events overnight . Sedated with Fentanyl and Precedex drips. T:100.4 last night. Remains on Heparin drip. 12/20 Patient remains intubated and on Precedex and Fentanyl drips for sedation. T:100.8 12/21: Afebrile. EKG revealed NG tube trauma. No signs of gastritis or duodenitis. Okay to restart tube feeding today. Appears comfortable on ventilator point commands. Subjective 12/22: Afebrile. Plan for cardiac catheterization today. Tube feeds currently off. Lasted 12 hours on PSV trial yesterday. Likely extubation candidate depending on findings on cardiac catheterization results today Objective Vital Signs Date Time Temp Pulse Resp B/P (MAP) Pulse Ox O2 Delivery O2 Flow Rate FiO2 12/22/17 11:10 99 35 12/22/17 10:00 81 12/22/17 08:00 98.0 15 105/54 (71) Intake and Output 12/22/17 12/22/17 12/23/17 08:00 16:00 00:00 Intake Total 660 ml Output Total 750 ml Balance -90 ml Result Diagram: 12/22/17 0251 12/22/17 0251 Other Results Microbiology Date/Time Source Procedure Growth Status 12/18/17 18:35 Blood Peripheral Aerobic Blood Culture - Preliminary NO GROWTH IN 4 DAYS Resulted 12/18/17 18:35 Blood Peripheral Anaerobic Blood Culture - Preliminary NO GROWTH IN 4 DAYS Resulted 12/18/17 15:50 Sputum Endotracheal Gram Stain - Final Complete 12/18/17 15:50 Sputum Endotracheal Sputum Culture - Final NO GROWTH IN 48 HOURS. Complete 12/10/17 17:30 Urine Clean Catch Urine Culture - Final NO GROWTH IN 48 HOURS. Complete Imaging Last Impressions Chest X-Ray 12/21/17 0000 Signed Impressions: Service Date/Time: Thursday, December 21, 2017 03:27 - CONCLUSION: 1. Cardiomegaly. 2. Suspected consolidation or atelectasis at the left base and the right midlung. Karsten Pina MD Abdomen/Pelvis CT 12/20/17 0000 Signed Impressions: Service Date/Time: Wednesday, December 20, 2017 09:09 - CONCLUSION: There is abnormal dilation of the jejunum and ileum. There is transition from a normal appearing duodenum and optimal jejunum to a fluid dilated small bowel identified within the left upper quadrant. There is a focal calcific density identified within the adjacent mesenteric fat. This does not may represent an area of calcified adhesion.. Guillermina Lee MD Abdomen X-Ray 12/19/17 0000 Signed Impressions: Service Date/Time: Tuesday, December 19, 2017 13:55 - CONCLUSION: Probable ileus. There is no free air. Teodoro Wong MD FACR Brain MRI 12/12/17 0000 Signed Impressions: Service Date/Time: Tuesday, December 12, 2017 10:21 - CONCLUSION: Normal examination. Addy Souza MD Liver Ultrasound 12/11/17 0000 Signed Impressions: Service Date/Time: November 10:26 - CONCLUSION: Solitary echogenic lesion left lobe liver I suspect a hemangioma. Central venous catheter within the IVC otherwise unremarkable study. Glenn James MD Head CT 12/10/17 1714 Signed Impressions: Service Date/Time: Sunday, December 10, 2017 18:18 - CONCLUSION: 1. Concern for right-sided nonhemorrhagic cerebral infarction. Jose Glaser Jr., MD Objective Remarks GENERAL: 42-year-old male currently orotracheally intubated SKIN: Warm and dry. No rash HEAD: Atraumatic. Normocephalic. EYES: Pupils equal and briskly reactive to light by 2 mm bilaterally, ENT: No nasal bleeding or discharge. Mucous membranes pink and moist. NECK: Trachea midline. No JVD. CARDIOVASCULAR: RRR. S1, S2 no S4. Without murmur RESPIRATORY: Few crackles appreciated in the left. The right lower lobes posteriorly. No wheezing GASTROINTESTINAL: Abdomen soft, non-tender,distended. Positive bowel sounds appreciated MUSCULOSKELETAL: Extremities with trace bilateral lower extremity edema. No obvious deformities. NEUROLOGICAL: Arousable on the ventilator and follows commands. No obvious cranial nerve deficits. Motor localizes to pain on all 4 extremities. Five out of 5 muscle strength in the arms and legs. A/P Assessment and Plan Neuro/Psych: Acute toxic metabolic encephalopathy UDS positive for cocaine and benzodiazepines On dexmedetomidine at 1.5 mcg/kg per minute and Fentanyl infusion 150 an hour for sedation and vent synchrony Goal of RA SS of [address] brain showed possible non hemorrhagic cerebral infarction. MRI brain 12/12: within normal, neuro is following-Dr. Vasquez EEG: moderate diffuse encephalopathy, no seizure activity UDS: + Cocaine, Benzo Quetiapine 25 mg BID and oxycodone 5 mg to 6 hours scheduled in attempt to wean sedation on 12/17 Pulm: Acute respiratory failure PRVC 16/500/11/28/40 Ventilator bundle Albuterol/ipratropium aerosols every 6 hours with albuterol aerosols every 2 hours. Dyspnea Continue with vent support keep sat >92% SBT daily as giovanna. CV: OHCA - V. fib Elevated troponin Monitor HR and BP keep MAP>65mmHg. Place on Lopressor 25mg Q8 s/p Hypothermia protocol. Cards is following- Dr. Dubose. Echo showed EF 50-55% Plan for cardiac catheterization 12/[address] Dubose Continue with Heparin drip @ 2200 units an hour. Monitor PTT. On ASA. 81 mg daily Renal/: Hypokalemia Monitor renal function, I/O's, electrolytes replacement per protocol. GI: Elevated transaminases Objective vomiting TF held for recatheterization (Glucerna 1.5 goal 45 cc an hour) KUB abdomen/ showed probable ileus. On metoclopramide 5mg Q8, Lactulose CT abdomen/pelvis post revealed possible distention jejunum/ileum with no signs of obstructive process. EGD 12/21 revealed indeed to suction. No signs obstructive process. Okay to restart tube feeding today On lansoprazole 30 mg daily for GI prophylaxis Monitor LFT's,Hepatitis profile negative US liver: Solitary echogenic lesion left lobe liver I suspect a hemangioma. ID: Previously on piperacillin/tazobactam and vancomycin Currently on ceftriaxone per infectious disease. ID is following. Follow up on Blood and sputum cxs from 12/18 Blood, 12/11 urine cx: 12/10: No growth Sputum cx 12/11: Group A beta strep. Heme: Anemia/normocytic Thrombocytopenia Monitor CBC, coags- on Heparin drip Endo: Hyperglycemia Novulin R with Accu-Cheks every 4 hours to maintain euglycemia/moderate regimen for glycemic control GI prophylaxis- on lansoprazole DVT prophylaxis- On Heparin drip. Lines: Peripheral IV's Palliative care is following Level II Parag Pepper MD Dec 22, 2017 12:14
[2017-12-22] MEDS ORDERED: POTASSIUM CHLORIDE 20 MEQ PWD PACKET NG ONE (12:30)
[2017-12-22 12:33] LABS: TROPONIN I 0.38 NG/ML (0.02-0.05)
[2017-12-22] MEDS ORDERED: NITROGLYCERIN INJ 5 ML ONE (14:13)
[2017-12-22] MEDS ORDERED: HEPARIN-NS/PF INJ 1,000 ML ONE (14:13)
[2017-12-22] MEDS ORDERED: HEPARIN SODIUM - IV 10,000 UNITS/10 ML VIAL ONE (14:49)
[2017-12-22] MEDS ORDERED: TIROFIBAN INFUSION INJ 250 ML IV ONE (15:11)
[2017-12-22] MEDS ORDERED: CLOPIDOGREL 300 MG TAB ONE (15:17)
--- NOTE | 2017-12-22 15:34 | CATHPROC ---
Scratch Hard HIS Report Study Information Study Number Admission Scheduled Start Study Start [id number] Dec 10 2017 6:52PM 12/22/2017 Dec 22 2017 2:01PM [place] Service Cardiac Catheterization Admit Source Facility Department Emergency department [facility] - [employer] Physician and Clinical Staff Initial Ameya Peace Manager Internetemilie David RN, Godwin Perla RCIS(BS) Scrub Carmen Ontiveros RCIS TECH2 Procedures Performed Procedure Location (Site) Vessel Name Coronary Angiograms LCA Left Coronary Coronary Angiograms RCA Right Coronary L Heart Cath LV Gram-hand inj. LV LV Ventricle PTCA RCA Mid Right Coronary Stent RCA Mid Right Coronary Wire insertion Fem Art (right) Femoral Art Equipment Time Establishment Guide Description Size Mfg Part Number Used/Scraped [id number] 14:49 [employer] WIRE, ASANormal PROWATER 180CM 180CM Used *[id number] TRANSDUCER, TRUWAVE [id number] 14:02 HAIRSTON GREEN * Used W/STOCKCOCK *[id number] *[id number] [id number] *[id number] *[id number] [id number] *[id number] 14:02 Exara INDUSTRIES PACK, CCL CUSTOM * Used *[id number] 14:02 Exara PACER PEN, SKIN DUAL W/ RULER * Used *[id number] 15:04 MEDTRONIC BALLOON, 2.0 X 20MM EUPHORA 20MM Used *[id number] 14:53 MEDTRONIC BALLOON, 2.0 X 6MM EUPHORA 6MM Used *[id number] 15:06 MEDTRONIC STENT, 2.5 26 INTEGRITY 2.5 26 Used *[id number] [id number] 14:50 [employer] MEDICAL 30 TRINITY INDEFLATOR Used *[id number] 14:50 [employer] MEDICAL SHEATH, FR6.5 PRELUDE 11CM FR 6.5 038ACT Used *[id number] 14:02 TrueAbility WIRE, 3MMJ .035 180CM 180CM Used *[id number] 14:02 NAMIC MANIFOLD, 4 PORT * Used *[id number] 14:02 NYCOMED OMNIPAQUE, 350 MG, 150ML 150ML [id number] Used [id number] 14:02 ROA MEDICAL BLANKET,WARM AIR CCL * Used *[id number] 14:02 TERUMO MEDICAL SHEATH, FR4 TERUMO (10CM) FR 4 Used *[id number] Equipment Model, Serial, Lot Number and Expiration Data Description Model Number Serial Number Lot Number Expiration Date STENT, 2.5 26 INTEGRITY [id number] 05-12-2019 History: Allergies Allergy Reaction No Known Allergies History: Risk Factors Family History of Hypertension Dyslipidemia Previous OH Previous Heart Failure Premature CAD No No No No No Prior Valve Prior PCI Prior CABG Surgery No No No Cerebrovascular Peripheral Artery Chronic Lung On Dialysis Diabetes Disease Disease Disease No Yes No No No History: Symptoms/Diagnosis Selection Items Chest pain History: Stress Tests Stress or Imaging Studies Performed No History: Other Current Smoker No Labs Hgb (g/dl) Hct (%) WBC (l/cumm) Platelets (thousands) 11.60-17.00 35.00-51.00 4.00-11.00 150.00-450.00 10.1 29 6 29 Glucose (mg/dl) BUN (mg/dl) Creatinine (mg/dl) BUN:Creatinine (1:x) 74.00-106.00 7.00-18.00 0.50-1.30 10.00-20.00 84 12 0.5 24 Na (meq/l) K (meq/l) 136.00-145.00 3.50-5.10 139 3.8 INR (PTT:PT) 0.90-1.10 1.1 CPK-MB (ng/ML) 0.50-3.60 Not Drawn Medication Medication Total Dose (Bolus/Oral) Medication Total Dosage/Unit 1% XYLOCAINE 20 mL AGGRASTAT BOLUS 50 meq/kg FENTANYL 200 mcg/hr HEPARIN 5700 units PLAVIX 600 mg Medications (Bolus/Oral) Medication Time Given Dosage/Unit Administered By Reason FENTANYL 12/22/2017 2:14:45 PM 200 mcg/hr Patient arrived on 200 mcg/hr FENTANYL in Left Forearm via Peripheral IV. Pump/Drip Flow = 0 ml/hr us ing NaCl .9. 1% XYLOCAINE 12/22/2017 2:38:38 PM 20 mL Ameya Dubose 20 mL 1% XYLOCAINE given in lab by Ameya Dubose in Right Groin via Subcutaneous. HEPARIN 12/22/2017 2:51:08 PM 5700 units Blayne David RN 5700 units HEPARIN given in lab by Blayne David RN in Left Forearm via Peripheral IV. Ordered by Ameya Butler. AGGRASTAT BOLUS 12/22/2017 3:15:59 PM 50 meq/kg Blayne David RN 50 meq/kg AGGRASTAT BOLUS given in lab by Blayne David RN in Left Forearm via Peripheral IV. Amount g iven = 4775 meq. Ordered by Ameya Dubose. PLAVIX 12/22/2017 3:24:50 PM 600 mg Blayne David RN 600 mg PLAVIX given in lab by Blayne David RN via oral/ NG tube. Ordered by Ameya Dubose. Medication (Drip) Medication Time Given Dosage/Unit Concentration/Unit Diluent (ml) Solution AGGRASTAT DRIP 12/22/2017 3:19:21 PM 0.151 mcg/kg/min 12.5 mg 250 NaCl .9 0.151 mcg/kg/min AGGRASTAT DRIP given in lab by Blayne David RN in Left Forearm via Peripheral IV. Pu mp/Drip Flow = 17.3 ml/hr using NaCl .9 with a concentration of 12.5 mg in 250 ml. Ordered by Ameya Dubose. Initial Case Assessment Cardiovascular HR Rhythm NIBP Chest Pain 53 TOMÁS 167/73 0 Edema Present Skin color Skin None Normal Cool Circulatory - Right Pulses Dorsalis Pedis Femoral 3 2 Scale (0,1,2,3,4,d) Circulatory - Left Pulses Dorsalis Pedis Femoral 3 2 Scale (0,1,2,3,4,d) Neurological State Oriented to time-place- Lethargic Moves all extremities person Respiration - General Respiration Rate SpO2 (%) (B/min) 16 96 Chronological Log Time Study Chronological Log 14:05:23 Patient arrived via Bed ON A VENT. 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 14:05:24 Patient Name, D.O.B, / Armband Verified By R.N. 14:05:25 Consent signed by the physician and the patient and verified by the [employer] staff. 14:05:26 Pre-op and post- op instructions given; patient acknowledges understanding of instructions. 14:05:31 Patient has been NPO for More than 6Hrs. 14:05:32 Skin Breakdown- bruise right groin 14:05:34 Yi Prominences Protected 14:14:44 A # 20 IV was noted in the Upper Arm (left). Grade = 0 14:14:44 A # 20 IV was noted in the Forearm (left). Grade = 0 14::45 PATIENT ARRIVED ON PRECEDEX DRIP AT 1.5 MCG/KG/MIN TO L. FOREARM #20 14:14:45 Patient arrived on 200 mcg/hr FENTANYL in Left Forearm via Peripheral IV. Pump/Drip Flow = 0 ml/hr using NaCl .9. 14:14:46 History and physical on the chart or being dictated. Assessment: Initial Case, HR=53 BPM, Rhythm=TOMÁS, PVYD=971/73 mmhg, Chest Pain=0, Edema=None, Color=Normal, Skin = Cool Right Pulses: Kirill Ped=3, Femoral=2 14:14:53 Left Pulses: Kirill Ped=3, Femoral=2 Neurological: State=Lethargic, Ox3, KELLEY Respiration: Resp=16 B/min, SpO2=96 % Vitals capture started with the following parameters, Patient=Adult, Interval=5 min, Initial Pr qfsxhq=595 mmHg, 14:14:59 Deflation Rate=5 mmHg, Cuff placed on Left Arm 14:16:17 HR=66 bpm, ILJB=280/73 mmhg, SpO2=96 %, Resp=16 B/min, Pain=0, Ibrahima=9, Kim=2 14:20:23 Reference ECG taken 14:20:41 HR=52 bpm, RNZD=730/85 mmhg, ZdC4=008.0 %, Resp=16 B/min, Pain=0, Ibrahima=9, Kim=2 14:25:09 MD paged 14:25:38 HR=51 bpm, JZNG=888/88 mmhg, NkA8=879.0 %, Resp=16 B/min, Pain=0, Ibrahima=9, Kim=2 14:26:47 Pressure channel 1 zeroed. 14:30:41 HR=53 bpm, YWRZ=999/88 mmhg, RdS4=182.0 %, Resp=16 B/min, Pain=0, Ibrahima=9, Kim=2 14:33:36 MD arrived. 14:33:39 Contrast Scanned 14:33:39 Immediate Presedation assesment performed by physician. 14:35:42 HR=52 bpm, JHHK=087/86 mmhg, HaV7=987.0 %, Resp=16 B/min, Pain=0, Ibrahima=9, Kim=2 Time Out. Correct patient, correct procedure, correct physician, power injector not loaded with contrast with surgical 14:37:53 team present. Time Out Concurred by MD and individual staff in procedure. 14:38:01 Case Start 14:38:38 20 mL 1% XYLOCAINE given in lab by Ameya Dubose in Right Groin via Subcutaneous. 14:40:39 HR=55 bpm, VUFT=570/96 mmhg, SpO2=98.0 %, Resp=16 B/min, Pain=0, Ibrahima=9, Kim=2 14:41:24 Access site was Right Femoral Artery. 14:41:29 A SHEATH, FR4 TERUMO (10CM) FR 4 was advanced into the Fem Art (right) using the Percutaneo us technique. 14:42:19 Activated Clotting Time Drawn A JR 4.0 INFINITI CATHETER FR 4 was advanced over a wire. OMNIPAQUE, 350 MG, 150ML 150ML was us ed for 14:42:23 injections. Recorded Pressure: LV, HR=52, Condition=Condition 1 14:43:07 (Left Ventricle) LV 136/16/25 14:43:12 The LV was manually injected with 10 cc's and visualized. OMNIPAQUE, 350 MG, 150ML 150ML us ed. Recorded Pressure: Ao, HR=58, Condition=Condition 1 14:43:42 (Aorta) Ao 140/72/103 14:44:00 The RCA was injected and visualized at various angles. OMNIPAQUE, 350 MG, 150ML 150ML used . 14:44:58 Catheter was removed A JL 4.0 INFINITI CATHETER FR 4 was advanced over a wire. OMNIPAQUE, 350 MG, 150ML 150ML was us ed for 14:44:58 injections. 14:45:11 ACT (Normal Range 90-180) = 162 14:46:19 HR=52 bpm, MNGD=605/89 mmhg, VfA0=225.0 %, Resp=16 B/min, Pain=0, Ibrahima=9, Kim=2 14:46:51 The LCA was injected and visualized at various angles. OMNIPAQUE, 350 MG, 150ML 150ML used . 14:48:06 Catheter was removed A SHEATH, FR6.5 PRELUDE 11CM FR 6.5 was exchanged in the Fem Art (right). This was necessary in order to 14:49:50 accomodate a larger catheter. 14:50:45 HR=70 bpm, LGTC=436/101 mmhg, WvY9=952.0 %, Resp=16 B/min, Pain=0, Ibrahima=9, Kim=2 14:51:08 5700 units HEPARIN given in lab by Blayne David RN in Left Forearm via Peripheral IV. Order ed by Ameya Dubose. A JR 4.0 GUIDE CATHETER FR 6 was advanced over a wire. OMNIPAQUE, 350 MG, 150ML 150ML was used for 14:52:00 injections. 14:52:54 A WIRE, ASAHI PROWATER 180CM 180CM was inserted via Fem Art (right). 14:54:30 Wire removed 14:54:35 Catheter was removed A 3DRC GUIDE CATHETER FR 6 was advanced over a wire. OMNIPAQUE, 350 MG, 150ML 150ML was used fo r 14:54:56 injections. 14:55:44 HR=62 bpm, TKDS=522/93 mmhg, BaQ2=994.0 %, Resp=16 B/min, Pain=0, Ibrahima=10, Kim=2 14:56:41 Activated Clotting Time Drawn 14:57:40 A WIRE, ASAHI PROWATER 180CM 180CM was inserted via Fem Art (right). 14:58:49 A BALLOON, 2.0 X 6MM EUPHORA 6MM was inserted over WIRE, ASAHI PROWATER 180CM 180CM via the RCA Mid. 15:00:45 HR=59 bpm, TJLR=992/90 mmhg, SxU8=442.0 %, Resp=16 B/min, Pain=0, Ibrahima=10, Kim=2 15:01:17 ACT (Normal Range 90-180) = 267 A BALLOON, 2.0 X 6MM EUPHORA 6MM over a WIRE, ASAHI PROWATER 180CM 180CM in the RCA Mid was inf lated 15:01:23 using a 30 TRINITY INDEFLATOR at 8 trinity for 12 sec. A BALLOON, 2.0 X 6MM EUPHORA 6MM over a WIRE, ASAHI PROWATER 180CM 180CM in the RCA Mid was inf lated 15:01:58 using a 30 TRINITY INDEFLATOR at 8 trinity for 12 sec. 15:02:34 Balloon Removed. 15:02:40 A BALLOON, 2.0 X 20MM EUPHORA 20MM was inserted over WIRE, ASAHI PROWATER 180CM 180CM via t he RCA Mid. A BALLOON, 2.0 X 20MM EUPHORA 20MM over a WIRE, ASAHI PROWATER 180CM 180CM in the RCA Mid was i nflated 15:05:00 using a 30 TRINITY INDEFLATOR at 14 trinity for 14 sec. 15:05:52 Balloon Removed. An STENT, 2.5 26 INTEGRITY 2.5 26 Bare Metal Stent was inserted through a [facility] GUIDE CATHETER F R 6 over a 15:06:19 WIRE, ASAHI PROWATER 180CM 180CM. 15:06:23 HR=52 bpm, OKNP=895/96 mmhg, QpB6=232.0 %, Resp=16 B/min, Pain=0, Ibrahima=10, Kim=2 A STENT, 2.5 26 INTEGRITY 2.5 26 was deployed using a 30 TRINITY INDEFLATOR at 11 atmospheres for 1 2 seconds in 15:07:28 the RCA Mid. 15:07:42 Delivery device removed 15:08:59 Wire removed 15:09:01 Catheter was removed 15:10:00 Case End 15:10:49 HR=62 bpm, BCYC=571/122 mmhg, UrK0=291.0 %, Resp=15 B/min, Pain=0, Ibrahima=10, Kim=2 15:15:17 In the Fem Art (right) the SHEATH, FR6.5 PRELUDE 11CM FR 6.[address] by Carmen Ontiveros, INVENTORY AND PRICING ASSOCIATE TECH2. 15:15:26 Catheter(s) removed without difficulty 15:15:27 Sterile dressing applied to site 15:15:28 No case complications noted. 15:15:29 Cine recording checked. 15:15:30 Bedside Report will be given. 15:15:31 Implantable Device card placed in patient's chart. 15:15:32 Contrast Scanned 15:15:35 A Left Heart Cath was performed. 50 meq/kg AGGRASTAT BOLUS given in lab by Blayne David RN in Left Forearm via Peripheral IV. Am ount given = 4775 15:15:59 meq. Ordered by Ameya Dubose. 15:16:15 HR=60 bpm, HXZG=658/103 mmhg, SpO2=96 %, Resp=16 B/min, Pain=0, Ibrahima=10, Kim=2 0.151 mcg/kg/min AGGRASTAT DRIP given in lab by Blayne David RN in Left Forearm via Peripheral IV. Pump/Drip Flow 15:19:21 = 17.3 ml/hr using NaCl .9 with a concentration of 12.5 mg in 250 ml. Ordered by Tisha Dubose 15:20:49 TEXF=849/101 mmhg, Pain=0, Ibrahima=10, Kim=2 15:24:50 600 mg PLAVIX given in lab by Blayne David RN via oral/ NG tube. Ordered by Ashley Dubose End Study - Contrast Media Used In Study Contrast Total Opened (mL) Total Used (mL) Total Wasted (mL) Omnipaque 130 130 0 End Study - Maximum Contrast Load Max Contrast Load (mL) 955.0 End Study - Radiation Exposure Fluoro Time (minutes) 9.2 End Study - Patient Disposition Complications Transferred To Interventional Outcome No Critical Care Bed successful
[2017-12-22] MEDS ORDERED: IOHEXOL 350 MG/ML 50 ML BTL (for Cath Lab) OTHER ONE (15:37)
[2017-12-22] MEDS ORDERED: IOHEXOL 350 MG/ML 100 ML BTL (for Cath Lab) OTHER ONE (15:37)
--- NOTE | 2017-12-22 15:47 | HHI.PR ---
Addendum to Inpatient Note Additional Information pt seen around 1200 today full note to follow Neli Dubose MD Dec 22, 2017 15:47
[2017-12-22] MEDS ORDERED: TIROFIBAN INFUSION INJ 250 ML IV SCH (16:06)
[2017-12-22] MEDS ORDERED: MISC INFORMATION XX ONE (16:15)
[2017-12-22] MEDS ORDERED: SODIUM CHLORIDE 0.9% FLUSH 10 ML FLUSH IV FLUSH PRN (16:15)
[2017-12-22] MEDS ORDERED: CLOPIDOGREL 300 MG TAB PO ONE (16:15)
[2017-12-22] MEDS: cefTRIAXone INJ 2,000 MG in SODIUM CHLORIDE 0.9% INJ 100 ML IV SCH (16:26)
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
--- NOTE | 2017-12-22 19:09 | EKG ---
Date Performed: 12/22/2017 Time Performed: 08:27:15 PTAGE: 42 years EKG: Sinus rhythm INFERIOR MYOCARDIAL INFARCTION , OF INDETERMINATE AGE WITH POSTERIOR EXTENSION Since previous tracin g, no significant change noted ABNORMAL ECG PREVIOUS TRACING : 12/12/2017 05.05 DOCTOR: Ameya Dubose Interpretating Date/Time 12/22/2017 19:07:21
[2017-12-22] MEDS: SODIUM CHLORIDE 0.9% FLUSH 10 ML FLUSH IV FLUSH SCH (22:05)
--- NOTE | 2017-12-22 23:48 | HHI.IDPN ---
Subjective Subjective Remarks delayed entry - pt was seen earlier today no fever mental status back to normal Antibiotics CFTX Allergies: Coded Allergies: No Known Allergies (Verified Allergy, Unknown, 12/10/17) Objective . Vital Signs Date Time Temp Pulse Resp B/P (MAP) Pulse Ox O2 Delivery O2 Flow Rate FiO2 12/22/17 22:05 100 35 12/22/17 22:00 56 12/22/17 20:45 60 12/22/17 20:30 63 12/22/17 20:15 62 12/22/17 20:00 98.5 66 16 109/55 (73) 100 12/22/17 20:00 66 12/22/17 20:00 35 12/22/17 19:47 99 35 12/22/17 19:37 16 12/22/17 19:00 64 16 139/61 (87) 100 12/22/17 18:30 78 18 94 12/22/17 18:00 73 22 83 12/22/17 18:00 73 12/22/17 17:30 67 7 123/57 (79) 100 12/22/17 17:00 69 17 92 12/22/17 16:45 66 13 146/70 (95) 99 12/22/17 16:30 61 16 144/66 (92) 100 12/22/17 16:15 66 19 147/70 (95) 98 12/22/17 16:07 100 35 12/22/17 16:00 70 12/22/17 16:00 97.6 70 12 149/73 (98) 100 12/22/17 16:00 35 12/22/17 14:00 59 12/22/17 14:00 100 100 12/22/17 12:00 35 12/22/17 12:00 97.8 56 12 103/55 (71) 99 12/22/17 12:00 56 12/22/17 11:10 99 35 12/22/17 10:00 81 12/22/17 08:00 75 12/22/17 08:00 35 12/22/17 08:00 98.0 75 15 105/54 (71) 99 12/22/17 07:24 99 35 12/22/17 07:24 35 12/22/17 06:00 73 12/22/17 04:07 95 35 12/22/17 04:00 65 12/22/17 04:00 35 12/22/17 04:00 98.1 65 6 123/69 (87) 98 12/22/17 02:00 67 12/22/17 00:05 100 35 12/22/17 00:00 35 12/22/17 00:00 48 12/22/17 00:00 98.0 48 16 122/72 (89) 100 12/22/17 12/22/17 12/23/17 15:00 23:00 07:00 Intake Total 3444 ml Output Total 2750 ml Balance 694 ml IV Total 3324 ml Tube Feeding 0 ml Other 120 ml Output Urine Total 2750 ml # Bowel Movements 0 . Laboratory Tests Test 12/21/17 04:05 12/22/17 02:51 White Blood Count 8.3 TH/MM3 6.0 TH/MM3 Red Blood Count 3.30 MIL/MM3 3.39 MIL/MM3 Hemoglobin 9.9 GM/DL 10.1 GM/DL Hematocrit 28.0 % 29.0 % Mean Corpuscular Volume 85.0 FL 85.5 FL Mean Corpuscular Hemoglobin 29.9 PG 29.7 PG Mean Corpuscular Hemoglobin Concent 35.2 % 34.8 % Red Cell Distribution Width 13.1 % 13.4 % Platelet Count 279 TH/MM3 308 TH/MM3 Mean Platelet Volume 8.9 FL 8.7 FL Neutrophils (%) (Auto) 67.8 % 59.7 % Lymphocytes (%) (Auto) 21.9 % 27.8 % Monocytes (%) (Auto) 6.6 % 7.4 % Eosinophils (%) (Auto) 3.2 % 4.5 % Basophils (%) (Auto) 0.5 % 0.6 % Neutrophils # (Auto) 5.6 TH/MM3 3.6 TH/MM3 Lymphocytes # (Auto) 1.8 TH/MM3 1.7 TH/MM3 Monocytes # (Auto) 0.5 TH/MM3 0.4 TH/MM3 Eosinophils # (Auto) 0.3 TH/MM3 0.3 TH/MM3 Basophils # (Auto) 0.0 TH/MM3 0.0 TH/MM3 CBC Comment DIFF FINAL DIFF FINAL Differential Comment Laboratory Tests Test 12/21/17 00:25 12/21/17 04:05 12/22/17 02:51 12/22/17 11:15 Iron Level 39 MCG/DL Total Iron Binding Capacity 209 MCG/DL Percent Iron Saturation 18.7 % Ferritin 474 NG/ML Blood Urea Nitrogen 12 MG/DL 12 MG/DL Creatinine 0.53 MG/DL 0.53 MG/DL Random Glucose 96 MG/DL 84 MG/DL Total Protein 6.4 GM/DL 6.2 GM/DL Albumin 2.3 GM/DL 2.3 GM/DL Calcium Level 8.9 MG/DL 8.9 MG/DL Phosphorus Level 3.1 MG/DL 3.5 MG/DL Magnesium Level 2.0 MG/DL 2.0 MG/DL Alkaline Phosphatase 35 U/L 34 U/L Aspartate Amino Transf (AST/SGOT) 36 U/L 39 U/L Alanine Aminotransferase (ALT/SGPT) 65 U/L 59 U/L Total Bilirubin 0.3 MG/DL 0.3 MG/DL Sodium Level 140 MEQ/L 139 MEQ/L Potassium Level 3.2 MEQ/L 3.8 MEQ/L Chloride Level 103 MEQ/L 104 MEQ/L Carbon Dioxide Level 28.8 MEQ/L 28.5 MEQ/L Anion Gap 8 MEQ/L 7 MEQ/L Estimat Glomerular Filtration Rate 170 ML/MIN 170 ML/MIN Tumor Marker Alpha Fetoprotein 2.6 NG/ML Total Creatine Kinase 395 U/L Creatine Kinase MB 4.1 NG/ML Creatine Kinase MB % 1.0 % Troponin I 0.38 NG/ML Imaging Last Impressions Chest X-Ray 12/21/17 0000 Signed Impressions: Service Date/Time: Thursday, December 21, 2017 03:27 - CONCLUSION: 1. Cardiomegaly. 2. Suspected consolidation or atelectasis at the left base and the right midlung. Karsten Pina MD Abdomen/Pelvis CT 12/20/17 0000 Signed Impressions: Service Date/Time: Wednesday, December 20, 2017 09:09 - CONCLUSION: There is abnormal dilation of the jejunum and ileum. There is transition from a normal appearing duodenum and optimal jejunum to a fluid dilated small bowel identified within the left upper quadrant. There is a focal calcific density identified within the adjacent mesenteric fat. This does not may represent an area of calcified adhesion.. Guillermina Lee MD Abdomen X-Ray 12/19/17 0000 Signed Impressions: Service Date/Time: Tuesday, December 19, 2017 13:55 - CONCLUSION: Probable ileus. There is no free air. Teodoro Wong MD FACR Brain MRI 12/12/17 0000 Signed Impressions: Service Date/Time: Tuesday, December 12, 2017 10:21 - CONCLUSION: Normal examination. Addy Souza MD Liver Ultrasound 12/11/17 0000 Signed Impressions: Service Date/Time: November 10:26 - CONCLUSION: Solitary echogenic lesion left lobe liver I suspect a hemangioma. Central venous catheter within the IVC otherwise unremarkable study. Glenn James MD Head CT 12/10/17 1714 Signed Impressions: Service Date/Time: Sunday, December 10, 2017 18:18 - CONCLUSION: 1. Concern for right-sided nonhemorrhagic cerebral infarction. Jose Glaser Jr., MD Physical Exam CONSTITUTIONAL/GENERAL: This is an adequately nourished patient, in no apparent distress. TUBES/LINES/DRAINS: SKIN: No jaundice, rashes, or lesions. Skin temperature appropriate. Not diaphoretic. No [place]ay lesions, no splinter hemorrhages EYES: Pupils equal and round and reactive. Extraocular motions intact. No scleral icterus. No injection or drainage. Fundi not examined. ENT: Hearing grossly normal. Nose without bleeding or purulent drainage. Throat without visible erythema, exudates, masses, or lesions. NECK: Trachea midline. Supple, nontender. CARDIOVASCULAR: Regular rate and rhythm without murmurs, gallops, or rubs. No JVD. Peripheral pulses symmetric. RESPIRATORY/CHEST: Symmetric, unlabored respirations. Clear to auscultation. Breath sounds equal bilaterally. No wheezes, rales, or rhonchi. GASTROINTESTINAL: Abdomen soft, not appear to be tender, les distended. No hepato-splenomegaly, or palpable masses. No guarding. Bowel sounds present. GENITOURINARY: Without palpable bladder distension. Dan catheter in place with clear yellow urine MUSCULOSKELETAL: Extremities without clubbing, cyanosis, or edema. No joint tenderness or effusion noted. No calf tenderness. No mottling or clubbing. NEUROLOGICAL: sedated, not responding PSYCHIATRIC: unable to assess Assessment & Plan Remarks STEMI Cocaine abuse SDp cardiac arrest Encephalopathy - improved neuro status Acute VDRF ? PNA - Fever, differential anclude PNA, UTI, bloodstream infx, also can be non - infectious: again low grade fever repeat clx negative Ileus : CT results noted complete abx chk stool for c.diff will sign off, please call if needed Neli Orellana RN, MD Dec 22, 2017 23:48
[2017-12-23] VITALS (18 sets, daily range): BP systolic 101–148; BP diastolic 56–94; PULSE 54–106; RESP 13–31; TEMP 97.6–99.6; O2SAT 86–100
[2017-12-23] MEDS: INSULIN NovoLIN REGULAR SUPPLEMENTAL SCALE SQ SCH ×7 (01:45→23:38)
[2017-12-23] MEDS: oxyCODONE HCL ORAL CONC 5 MG/0.25 ML SYRINGE NG SCH ×4 (01:47→18:00)
[2017-12-23] MEDS: CHLORHEXIDINE GLUCONATE 2 % 1 PACK (2 CLOTHS) TOP SCH (01:48)
[2017-12-23] MEDS: RESP: ALBUTEROL 2.5 MG/IPRATROPIUM 0.5 MG NEB (SCH) NEB ×4 (03:59→20:10)
[2017-12-23 04:40] LABS: AUTOMATED NEUTROPHIL # 3.4 TH/MM3 (1.8-7.7); BASOPHIL % 0.6 % (0.0-2.0); EOSINOPHIL # 0.2 TH/MM3 (0-0.4); EOSINOPHIL % 3.5 % (0.0-4.0); HEMATOCRIT 27.5 % (39.0-51.0); HEMOGLOBIN 9.7 GM/DL (13.0-17.0); LYMPH % 21.7 % (9.0-44.0); LYMPHOCYTE # 1.1 TH/MM3 (1.0-4.8); MEAN CELL VOLUME 85.8 FL (80.0-100.0); MEAN CORPUSCULAR HEMOGLOBIN 30.2 PG (27.0-34.0); MEAN CORPUSCULAR HGB CONC 35.1 % (32.0-36.0); MEAN PLATELET VOLUME 8.1 FL (7.0-11.0); MONO % 8.2 % (0.0-8.0); MONOCYTE # 0.4 TH/MM3 (0-0.9); PLATELET COUNT 405 TH/MM3 (150-450); RED CELL DISTRIBUTION WIDTH 13.3 % (11.6-17.2); WHITE BLOOD COUNT 5.1 TH/MM3 (4.0-11.0)
[2017-12-23 05:01] LABS: ALBUMIN 2.4 GM/DL (3.4-5.0); ALT (GPT) 66 U/L (12-78); AST (GOT) 41 U/L (15-37); BICARBONATE 27.8 MEQ/L (21.0-32.0); BLOOD UREA NITROGEN 7 MG/DL (7-18); CALCIUM 8.7 MG/DL (8.5-10.1); CHLORIDE 102 MEQ/L (98-107); CHOLESTEROL 181 MG/DL (120-200); CREATININE 0.68 MG/DL (0.60-1.30); GLOMERULAR FILTRATION RATE 128 ML/MIN (>89); GLUCOSE,RANDOM 92 MG/DL (74-106); MAGNESIUM 1.9 MG/DL (1.5-2.5); SODIUM (NA) 140 MEQ/L (136-145)
[2017-12-23 05:05] LABS: ALKALINE PHOSPHATASE 37 U/L (45-117); CHOLESTEROL/ HDL RATIO 6.32 RATIO; HDL CHOLESTEROL 28.6 MG/DL (40.0-60.0); LDL CHOLESTEROL 115 MG/DL (0-99); PHOSPHORUS 4.4 MG/DL (2.5-4.9); TOTAL BILIRUBIN ADULT 0.3 MG/DL (0.2-1.0); TOTAL PROTEIN 6.4 GM/DL (6.4-8.2); TRIGLYCERIDES 187 MG/DL (42-150)
[2017-12-23] MEDS: ARTIFICIAL TEARS OPTH SOLN 15 ML BTL EACH EYE SCH ×3 (06:00→20:42)
[2017-12-23] MEDS: METOPROLOL TARTRATE 25 MG TAB PO SCH ×3 (06:00→20:41)
[2017-12-23] MEDS: PANTOPRAZOLE SODIUM 40 MG VIAL IV PUSH SCH ×2 (06:04→15:32)
[2017-12-23] MEDS: METOCLOPRAMIDE HCL 10 MG/2 ML VIAL IV PUSH SCH ×3 (06:05→20:42)
[2017-12-23] MEDS: DEXMEDETOMIDINE INJ 1,000 MCG in SODIUM CHLOR 0.9% 250 ML INJ 240 ML IV PRN (06:39)
--- NOTE | 2017-12-23 07:13 | HHI.CCPN ---
Subjective Remarks/Hospital Course 42-year-old gentleman brought in by EMS after he apparently had an episode of chest pain after which he clutched his chest an collapsed at home. Patient's called 911 and initiated CPR prior to EMS arriving there. Once EMS arrived they were able to start an IV, intubated the patient and initiated ACLS protocol giving 4 rounds of epi 7 rounds of chest compressions along with 3 separate defibrillations. Initial EKG at the scene showed ST elevation, however the repeat EKG in the emergency department showed no ST elevations. The case was discussed by ED attending with laboratory mechanic helper ammonia operator who recommended hypothermia protocol and conservative management. 12/11 Patient is sedated and intubated. On Levophed, Amio and Nimbex drips. 12/12 Patient remains intubated and sedated with Diprivan in addition he is on Nimbex. Off Levophed and Amio drips. Remains on Heparin drip. 12/13 Patient remains intubated and sedated with Diprivan. Placed on Levophed 3 mics overnight, on heparin drip. T:101.7 last night. 12/14 No events overnight. Off Levophed. Afebrile. Off Diprivan placed on Precedex drip overnight. T:101.1 12/15 Patient remains intubated and sedated with Diprivan and Precedex drip. Afebrile. 12/16 Patient is sedated with Precedex and Fentanyl infusion. T:100.0 last night. 12/17: Tube feeds are currently goal. With Glucerna 1.5 at 45. Requiring dexmedetomidine for sedation while also on fentanyl drip. We'll start on quetiapine and scheduled oxycodone. Non purposeful movements to stimulation specifically with left upper extremity 12/18: Max 100.8. Currently 98.9. More awake and alert and interactive today. Ex- states asking "what happened". Explained in depth out of hospital cardiac arrest and events leading to his current situation. He nods head as if he understands. 12/19 No events overnight . Sedated with Fentanyl and Precedex drips. T:100.4 last night. Remains on Heparin drip. 12/20 Patient remains intubated and on Precedex and Fentanyl drips for sedation. T:100.8 12/21: Afebrile. EKG revealed NG tube trauma. No signs of gastritis or duodenitis. Okay to restart tube feeding today. Appears comfortable on ventilator point commands. Subjective 12/22: Afebrile. Plan for cardiac catheterization today. Tube feeds currently off. Lasted 12 hours on PSV trial yesterday. Likely extubation candidate depending on findings on cardiac catheterization results today 12/23 No events overnight. On Fentanyl and Precedex drip for sedation. Afebrile.Off Heparin drip. Objective Vital Signs Date Time Temp Pulse Resp B/P (MAP) Pulse Ox O2 Delivery O2 Flow Rate FiO2 12/23/17 06:00 63 12/23/17 05:09 100 35 12/23/17 04:00 97.6 13 111/56 (74) Intake and Output 12/23/17 12/23/17 12/24/17 08:00 16:00 00:00 Intake Total 380 ml Balance 380 ml Result Diagram: 12/23/17 0328 12/23/17 0328 Other Results Laboratory Tests Test 12/22/17 11:15 12/23/17 03:28 Total Creatine Kinase 395 U/L 278 U/L Creatine Kinase MB 4.1 NG/ML Creatine Kinase MB % 1.0 % Troponin I 0.38 NG/ML White Blood Count 5.1 TH/MM3 Red Blood Count 3.20 MIL/MM3 Hemoglobin 9.7 GM/DL Hematocrit 27.5 % Mean Corpuscular Volume 85.8 FL Mean Corpuscular Hemoglobin 30.2 PG Mean Corpuscular Hemoglobin Concent 35.1 % Red Cell Distribution Width 13.3 % Platelet Count 405 TH/MM3 Mean Platelet Volume 8.1 FL Neutrophils (%) (Auto) 66.0 % Lymphocytes (%) (Auto) 21.7 % Monocytes (%) (Auto) 8.2 % Eosinophils (%) (Auto) 3.5 % Basophils (%) (Auto) 0.6 % Neutrophils # (Auto) 3.4 TH/MM3 Lymphocytes # (Auto) 1.1 TH/MM3 Monocytes # (Auto) 0.4 TH/MM3 Eosinophils # (Auto) 0.2 TH/MM3 Basophils # (Auto) 0.0 TH/MM3 CBC Comment DIFF FINAL Differential Comment Blood Urea Nitrogen 7 MG/DL Creatinine 0.68 MG/DL Random Glucose 92 MG/DL Total Protein 6.4 GM/DL Albumin 2.4 GM/DL Calcium Level 8.7 MG/DL Phosphorus Level 4.4 MG/DL Magnesium Level 1.9 MG/DL Alkaline Phosphatase 37 U/L Aspartate Amino Transf (AST/SGOT) 41 U/L Alanine Aminotransferase (ALT/SGPT) 66 U/L Total Bilirubin 0.3 MG/DL Sodium Level 140 MEQ/L Potassium Level 3.4 MEQ/L Chloride Level 102 MEQ/L Carbon Dioxide Level 27.8 MEQ/L Anion Gap 10 MEQ/L Estimat Glomerular Filtration Rate 128 ML/MIN Triglycerides Level 187 MG/DL Cholesterol Level 181 MG/DL LDL Cholesterol 115 MG/DL HDL Cholesterol 28.6 MG/DL Cholesterol/HDL Ratio 6.32 RATIO Imaging Last Impressions Chest X-Ray 12/21/17 0000 Signed Impressions: Service Date/Time: Thursday, December 21, 2017 03:27 - CONCLUSION: 1. Cardiomegaly. 2. Suspected consolidation or atelectasis at the left base and the right midlung. Karsten Pina MD Abdomen/Pelvis CT 12/20/17 0000 Signed Impressions: Service Date/Time: Wednesday, December 20, 2017 09:09 - CONCLUSION: There is abnormal dilation of the jejunum and ileum. There is transition from a normal appearing duodenum and optimal jejunum to a fluid dilated small bowel identified within the left upper quadrant. There is a focal calcific density identified within the adjacent mesenteric fat. This does not may represent an area of calcified adhesion.. Guillermina Lee MD Abdomen X-Ray 12/19/17 0000 Signed Impressions: Service Date/Time: Tuesday, December 19, 2017 13:55 - CONCLUSION: Probable ileus. There is no free air. Teodoro Wong MD FACR Brain MRI 12/12/17 0000 Signed Impressions: Service Date/Time: Tuesday, December 12, 2017 10:21 - CONCLUSION: Normal examination. Addy Souza MD Liver Ultrasound 12/11/17 0000 Signed Impressions: Service Date/Time: November 10:26 - CONCLUSION: Solitary echogenic lesion left lobe liver I suspect a hemangioma. Central venous catheter within the IVC otherwise unremarkable study. Glenn James MD Head CT 12/10/17 1394 Signed Impressions: Service Date/Time: Sunday, December 10, 2017 18:18 - CONCLUSION: 1. Concern for right-sided nonhemorrhagic cerebral infarction. Jose Glaser Jr., MD Objective Remarks GENERAL: 42-year-old male currently orotracheally intubated SKIN: Warm and dry. No rash HEAD: Atraumatic. Normocephalic. EYES: Pupils equal and briskly reactive to light by 2 mm bilaterally, ENT: No nasal bleeding or discharge. Mucous membranes pink and moist. NECK: Trachea midline. No JVD. CARDIOVASCULAR: RRR. S1, S2 no S4. Without murmur RESPIRATORY: Few crackles appreciated in the left. The right lower lobes posteriorly. No wheezing GASTROINTESTINAL: Abdomen soft, non-tender,distended. Positive bowel sounds appreciated MUSCULOSKELETAL: Extremities with trace bilateral lower extremity edema. No obvious deformities. NEUROLOGICAL: Arousable on the ventilator and follows commands. No obvious cranial nerve deficits. Motor localizes to pain on all 4 extremities. Five out of 5 muscle strength in the arms and legs. A/P Assessment and Plan Neuro/Psych: Acute toxic metabolic encephalopathy UDS positive for cocaine and benzodiazepines On dexmedetomidine at 1.5 mcg/kg per minute and Fentanyl infusion 200 an hour for sedation and vent synchrony Daily sedation vacation CT brain showed possible non hemorrhagic cerebral infarction. MRI brain 12/12: within normal, neuro is following-Dr. Vasquez EEG: moderate diffuse encephalopathy, no seizure activity UDS: + Cocaine, Benzo Quetiapine 25 mg BID and oxycodone 5 mg to 6 hours scheduled in attempt to wean sedation Pulm: Acute respiratory failure PRVC 16/500/1/5/40 Ventilator bundle Albuterol/ipratropium aerosols every 6 hours with albuterol aerosols every 2 hours. Dyspnea Continue with vent support keep sat >92% SBT daily as giovanna. CV: OHCA - V. fib Elevated troponin Monitor HR and BP keep MAP>65mmHg. s/p Hypothermia protocol. Cards is following- Dr. Dubose. Echo showed EF 50-55% s/p cardiac catheterization yesterday by Dr. Dubose- Stent placed RCA On ASA. 81 mg daily, Plavix 75mg daily, Altace 2.5mg daily, Lopressor 25mg Q8 Renal/: Hypokalemia Monitor renal function, I/O's, electrolytes replacement per protocol. Will need K replacement today GI: Elevated transaminases Objective vomiting On (Glucerna 1.5 goal 45 cc an hour) KUB abdomen 12/20 showed probable ileus. On metoclopramide 5mg Q8, Lactulose CT abdomen/pelvis post revealed possible distention jejunum/ileum with no signs of obstructive process. EGD 12/21 revealed indeed to suction. No signs obstructive process. Okay to restart tube feeding today On lansoprazole 30 mg daily for GI prophylaxis Monitor LFT's,Hepatitis profile negative US liver: Solitary echogenic lesion left lobe liver I suspect a hemangioma. ID: Previously on piperacillin/tazobactam and vancomycin Off abx s/p ceftriaxone finished 12/22. ID signed off ID is following. Blood and sputum cxs from 12/18- NGTD Blood, 12/11 urine cx: 12/10: No growth Sputum cx 12/11: Group A beta strep. Heme: Anemia/normocytic Thrombocytopenia Monitor CBC, coags- Endo: Hyperglycemia Novulin R with Accu-Cheks every 4 hours to maintain euglycemia/moderate regimen for glycemic control GI prophylaxis- on lansoprazole DVT prophylaxis- On Heparin SQ Lines: Peripheral IV's Palliative care is following Level II Kayleen Diaz MD Dec 23, 2017 07:13
[2017-12-23] MEDS: CHLORHEXIDINE 0.12% (ORAL KIT) 15 ML CUP MT SCH ×2 (08:00→20:00)
[2017-12-23] MEDS: DOCUSATE SODIUM 50 MG/SENNA 8.6 MG TAB PO SCH ×2 (08:53→20:43)
[2017-12-23] MEDS: LACTULOSE SYRUP 20 GM/30 ML CUP PO SCH (08:53)
[2017-12-23] MEDS: RAMIPRIL 2.5 MG CAP PO SCH (09:29)
[2017-12-23] MEDS: HEPARIN SODIUM - SQ 10,000 UNITS/ML VIAL SQ SCH ×2 (09:29→20:41)
[2017-12-23] MEDS: SODIUM CHLORIDE 0.9% FLUSH 10 ML FLUSH IV FLUSH SCH ×2 (09:30→20:42)
[2017-12-23] MEDS: CLOPIDOGREL 75 MG TAB PO SCH (09:30)
[2017-12-23] MEDS: ASPIRIN 81 MG CHEW TAB PO SCH (09:30)
[2017-12-23] MEDS: QUEtiapine FUMARATE 25 MG TAB PO SCH ×2 (09:38→20:41)
[2017-12-23 15:03] LABS: SMOOTH MUSCLE TOTAL AUTOABS Negative (Negative)
--- NOTE | 2017-12-23 15:52 | PD.CARD.PN ---
Subjective Subjective Remarks extubated, a,o x3, in nad, denies chest pain Objective Medications Current Medications Medications (Trade) Dose Ordered Sig/Yuri Route Start Time Stop Time Status Last Admin (Brethine Inj) 1 mg UNSCH PRN SQ 12/10/17 17:45 (Versed Inj) 2 mg Q1H PRN IV PUSH 12/10/17 20:30 12/19/17 14:11 (Zofran Inj) 4 mg Q6H PRN IV PUSH 12/10/17 20:30 12/22/17 05:57 Miscellaneous Information 1 Q361D XX 12/10/17 20:30 12/10/17 20:30 (Chlorhexidine 2% Cloth) Taper DAILY@04 TOP 12/11/17 04:00 12/07/18 03:59 12/22/17 01:35 (Chlorhexidine 2% Cloth) 3 pack UNSCH PRN TOP 12/10/17 20:30 (Chelsea-Colace) 1 tab BID PO 12/10/17 21:00 12/22/17 22:04 (Milk Of Magnesia Liq) 30 ml Q12H PRN PO 12/10/17 20:30 (Senokot) 17.2 mg Q12H PRN PO 12/10/17 20:30 (Dulcolax Supp) 10 mg DAILY PRN RECTAL 12/10/17 20:30 (Lactulose Liq) 30 ml DAILY PRN PO 12/10/17 20:30 (Peridex 0.12% Liq) 15 ml BID@08,20 MT 12/11/17 08:00 12/22/17 22:08 (Heparin Inj) 2,500 units UNSCH PRN IV 12/11/17 03:00 12/21/17 02:05 Potassium Chloride 100 ml @ 50 mls/hr Q2H PRN IV-CENTRAL 12/10/17 21:45 12/15/17 08:26 Potassium Chloride 100 ml @ 50 mls/hr Q2H PRN IV 12/10/17 21:45 12/21/17 23:01 (K-Lyte Cl Eff) 50 meq UNSCH PRN PO 12/10/17 21:45 12/23/17 06:04 Potassium Chloride 100 ml @ 25 mls/hr UNSCH PRN IV-CENTRAL 12/10/17 21:45 Potassium Chloride 100 ml @ 50 mls/hr Q2H PRN IV 12/10/17 21:45 Magnesium Sulfate 4 gm/Sodium Chloride 100 ml @ 50 mls/hr UNSCH PRN IV 12/10/17 21:45 (Mag-Ox) 800 mg UNSCH PRN PO 12/10/17 21:45 Magnesium Sulfate 2 gm/Sodium Chloride 100 ml @ 50 mls/hr UNSCH PRN IV 12/10/17 21:45 (K-Phos) 2,000 mg Q4H PRN PO 12/10/17 21:45 Sodium Phosphate 30 mmol/Sodium Chloride 250 ml @ 42 mls/hr UNSCH PRN IV 12/10/17 21:45 (K-Phos) 2,000 mg UNSCH PRN PO/TUBE 12/10/17 21:45 Potassium Phosphate 30 mmol/ Sodium Chloride 260 ml @ 42 mls/hr UNSCH PRN IV 12/10/17 21:45 (Heparin Inj) 5,000 units UNSCH PRN IV 12/10/17 23:00 12/10/17 23:13 (Ativan Inj) 1 mg Q1H PRN IV PUSH 12/10/17 23:30 12/15/17 04:00 (fentaNYL INJ) 50 mcg Q1H PRN IV PUSH 12/10/17 23:30 12/15/17 11:32 Miscellaneous Information ml @ 0 mls/hr UNSCH IV 12/10/17 23:30 (NS Flush) 2 ml UNSCH PRN IV FLUSH 12/10/17 23:30 12/20/17 21:15 (NS Flush) 2 ml UNSCH PRN IV FLUSH 12/10/17 23:30 (Aspirin Chew) 81 mg DAILY CHEW 12/12/17 09:00 Future Hold 12/22/17 08:15 (D50w (Vial) Inj) 50 ml UNSCH PRN IV PUSH 12/11/17 09:45 (Glucagon Inj) 1 mg UNSCH PRN OTHER 12/11/17 09:45 (NovoLIN R SUPPLEMENTAL SCALE) 1 Q4H SQ 12/11/17 09:45 (Tylenol 650 Mg/ 20 ml Liq) 650 mg Q6H PRN OG-TUBE 12/17/17 23:15 12/19/17 10:36 (Tears Naturale Opth Soln) 1 drop Q8HR EACH EYE 12/18/17 06:00 12/22/17 22:08 (Albuterol Neb) 2.5 mg Q2HR NEB PRN NEB 12/17/17 23:15 (Roxicodone Intensol Liq) 5 mg Q6HR NG 12/18/17 00:00 12/23/17 06:06 (SEROquel) 25 mg BID PO 12/18/17 09:00 12/23/17 09:38 (Lactulose Liq) 30 ml DAILY PO 12/19/17 09:00 12/22/17 08:15 (Reglan Inj) 5 mg Q8HR IV PUSH 12/19/17 16:45 12/23/17 06:05 (Protonix Inj) 40 mg Q12H IV PUSH 12/20/17 17:00 12/23/17 15:32 (Lopressor) 25 mg Q8HR PO 12/20/17 16:30 12/23/17 15:32 (Morphine Inj) 1 mg Q4H PRN IM 12/20/17 16:30 (Duoneb Neb) 1 ampule Q6HR NEB NEB 12/21/17 22:00 12/23/17 13:47 (NS Flush) 2 ml UNSCH PRN IV FLUSH 12/22/17 16:15 (NS Flush) 2 ml BID IV FLUSH 12/22/17 21:00 12/23/17 09:30 (Aspirin Chew) 162 mg DAILY PO 12/23/17 09:00 12/23/17 09:30 (Plavix) 75 mg DAILY PO 12/23/17 09:00 12/23/17 09:30 (Heparin Inj) 5,000 units Q12HR SQ 12/22/17 16:15 12/23/17 09:29 (Altace) 2.5 mg DAILY PO 12/23/17 09:00 12/23/17 09:29 Vital Signs / I&O Vital Signs Date Time Temp Pulse Resp B/P (MAP) Pulse Ox O2 Delivery O2 Flow Rate FiO2 12/23/17 14:00 106 12/23/17 12:00 99.6 96 31 148/67 (94) 89 12/23/17 12:00 100 12/23/17 10:00 100 12/23/17 09:12 95 Nasal Cannula 4.00 12/23/17 08:00 88 12/23/17 08:00 97.9 88 31 129/94 (106) 90 12/23/17 07:15 98 Non-Rebreather 12/23/17 07:06 32 12/23/17 06:00 63 12/23/17 05:09 100 35 12/23/17 04:00 67 12/23/17 04:00 35 12/23/17 04:00 97.6 67 13 111/56 (74) 94 12/23/17 03:59 98 35 12/23/17 02:00 54 12/23/17 01:05 98 35 12/23/17 00:00 98.0 56 16 101/56 (71) 97 12/23/17 00:00 56 12/23/17 00:00 35 12/22/17 23:30 59 16 100/53 (69) 98 12/22/17 22:30 82 20 117/72 (87) 100 12/22/17 22:05 100 35 12/22/17 22:00 56 16 111/63 (79) 98 12/22/17 22:00 56 12/22/17 21:30 57 16 109/56 (73) 97 12/22/17 21:00 59 16 105/57 (73) 97 12/22/17 20:45 60 12/22/17 20:30 63 12/22/17 20:30 63 13 101/54 (70) 97 12/22/17 20:15 62 12/22/17 20:15 62 16 100/55 (70) 97 12/22/17 20:00 98.5 66 16 109/55 (73) 100 12/22/17 20:00 66 12/22/17 20:00 35 12/22/17 19:47 99 35 12/22/17 19:45 58 16 134/62 (86) 98 12/22/17 19:30 66 17 99 12/22/17 19:00 64 16 139/61 (87) 100 12/22/17 18:30 78 18 94 12/22/17 18:00 73 22 83 12/22/17 18:00 73 12/22/17 17:30 67 7 123/57 (79) 100 12/22/17 17:00 69 17 92 12/22/17 16:45 66 13 146/70 (95) 99 12/22/17 16:30 61 16 144/66 (92) 100 12/22/17 16:15 66 19 147/70 (95) 98 12/22/17 16:07 100 35 12/22/17 16:00 70 12/22/17 16:00 97.6 70 12 149/73 (98) 100 12/22/17 16:00 35 I/O 12/22/17 12/22/17 12/22/17 12/23/17 12/23/17 12/23/17 07:00 15:00 23:00 07:00 15:00 23:00 Intake Total 660 ml 3444 ml 872 ml 58 ml Output Total 750 ml 2750 ml 450 ml Balance -90 ml 694 ml 422 ml 58 ml IV Total 600 ml 3324 ml 722 ml 58 ml Tube Feeding 0 ml 150 ml Other 60 ml 120 ml Output Urine Total 750 ml 2750 ml 450 ml # Bowel Movements 0 0 1 Physical Exam GENERAL: SKIN: Warm and dry. HEAD: Normocephalic. EYES: No scleral icterus. No injection or drainage. NECK: Supple, trachea midline. No JVD or lymphadenopathy. CARDIOVASCULAR: Regular rate and rhythm without murmurs, gallops, or rubs. RESPIRATORY: Breath sounds equal bilaterally. No accessory muscle use. GASTROINTESTINAL: Abdomen soft, non-tender, nondistended. MUSCULOSKELETAL: No cyanosis, or edema. BACK: Nontender without obvious deformity. No CVA tenderness. Laboratory Laboratory Tests Test 12/23/17 03:28 12/23/17 11:50 White Blood Count 5.1 TH/MM3 Red Blood Count 3.20 MIL/MM3 Hemoglobin 9.7 GM/DL Hematocrit 27.5 % Mean Corpuscular Volume 85.8 FL Mean Corpuscular Hemoglobin 30.2 PG Mean Corpuscular Hemoglobin Concent 35.1 % Red Cell Distribution Width 13.3 % Platelet Count 405 TH/MM3 Mean Platelet Volume 8.1 FL Neutrophils (%) (Auto) 66.0 % Lymphocytes (%) (Auto) 21.7 % Monocytes (%) (Auto) 8.2 % Eosinophils (%) (Auto) 3.5 % Basophils (%) (Auto) 0.6 % Neutrophils # (Auto) 3.4 TH/MM3 Lymphocytes # (Auto) 1.1 TH/MM3 Monocytes # (Auto) 0.4 TH/MM3 Eosinophils # (Auto) 0.2 TH/MM3 Basophils # (Auto) 0.0 TH/MM3 CBC Comment DIFF FINAL Differential Comment Blood Urea Nitrogen 7 MG/DL Creatinine 0.68 MG/DL Random Glucose 92 MG/DL Total Protein 6.4 GM/DL Albumin 2.4 GM/DL Calcium Level 8.7 MG/DL Phosphorus Level 4.4 MG/DL Magnesium Level 1.9 MG/DL Alkaline Phosphatase 37 U/L Aspartate Amino Transf (AST/SGOT) 41 U/L Alanine Aminotransferase (ALT/SGPT) 66 U/L Total Bilirubin 0.3 MG/DL Sodium Level 140 MEQ/L Potassium Level 3.4 MEQ/L 3.8 MEQ/L Chloride Level 102 MEQ/L Carbon Dioxide Level 27.8 MEQ/L Anion Gap 10 MEQ/L Estimat Glomerular Filtration Rate 128 ML/MIN Total Creatine Kinase 278 U/L Triglycerides Level 187 MG/DL Cholesterol Level 181 MG/DL LDL Cholesterol 115 MG/DL HDL Cholesterol 28.6 MG/DL Cholesterol/HDL Ratio 6.32 RATIO Assessment and Plan Problem List: (1) STEMI (ST elevation myocardial infarction) ICD Codes: I21.3 - ST elevation (STEMI) myocardial infarction of unspecified site (2) Cocaine abuse ICD Codes: F14.10 - Cocaine abuse, uncomplicated (3) Cardiac arrest ICD Codes: I46.9 - Cardiac arrest, cause unspecified (4) Head trauma ICD Codes: S09.90XA - Unspecified injury of head, initial encounter (5) CVA (cerebral vascular accident) ICD Codes: I63.9 - Cerebral infarction, unspecified (6) Tobacco abuse ICD Codes: Z72.0 - Tobacco use (7) Encephalopathy ICD Codes: G93.40 - Encephalopathy, unspecified Assessment and Plan 1.) s/p cardiac arrest - pod#1 pci rca, asymptomatic, neurologically appears to be back to baseline, rec continue aspirin, plavix, metoprolol, statin held due to persistently elevated lfts Ameya Dubose MD Dec 23, 2017 15:52
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
--- NOTE | 2017-12-23 19:07 | MR ---
cc: CARIN CONN M.D. DATE: 12/22/2017 PROCEDURE: Left heart catheterization, left anterior artery coronary artery, PCI bare metal stent of the distal right coronary artery. INDICATIONS STEMI, cardiac arrest, ventricular fibrillation, coronary artery disease, multiple cardiac risk factors. DESCRIPTION OF PROCEDURE: The patient was brought to the Cardiac Catheterization Laboratory, prepped and draped in usual sterile fashion, 10 cc of 1% lidocaine was used to locally anesthetize the right common femoral artery. A 4-Swiss sheath was placed in right common femoral artery, 4-Swiss JR-4, JL-4 catheters were used to perform left coronary angiography and left ventriculography. FINDINGS The LV pressure is 135/19/20, EF 55%. The inferoapical wall is mildly hypokinetic. The right coronary artery is dominant. There is 50-60% proximal stenosis, 50 to 60% mid stenosis. The RCA is occluded in the distal segment. The left main coronary artery has no significant disease angiographically. The left circumflex has an ostial 70% stenosis. It then supplies a medium to large size marginal vessel which itself has a proximal 30-40% stenosis. The remainder of the AV groove, left circumflex vessel, has no significant obstructive disease, gives off a small less than 25 millimeter distal posterolateral artery. There is a ramus intermedius vessel which is small, reference vessel diameter may be 1.5 with an ostial proximal 70% stenosis, angulation off the left circ is proximally 40 degrees and then the angulation of the circ to the LAD is proximally 80 degrees. The LAD has an ostial 20% stenosis. The LAD approaches the apex. It has mild disease in the mid segment after the first diagonal artery up to 10 points angiographically. It then diminishes from a reference vessel diameter of approximately 3.0 to 3.25 down to 25 for about 15 mm then to about a 2.0 just beyond the first septal office administrator. The luminal margins are irregular suggesting diffuse plaque but at this point there is no high grade focal stenosis that would estimate relative vessel narrowing at about maybe 20%. In the distal LAD there is a very small 0.25 millimeter vessel that is grade 1, left to right collaterals to the right PD and right RAE. The first diagonal artery has an ostial proximal 30% stenosis and this is a small to medium-sized vessel reference vessel diameter of maybe 225 to 25 millimeters in diameter. DISCUSSION The patient is having failure to wean from the vent, failing C-PAP trials. He has only grade 1 collaterals to the right coronary artery. I do think that revascularizing the right coronary artery may help improve his ability to be weaned from the vent and improve the inferoapical wall motion abnormality seen on left ventriculography. Therefore I do think attempted PCI of the right coronary artery is medically necessary. The 6-Swiss sheath was exchanged for a 4-Swiss sheath, 78 mL per kilo of heparin was given, ACT was 272. A 6-Swiss 3D RC guide 0.014 GENIAC guidewire was used to fairly easily cross the lesion, however, there is no flow reestablished in the mid to distal right coronary artery. I then used 2-0 6 Compliant balloon with two inflations of up to 10 atmospheres up to 20 seconds. This did resolve to reestablish flow into the right PDA and right RAE, however, there is still high-grade greater than 99% stenosis in the mid to distal right coronary artery with SYED-2 flow. I then further predilated the lesion, as I was now able to see the bifurcation of the distal right with a 2-0 20 Compliant Euphora balloon, one inflation of 11 atmospheres for 20 seconds. I then stented the distal right coronary with a 2-5 26 Integrity stent with one inflation, 11 atmospheres for 20 seconds. Stenosis went from 100% to 0% with SYED-3 flow. The right RAE had a proximal 60% stenosis. The reference vessel diameter was probably 2 to 5 mm in diameter. The right PDA had no compromise in flow. It was a diffusely small vessel with a reference vessel diameter of 0.5 mm in diameter. It did extend to the apex. I did not see any high grade focal stenosis. In the proximal right PDA, it looks like there was possibly a 95% stenosis overflow, it was SYED-3 vessel. Again it was probably a 0.25 millimeter vessel. I did not think the risks/benefits favored attempted PTCA. CONCLUSION 1. STEMI, culprit occluded, distal right coronary artery with grade 1, left to right collaterals. 2. Otherwise mild to moderate three-vessel coronary artery disease. 3. Preserved LV systolic function at 55% with a least mild to moderate hypokinesis of the inferoapical wall. 4. PCI bare metal stent of the distal right coronary artery from 100% to 0% with SYED-3 flow. 5. Recommend Plavix 600 mg p.o. load and then 75 mg a day for 12 to 15 months, aspirin 162 milligrams daily, Aggrastat drip. 6. We will check fasting lipids, NCCP guidelines. Obviously the patient needs to abstain from tobacco and cocaine, and any kind of non-prescribed drugs. I would advise him to do this. MD PEDRO Smith/BAILEY /3:13 PM /6:05 PM
[2017-12-23] MEDS: ONDANSETRON HCL 4 MG/2 ML VIAL IV PUSH PRN (20:40)
[2017-12-24] VITALS (23 sets, daily range): BP systolic 122–156; BP diastolic 61–110; PULSE 79–128; RESP 17–31; TEMP 98–98.9; O2SAT 85–97
--- NOTE | 2017-12-24 00:56 | EKG ---
Date Performed: 12/22/2017 Time Performed: 16:42:56 PTAGE: 42 years EKG: Sinus rhythm INFERIOR MYOCARDIAL INFARCTION , OF INDETERMINATE AGE WITH POSTERIOR EXTENSION ABNORMAL ECG PREVIOUS TRACING : 12/22/2017 08.27 Since the prior tracing, there has been no significant arita DOCTOR: Kimani Leon Interpretating Date/Time 12/24/2017 00:55:59
[2017-12-24] MEDS: RESP: ALBUTEROL 2.5 MG/IPRATROPIUM 0.5 MG NEB (SCH) NEB ×4 (03:22→19:24)
[2017-12-24] MEDS: CHLORHEXIDINE GLUCONATE 2 % 1 PACK (2 CLOTHS) TOP SCH (04:00)
[2017-12-24] MEDS: ARTIFICIAL TEARS OPTH SOLN 15 ML BTL EACH EYE SCH (05:05)
[2017-12-24] MEDS: INSULIN NovoLIN REGULAR SUPPLEMENTAL SCALE SQ SCH ×5 (05:05→21:00)
[2017-12-24] MEDS: PANTOPRAZOLE SODIUM 40 MG VIAL IV PUSH SCH (05:05)
[2017-12-24] MEDS: METOCLOPRAMIDE HCL 10 MG/2 ML VIAL IV PUSH SCH ×3 (05:05→23:52)
[2017-12-24] MEDS: oxyCODONE HCL ORAL CONC 5 MG/0.25 ML SYRINGE NG SCH ×2 (05:06)
[2017-12-24] MEDS: METOPROLOL TARTRATE 25 MG TAB PO SCH ×3 (05:06→23:53)
[2017-12-24 06:11] LABS: AUTOMATED NEUTROPHIL # 5.7 TH/MM3 (1.8-7.7); BASOPHIL # 0.1 TH/MM3 (0-0.2); BASOPHIL % 0.7 % (0.0-2.0); EOSINOPHIL # 0.1 TH/MM3 (0-0.4); EOSINOPHIL % 0.9 % (0.0-4.0); HEMATOCRIT 29.1 % (39.0-51.0); HEMOGLOBIN 10.1 GM/DL (13.0-17.0); LYMPH % 16.4 % (9.0-44.0); LYMPHOCYTE # 1.3 TH/MM3 (1.0-4.8); MEAN CELL VOLUME 85.6 FL (80.0-100.0); MEAN CORPUSCULAR HEMOGLOBIN 29.8 PG (27.0-34.0); MEAN CORPUSCULAR HGB CONC 34.9 % (32.0-36.0); MEAN PLATELET VOLUME 7.9 FL (7.0-11.0); MONO % 9.5 % (0.0-8.0); MONOCYTE # 0.8 TH/MM3 (0-0.9); NEUT % 72.5 % (16.0-70.0); PLATELET COUNT 469 TH/MM3 (150-450); RED CELL DISTRIBUTION WIDTH 13.4 % (11.6-17.2); WHITE BLOOD COUNT 7.9 TH/MM3 (4.0-11.0)
[2017-12-24 06:19] LABS: CALCIUM 8.7 MG/DL (8.5-10.1); CREATININE 0.58 MG/DL (0.60-1.30); MAGNESIUM 2.1 MG/DL (1.5-2.5); PHOSPHORUS 3.8 MG/DL (2.5-4.9)
[2017-12-24] MEDS: POTASSIUM CHLOR 20 MEQ PREMIX 100 ML IV PRN ×2 (06:29→10:20)
[2017-12-24] MEDS: CLOPIDOGREL 75 MG TAB PO SCH (08:10)
[2017-12-24] MEDS: RAMIPRIL 2.5 MG CAP PO SCH (08:10)
[2017-12-24] MEDS: ASPIRIN 81 MG CHEW TAB PO SCH (08:10)
[2017-12-24] MEDS: QUEtiapine FUMARATE 25 MG TAB PO SCH (08:10)
[2017-12-24] MEDS: CHLORHEXIDINE 0.12% (ORAL KIT) 15 ML CUP MT SCH ×2 (08:11→20:00)
[2017-12-24] MEDS: DOCUSATE SODIUM 50 MG/SENNA 8.6 MG TAB PO SCH ×2 (08:11→21:00)
[2017-12-24] MEDS: LACTULOSE SYRUP 20 GM/30 ML CUP PO SCH (08:11)
[2017-12-24] MEDS: HEPARIN SODIUM - SQ 10,000 UNITS/ML VIAL SQ SCH ×2 (08:11→21:20)
[2017-12-24] MEDS: SODIUM CHLORIDE 0.9% FLUSH 10 ML FLUSH IV FLUSH SCH ×2 (08:11→21:22)
--- NOTE | 2017-12-24 09:19 | PD.CARD.PN ---
Subjective Subjective Remarks extubated, a,o x3, in nad, denies chest pain Objective Medications Current Medications Medications (Trade) Dose Ordered Sig/Yuri Route Start Time Stop Time Status Last Admin (Brethine Inj) 1 mg UNSCH PRN SQ 12/10/17 17:45 (Versed Inj) 2 mg Q1H PRN IV PUSH 12/10/17 20:30 12/19/17 14:11 (Zofran Inj) 4 mg Q6H PRN IV PUSH 12/10/17 20:30 12/23/17 20:40 Miscellaneous Information 1 Q361D XX 12/10/17 20:30 12/10/17 20:30 (Chlorhexidine 2% Cloth) Taper DAILY@04 TOP 12/11/17 04:00 12/07/18 03:59 12/22/17 01:35 (Chlorhexidine 2% Cloth) 3 pack UNSCH PRN TOP 12/10/17 20:30 (Chelsea-Colace) 1 tab BID PO 12/10/17 21:00 12/22/17 22:04 (Milk Of Magnesia Liq) 30 ml Q12H PRN PO 12/10/17 20:30 (Senokot) 17.2 mg Q12H PRN PO 12/10/17 20:30 (Dulcolax Supp) 10 mg DAILY PRN RECTAL 12/10/17 20:30 (Lactulose Liq) 30 ml DAILY PRN PO 12/10/17 20:30 (Peridex 0.12% Liq) 15 ml BID@08,20 MT 12/11/17 08:00 12/22/17 22:08 (Heparin Inj) 2,500 units UNSCH PRN IV 12/11/17 03:00 12/21/17 02:05 Potassium Chloride 100 ml @ 50 mls/hr Q2H PRN IV-CENTRAL 12/10/17 21:45 12/15/17 08:26 Potassium Chloride 100 ml @ 50 mls/hr Q2H PRN IV 12/10/17 21:45 12/24/17 06:29 (K-Lyte Cl Eff) 50 meq UNSCH PRN PO 12/10/17 21:45 12/23/17 06:04 Potassium Chloride 100 ml @ 25 mls/hr UNSCH PRN IV-CENTRAL 12/10/17 21:45 Potassium Chloride 100 ml @ 50 mls/hr Q2H PRN IV 12/10/17 21:45 Magnesium Sulfate 4 gm/Sodium Chloride 100 ml @ 50 mls/hr UNSCH PRN IV 12/10/17 21:45 (Mag-Ox) 800 mg UNSCH PRN PO 12/10/17 21:45 Magnesium Sulfate 2 gm/Sodium Chloride 100 ml @ 50 mls/hr UNSCH PRN IV 12/10/17 21:45 (K-Phos) 2,000 mg Q4H PRN PO 12/10/17 21:45 Sodium Phosphate 30 mmol/Sodium Chloride 250 ml @ 42 mls/hr UNSCH PRN IV 12/10/17 21:45 (K-Phos) 2,000 mg UNSCH PRN PO/TUBE 12/10/17 21:45 Potassium Phosphate 30 mmol/ Sodium Chloride 260 ml @ 42 mls/hr UNSCH PRN IV 12/10/17 21:45 (Heparin Inj) 5,000 units UNSCH PRN IV 12/10/17 23:00 12/10/17 23:13 (Ativan Inj) 1 mg Q1H PRN IV PUSH 12/10/17 23:30 12/15/17 04:00 (fentaNYL INJ) 50 mcg Q1H PRN IV PUSH 12/10/17 23:30 12/15/17 11:32 Miscellaneous Information ml @ 0 mls/hr UNSCH IV 12/10/17 23:30 (NS Flush) 2 ml UNSCH PRN IV FLUSH 12/10/17 23:30 12/20/17 21:15 (NS Flush) 2 ml UNSCH PRN IV FLUSH 12/10/17 23:30 (Aspirin Chew) 81 mg DAILY CHEW 12/12/17 09:00 Future Hold 12/22/17 08:15 (D50w (Vial) Inj) 50 ml UNSCH PRN IV PUSH 12/11/17 09:45 (Glucagon Inj) 1 mg UNSCH PRN OTHER 12/11/17 09:45 (NovoLIN R SUPPLEMENTAL SCALE) 1 Q4H SQ 12/11/17 09:45 (Tylenol 650 Mg/ 20 ml Liq) 650 mg Q6H PRN OG-TUBE 12/17/17 23:15 12/19/17 10:36 (Tears Naturale Opth Soln) 1 drop Q8HR EACH EYE 12/18/17 06:00 12/24/17 05:05 (Albuterol Neb) 2.5 mg Q2HR NEB PRN NEB 12/17/17 23:15 (Roxicodone Intensol Liq) 5 mg Q6HR NG 12/18/17 00:00 12/24/17 05:06 (SEROquel) 25 mg BID PO 12/18/17 09:00 12/24/17 08:10 (Lactulose Liq) 30 ml DAILY PO 12/19/17 09:00 12/22/17 08:15 (Reglan Inj) 5 mg Q8HR IV PUSH 12/19/17 16:45 12/24/17 05:05 (Protonix Inj) 40 mg Q12H IV PUSH 12/20/17 17:00 12/24/17 05:05 (Lopressor) 25 mg Q8HR PO 12/20/17 16:30 12/24/17 05:06 (Morphine Inj) 1 mg Q4H PRN IM 12/20/17 16:30 (Duoneb Neb) 1 ampule Q6HR NEB NEB 12/21/17 22:00 12/24/17 03:22 (NS Flush) 2 ml UNSCH PRN IV FLUSH 12/22/17 16:15 (NS Flush) 2 ml BID IV FLUSH 12/22/17 21:00 12/24/17 08:11 (Aspirin Chew) 162 mg DAILY PO 12/23/17 09:00 12/24/17 08:10 (Plavix) 75 mg DAILY PO 12/23/17 09:00 12/24/17 08:10 (Heparin Inj) 5,000 units Q12HR SQ 12/22/17 16:15 12/24/17 08:11 (Altace) 2.5 mg DAILY PO 12/23/17 09:00 12/24/17 08:10 Vital Signs / I&O Vital Signs Date Time Temp Pulse Resp B/P (MAP) Pulse Ox O2 Delivery O2 Flow Rate FiO2 12/24/17 08:00 82 12/24/17 08:00 98.8 82 24 146/79 (101) 94 12/24/17 06:00 81 12/24/17 04:00 98.2 96 17 122/62 (82) 94 12/24/17 04:00 96 12/24/17 03:00 87 25 142/64 (90) 91 12/24/17 02:00 95 12/24/17 02:00 89 22 129/61 (83) 96 12/24/17 01:00 96 18 146/61 (89) 96 12/24/17 00:27 84 12/24/17 00:00 98.0 103 20 156/73 (100) 12/23/17 22:00 92 12/23/17 20:11 100 Nasal Cannula 3.00 12/23/17 20:00 84 12/23/17 20:00 98.4 84 20 131/73 (92) 96 12/23/17 18:00 92 12/23/17 16:00 98.2 92 20 133/60 (84) 86 12/23/17 16:00 92 12/23/17 14:00 106 12/23/17 12:00 99.6 96 31 148/67 (94) 89 12/23/17 12:00 100 12/23/17 10:00 100 I/O 12/23/17 12/23/17 12/23/17 12/24/17 12/24/17 12/24/17 07:00 15:00 23:00 07:00 15:00 23:00 Intake Total 872 ml 58 ml 480 ml 480 ml Output Total 450 ml 3800 ml 600 ml Balance 422 ml 58 ml -3320 ml -120 ml Intake Oral 480 ml 480 ml IV Total 722 ml 58 ml Tube Feeding 150 ml Output Urine Total 450 ml 3800 ml 600 ml # Bowel Movements 1 2 0 Physical Exam GENERAL: SKIN: Warm and dry. HEAD: Normocephalic. EYES: No scleral icterus. No injection or drainage. NECK: Supple, trachea midline. No JVD or lymphadenopathy. CARDIOVASCULAR: Regular rate and rhythm without murmurs, gallops, or rubs. RESPIRATORY: Breath sounds equal bilaterally. No accessory muscle use. GASTROINTESTINAL: Abdomen soft, non-tender, nondistended. MUSCULOSKELETAL: No cyanosis, or edema. BACK: Nontender without obvious deformity. No CVA tenderness. Laboratory Laboratory Tests Test 12/23/17 11:50 12/24/17 05:18 Potassium Level 3.8 MEQ/L 3.1 MEQ/L White Blood Count 7.9 TH/MM3 Red Blood Count 3.40 MIL/MM3 Hemoglobin 10.1 GM/DL Hematocrit 29.1 % Mean Corpuscular Volume 85.6 FL Mean Corpuscular Hemoglobin 29.8 PG Mean Corpuscular Hemoglobin Concent 34.9 % Red Cell Distribution Width 13.4 % Platelet Count 469 TH/MM3 Mean Platelet Volume 7.9 FL Neutrophils (%) (Auto) 72.5 % Lymphocytes (%) (Auto) 16.4 % Monocytes (%) (Auto) 9.5 % Eosinophils (%) (Auto) 0.9 % Basophils (%) (Auto) 0.7 % Neutrophils # (Auto) 5.7 TH/MM3 Lymphocytes # (Auto) 1.3 TH/MM3 Monocytes # (Auto) 0.8 TH/MM3 Eosinophils # (Auto) 0.1 TH/MM3 Basophils # (Auto) 0.1 TH/MM3 CBC Comment DIFF FINAL Differential Comment Blood Urea Nitrogen 5 MG/DL Creatinine 0.58 MG/DL Random Glucose 88 MG/DL Calcium Level 8.7 MG/DL Phosphorus Level 3.8 MG/DL Magnesium Level 2.1 MG/DL Sodium Level 145 MEQ/L Chloride Level 106 MEQ/L Carbon Dioxide Level 27.0 MEQ/L Anion Gap 12 MEQ/L Estimat Glomerular Filtration Rate 154 ML/MIN Assessment and Plan Problem List: (1) STEMI (ST elevation myocardial infarction) ICD Codes: I21.3 - ST elevation (STEMI) myocardial infarction of unspecified site (2) Cocaine abuse ICD Codes: F14.10 - Cocaine abuse, uncomplicated (3) Cardiac arrest ICD Codes: I46.9 - Cardiac arrest, cause unspecified (4) Head trauma ICD Codes: S09.90XA - Unspecified injury of head, initial encounter (5) CVA (cerebral vascular accident) ICD Codes: I63.9 - Cerebral infarction, unspecified (6) Tobacco abuse ICD Codes: Z72.0 - Tobacco use (7) Encephalopathy ICD Codes: G93.40 - Encephalopathy, unspecified Assessment and Plan 1.) s/p cardiac arrest - pod#2 pci rca, asymptomatic, neurologically appears to be back to baseline, rec continue aspirin, plavix, metoprolol, alatce, statin held due to persistently elevated lfts Ameya Dubose MD Dec 24, 2017 09:19
--- NOTE | 2017-12-24 11:40 | HHI.CCPN ---
Subjective Remarks/Hospital Course 42-year-old gentleman brought in by EMS after he apparently had an episode of chest pain after which he clutched his chest an collapsed at home. Patient's called 911 and initiated CPR prior to EMS arriving there. Once EMS arrived they were able to start an IV, intubated the patient and initiated ACLS protocol giving 4 rounds of epi 7 rounds of chest compressions along with 3 separate defibrillations. Initial EKG at the scene showed ST elevation, however the repeat EKG in the emergency department showed no ST elevations. The case was discussed by ED attending with tester electronic scale contact center agent who recommended hypothermia protocol and conservative management. 12/11 Patient is sedated and intubated. On Levophed, Amio and Nimbex drips. 12/12 Patient remains intubated and sedated with Diprivan in addition he is on Nimbex. Off Levophed and Amio drips. Remains on Heparin drip. 12/13 Patient remains intubated and sedated with Diprivan. Placed on Levophed 3 mics overnight, on heparin drip. T:101.7 last night. 12/14 No events overnight. Off Levophed. Afebrile. Off Diprivan placed on Precedex drip overnight. T:101.1 12/15 Patient remains intubated and sedated with Diprivan and Precedex drip. Afebrile. 12/16 Patient is sedated with Precedex and Fentanyl infusion. T:100.0 last night. 12/17: Tube feeds are currently goal. With Glucerna 1.5 at 45. Requiring dexmedetomidine for sedation while also on fentanyl drip. We'll start on quetiapine and scheduled oxycodone. Non purposeful movements to stimulation specifically with left upper extremity 12/18: Max 100.8. Currently 98.9. More awake and alert and interactive today. Ex- states asking "what happened". Explained in depth out of hospital cardiac arrest and events leading to his current situation. He nods head as if he understands. 12/19 No events overnight . Sedated with Fentanyl and Precedex drips. T:100.4 last night. Remains on Heparin drip. 12/20 Patient remains intubated and on Precedex and Fentanyl drips for sedation. T:100.8 12/21: Afebrile. EKG revealed NG tube trauma. No signs of gastritis or duodenitis. Okay to restart tube feeding today. Appears comfortable on ventilator point commands. 12/22: Afebrile. Plan for cardiac catheterization today. Tube feeds currently off. Lasted 12 hours on PSV trial yesterday. Likely extubation candidate depending on findings on cardiac catheterization results today 12/23 No events overnight. On Fentanyl and Precedex drip for sedation. Afebrile.Off Heparin drip. Subjective 12/24: Afebrile. Currently sitting at bedside in no acute distress. Debating currently on room air. In no acute distress. Passed swallow evaluation. Positive BM. Objective Vital Signs Date Time Temp Pulse Resp B/P (MAP) Pulse Ox O2 Delivery O2 Flow Rate FiO2 12/24/17 10:00 128 12/24/17 08:00 98.8 24 146/79 (101) 94 12/23/17 20:11 Nasal Cannula 3.00 12/23/17 05:09 35 Intake and Output 12/24/17 12/24/17 12/25/17 08:00 16:00 00:00 Intake Total 480 ml Output Total 600 ml Balance -120 ml Result Diagram: 12/24/17 0518 12/24/17 0518 Other Results Microbiology Date/Time Source Procedure Growth Status 12/18/17 18:35 Blood Peripheral Aerobic Blood Culture - Final NO GROWTH IN 5 DAYS Complete 12/18/17 18:35 Blood Peripheral Anaerobic Blood Culture - Final NO GROWTH IN 5 DAYS Complete 12/18/17 15:50 Sputum Endotracheal Gram Stain - Final Complete 12/18/17 15:50 Sputum Endotracheal Sputum Culture - Final NO GROWTH IN 48 HOURS. Complete 12/10/17 17:30 Urine Clean Catch Urine Culture - Final NO GROWTH IN 48 HOURS. Complete Imaging Last Impressions Chest X-Ray 12/21/17 0000 Signed Impressions: Service Date/Time: Thursday, December 21, 2017 03:27 - CONCLUSION: 1. Cardiomegaly. 2. Suspected consolidation or atelectasis at the left base and the right midlung. Karsten Pina MD Abdomen/Pelvis CT 12/20/17 0000 Signed Impressions: Service Date/Time: Wednesday, December 20, 2017 09:09 - CONCLUSION: There is abnormal dilation of the jejunum and ileum. There is transition from a normal appearing duodenum and optimal jejunum to a fluid dilated small bowel identified within the left upper quadrant. There is a focal calcific density identified within the adjacent mesenteric fat. This does not may represent an area of calcified adhesion.. Guillermina Lee MD Abdomen X-Ray 12/19/17 0000 Signed Impressions: Service Date/Time: Tuesday, December 19, 2017 13:55 - CONCLUSION: Probable ileus. There is no free air. Teodoro Wong MD FACR Brain MRI 12/12/17 0000 Signed Impressions: Service Date/Time: Tuesday, December 12, 2017 10:21 - CONCLUSION: Normal examination. Addy Souza MD Liver Ultrasound 12/11/17 0000 Signed Impressions: Service Date/Time: November 10:26 - CONCLUSION: Solitary echogenic lesion left lobe liver I suspect a hemangioma. Central venous catheter within the IVC otherwise unremarkable study. Glenn James MD Head CT 12/10/17 1714 Signed Impressions: Service Date/Time: Sunday, December 10, 2017 18:18 - CONCLUSION: 1. Concern for right-sided nonhemorrhagic cerebral infarction. Jose Glaser Jr., MD Objective Remarks GENERAL: 42-year-old male currently resting in bed on room air in no acute distress SKIN: Warm and dry. No rash HEAD: Atraumatic. Normocephalic. EYES: Pupils equal and briskly reactive to light by 2 mm bilaterally, ENT: No nasal bleeding or discharge. Mucous membranes pink and moist. NECK: Trachea midline. No JVD. CARDIOVASCULAR: RRR. S1, S2 no S4. Without murmur RESPIRATORY: Few crackles appreciated in the left. The right lower lobes posteriorly. No wheezing GASTROINTESTINAL: Abdomen soft, non-tender,distended. Positive bowel sounds appreciated MUSCULOSKELETAL: Extremities with trace bilateral lower extremity edema. No obvious deformities. NEUROLOGICAL: Cranial nerves II-XII appear to be grossly intact. Strength is equal and symmetric bilaterally. Normal sensation. Urinary Catheter: No Assessment to: Continue Vascular Central Line Catheter: No Assessment to: Continue A/P Assessment and Plan Neuro/Psych: Acute toxic metabolic encephalopathy UDS positive for cocaine and benzodiazepines Currently on no sedation. CT brain showed possible non hemorrhagic cerebral infarction. MRI brain 12/12: within normal, neuro is following-Dr. Vasquez EEG: moderate diffuse encephalopathy, no seizure activity UDS: + Cocaine, Benzo Quetiapine 25 mg BID and oxycodone 5 mg to 6 hours scheduled discontinued. Oxycodone 5 mill grams every 6 hours when necessary pain Acetaminophen 650 mg by mouth every 6 hours when necessary fever Pulm: Acute respiratory failure - resolved Nasal cannula to maintain saturations greater than or equal to 92% Incentive spirometry while awake Albuterol/ipratropium aerosols every 6 hours with albuterol aerosols every 2 hours. Dyspnea Chest x-ray revealed possible left lower lobe infiltrate CV: OHCA - V. fib Elevated troponin Status post PCI/stent to RCA Monitor HR and BP keep MAP>65mmHg. s/p Hypothermia protocol. Cards is following- Dr. Dubose. Echo showed EF 50-55% s/p cardiac catheterization 12/[address] Dubose- Stent placed RCA On aspirin 162 mg daily, clopidogrel 75mg daily, ramipril 2.5mg daily, metoprolol tartrate 25mg Q8 Renal/: Hypokalemia Monitor renal function, I/O's, electrolytes replacement per protocol. Will need K replacement today with 80 mEq by mouth 1 now GI: Elevated transaminases Projectile vomiting Advance diet per speech therapy. Currently on KUB abdomen 12/20 showed probable ileus. On metoclopramide 5mg Q8, Lactulose cc daily for bowel regimen CT abdomen/pelvis post revealed possible distention jejunum/ileum with no signs of obstructive process. EGD 12/21 revealed indeed to suction. No signs obstructive process. Okay to restart tube feeding today On Protonix 40 mg by mouth twice a day Monitor LFT's,Hepatitis profile negative US liver: Solitary echogenic lesion left lobe liver I suspect a hemangioma. ID: Previously on piperacillin/tazobactam and vancomycin Off abx s/p ceftriaxone finished 12/22. ID signed off Blood and sputum cxs from 12/18- NGTD Blood, 12/11 urine cx: 12/10: No growth Sputum cx 12/11: Group A beta strep. Heme: Normocytic anemia Thrombocytosis Monitor CBC, coags- Endo: Hyperglycemia Discontinue sliding-scale insulin GI prophylaxis- on pantoprazole 40 mg twice a day DVT prophylaxis- On Heparin-5000units SQ twice daily Lines: Peripheral IV's Palliative care is following Level II Patient is stable from a critical care standpoint. Assign care hospitalist in a.m. 12/25. Transfer from ICU to [facility]. Parag Pepper MD Dec 24, 2017 11:40
[2017-12-24] MEDS ORDERED: oxyCODONE HCL ORAL CONC 5 MG/0.25 ML SYRINGE NG PRN (12:00)
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
[2017-12-24] MEDS: POTASSIUM CHLORIDE 20 MEQ CONTROLLED RELEASE TAB PO SCH ×2 (14:03→21:21)
[2017-12-24] MEDS: PANTOPRAZOLE SOD 40 MG DELAYED RELEASE TAB PO SCH (21:21)
[2017-12-25] VITALS (18 sets, daily range): BP systolic 139–162; BP diastolic 79–91; PULSE 68–116; RESP 18; TEMP 98–99.2; O2SAT 93–97
[2017-12-25] MEDS: RESP: ALBUTEROL 2.5 MG/IPRATROPIUM 0.5 MG NEB (SCH) NEB ×2 (03:38→09:49)
[2017-12-25 03:50] LABS: MITOCHONDRIAL ABS LESS THAN 20.0 U (<=20.0)
[2017-12-25] MEDS: CHLORHEXIDINE GLUCONATE 2 % 1 PACK (2 CLOTHS) TOP SCH (04:00)
[2017-12-25] MEDS: METOPROLOL TARTRATE 25 MG TAB PO SCH ×2 (05:38→14:11)
[2017-12-25] MEDS: METOCLOPRAMIDE HCL 10 MG/2 ML VIAL IV PUSH SCH ×2 (05:39→14:13)
[2017-12-25 06:15] LABS: AUTOMATED NEUTROPHIL # 7.9 TH/MM3 (1.8-7.7); BASOPHIL # 0.1 TH/MM3 (0-0.2); BASOPHIL % 0.9 % (0.0-2.0); EOSINOPHIL # 0.3 TH/MM3 (0-0.4); EOSINOPHIL % 2.5 % (0.0-4.0); HEMATOCRIT 35.4 % (39.0-51.0); HEMOGLOBIN 12.2 GM/DL (13.0-17.0); LYMPH % 18.8 % (9.0-44.0); LYMPHOCYTE # 2.1 TH/MM3 (1.0-4.8); MEAN CELL VOLUME 85.9 FL (80.0-100.0); MEAN CORPUSCULAR HEMOGLOBIN 29.5 PG (27.0-34.0); MEAN CORPUSCULAR HGB CONC 34.4 % (32.0-36.0); MONO % 7.5 % (0.0-8.0); MONOCYTE # 0.8 TH/MM3 (0-0.9); NEUT % 70.3 % (16.0-70.0); PLATELET COUNT 717 TH/MM3 (150-450); RED BLOOD COUNT 4.12 MIL/MM3 (4.50-5.90); RED CELL DISTRIBUTION WIDTH 13.9 % (11.6-17.2); WHITE BLOOD COUNT 11.2 TH/MM3 (4.0-11.0)
[2017-12-25 06:42] LABS: ALBUMIN 3.6 GM/DL (3.4-5.0); ALKALINE PHOSPHATASE 43 U/L (45-117); ALT (GPT) 169 U/L (12-78); AST (GOT) 108 U/L (15-37); BICARBONATE 26.3 MEQ/L (21.0-32.0); BLOOD UREA NITROGEN 8 MG/DL (7-18); CALCIUM 10.1 MG/DL (8.5-10.1); CHLORIDE 107 MEQ/L (98-107); GLOMERULAR FILTRATION RATE 106 ML/MIN (>89); GLUCOSE,RANDOM 113 MG/DL (74-106); MAGNESIUM 2.4 MG/DL (1.5-2.5); PHOSPHORUS 2.7 MG/DL (2.5-4.9); SODIUM (NA) 143 MEQ/L (136-145); TOTAL BILIRUBIN ADULT 0.5 MG/DL (0.2-1.0); TOTAL PROTEIN 8.5 GM/DL (6.4-8.2)
[2017-12-25] MEDS: CHLORHEXIDINE 0.12% (ORAL KIT) 15 ML CUP MT SCH (08:00)
--- NOTE | 2017-12-25 08:20 | PD.CARD.PN ---
Subjective Subjective Remarks a,o x3, in nad, denies chest pain Objective Medications Current Medications Medications (Trade) Dose Ordered Sig/Yuri Route Start Time Stop Time Status Last Admin (Zofran Inj) 4 mg Q6H PRN IV PUSH 12/10/17 20:30 12/23/17 20:40 Miscellaneous Information 1 [id number] XX 12/10/17 20:30 12/10/17 20:30 (Chlorhexidine 2% Cloth) Taper DAILY@04 TOP 12/11/17 04:00 12/07/18 03:59 12/22/17 01:35 (Chlorhexidine 2% Cloth) 3 pack UNSCH PRN TOP 12/10/17 20:30 (Chelsea-Colace) 1 tab BID PO 12/10/17 21:00 12/22/17 22:04 (Milk Of Magnesia Liq) 30 ml Q12H PRN PO 12/10/17 20:30 (Senokot) 17.2 mg Q12H PRN PO 12/10/17 20:30 (Dulcolax Supp) 10 mg DAILY PRN RECTAL 12/10/17 20:30 (Lactulose Liq) 30 ml DAILY PRN PO 12/10/17 20:30 (Peridex 0.12% Liq) 15 ml BID@08,20 MT 12/11/17 08:00 12/22/17 22:08 Potassium Chloride 100 ml @ 50 mls/hr Q2H PRN IV-CENTRAL 12/10/17 21:45 12/15/17 08:26 Potassium Chloride 100 ml @ 50 mls/hr Q2H PRN IV 12/10/17 21:45 12/24/17 10:20 (K-Lyte Cl Eff) 50 meq UNSCH PRN PO 12/10/17 21:45 12/23/17 06:04 Potassium Chloride 100 ml @ 25 mls/hr UNSCH PRN IV-CENTRAL 12/10/17 21:45 Potassium Chloride 100 ml @ 50 mls/hr Q2H PRN IV 12/10/17 21:45 Magnesium Sulfate 4 gm/Sodium Chloride 100 ml @ 50 mls/hr UNSCH PRN IV 12/10/17 21:45 (Mag-Ox) 800 mg UNSCH PRN PO 12/10/17 21:45 Magnesium Sulfate 2 gm/Sodium Chloride 100 ml @ 50 mls/hr UNSCH PRN IV 12/10/17 21:45 (K-Phos) 2,000 mg Q4H PRN PO 12/10/17 21:45 Sodium Phosphate 30 mmol/Sodium Chloride 250 ml @ 42 mls/hr UNSCH PRN IV 12/10/17 21:45 (K-Phos) 2,000 mg UNSCH PRN PO/TUBE 12/10/17 21:45 Potassium Phosphate 30 mmol/ Sodium Chloride 260 ml @ 42 mls/hr UNSCH PRN IV 12/10/17 21:45 Miscellaneous Information ml @ 0 mls/hr UNSCH IV 12/10/17 23:30 (Tylenol 650 Mg/ 20 ml Liq) 650 mg Q6H PRN OG-TUBE 12/17/17 23:15 12/19/17 10:36 (Albuterol Neb) 2.5 mg Q2HR NEB PRN NEB 12/17/17 23:15 (Lactulose Liq) 30 ml DAILY PO 12/19/17 09:00 12/22/17 08:15 (Reglan Inj) 5 mg Q8HR IV PUSH 12/19/17 16:45 12/25/17 05:39 (Lopressor) 25 mg Q8HR PO 12/20/17 16:30 12/25/17 05:38 (Duoneb Neb) 1 ampule Q6HR NEB NEB 12/21/17 22:00 12/24/17 19:24 (NS Flush) 2 ml UNSCH PRN IV FLUSH 12/22/17 16:15 (NS Flush) 2 ml BID IV FLUSH 12/22/17 21:00 12/24/17 21:22 (Aspirin Chew) 162 mg DAILY PO 12/23/17 09:00 12/24/17 08:10 (Plavix) 75 mg DAILY PO 12/23/17 09:00 12/24/17 08:10 (Heparin Inj) 5,000 units Q12HR SQ 12/22/17 16:15 12/24/17 21:20 (Altace) 2.5 mg DAILY PO 12/23/17 09:00 12/24/17 08:10 (Roxicodone Intensol Liq) 5 mg Q6HR PRN NG 12/24/17 12:00 2/1/18 03:32 (Protonix) 40 mg Q12HR PO 12/24/17 21:00 12/24/17 21:21 Vital Signs / I&O Vital Signs Date Time Temp Pulse Resp B/P (MAP) Pulse Ox O2 Delivery O2 Flow Rate FiO2 12/25/17 06:23 99.2 91 18 152/79 (103) 93 12/25/17 06:00 71 12/25/17 05:00 68 12/25/17 04:00 78 12/25/17 03:00 102 12/25/17 02:00 76 12/25/17 01:00 80 12/25/17 00:00 91 12/24/17 23:15 98.6 91 18 142/110 (121) 95 12/24/17 23:00 80 12/24/17 22:00 112 12/24/17 21:00 106 12/24/17 20:15 98.4 96 18 147/78 (101) 96 12/24/17 20:00 84 12/24/17 19:27 95 21 12/24/17 19:00 90 12/24/17 18:00 80 12/24/17 17:36 98.1 79 18 156/78 (104) 95 12/24/17 16:00 79 12/24/17 16:00 98.9 79 18 139/74 (95) 97 12/24/17 14:00 84 12/24/17 12:00 98.8 96 24 146/67 (93) 96 12/24/17 12:00 96 12/24/17 10:50 95 21 12/24/17 10:00 128 I/O 12/24/17 12/24/17 12/24/17 12/25/17 12/25/17 12/25/17 07:00 15:00 23:00 07:00 15:00 23:00 Intake Total 480 ml 350 ml 240 ml 480 ml Output Total 600 ml 400 ml 600 ml Balance -120 ml -50 ml 240 ml -120 ml Intake Oral 480 ml 200 ml 240 ml 480 ml IV Total 150 ml Output Urine Total 600 ml 400 ml 600 ml # Bowel Movements 0 0 1 1 Physical Exam GENERAL: SKIN: Warm and dry. HEAD: Normocephalic. EYES: No scleral icterus. No injection or drainage. NECK: Supple, trachea midline. No JVD or lymphadenopathy. CARDIOVASCULAR: Regular rate and rhythm without murmurs, gallops, or rubs. RESPIRATORY: Breath sounds equal bilaterally. No accessory muscle use. GASTROINTESTINAL: Abdomen soft, non-tender, nondistended. MUSCULOSKELETAL: No cyanosis, or edema. BACK: Nontender without obvious deformity. No CVA tenderness. Laboratory Laboratory Tests Test 12/24/17 19:42 12/25/17 05:14 Potassium Level 3.7 MEQ/L 3.9 MEQ/L White Blood Count 11.2 TH/MM3 Red Blood Count 4.12 MIL/MM3 Hemoglobin 12.2 GM/DL Hematocrit 35.4 % Mean Corpuscular Volume 85.9 FL Mean Corpuscular Hemoglobin 29.5 PG Mean Corpuscular Hemoglobin Concent 34.4 % Red Cell Distribution Width 13.9 % Platelet Count 717 TH/MM3 Mean Platelet Volume 8.0 FL Neutrophils (%) (Auto) 70.3 % Lymphocytes (%) (Auto) 18.8 % Monocytes (%) (Auto) 7.5 % Eosinophils (%) (Auto) 2.5 % Basophils (%) (Auto) 0.9 % Neutrophils # (Auto) 7.9 TH/MM3 Lymphocytes # (Auto) 2.1 TH/MM3 Monocytes # (Auto) 0.8 TH/MM3 Eosinophils # (Auto) 0.3 TH/MM3 Basophils # (Auto) 0.1 TH/MM3 CBC Comment DIFF FINAL Differential Comment Blood Urea Nitrogen 8 MG/DL Creatinine 0.80 MG/DL Random Glucose 113 MG/DL Total Protein 8.5 GM/DL Albumin 3.6 GM/DL Calcium Level 10.1 MG/DL Phosphorus Level 2.7 MG/DL Magnesium Level 2.4 MG/DL Alkaline Phosphatase 43 U/L Aspartate Amino Transf (AST/SGOT) 108 U/L Alanine Aminotransferase (ALT/SGPT) 169 U/L Total Bilirubin 0.5 MG/DL Sodium Level 143 MEQ/L Chloride Level 107 MEQ/L Carbon Dioxide Level 26.3 MEQ/L Anion Gap 10 MEQ/L Estimat Glomerular Filtration Rate 106 ML/MIN Assessment and Plan Problem List: (1) STEMI (ST elevation myocardial infarction) ICD Codes: I21.3 - ST elevation (STEMI) myocardial infarction of unspecified site (2) Cocaine abuse ICD Codes: F14.10 - Cocaine abuse, uncomplicated (3) Cardiac arrest ICD Codes: I46.9 - Cardiac arrest, cause unspecified (4) Head trauma ICD Codes: S09.90XA - Unspecified injury of head, initial encounter (5) CVA (cerebral vascular accident) ICD Codes: I63.9 - Cerebral infarction, unspecified (6) Tobacco abuse ICD Codes: Z72.0 - Tobacco use (7) Encephalopathy ICD Codes: G93.40 - Encephalopathy, unspecified Assessment and Plan 1.) s/p cardiac arrest - pod#3 pci rca, asymptomatic, neurologically appears to be back to baseline, rec continue aspirin, plavix, metoprolol, altace, statin held due to persistently elevated lfts; i have strongly advised the patient for the past 3 days to be compliant with aspirin and plavix due to risk of life threatening stent thrombosis if he were to be noncompliant; ok to transfer to rehab from cv standpoint; i will sign off, reconsult prn; he will need to be discharged on aspirin 162 mg qd, plavix 75 mg qd, altace 2.5 mg qd, lopressor 25 mg bid from cv standpoint Ameya Dubose MD Dec 25, 2017 08:20
[2017-12-25] MEDS: CLOPIDOGREL 75 MG TAB PO SCH (09:09)
[2017-12-25] MEDS: RAMIPRIL 2.5 MG CAP PO SCH (09:09)
[2017-12-25] MEDS: PANTOPRAZOLE SOD 40 MG DELAYED RELEASE TAB PO SCH (09:09)
[2017-12-25] MEDS: DOCUSATE SODIUM 50 MG/SENNA 8.6 MG TAB PO SCH (09:09)
[2017-12-25] MEDS: HEPARIN SODIUM - SQ 10,000 UNITS/ML VIAL SQ SCH (09:09)
[2017-12-25] MEDS: LACTULOSE SYRUP 20 GM/30 ML CUP PO SCH (09:09)
[2017-12-25] MEDS: SODIUM CHLORIDE 0.9% FLUSH 10 ML FLUSH IV FLUSH SCH (09:10)
[2017-12-25] MEDS: ASPIRIN 81 MG CHEW TAB PO SCH (09:10)
[2017-12-25] MEDS ORDERED: PANT40TA3 PO (10:20)
[2017-12-25] MEDS ORDERED: RAMI2.5C PO (10:20)
[2017-12-25] MEDS ORDERED: PLAV75TA29 PO (10:20)
[2017-12-25] MEDS ORDERED: METO25TA3 PO (10:20)
[2017-12-25] MEDS ORDERED: ASPI81 PO (10:20)
--- NOTE | 2017-12-25 10:20 | HHI.DS ---
Discharge Summary Admission Date Dec 10, 2017 at 18:52 Discharge Date: Dec 25, 2017 Admitting Diagnosis S/P ARREST, INFERIOR STEMI, (1) Cardiac arrest ICD Code: I46.9 - Cardiac arrest, cause unspecified (2) CVA (cerebral vascular accident) ICD Code: I63.9 - Cerebral infarction, unspecified (3) STEMI (ST elevation myocardial infarction) ICD Code: I21.3 - ST elevation (STEMI) myocardial infarction of unspecified site (4) Cardiac arrest ICD Code: I46.9 - Cardiac arrest Procedures intubated/extubated cardiac cath Status post PCI/stent to RCA Brief History - From Admission 42-year-old gentleman brought in by EMS after he apparently had an episode of chest pain after which he clutched his chest an collapsed at home. Patient's called 911 and initiated CPR prior to EMS arriving there. Once EMS arrived they were able to start an IV, intubated the patient and initiated ACLS protocol giving 4 rounds of epi 7 rounds of chest compressions along with 3 separate defibrillations. Initial EKG at the scene showed ST elevation, however the repeat EKG in the emergency department showed no ST elevations. The case was discussed by ED attending with culled fruit packer process consultant who recommended hypothermia protocol and conservative management. CBC/BMP: 12/25/17 0514 12/25/17 0514 Significant Findings Laboratory Tests Test 12/22/17 11:15 12/23/17 03:28 12/23/17 11:50 12/24/17 05:18 Total Creatine Kinase 395 U/L (39-308) Creatine Kinase MB 4.1 NG/ML (0.5-3.6) Troponin I 0.38 NG/ML (0.02-0.05) Red Blood Count 3.20 MIL/MM3 (4.50-5.90) 3.40 MIL/MM3 (4.50-5.90) Hemoglobin 9.7 GM/DL (13.0-17.0) 10.1 GM/DL (13.0-17.0) Hematocrit 27.5 % (39.0-51.0) 29.1 % (39.0-51.0) Monocytes (%) (Auto) 8.2 % (0.0-8.0) 9.5 % (0.0-8.0) Albumin 2.4 GM/DL (3.4-5.0) Alkaline Phosphatase 37 U/L (45-117) Aspartate Amino Transf (AST/SGOT) 41 U/L (15-37) Potassium Level 3.4 MEQ/L (3.5-5.1) 3.1 MEQ/L (3.5-5.1) Triglycerides Level 187 MG/DL (42-150) LDL Cholesterol 115 MG/DL (0-99) HDL Cholesterol 28.6 MG/DL (40.0-60.0) Platelet Count 469 TH/MM3 (150-450) Neutrophils (%) (Auto) 72.5 % (16.0-70.0) Blood Urea Nitrogen 5 MG/DL (7-18) Creatinine 0.58 MG/DL (0.60-1.30) Test 12/24/17 19:42 12/25/17 05:14 White Blood Count 11.2 TH/MM3 (4.0-11.0) Red Blood Count 4.12 MIL/MM3 (4.50-5.90) Hemoglobin 12.2 GM/DL (13.0-17.0) Hematocrit 35.4 % (39.0-51.0) Platelet Count 717 TH/MM3 (150-450) Neutrophils (%) (Auto) 70.3 % (16.0-70.0) Neutrophils # (Auto) 7.9 TH/MM3 (1.8-7.7) Random Glucose 113 MG/DL (74-106) Total Protein 8.5 GM/DL (6.4-8.2) Alkaline Phosphatase 43 U/L (45-117) Aspartate Amino Transf (AST/SGOT) 108 U/L (15-37) Alanine Aminotransferase (ALT/SGPT) 169 U/L (12-78) Imaging Last Impressions Chest X-Ray 12/21/17 0000 Signed Impressions: Service Date/Time: Thursday, December 21, 2017 03:27 - CONCLUSION: 1. Cardiomegaly. 2. Suspected consolidation or atelectasis at the left base and the right midlung. Karsten Pina MD Abdomen/Pelvis CT 12/20/17 0000 Signed Impressions: Service Date/Time: Wednesday, December 20, 2017 09:09 - CONCLUSION: There is abnormal dilation of the jejunum and ileum. There is transition from a normal appearing duodenum and optimal jejunum to a fluid dilated small bowel identified within the left upper quadrant. There is a focal calcific density identified within the adjacent mesenteric fat. This does not may represent an area of calcified adhesion.. Guillermina Lee MD Abdomen X-Ray 12/19/17 0000 Signed Impressions: Service Date/Time: Tuesday, December 19, 2017 13:55 - CONCLUSION: Probable ileus. There is no free air. Teodoro Wong MD FACR Brain MRI 12/12/17 0000 Signed Impressions: Service Date/Time: Tuesday, December 12, 2017 10:21 - CONCLUSION: Normal examination. Addy Souza MD Liver Ultrasound 12/11/17 0000 Signed Impressions: Service Date/Time: November 10:26 - CONCLUSION: Solitary echogenic lesion left lobe liver I suspect a hemangioma. Central venous catheter within the IVC otherwise unremarkable study. Glenn James MD Head CT 12/10/17 1714 Signed Impressions: Service Date/Time: Sunday, December 10, 2017 18:18 - CONCLUSION: 1. Concern for right-sided nonhemorrhagic cerebral infarction. Jose Glaser Jr., MD PE at Discharge GENERAL: 42-year-old male currently resting in bed on room air in no acute distress CARDIOVASCULAR: RRR. S1, S2 no S4. Without murmur RESPIRATORY: Few crackles appreciated in the left. The right lower lobes posteriorly. No wheezing GASTROINTESTINAL: Abdomen soft, non-tender,distended. Positive bowel sounds x4Q. MUSCULOSKELETAL: Extremities with trace bilateral lower extremity edema. No obvious deformities. NEUROLOGICAL: Cranial nerves II-XII appear to be grossly intact. Strength is equal and symmetric bilaterally. Normal sensation. Pt update on day of discharge In the chair, noted walking with the walker. Family at bedside. Patient and family wants to go home and not to SNF. Has family support. Patient feels improved. No chest pain or sob. No cough.No fever or chills. Hospital Course Neuro/Psych: Acute toxic metabolic encephalopathy. Resolved. UDS positive for cocaine and benzodiazepines. Counseled CT brain showed possible non hemorrhagic cerebral infarction. MRI brain 12/12: within normal, neuro is following-Dr. Vasquez EEG: moderate diffuse encephalopathy, no seizure activity UDS: + Cocaine, Benzo Quetiapine 25 mg BID and oxycodone 5 mg to 6 hours scheduled discontinued. Oxycodone 5 mill grams every 6 hours when necessary pain Acetaminophen 650 mg by mouth every 6 hours when necessary fever Pulm: Acute respiratory failure - resolved Nasal cannula to maintain saturations greater than or equal to 92% Incentive spirometry while awake Albuterol/ipratropium aerosols every 6 hours with albuterol aerosols every 2 hours. Dyspnea Chest x-ray revealed possible left lower lobe infiltrate CV: OHCA - V. fib Elevated troponin Status post PCI/stent to RCA Monitor HR and BP keep MAP>65mmHg. s/p Hypothermia protocol. Cards is following- Dr. Dubose. Echo showed EF 50-55% s/p cardiac catheterization 12/[address] Dubose- Stent placed RCA On aspirin 162 mg daily, clopidogrel 75mg daily, ramipril 2.5mg daily, metoprolol tartrate 25mg Q8, continued at DC per cardio. Renal/: Hypokalemia Monitor renal function, I/O's, electrolytes replacement per protocol. Will need K replacement today with 80 mEq by mouth 1 now GI: Elevated transaminases Projectile vomiting Advance diet per speech therapy. Currently on KUB abdomen 12/20 showed probable ileus. On metoclopramide 5mg Q8, Lactulose cc daily for bowel regimen CT abdomen/pelvis post revealed possible distention jejunum/ileum with no signs of obstructive process. EGD 12/21 revealed indeed to suction. No signs obstructive process. Okay to restart tube feeding today On Protonix 40 mg by mouth twice a day Monitor LFT's,Hepatitis profile negative US liver: Solitary echogenic lesion left lobe liver I suspect a hemangioma. ID: Previously on piperacillin/tazobactam and vancomycin Off abx s/p ceftriaxone finished 12/22. ID signed off Blood and sputum cxs from 12/18- NGTD Blood, 12/11 urine cx: 12/10: No growth Sputum cx 12/11: Group A beta strep. Heme: Normocytic anemia Thrombocytosis Monitor CBC, coags- Endo: Hyperglycemia Discontinue sliding-scale insulin GI prophylaxis- on pantoprazole 40 mg twice a day DVT prophylaxis- On Heparin-5000units SQ twice daily. Ambulation Improved, DC home with home health in stable condition to follow up as OP with PCP and consultants. Pt Condition on Discharge: Stable Discharge Disposition: Discharge to SNF Discharge Time: > 30 minutes Discharge Instructions DIET: Follow Instructions for: Heart Healthy Diet Activities you can perform: Regular-No Restrictions Follow up Referrals: Cardiology - 1 Week PCP Follow-up - 2-3 Days New Medications: Walker Rolling/GetGo (Walker Rolling/GetGo) 1 Mis Mis EA .XX DIRECTED, #1 Zolpidem (Zolpidem) 10 Mg Tab 10 MG PO HS PRN for INSOMNIA, #30 TAB 0 Refills Aspirin (Tgt Aspirin) 81 Mg Chw 162 MG PO DAILY for Blood Clot Prevention, #30 EA Clopidogrel (Plavix) 75 Mg Tab 75 MG PO DAILY for Blood Clot Prevention, #30 TAB Metoprolol Tartrate (Metoprolol Tartrate) 25 Mg Tab 25 MG PO Q8HR for Blood Pressure Management, #60 TAB Pantoprazole (Pantoprazole) 40 Mg Tab 40 MG PO DAILY for gerd, #60 TAB Ramipril (Ramipril) 2.5 Mg Cap 2.5 MG PO DAILY for Blood Pressure Management, #30 CAP Indira Elam MD Dec 25, 2017 10:20
[2017-12-25] MEDS ORDERED: ZOLP10TA3 PO (11:51)
--- NOTE | 2017-12-25 11:52 | HHI.FF ---
Face to Face Verification Diagnosis: (1) Cardiac arrest Physical Therapy Order: Evaluate and Treat Home Health Nursing Order: Medical education Signs/symptoms of disease process Medication education-adverse effect Nursing assessment with vital signs I have seen patient Familia Stern on 12/25/17. My clinical findings support the need for the requested home health care services because: Ltd mobility - disease progression I certify that my clinical findings support that this patient is homebound because: Post-op weakness Indira Elam MD Dec 25, 2017 11:52
[2017-12-25] MEDS ORDERED: GETGO ROLLING W1 MI1 (16:03)
== END 2017-12-25 14:55 | disposition home health service (06) | DRG 248 ==
LOC: NEPE 16:51 → NEDA 18:52 → HIMW 21:10 → HCIS 12-24 17:26
PROVIDERS: ADMIT Hospitalist; ATTEND Hospitalist
PROC: 5A1955Z Respiratory Ventilation, Greater than 96 Consecutive Hours (ICD-10-PCS; principal; 2017-12-10)
PROC: 6A4Z1ZZ Hypothermia, Multiple (ICD-10-PCS; 2017-12-10)
PROC: 06HM33Z Insertion of Infusion Device into Right Femoral Vein, Percutaneous Approach (ICD-10-PCS; 2017-12-11)
PROC: 0DJD8ZZ Inspection of Lower Intestinal Tract, Via Natural or Artificial Opening Endoscopic (ICD-10-PCS; 2017-12-21)
PROC: 02703DZ Dilation of Coronary Artery, One Artery with Intraluminal Device, Percutaneous Approach (ICD-10-PCS; 2017-12-22)
PROC: 4A023N7 Measurement of Cardiac Sampling and Pressure, Left Heart, Percutaneous Approach (ICD-10-PCS; 2017-12-22)
PROC: B2111ZZ Fluoroscopy of Multiple Coronary Arteries using Low Osmolar Contrast (ICD-10-PCS; 2017-12-22)
PROC: B2151ZZ Fluoroscopy of Left Heart using Low Osmolar Contrast (ICD-10-PCS; 2017-12-22)
DX: I21.29 ST elevation (STEMI) myocardial infarction involving other sites (principal); I49.01 Ventricular fibrillation; I63.9 Cerebral infarction, unspecified; J96.00 Acute respiratory failure, unspecified whether with hypoxia or hypercapnia; R57.0 Cardiogenic shock; G92 Toxic encephalopathy; K56.7 Ileus, unspecified; D69.6 Thrombocytopenia, unspecified; F14.10 Cocaine abuse, uncomplicated; F17.210 Nicotine dependence, cigarettes, uncomplicated; R73.9 Hyperglycemia, unspecified; M54.9 Dorsalgia, unspecified; G89.29 Other chronic pain; F10.10 Alcohol abuse, uncomplicated; I25.10 Atherosclerotic heart disease of native coronary artery without angina pectoris; E87.6 Hypokalemia; R74.0 Nonspecific elevation of levels of transaminase and lactic acid dehydrogenase [LDH]; D18.03 Hemangioma of intra-abdominal structures; D50.9 Iron deficiency anemia, unspecified; Z51.5 Encounter for palliative care; W19.XXXA Unspecified fall, initial encounter; Y92.009 Unspecified place in unspecified non-institutional (private) residence as the place of occurrence of the external cause
CPT/HCPCS: 36556; 36600; 36620; 51702; 70450; 70551; 71045; 74018; 74177; 76705; 76937; 80048; 80053; 80061; 80074; 80307; 81001; 82103; 82105; 82140; 82150; 82390; 82550; 82552; 82728; 82805; 82948; 83520; 83540; 83550; 83605; 83690; 83735; 83880; 84100; 84132; 84484; 85002; 85007; 85025; 85027; 85610; 85730; 86038; 86255; 87040; 87070; 87086; 87205; 87641; 92928; 92950; 93005; 93306; 93458; 94002; 94003; 94150; 94640; 94664; 95819; 96374; 96376; C1725; C1769; C1876; C1887; C1893; C9113; J0282; J0610; J0696; J1644; J1940; J2060; J2175; J2250; J2405; J2543; J2765; J3010; J3246; J3370; J3480; J7030; J7040; J7050; Q9967

== ENCOUNTER 2018-01-22 08:37 | Day surgery (SDC) | payer BC ==
[~2018-01-22] VITALS: Ht 167.6 cm; Wt 86.0 kg
[2018-01-22] VITALS (10 sets, daily range): BP systolic 114–146; BP diastolic 68–93; PULSE 68–88; RESP 16–20; TEMP 98–98.2; O2SAT 98–99
[~2018-01-22 08:37] MED LIST changes: +ASPI81 PO; +GETGO ROLLING W1 MI1; +METO25TA3 PO; -NOREPINEPHRINE 4 MG/4 ML AMP IV ONE; +PANT40TA3 PO; +PLAV75TA29 PO; +RAMI2.5C PO; -SODIUM BICARBONATE 8.4% INJ 50 MEQ/50 ML SYR IV ONE
[2018-01-22] MEDS ORDERED: IOHEXOL 350 MG/ML 50 ML BTL (for Cath Lab) OTHER ONE (08:38)
[2018-01-22] MEDS ORDERED: TOPR25TA PO (09:19)
[2018-01-22] MEDS ORDERED: ASPI-147 PO (09:19)
[2018-01-22 09:21] LABS: AUTOMATED NEUTROPHIL # 4.5 TH/MM3 (1.8-7.7); BASOPHIL # 0.1 TH/MM3 (0-0.2); BASOPHIL % 0.7 % (0.0-2.0); EOSINOPHIL # 0.2 TH/MM3 (0-0.4); EOSINOPHIL % 2.8 % (0.0-4.0); HEMATOCRIT 39.2 % (39.0-51.0); HEMOGLOBIN 13.8 GM/DL (13.0-17.0); LYMPH % 28.5 % (9.0-44.0); LYMPHOCYTE # 2.1 TH/MM3 (1.0-4.8); MEAN CELL VOLUME 83.9 FL (80.0-100.0); MEAN CORPUSCULAR HEMOGLOBIN 29.5 PG (27.0-34.0); MEAN CORPUSCULAR HGB CONC 35.2 % (32.0-36.0); MEAN PLATELET VOLUME 8.4 FL (7.0-11.0); MONO % 7.2 % (0.0-8.0); MONOCYTE # 0.5 TH/MM3 (0-0.9); NEUT % 60.8 % (16.0-70.0); PLATELET COUNT 172 TH/MM3 (150-450); RED BLOOD COUNT 4.68 MIL/MM3 (4.50-5.90); RED CELL DISTRIBUTION WIDTH 14.2 % (11.6-17.2); WHITE BLOOD COUNT 7.5 TH/MM3 (4.0-11.0)
[2018-01-22] MEDS ORDERED: NS 1000P @30 MLS/HR (KVO) IV SCH (09:30)
[2018-01-22 09:56] LABS: CALCIUM 9.7 MG/DL (8.5-10.1); CREATININE 0.87 MG/DL (0.60-1.30)
[2018-01-22] MEDS ORDERED: HEPARIN-NS/PF FLUSH BAG 2,000 ML IV FLUSH ONE (10:46)
[2018-01-22] MEDS ORDERED: MIDAZOLAM HCL 2 MG/2 ML VIAL ONE (10:46)
[2018-01-22] MEDS ORDERED: HEPARIN SODIUM - IV 10,000 UNITS/10 ML VIAL ONE (11:24)
[2018-01-22] MEDS ORDERED: TIROFIBAN INFUSION INJ 250 ML IV ONE (11:36)
[2018-01-22] MEDS ORDERED: CLOPIDOGREL 300 MG TAB ONE (11:39)
--- NOTE | 2018-01-22 11:48 | CATHPROC ---
Matomy Money HIS Report Study Information Study Number Admission Scheduled Start Study Start [id number] Jan 22 2018 8:37AM 01/22/2018 Jan 22 2018 10:41AM [facility] Cardiac Catheterization Admit Source Facility Department Other [facility] - Dam Attendant Physician and Clinical Staff Initial Ameya Peace Card SorterJo Carrillo,Alexey Malik,CHELY Other Dakota Payne RN Recorder Nayana Mike,RT(R) (BS) Scrub Daphne Guillaume,YAMILETH TECH2 Procedures Performed Procedure Location (Site) Vessel Name Coronary Angiograms LCA Left Coronary Coronary Angiograms RCA Right Coronary L Heart Cath LV Gram-hand inj. LV LV Ventricle PTCA ADD ON'S Stent RCA Mid Right Coronary Wire insertion Fem Art (right) Femoral Art Equipment Time Chief Construction Inspector Description Size Mfg Part Number Used/Scraped [id number] 11:25 [employer] CRITICAL CARE WIRE, ASAHI PROWATER 180CM 180CM Used *[id number] TRANSDUCER, TRUWAVE [id number] 10:51 HAIRSTON GREEN * Used W/STOCKCOCK *[id number] *[id number] *[id number] *[id number] 10:51 [employer] INDUSTRIES PACK, CCL CUSTOM * Used *[id number] 10:51 [employer]ieve PACER PEN, SKIN DUAL W/ RULER * Used *[id number] 11:32 MEDTRONIC STENT, 3.5 15 INTEGRITY 3.5 15 Used *[id number] 11:22 [email or web address] MEDICAL 30 TRINITY INDEFLATOR Used *[id number] 11:26 [email or web address] MEDICAL SHEATH, FR6.5 PRELUDE 11CM FR 6.5 038ACT Used *[id number] 10:51 [email or web address] MEDICAL WIRE, 3MMJ .035 180CM 180CM Used *[id number] 10:51 NAMIC MANIFOLD, 4 PORT * Used *[id number] 10:51 [employer]COMED OMNIPAQUE, 350 MG, 150ML 150ML [id number] Used 11:22 NYCOMED OMNIPAQUE, 350 MG, 150ML 150ML [id number] Used [id number] 10:51 ROA MEDICAL BLANKET,WARM AIR CCL * Used *[id number] 10:51 TERUMO MEDICAL SHEATH, FR4 TERUMO (10CM) FR 4 Used *[id number] History: Current Medications Medication Dosage/Unit Route Frequency Last Date/Time Taken PLAVIX Toprol ASA History: Allergies Allergy Reaction No Known Allergies History: Risk Factors Family History of Hypertension Dyslipidemia Previous MT Previous Heart Failure Premature CAD No No No No No Prior Valve Prior PCI Prior CABG Surgery No No No Cerebrovascular Peripheral Artery Chronic Lung On Dialysis Diabetes Disease Disease Disease No Yes No No No History: Symptoms/Diagnosis Selection Items Chest pain History: CV Disease Selection Items Known CAD History: Stress Tests Stress or Imaging Studies Performed Yes Standard Exercise Stress Test No Stress Echo No Stress Test SPECT Stress Test SPECT Result Stress Test SPECT Ischemia Risk/Extent Yes Positive Intermediate Stress Test CMR No Cardiac CTA Coronary Calcium Score No No History: Other Current Smoker No Labs Hgb (g/dl) Hct (%) WBC (l/cumm) Platelets (thousands) 11.60-17.00 35.00-51.00 4.00-11.00 150.00-450.00 13.8 39.2 7.5 172 Creatinine (mg/dl) 0.50-1.30 Not Drawn INR (PTT:PT) 0.90-1.10 1 CPK-MB (ng/ML) 0.50-3.60 Not Drawn Medication Medication Total Dose (Bolus/Oral) Medication Total Dosage/Unit 1% XYLOCAINE 20 mL AGGRASTAT BOLUS 42 mL HEPARIN 6000 units PLAVIX 600 mg VERSED 2 mg Medications (Bolus/Oral) Medication Time Given Dosage/Unit Administered By Reason VERSED 01/22/2018 10:42:24 AM 1 mg Alexey Jackson 1 mg VERSED given in lab by Alexey Jackson RN in Left Antecubital via Peripheral IV. VERSED 01/22/2018 11:17:06 AM 1 mg Alexey Jackson 1 mg VERSED given in lab by Alexey Jackson RN in Left Antecubital via Peripheral IV. 1% XYLOCAINE 01/22/2018 11:17:59 AM 20 mL Ameya Dubose 20 mL 1% XYLOCAINE given in lab by Ameya Dubose in Right Groin via Subcutaneous. HEPARIN 01/22/2018 11:25:01 AM 6000 units Alexey Jackson 6000 units HEPARIN given in lab by Alexey Jackson RN in Left Antecubital via Peripheral IV. AGGRASTAT BOLUS 01/22/2018 11:40:56 AM 42 mL Alexey Jackson 42 mL AGGRASTAT BOLUS given in lab by Alexey Jackson RN in Left Antecubital via Peripheral IV. PLAVIX 01/22/2018 11:42:46 AM 600 mg Alexey Jackson 600 mg PLAVIX given in lab by Alexey Jackson RN via Oral. Medication (Drip) Medication Time Given Dosage/Unit Concentration/Unit Diluent (ml) Solution AGGRASTAT DRIP 01/22/2018 11:42:24 AM 0.145 mcg/kg/min 12.5 mg 250 NaCl .9 0.145 mcg/kg/min AGGRASTAT DRIP given in lab by Alexey Jackson RN in Left Antecubital via Peripheral IV. Pump/Drip Flow = 15 ml/hr using NaCl .9 with a concentration of 12.5 mg in 250 ml. IV Solutions 01/22/2018 10:41:50 AM 50 mL (IV) NaCl .9 IV Solutions given in lab by Jo Ibarra RN in Left Antecubital via Peripheral IV. Pump/Drip Mark w using NaCl .9. Initial Case Assessment Cardiovascular HR Rhythm NIBP Chest Pain 75 SR 130/85 0 Edema Present Skin color Skin None Normal Warm Dry Circulatory - Right Pulses Dorsalis Pedis Femoral 1 1 Scale (0,1,2,3,4,d) Circulatory - Left Pulses Dorsalis Pedis Femoral 1 1 Scale (0,1,2,3,4,d) Neurological State Oriented to time-place- Alert Moves all extremities person Respiration - General Respiration Rate SpO2 (%) (B/min) 9 100 Chronological Log Time Study Chronological Log 10:41:39 Patient arrived via Bed. 10:41:40 Patient Name, D.O.B, / Armband Verified By R.N. 10:41:41 Consent signed by the physician and the patient and verified by the Dam Attendant staff. 10:41:41 Pre-op and post- op instructions given; patient acknowledges understanding of instructions. 10:41:42 Verbal Stimulation=2 Physical Stimulation=2 Airway=2 Respiration=2 TOTAL=8. (0=absent, 1=li mited, 2=present) 10:41:42 Presedation assessment performed by Dam Attendant RN. 10:41:44 Patient has been NPO for More than 6Hrs. 10:41:45 Skin Breakdown- none per pt 10:41:46 Patient Warmer Placed on the Table. 10:41:47 Yi Prominences Protected 10:41:49 A # 20 IV was noted in the Antecubital (left). Grade = 0 10:41:50 IV Solutions given in lab by Jo Ibarra, RN in Left Antecubital via Peripheral IV. Pum p/Drip Flow using NaCl .9. 10:41:51 History and physical on the chart or being dictated. Assessment: Initial Case, HR=75 BPM, Rhythm=SR, FTVM=527/85 mmhg, Chest Pain=0, Edema=None, Col or=Normal, Skin = Warm, Dry Right Pulses: Kirill Ped=1, Femoral=1 10:41:52 Left Pulses: Kirill Ped=1, Femoral=1 Neurological: State=Alert, Ox3, KELLEY Respiration: Resp=9 B/min, BfO7=121 % 10:42:24 1 mg VERSED given in lab by Alexey Jackson, CHELY in Left Antecubital via Peripheral IV. Vitals capture started with the following parameters, Patient=Adult, Interval=5 min, Initial Pr essgsx=232 mmHg, 10:47:59 Deflation Rate=5 mmHg, Cuff placed on Left Arm 10:48:33 HR=75 bpm, PFSC=352/77 mmhg, SpO2=99.0 %, Resp=8 B/min 10:49:09 Reference ECG taken 10:50:20 MD paged 10:53:34 HR=71 bpm, TYQH=468/85 mmhg, WqM3=650.0 %, Resp=11 B/min 10:55:00 MD responded 10:56:34 Pressure channel 1 zeroed. 10:58:33 HR=70 bpm, UCAI=713/85 mmhg, SpO2=99.0 %, Resp=10 B/min, Pain=0, Ibrahima=10, Kim=2 11:03:36 HR=65 bpm, LKHP=852/82 mmhg, SpO2=98.0 %, Resp=15 B/min, Pain=0, Ibrahima=10, Kim=2 11:08:31 HR=67 bpm, SRYA=348/90 mmhg, VmQ0=654.0 %, Resp=14 B/min, Pain=0, Ibrahima=10, Kim=2 11:11:16 MD arrived. 11::19 Contrast Scanned 11::20 Immediate Presedation assesment performed by physician. 11:13:34 HR=67 bpm, LYNB=635/89 mmhg, SpO2=99.0 %, Resp=12 B/min, Pain=0, Ibrahima=10, Kim=2 11:17:06 1 mg VERSED given in lab by Alexey Jackson, RN in Left Antecubital via Peripheral IV. Time Out. Correct patient, correct procedure, correct physician, power injector not loaded with contrast with surgical 11:17:34 team present. Time Out Concurred by MD and individual staff in procedure. 11:17:58 Case Start 11:17:59 20 mL 1% XYLOCAINE given in lab by Ameya Dubose in Right Groin via Subcutaneous. 11:18:35 HR=73 bpm, QHEZ=265/90 mmhg, SpO2=98.0 %, Resp=15 B/min, Pain=0, Ibrahima=10, Kim=2 11:18:58 Access site was Right Femoral Artery. 11:19:05 A SHEATH, FR4 TERUMO (10CM) FR 4 was advanced into the Fem Art (right) using the Percutaneo us technique. A JR 4.0 INFINITI CATHETER FR 4 was advanced over a wire. OMNIPAQUE, 350 MG, 150ML 150ML was us ed for 11:19:16 injections. Recorded Pressure: LV, HR=75, Condition=Condition 1 11:20:05 (Left Ventricle) LV 123/8/14 11:20:10 The LV was manually injected with 8 cc's and visualized. OMNIPAQUE, 350 MG, 150ML 150ML use d. Recorded Pressure: LV, Ao, HR=73, Condition=Condition 1 11:20:21 (Left Ventricle) LV 118/7/12, (Aorta) Ao 125/74/98 11:20:40 The RCA was injected and visualized at various angles. OMNIPAQUE, 350 MG, 150ML 150ML used . 11:21:20 Catheter was removed A JL 4.0 INFINITI CATHETER FR 6 was advanced over a wire. OMNIPAQUE, 350 MG, 150ML 150ML was us ed for 11:21:37 injections. 11:22:06 OMNIPAQUE, 350 MG, 150ML 150ML and 30 TRINITY INDEFLATOR added. 11:22:32 The LCA was injected and visualized at various angles. OMNIPAQUE, 350 MG, 150ML 150ML used . Recorded Pressure: Ao, HR=74, Condition=Condition 1 11:22:50 (Aorta) Ao 124/76/98 11:23:38 HR=74 bpm, XQDD=364/78 mmhg, SpO2=97.0 %, Resp=17 B/min, Pain=0, Ibrahima=10, Kim=2 11:23:42 Catheter was removed 11:25:01 6000 units HEPARIN given in lab by Alexey Jackson RN in Left Antecubital via Peripheral IV . A SHEATH, FR6.5 PRELUDE 11CM FR 6.5 was exchanged in the Fem Art (right). This was necessary in order to 11:25:28 accomodate a larger catheter. A JR 4.0 GUIDE CATHETER FR 6 was advanced over a wire. OMNIPAQUE, 350 MG, 150ML 150ML was used for 11:25:48 injections. 11:28:35 HR=72 bpm, LHFM=832/90 mmhg, SpO2=97.0 %, Resp=9 B/min, Pain=0, Ibrahima=10, Kim=2 11:30:33 A WIRE, ASAHI PROWATER 180CM 180CM was inserted via Fem Art (right). An STENT, 3.5 15 INTEGRITY 3.5 15 Bare Metal Stent was inserted through a JR 4.0 GUIDE CATHETE R FR 6 over a 11:31:51 WIRE, ASAHI PROWATER 180CM 180CM. A STENT, 3.5 15 INTEGRITY 3.5 15 was deployed using a 30 TRINITY INDEFLATOR at 16 atmospheres for 12 seconds in 11:32:51 the RCA Mid. 11:33:36 HR=68 bpm, LQTP=110/92 mmhg, SpO2=97.0 %, Resp=13 B/min, Pain=0, Ibrahima=10, Kim=2 11:33:59 Wire removed 11:34:04 Catheter was removed 11:34:07 Case End 11:34:58 Catheter(s) removed without difficulty 11:35:03 In the Fem Art (right) the SHEATH, FR6.5 PRELUDE 11CM FR 6.[address] by Daphne Guillaume, DRUM STENCILER TECH2. 11:35:12 No case complications noted. 11:35:15 Bedside Report will be given. 11:36:13 DOCU called. Spoke to Andres. Advised pt needs a-line and bed. 11:36:46 Implantable Device card placed in patient's chart. 11:36:50 A Left Heart Cath was performed. 11:38:38 HR=75 bpm, FGWC=007/92 mmhg, SpO2=97.0 %, Resp=29 B/min, Pain=0, Ibrahima=10, Kim=2 11:38:45 Sterile dressing applied to site 11:40:01 ACT (Normal Range 90-180) = 305 11:40:56 42 mL AGGRASTAT BOLUS given in lab by Alexey Jackson RN in Left Antecubital via Periphera l IV. 0.145 mcg/kg/min AGGRASTAT DRIP given in lab by Alexey Jackson RN in Left Antecubital via Per ipheral IV. Pump/Drip 11:42:24 Flow = 15 ml/hr using NaCl .9 with a concentration of 12.5 mg in 250 ml. 11:42:46 600 mg PLAVIX given in lab by Alexey Jackson RN via Oral. 11:43:13 Vitals capture stopped. 11:43:[address] [facility] End Study - Contrast Media Used In Study Contrast Total Opened (mL) Total Used (mL) Total Wasted (mL) Omnipaque 50 50 0 End Study - Radiation Exposure Fluoro Time (minutes) 3.4 End Study - Patient Disposition Complications Transferred To Interventional Outcome No Dam Attendant Holding successful
--- NOTE | 2018-01-22 12:46 | MA ---
cc: Ameya Dubose MD 01/22/2018 Left heart catheterization, left ventriculography, coronary angiography, direct PCI, bare-metal stent of the proximal right coronary artery. INDICATION: Unstable angina, [place] [employer] class 4 angina, coronary artery disease, moderate-risk nuclear stress test with moderate-sized reversible defect in the posterior wall, anterior wall, apical wall, inferior wall; moderate-sized fixed defect in posterior wall, anterior wall, inferior wall and apical wall. Patient was brought to the cardiac catheterization laboratory, prepped and draped in the usual sterile fashion; 10 mL of 1% lidocaine was used to locally anesthetize the right common femoral artery. A 4 Anguillan sheath placed in the right common femoral artery. A 4 Anguillan JL4 and JR4 catheters were used to perform left and right coronary angiography, left ventriculography. FINDINGS: The LV pressure is 120/10/12. EF 60%. Right coronary artery is dominant. There a proximal 40% to 50% stenosis, a prox-mid about 80% stenosis. Distal vessel is diffused diseased up to 50% angiographically. Right PDA, right RAE have mild diffuse disease angiographically. The left main coronary artery has a distal 30% to 40% stenosis, which I do not appreciate at all on the caudal views, but in the AP cranial view it does appear possibly up to 30% to 40% angiographically. The left circumflex also has ostial 60% to 70% stenosis at a bifurcation with a very small obtuse marginal vessel, which has reference vessel diameter of 1 to 1.5 mm. This vessel itself has a long ostial proximal 80% stenosis. Beyond this, the circ is of medium to large size marginal vessel, which has mild to moderate distal disease up to 30% to 40% angiographically. The remainder of the AV groove left circumflex vessel gives off a small posterolateral artery, reference vessel diameter of 0.5 mm in diameter. LAD is non-transapical, has mild diffuse disease in the ostial proximal segment up to 10% to 20% angiographically. It is indeterminant whether there is normal vessel tapering with some degree of vessel stenosis. The vessel goes from a reference vessel diameter of approximately 3.5 down to a reference vessel diameter of probably 2.25 after this second simple insole and outsole preparer branch, but there is no high-grade focal lesion. First diagonal artery is a medium size vessel, reference vessel diameter 2.5 mm in diameter with a mid to distal 20% stenosis. Given that the majority of the reversible defect is in the posterior wall, inferior wall, and apex and this vessel was occluded previously and it had the highest grade focal lesion, I suspect that this was the patient's culprit lesion. I did think it was reasonable to proceed with attempted PCI. In terms of the circ, there was no lateral wall fixed defect or reversible defect suggesting non-hemodynamically significant stenosis. Therefore, patient was given 70 units/kg of heparin. ACT is 305. The 6 Anguillan sheath exchanged for 4 Anguillan sheath, 6 Anguillan JR4 guide and 0.014 Prowater guide wire were used to cross the proximal mid right coronary artery stenosis. A 3.5 x 15 Integrity stent was deployed with 1 inflation, 16 atmospheres for 20 seconds. Stenosis went from 80% to 0% with SYED 3 flow. CONCLUSION: 1. Moderate size area of fixed and reversible defect in posterior wall, inferior wall, apex and anterior wall, culprit 80% proximal right coronary artery stenosis as detailed above. Otherwise, mild to moderate left main and moderate left circumflex, possibly moderate left anterior descending disease as detailed above. 2. Normal left ventricular systolic function, ejection fraction 60%. 3. Successful direct percutaneous coronary intervention, bare-metal stent of proximal mid right coronary artery from 80% to 0% with SYED 3 flow. Note, there is a 50% to 60% stenosis in the proximal right and distal right. 4. Recommend reload with Plavix 600 mg, then 75 mg daily for 12-15 months, aspirin 162 mg daily, and continue ramipril 2.5 mg daily. Actually, statin is being held due to elevated LFTs. 5. We will reassess patient's symptoms on Friday, January 26, to determine whether or not circumflex or left anterior descending need to be evaluated with fractional flow reserve. MD PEDRO Smith/JERRELL , 11:44 AM , 12:45 PM
[2018-01-22] MEDS ORDERED: TIROFIBAN INFUSION INJ 250 ML IV SCH (15:11)
[2018-01-22] MEDS ORDERED: MISC INFORMATION XX ONE (15:15)
[2018-01-22] MEDS ORDERED: CLOPIDOGREL 300 MG TAB PO ONE (15:15)
[2018-01-22] MEDS ORDERED: SODIUM CHLORIDE 0.9% FLUSH 10 ML FLUSH IV FLUSH PRN (15:15)
[2018-01-22] MEDS ORDERED: ATORVASTATIN 10 MG TAB PO SCH (21:00)
[2018-01-22] MEDS ORDERED: SODIUM CHLORIDE 0.9% FLUSH 10 ML FLUSH IV FLUSH SCH (21:00)
[2018-01-23] VITALS (13 sets, daily range): BP systolic 118–122; BP diastolic 76–80; PULSE 77–95; RESP 16–18; TEMP 98; O2SAT 97–98
[2018-01-23 05:32] LABS: ALBUMIN 3.6 GM/DL (3.4-5.0); ALKALINE PHOSPHATASE 49 U/L (45-117); ALT (GPT) 51 U/L (12-78); AST (GOT) 23 U/L (15-37); BICARBONATE 26.3 MEQ/L (21.0-32.0); BLOOD UREA NITROGEN 19 MG/DL (7-18); CALCIUM 8.8 MG/DL (8.5-10.1); CHLORIDE 107 MEQ/L (98-107); CHOLESTEROL 232 MG/DL (120-200); CHOLESTEROL/ HDL RATIO 6.33 RATIO; CREATININE 0.73 MG/DL (0.60-1.30); DIRECT BILIRUBIN ADULT LESS THAN 0.1 MG/DL (0.0-0.2); GLOMERULAR FILTRATION RATE 117 ML/MIN (>89); GLUCOSE,RANDOM 98 MG/DL (74-106); HDL CHOLESTEROL 36.6 MG/DL (40.0-60.0); INDIRECT BILIRUBIN 0.1 MG/DL (0.0-0.8); LDL CHOLESTEROL 160 MG/DL (0-99); SODIUM (NA) 140 MEQ/L (136-145); TOTAL BILIRUBIN ADULT 0.2 MG/DL (0.2-1.0); TOTAL PROTEIN 7.9 GM/DL (6.4-8.2); TRIGLYCERIDES 175 MG/DL (42-150)
[2018-01-23] MEDS ORDERED: CLOPIDOGREL 75 MG TAB PO SCH (09:00)
[2018-01-23] MEDS ORDERED: ASPIRIN 81 MG CHEW TAB PO SCH (09:00)
[2018-01-23 09:38] LABS: AUTOMATED NEUTROPHIL # 5.2 TH/MM3 (1.8-7.7); BASOPHIL % 0.3 % (0.0-2.0); EOSINOPHIL # 0.2 TH/MM3 (0-0.4); EOSINOPHIL % 2.5 % (0.0-4.0); HEMATOCRIT 37.4 % (39.0-51.0); HEMOGLOBIN 12.9 GM/DL (13.0-17.0); LYMPH % 20.2 % (9.0-44.0); LYMPHOCYTE # 1.5 TH/MM3 (1.0-4.8); MEAN CELL VOLUME 84.7 FL (80.0-100.0); MEAN CORPUSCULAR HEMOGLOBIN 29.2 PG (27.0-34.0); MEAN CORPUSCULAR HGB CONC 34.4 % (32.0-36.0); MEAN PLATELET VOLUME 8.5 FL (7.0-11.0); MONO % 4.9 % (0.0-8.0); MONOCYTE # 0.4 TH/MM3 (0-0.9); NEUT % 72.1 % (16.0-70.0); PLATELET COUNT 164 TH/MM3 (150-450); RED BLOOD COUNT 4.41 MIL/MM3 (4.50-5.90); WHITE BLOOD COUNT 7.3 TH/MM3 (4.0-11.0)
--- NOTE | 2018-01-23 18:02 | EKG ---
Date Performed: 01/22/2018 Time Performed: 09:31:30 PTAGE: 43 years EKG: Sinus rhythm Leftward axis Inferior infarct - age undetermined Abnormal ECG PREVIOUS TRACING : 12/22/2017 16.42 Since the prior tracing, there has been no significant arita DOCTOR: Cinthia Devi Interpretating Date/Time 01/23/2018 17:59:23
--- NOTE | 2018-01-23 18:03 | EKG ---
Date Performed: 01/22/2018 Time Performed: 13:27:10 PTAGE: 43 years EKG: Sinus rhythm Leftward axis Inferior infarct - age undetermined Abnormal ECG PREVIOUS TRACING : 01/22/2018 09.31 Since the prior tracing, there has been no significant arita DOCTOR: Cinthia Devi Interpretating Date/Time 01/23/2018 17:59:36
--- NOTE | 2018-01-23 18:03 | EKG ---
Date Performed: 01/22/2018 Time Performed: 17:00:50 PTAGE: 43 years EKG: Sinus rhythm Left axis deviation Inferior infarct - age undetermined Tall R V1/V2 probably reflect the infarct [place] T wave changes may be due to myocardial ischemia Abnormal ECG PREVIOUS TRACING : 01/22/2018 13.27 Since the prior tracing, there has been no significant arita DOCTOR: Cinthia Devi Interpretating Date/Time 01/23/2018 17:59:45
--- NOTE | 2018-01-24 10:14 | EKG ---
Date Performed: 01/23/2018 Time Performed: 06:22:02 PTAGE: 43 years EKG: Sinus rhythm Leftward axis Inferior infarct - age undetermined Abnormal ECG NO PREVIOUS TRACING DOCTOR: Glenn Young Interpretating Date/Time 01/24/2018 10:12:42
== END 2018-01-23 11:30 | disposition home or self-care (01) ==
LOC: HDOC 08:37 → HDIC 08:37 → HCIS 14:08 → HDOC 01-23 11:30
PROVIDERS: ATTEND Internal Medicine Interventional Cardiology
DX: I25.110 Atherosclerotic heart disease of native coronary artery with unstable angina pectoris (principal); R94.31 Abnormal electrocardiogram [ECG] [EKG]; Z79.01 Long term (current) use of anticoagulants
CPT/HCPCS: 80048; 80061; 80076; 82550; 85002; 85025; 85610; 85730; 92928; 93005; 93458; 99152; C1769; C1876; C1887; C1893; J1644; J2250; J3246; Q9967

== ENCOUNTER 2018-12-05 17:25 | Observation (INO) ==
--- NOTE | 2018-12-05 18:40 | XR ---
EXAM DATE: 12/05/2018 6:31 PM EST AGE/SEX: 43 years / Male INDICATIONS: Chest pain. High blood pressure. CLINICAL DATA: This is the patient's initial encounter. Patient reports that signs and symptoms have been present for 1 day and indicates a pain score of 6/10. MEDICAL/SURGICAL HISTORY: . Degenerative disk disorder. None. COMPARISON: [facility] [place]. . FINDINGS: A single AP view of the chest demonstrates the lungs to be symmetrically aerated without evidence of mass, infiltrate or effusion. Heart size is borderline prominent but well compensated.. Osseous stru ctures are intact. CONCLUSION: 1. Heart size is borderline prominent but well compensated. 2. Lungs are clear. Electronically signed by: Manuel Edmond MD Board Certified Radiologist 12/05/2018 6:39 PM EST
[2018-12-05 18:44] LABS: Baso # (Auto) 0.1 th/mm3 (0.0-0.2); Eos # (Auto) 0.2 th/mm3 (0.0-0.4); Eos % (Auto) 2.2 % (0.0-4.0); Hematocrit 32.8 % (39.0-51.0); Hemoglobin 11.8 gm/dL (13.0-17.0); Lymph # (Auto) 2.7 th/mm3 (1.0-4.8); Lymph % (Auto) 24.7 % (9.0-44.0); Mean Corpuscular HGB Conc 35.8 % (32.0-36.0); Mean Corpuscular Hemoglobin 30.9 pg (27.0-34.0); Mean Corpuscular Volume 86.2 fL (80.0-100.0); Mean Platelet Volume 7.7 fL (7.0-11.0); Mono # (Auto) 0.9 th/mm3 (0.0-0.9); Mono % (Auto) 8.4 % (0.0-8.0); Neut % (Auto) 63.7 % (16.0-70.0); Platelet Count 442 th/mm3 (150-450); Red Blood Count 3.81 mil/mm3 (4.50-5.90); Red Cell Distribution Width 13.7 % (11.6-17.2)
[2018-12-05 18:45] LABS: Activated Partial Thrombo Time 25.9 sec (23.4-31.7); Prothrombin Time 10.5 sec (9.8-11.6)
--- NOTE | 2018-12-05 18:54 | ED ---
HPI General Chief Complaint: Chest Pain Stated Complaint: chest pain/bp issue Time Seen by Provider: 12/05/18 18:07 History of Present Illness HPI narrative: This patient complains of chest pain. Has been intermittent on and off for about 2 weeks. He describes a low-grade discomfort in the left mid chest. Not exertional. He is currently pain-free. Symptoms are brief when they come. His last cardiac testing was catheterization and stenting 11 months ago. He takes a baby aspirin daily and took it prior to arrival. No alleviating factors. No exacerbating factors. Symptom severity is mild to moderate. He says he lost insurance and does not follow with any security administrator. Related Data Home Medications Medication Instructions Recorded Confirmed clopidogrel [Plavix] 75 mg PO DAILY 11/17/18 12/05/18 aspirin [Aspir-81] 81 mg PO DAILY 12/05/18 12/05/18 atorvastatin 80 mg PO QPM 12/05/18 12/05/18 Previous Rx's Medication Instructions Recorded acetaminophen [Tylenol Arthritis 650 mg PO Q8H PRN #30 tab 11/17/18 Pain] tizanidine [Zanaflex] 6 mg PO TID PRN #30 cap 11/17/18 metoprolol tartrate 25 mg PO BID #60 tab 12/06/18 pantoprazole 40 mg PO DAILY #30 tab 12/06/18 Allergies Allergy/AdvReac Type Severity Reaction Status Date / Time No Known Allergies Allergy Verified 12/05/18 17:36 Review of Systems ROS: all other systems reviewed are negative [facility] Medical History Medical History CAD (coronary artery disease) (Acute) Chronic back pain (Acute) HTN (hypertension) (Acute) Heart attack (Acute) Hyperlipidemia (Acute) Surgical History Surgical History History of cardiac cath (Acute) History of surgery on arm (Acute) Stented coronary artery (Acute) Social History Social History Substance History: No History of Abuse Second Hand Smoke Exposure: No Smoking Status: Former smoker ("heavy vaping" reported vaping every 5 minutes, quit after heart attack 2017, quit 1/2 pack cigarettes 2013) Tobacco Type: Cigarettes How Often Do You Have a Drink Containing Alcohol: Never Hx Recent Travel: No Recent Travel in [facility] within the Last 8 Weeks: No Recent Out of Country Travel within the Last 8 Weeks: No Immunization History Tetanus Immunization: Unsure Exam Narrative Exam Narrative: GENERAL: Well-nourished, well-developed patient in no apparent distress. SKIN: Focused skin assessment reveals no rash and nodules. Skin is Warm and dry. HEAD: Atraumatic. Normocephalic. EYES: Pupils equal and round. No scleral icterus. No injection or drainage. ENT: No nasal bleeding or discharge. Mucous membranes pink and moist. NECK: Trachea midline. No JVD. CARDIOVASCULAR: Regular rate and rhythm. No murmur appreciated. RESPIRATORY: No accessory muscle use. Clear to auscultation. Breath sounds equal bilaterally. GASTROINTESTINAL: Abdomen soft, non-tender, nondistended. Hepatic and splenic margins not palpable. MUSCULOSKELETAL: No obvious deformities. No clubbing. No cyanosis. No edema. NEUROLOGICAL: Awake and alert. No obvious cranial nerve deficits. Motor grossly within normal limits. Normal speech. PSYCHIATRIC: Appropriate mood and affect; insight and judgment normal. Course Initial Documented Vital Signs Temperature 98.4 F 12/05/18 17:34 Pulse Rate 98 H 12/05/18 17:34 Respiratory Rate 18 12/05/18 17:34 Blood Pressure 170/108 H 12/05/18 17:34 Pulse Oximetry 97 12/05/18 17:34 Last Documented Vital Signs Temperature 98.7 F 12/06/18 08:00 Pulse Rate 91 H 12/06/18 08:00 Respiratory Rate 16 12/06/18 08:00 Blood Pressure 138/92 H 12/06/18 08:00 Pulse Oximetry 16 L 12/06/18 08:00 Medical Decision Making BENJAMIN Attestation BENJAMIN supervised visit: Yes Attestation: I, Dr. Vaughn, have reviewed the advance practice practitioner's documentation and am in agreement, met with the patient face to face, made the diagnosis, and the medical decision making was done by me. *My assessment and Findings: Chest pain MDM Narrative Medical decision making narrative: 43-year-old male with significant cardiac history complains of intermittent low-grade discomfort for 2 weeks. His EKG does not show anything alarming. I have ordered x-ray and lab studies. Patient will be a telemetry observation in the hospital but the workup is pending and I reviewed it with evening physician who will help make this happen. 2006 p.m. Patient was seen by ED physician and signed out to me. EKG shows NSR , no ST elevation or depression, and no arrhythmias. No significant T-wave inversions. Shows no acute process. Q waves present inferiorly. Cardiac enzymes are normal. Patient complains of persistent low back pain for the past month. Patient has been taking muscle relaxant for that. Patient was on Plavix and aspirin 81 mg daily. BUN 45. Creatinine 2.08. Patient has acute kidney injury. CT scan abdomen pelvis shows no acute pathology with urology standpoint. Normal saline solution 1 L IV bolus. Kidney function can be workup as outpatient. Patient will be admitted to chest pain center. Medical Screen Exam Complete: Yes Emergency Medical Condition: Yes Differential Diagnosis Differential Diagnosis: Differential diagnosis includes CT, angina, pericarditis , pleurisy, GERD, anxiety. Medical Records Medical records reviewed: Yes I reviewed the patient's medical records. Reviewed his November admission and his December heart catheterization Lab Data Lab results reviewed: Yes I reviewed the patient's lab results. Result diagrams: 12/05/18 18:26 12/05/18 18:26 Lab Results 12/05/18 12/05/18 12/05/18 Range/Units 18:26 18:26 18:26 WBC 11.0 (4.0-11.0) th/mm3 RBC 3.81 L (4.50-5.90) mil/mm3 Hgb 11.8 L (13.0-17.0) gm/dL Hct 32.8 L (39.0-51.0) % MCV 86.2 (80.0-100.0) fL MCH 30.9 (27.0-34.0) pg MCHC 35.8 (32.0-36.0) % RDW 13.7 (11.6-17.2) % Plt Count 442 (150-450) th/mm3 MPV 7.7 (7.0-11.0) fL Neut % (Auto) 63.7 (16.0-70.0) % Lymph % (Auto) 24.7 (9.0-44.0) % [place] % (Auto) 8.4 H (0.0-8.0) % Eos % (Auto) 2.2 (0.0-4.0) % Baso % (Auto) 1.0 (0.0-2.0) % Neut # (Auto) 7.0 (1.8-7.7) th/mm3 Lymph # (Auto) 2.7 (1.0-4.8) th/mm3 [place] # (Auto) 0.9 (0.0-0.9) th/mm3 Eos # (Auto) 0.2 (0.0-0.4) th/mm3 Baso # (Auto) 0.1 (0.0-0.2) th/mm3 WBC Differential . Differential Comment Auto diff final PT 10.5 (9.8-11.6) sec INR 1.0 Ratio APTT 25.9 (23.4-31.7) sec Sodium 138 (136-145) meq/L Potassium 5.2 H (3.5-5.1) meq/L Chloride 106 (98-107) meq/L Carbon Dioxide 23.0 (21.0-32.0) meq/L Anion Gap 9 (5-15) meq/L BUN 45 H (7-18) mg/dL Creatinine 2.08 H (0.60-1.30) mg/dL Estimated GFR 35 L (>89) mL/min Random Glucose 92 (74-106) mg/dL Calcium 10.6 H (8.5-10.1) mg/dL Magnesium 1.9 (1.5-2.5) mg/dL Total Bilirubin 0.3 (0.2-1.0) mg/dL AST 41 H (15-37) U/L ALT 50 (12-78) U/L Alkaline Phosphatase 66 (45-117) U/L Total Creatine Kinase 301 (39-308) U/L CK-MB (CK-2) 15.0 H (0.5-3.6) ng/mL Troponin I 0.03 (0.02-0.05) ng/mL Total Protein 7.9 (6.4-8.2) g/dL Albumin 3.3 L (3.4-5.0) g/dL 12/05/18 12/06/18 Range/Units 23:09 06:45 WBC (4.0-11.0) th/mm3 RBC (4.50-5.90) mil/mm3 Hgb (13.0-17.0) gm/dL Hct (39.0-51.0) % MCV (80.0-100.0) fL MCH (27.0-34.0) pg MCHC (32.0-36.0) % RDW (11.6-17.2) % Plt Count (150-450) th/mm3 MPV (7.0-11.0) fL Neut % (Auto) (16.0-70.0) % Lymph % (Auto) (9.0-44.0) % [place] % (Auto) (0.0-8.0) % Eos % (Auto) (0.0-4.0) % Baso % (Auto) (0.0-2.0) % Neut # (Auto) (1.8-7.7) th/mm3 Lymph # (Auto) (1.0-4.8) th/mm3 [place] # (Auto) (0.0-0.9) th/mm3 Eos # (Auto) (0.0-0.4) th/mm3 Baso # (Auto) (0.0-0.2) th/mm3 WBC Differential Differential Comment PT (9.8-11.6) sec INR Ratio APTT (23.4-31.7) sec Sodium (136-145) meq/L Potassium (3.5-5.1) meq/L Chloride (98-107) meq/L Carbon Dioxide (21.0-32.0) meq/L Anion Gap (5-15) meq/L BUN (7-18) mg/dL Creatinine (0.60-1.30) mg/dL Estimated GFR (>89) mL/min Random Glucose (74-106) mg/dL Calcium (8.5-10.1) mg/dL Magnesium (1.5-2.5) mg/dL Total Bilirubin (0.2-1.0) mg/dL AST (15-37) U/L ALT (12-78) U/L Alkaline Phosphatase (45-117) U/L Total Creatine Kinase 242 217 (39-308) U/L CK-MB (CK-2) (0.5-3.6) ng/mL Troponin I 0.03 0.03 (0.02-0.05) ng/mL Total Protein (6.4-8.2) g/dL Albumin (3.4-5.0) g/dL Imaging Data Attestation: I personally reviewed and interpreted this imaging study as follows : Radiologist's impression: Chest X-Ray 12/05/18 18:09 CONCLUSION: 1. Heart size is borderline prominent but well compensated. 2. Lungs are clear. Abdomen/Pelvis CT 12/05/18 20:03 CONCLUSION: 1. No evidence of renal stones or hydronephrosis. 2. Lumbar paraspinal muscular calcification, diffuse and symmetric, is a new finding compared to November 2017. This could possibly be a manifestation of developing myositis ossificans. Myocardial Perfusion Scan Nuc Med 12/06/18 00:00 CONCLUSION: 1. Negative examination. Discharge Plan Discharge Disposition Patient Disposition: ED Admit(ED Internal Use Only) Discharge Condition Condition: Stable Discharge Order Discharge Orders: Discharge Order (Routine); Ordered 12/06/18 Ordered By: Erin Dhillon ED Use Only Admit Order (Routine); Ordered 12/05/18 Ordered By: Guanaco Vaughn Discharge Details Diagnosis: Chest pain, Acute renal insufficiency Physicians Team ED Provider: Jovan Gibbons Primary Care Provider: UNKNOWN, Attending Provider: Nilesh Purvis Status ED Status: Left Department Discharge Information Discharge Date/Time: 12/05/18 23:10
[2018-12-05 19:22] LABS: Alanine Aminotransferase 50 U/L (12-78); Albumin 3.3 g/dL (3.4-5.0); Alkaline Phosphatase 66 U/L (45-117); Anion Gap 9 meq/L (5-15); Aspartate Aminotransferase 41 U/L (15-37); Blood Urea Nitrogen 45 mg/dL (7-18); Calcium 10.6 mg/dL (8.5-10.1); Chloride 106 meq/L (98-107); Creatine Kinase 301 U/L (39-308); Glomerular Filtration Rate 35 mL/min (>89); Glucose,Random 92 mg/dL (74-106); Magnesium 1.9 mg/dL (1.5-2.5); Sodium 138 meq/L (136-145); Total Protein 7.9 g/dL (6.4-8.2); Troponin I 0.03 ng/mL (0.02-0.05)
[2018-12-05 19:23] LABS: Potassium 5.2 meq/L (3.5-5.1)
[2018-12-05] MEDS ORDERED: Sod Chloride 0.9% Inj 1,000 ML IV.SIG SCH (20:00)
--- NOTE | 2018-12-05 21:14 | CT ---
EXAM DATE: 12/05/2018 8:52 PM EST AGE/SEX: 43 years / Male INDICATIONS: Low back pain; rule out renal calculi. CLINICAL DATA: This is the patient's initial encounter. Patient reports that signs and symptoms have been present for 1 day and indicates a pain score of 7/10. MEDICAL/SURGICAL HISTORY: Myocardial infarction. Hypertension. Coronary artery stent. RADIATION DOSE: 18.60 CTDI (mGy) [place] [facility] [place] 12/20/2017. . TECHNIQUE: Multiple contiguous axial images were obtained through the abdomen. Images were obtained using multiple row detector helical technique. Using automated exposure control and adjustment of the mA and/or kV according to patient size, radiation dose was kept as low as reasonably achievable to o btain optimal diagnostic quality images. DICOM format image data is available electronically for rev iew and comparison. FINDINGS: Lower Lungs: The visualized lower lungs are clear. Small hiatus hernia. Liver: The liver has a homogeneous density without space-occupying lesion for noncontrast technique. There is no dilation of the biliary tree. No calcified gallstones. Spleen: Homogeneous density without enlargement. Pancreas: Unremarkable without mass or calcification. Kidneys: Normal in size and shape. No evidence of mass or hydronephrosis. No calcified stones in the collecting system or ureter on either side. Adrenal Glands: Unremarkable. Aorta: The aorta and proximal iliac vessels are grossly unremarkable without aneurysmal dilation. Bowel/Mesentery: No dilated loops of small or large bowel. The appendix is located inferior to the c ecum and has a normal appearance. Abdominal Wall: Intact. Retroperitoneum: No evidence of adenopathy in the retrocrural, para-aortic, or deep pelvic regions. Bladder: Contours are smooth. Reproductive Organs: No abnormal masses or calcifications seen. Inguinal: The inguinal region is unremarkable without evidence of adenopathy. Bony Structures: The osseous structures are intact. There are diffuse calcifications within and abou t the surface of the posterior paraspinal musculature throughout the lumbar spine which is a new find ing when compared to prior CT in November 2017.. CONCLUSION: 1. No evidence of renal stones or hydronephrosis. 2. Lumbar paraspinal muscular calcification, diffuse and symmetric, is a new finding compared to Nov. This could possibly be a manifestation of developing myositis ossificans. Electronically signed by: Jose Duong MD Board Certified Radiologist 12/05/2018 9:13 PM EST
[2018-12-05] MEDS ORDERED: Acetaminophen 500 MG Tablet PO PRN (22:04)
[2018-12-06 00:21] LABS: Troponin I 0.03 ng/mL (0.02-0.05)
[2018-12-06] MEDS: Sod Chloride 0.9% Inj 1,000 ML IV.CONT SCH ×2 (01:15→07:25)
[2018-12-06 07:36] LABS: Troponin I 0.03 ng/mL (0.02-0.05)
[2018-12-06 08:09] VITALS: BP 138/92; RESP 16; TEMP 98.7; O2SAT 16
--- NOTE | 2018-12-06 08:30 | P.HPCA ---
History of Present Illness Primary Care Physician: Dr. Ibrahim Chief Complaint: Chest pain History of Present Illness: 43-year-old male with history of cardiac arrest November 2017, CAD, 2 cardiac stents, and hypertension presents to ER for further evaluation of intermittent, nonexertional chest pain. Onset 2 weeks. Location slight left of sternum. Characterizes as "a gas pain, sometime sharp." Denies discomfort as pressure or tightness. Mild in severity. No radiation. Duration 5-10 minutes. Associated symptoms include nausea "sometimes." No associated symptoms of nausea, dyspnea , or diaphoresis. Precipitating factors possibly "emotional stress." Endorses anxiety thinking discomfort could be cardiac related. Relieving factors deep breathing. Endorses similar discomfort for months prior to cardiac arrest. No recent illness, fever, or cough. Currently switching primary care providers due to insurance change and attempting to reconnect with Dr. Dubose as well. November 2017 cardiac arrest, quite extensive hospital stay, and stent placed to RCA. Discharged home, continued having chest pain therefore Dr. Dubose took him for catheterization January 2018 placing another stent to RCA. Patient states chest pain improved but never fully resolved experiencing chest pain maybe once a month. Over the past 2 weeks, chest pain returning more frequently every second or third day. No current chest pain or discomfort. Past cardiac testing 01/22/18 Cardiac catheterization (Dr. Dubose) Conclusion: Moderate-sized area of fixed and reversible defect in posterior wall, inferior wall, apex and anterior wall, culprit 80% proximal right coronary artery stenosis as detailed above. Otherwise, mild to moderate left main and moderate left circumflex, possibly moderate left anterior descending disease as detailed above. 2. Normal left ventricular systolic function, ejection fraction 60%. 3. Successful direct percutaneous coronary intervention, bare-metal stent of proximal mid right coronary artery from 80% to 0% with SYED III flow. Note, there is a 50-60% stenosis in the proximal right and distal right. 4. Recommended reload with Plavix 600 mg, then 75 mg daily for 12-15 months, aspirin 162 mg daily, continue ramipril 2.5 mg daily. Actually, statin is being held due to elevated LFTs. 5. We will reassess patient's symptoms on Friday, January 26 to determine whether or not circumflex or left anterior descending needs to be evaluated with fractional flow reserve. 12/22/17 Cardiac catheterization (Dr. Dubose) Conclusion: 1. STEMI, culprit occluded, distal right coronary artery with grade 1, left to right collaterals. 2. Otherwise, mild to moderate three-vessel coronary artery disease. 3 Preserved LV systolic function at 55% with a least mild to moderate hypokinesis of the inferoapical wall. 4. PCI bare metal stent of the distal RCA from 100% to 0% with SYED-3 flow. 12/11/17 Cardiac arrest Social history Known CAD, hypertension, and hyperlipidemia. No known diabetes. Former smoker. Family history Noncontributory for early onset cardiovascular disease. - Diagnosis (1) Chest pain of uncertain etiology (2) Acute renal insufficiency (3) History of coronary artery disease (4) Hypertension (5) Anemia Review of Systems All other systems reviewed negative except as stated in HPI Gastrointestinal: Reports other (reports "a few black" emesis around [place] time and intermittent nausea), Denies black, tarry stools, Denies heartburn PMFSH - History History Provided By: Patient - Medical History Medical History: Medical History (Last Updated 12/06/18 @ 09:39 by ROMÁN Almeida) CAD (coronary artery disease) Hyperlipidemia Chronic back pain HTN (hypertension) Heart attack - Surgical History Surgical History: Surgical History (Last Updated 12/06/18 @ 09:39 by ROMÁN Almeida) History of cardiac cath History of surgery on arm Stented coronary artery - Social History I have reviewed the patient's Social History: Yes - Tobacco History Second Hand Smoke Exposure: No Smoking Status: Former smoker ("heavy vaping" reported vaping every 5 minutes, quit after heart attack 2017, quit 1/2 pack cigarettes 2013) Tobacco Type: Cigarettes - Alcohol History How Often Do You Have a Drink Containing Alcohol: Never - Substance Use History Substance History: No History of Abuse - Travel History History of Recent Travel: No Recent Travel in the [place] Within the Last 8 Weeks: No Recent Travel Out of the Country Within the Last 8 Weeks: No - Immunization History Tetanus Immunization: Unsure Medications and Allergies Active Medications: Active Medications Acetaminophen (Tylenol) 500 mg PO Q4H PRN PRN Reason: HEADACHE Sodium Chloride (Ns Inj) 1,000 mls @ 125 mls/hr IV.CONT .Q8H [facility] Last Admin: 12/06/18 07:25 Dose: Not Given Ondansetron HCl (Zofran Inj) 4 mg IV.PUSH Q6H PRN PRN Reason: NAUSEA Sodium Chloride (Ns Flush) 2 ml IV.FLUSH UNSCH PRN PRN Reason: FLUSH AFTER USING IV ACCESS Sodium Chloride (Ns Flush) 2 ml IV.FLUSH BID [facility] Last Admin: 12/06/18 08:23 Dose: Not Given Sodium Chloride (Ns Flush) 2 ml IV.FLUSH PRN PRN PRN Reason: FLUSH AFTER USING IV ACCESS Allergies Allergy/AdvReac Type Severity Reaction Status Date / Time No Known Allergies Allergy Verified 12/05/18 17:36 Home Medications Medication Instructions Recorded Confirmed Type clopidogrel [Plavix] 75 mg PO DAILY 11/17/18 12/05/18 History aspirin [Aspir-81] 81 mg PO DAILY 12/05/18 12/05/18 History atorvastatin 80 mg PO QPM 12/05/18 12/05/18 History metoprolol tartrate 25 mg PO DAILY 12/05/18 12/05/18 History Exam Vital signs: Vital Signs 12/05/18 17:34 12/05/18 17:36 12/05/18 18:31 Temperature 98.4 F Pulse Rate 98 H 94 H 87 Respiratory Rate 18 18 Blood Pressure 170/108 H 141/105 H Pulse Oximetry 97 98 98 12/05/18 21:47 12/06/18 00:00 12/06/18 04:00 Temperature 98.0 F 98.3 F Pulse Rate 86 84 82 Respiratory Rate 18 18 18 Blood Pressure 129/68 120/76 156/92 H Pulse Oximetry 99 99 97 12/06/18 08:00 Temperature 98.7 F Pulse Rate 82 Respiratory Rate 16 Blood Pressure 138/92 H Pulse Oximetry 16 L Intake & Output 12/05/18 12/06/18 12/06/18 18:59 06:59 18:59 Intake Total 1000 / 1000 Balance 1000 / 1000 Weight 83.915 kg 94.3 kg Intake: IV 1000 / 1000 NS Inj 1,000 ML @ 1000 mls/hr 1000 / 1000 IV.SIG BOLUS [facility] Rx#:[id number] Other: Weight On Admission 94.3 kg Narrative: GENERAL: Alert WN, WD, NAD, pleasant, , overweight male who appears older than stated age HEAD: NC, AT EYES: Sclera clear, conjunctiva without injection, pupils equal and round ENT: Mucous membranes pink and moist NECK: Supple, no masses, trachea midline CV: RRR, without murmur, rub, gallop, no JVD, S1-S2 no S3-S4. No carotid or femoral bruits. RESP: Clear lungs throughout bilateral, no crackles, wheeze, rhonchi, symmetrical chest rise, nonlabored, able to speak in full sentences ABD: Soft, NT, ND, no masses, positive bowel tones EXT: Pulses +2x4, no dependent edema MS: Normal tone x4 extremities, nontender, no obvious deformities, full range of motion NEURO: CN II through CN XII grossly intact, motor strength 5/5 PSYCH: A+O x3, pleasant affect, appropriate speech, mood, insight and judgment SKIN: Normal turgor, normal texture, no lesions, no rashes, brisk cap refill, even hair distribution Results 12/05/18 18:26 12/05/18 18:26 Cardiac Enzymes 12/05/18 12/05/18 12/06/18 Range/Units 18:26 23:09 06:45 AST 41 H (15-37) U/L CK-MB (CK-2) 15.0 H (0.5-3.6) ng/mL Troponin I 0.03 0.03 0.03 (0.02-0.05) ng/mL Coagulation 12/05/18 Range/Units 18:26 PT 10.5 (9.8-11.6) sec APTT 25.9 (23.4-31.7) sec CBC 12/05/18 Range/Units 18:26 WBC 11.0 (4.0-11.0) th/mm3 RBC 3.81 L (4.50-5.90) mil/mm3 Hgb 11.8 L (13.0-17.0) gm/dL Hct 32.8 L (39.0-51.0) % Plt Count 442 (150-450) th/mm3 Neut # (Auto) 7.0 (1.8-7.7) th/mm3 Lymph # (Auto) 2.7 (1.0-4.8) th/mm3 [place] # (Auto) 0.9 (0.0-0.9) th/mm3 Eos # (Auto) 0.2 (0.0-0.4) th/mm3 Baso # (Auto) 0.1 (0.0-0.2) th/mm3 Comprehensive Metabolic Panel 12/05/18 Range/Units 18:26 Sodium 138 (136-145) meq/L Potassium 5.2 H (3.5-5.1) meq/L Chloride 106 (98-107) meq/L Carbon Dioxide 23.0 (21.0-32.0) meq/L BUN 45 H (7-18) mg/dL Creatinine 2.08 H (0.60-1.30) mg/dL Calcium 10.6 H (8.5-10.1) mg/dL AST 41 H (15-37) U/L ALT 50 (12-78) U/L Alkaline Phosphatase 66 (45-117) U/L Total Protein 7.9 (6.4-8.2) g/dL Albumin 3.3 L (3.4-5.0) g/dL Intake and Output 12/05/18 12/06/18 12/06/18 22:59 06:59 14:59 Intake Total 1000 / 1000 Balance 1000 / 1000 Intake: IV 1000 / 1000 NS Inj 1,000 ML @ 1000 mls/hr 1000 / 1000 IV.SIG BOLUS [facility] Rx#:[id number] Other: Weight 83.915 kg 94.3 kg Weight On Admission 94.3 kg - Imaging and Cardiology Imaging: Impressions Chest X-Ray 12/05/18 18:09 CONCLUSION: 1. Heart size is borderline prominent but well compensated. 2. Lungs are clear. Abdomen/Pelvis CT 12/05/18 20:03 CONCLUSION: 1. No evidence of renal stones or hydronephrosis. 2. Lumbar paraspinal muscular calcification, diffuse and symmetric, is a new finding compared to November 2017. This could possibly be a manifestation of developing myositis ossificans. EKG interpretations - EKG EKG results cardiology: sinus rhythm (Q waves inferior), normal axis, normal QRS , normal ST/T Caprini VTE Risk Assessment Caprini VTE Risk Assessment: No/Low Risk (score <= 1) Caprini Risk Assessment Model: Point Value = 1 Point Value = 2 Point Value = 3 Point Value = 5 Age 41-60 Minor surgery BMI > 25 kg/m2 Swollen legs Varicose veins or History of unexplained or recurrent spontaneous Oral contraceptives or hormone replacement Sepsis (< 1 month) Serious lung disease, including pneumonia (< 1 month) Abnormal pulmonary function Acute myocardial infarction Congestive heart failure (< 1 month) History of inflammatory bowel disease Medical patient at bed rest Age 61-74 Arthroscopic surgery Major open surgery (> 45 min) Laparoscopic surgery (> 45 min) Malignancy Confined to bed (> 72 hours) Immobilizing plaster cast Central venous access Age >= 75 History of VTE Family history of VTE Factor V Leiden Prothrombin [id number] Lupus anticoagulant Anticardiolipin antibodies Elevated serum homocysteine Heparin-induced thrombocytopenia Other congenital or acquired thrombophilia Stroke (< 1 month) Elective arthroplasty Hip, pelvis, or leg fracture Acute spinal cord injury (< 1 month) Prophylaxis Regimen: Total Risk Factor Score Risk Level Prophylaxis Regimen 0-1 Low Early ambulation 2 Moderate Order ONE of the following: *Sequential Compression Device (SCD) *Heparin 5000 units SQ BID 3-4 Higher Order ONE of the following medications: *Heparin 5000 units SQ TID *Enoxaparin/Lovenox 40 mg SQ daily (WT < 150 kg, CrCl > 30 mL/min) *Enoxaparin/Lovenox 30 mg SQ daily (WT < 150 kg, CrCl > 10-29 mL/min) *Enoxaparin/Lovenox 30 mg SQ BID (WT < 150 kg, CrCl > 30 mL/min) AND/OR *Sequential Compression Device (SCD) 5 or more Highest Order ONE of the following medications: *Heparin 5000 units SQ TID (Preferred with Epidurals) *Enoxaparin/Lovenox 40 mg SQ daily (WT < 150 kg, CrCl > 30 mL/min) *Enoxaparin/Lovenox 30 mg SQ daily (WT < 150 kg, CrCl > 10-29 mL/min) *Enoxaparin/Lovenox 30 mg SQ BID (WT < 150 kg, CrCl > 30 mL/min) AND *Sequential Compression Device (SCD) Assessment and Plan - Assessment (1) Chest pain of uncertain etiology Code(s): R07.89 - Other chest pain Status: Acute Plan: Admitted to chest pain center. ACS ruled out with 3 sets of EKGs and cardiac enzymes. Will be seen and evaluated by Dr. Nilesh Purvis. Discussed likely will proceed with Jacob this morning. He is currently in the process of reestablishing with Dr. Dubose. (2) Acute renal insufficiency Code(s): N28.9 - Disorder of kidney and ureter, unspecified Status: Acute Plan: Creatinine level 2.08. Reports recently poor appetite including oral intake. Reports infrequent use of NSAIDs, rare use of muscle relaxant for chronic pain. No history of known renal insufficiency. Reporting blood pressure generally well controlled. Instructed to keep primary care provider appointment scheduled on 12/21/18 for follow up laboratory studies. (3) History of coronary artery disease Code(s): Z86.79 - Personal history of other diseases of the circulatory system Status: Chronic Plan: Continue Plavix, baby aspirin, atorvastatin, and metoprolol. (4) Hypertension Code(s): I10 - Essential (primary) hypertension Status: Chronic Plan: Continue metoprolol. Continue to monitor. (5) Anemia Code(s): D64.9 - Anemia, unspecified Status: Acute Plan: HCT/HGB 11.8/32.8. Denies history of known anemia. Reported black emesis x2 around [place] time, denies history of GERD or known peptic ulcer disease. Start Protonix 40 mg po daily. Instructed to discuss with primary care provider at next appointment likely will require GI referral. H&P: Quality - VTE Deep Vein Thrombosis/Pulmonary Embolism Present on Admission: No (4) Hypertension Qualifiers: Hypertension type: unspecified Qualified Code(s): I10 - Essential (primary) hypertension (5) Anemia Qualifiers: Anemia type: unspecified type Qualified Code(s): D64.9 - Anemia, unspecified
[2018-12-06] MEDS ORDERED: Regadenoson Inj 0.4 MG/5 ML Syringe IV.PUSH ONE (09:03)
[2018-12-06] MEDS ORDERED: Metoprolol Tartrate 25 MG Tablet PO SCH (09:30)
[2018-12-06 10:27] VITALS: PULSE 91
--- NOTE | 2018-12-06 12:10 | NM ---
EXAM DATE: 12/06/2018 12:02 PM EST AGE/SEX: 43 years / Male INDICATIONS:Angina. Coronary artery disease Mid chest pain for two weeks. CLINICAL DATA: This is the patient's initial encounter. Patient reports that signs and symptoms have been present for 2 weeks and indicates a pain score of 3/10. MEDICAL/SURGICAL HISTORY: Hypertension. Myocardial infarction. Coronary artery stent. COMPARISON: No prior exams available for comparison. No external comparison. DOSE: 8.7 mCi Tc 99m Myoview at rest 26.1 mCi [id number] at stress 0.4 mg Lexiscan STRESS SYMPTOMS: Dyspnea and chest pressure. EJECTION FRACTION: 46 % TECHNIQUE: The patient underwent pharmacologic stress with infusion of prescribed dose. Continuous ECG tracing was monitored during stress. Gated SPECT imaging was performed after stress and conventi onal SPECT imaging was performed at rest. The examination was performed on a SPECT/CT scanner, both attenuation and non-corrected datasets were reviewed. FINDINGS: Distribution: The maximum perfused segment at stress is in the anterior wall. Perfusion Study: The pattern of perfusion at stress is within normal limits. Diaphragmatic attenu ation is noted. Gated Study: There are intact wall motion and wall thickening without hypokinetic or dyskinetic segm ents. The ejection fraction is calculated at 46%. RISK CATEGORY: Low (<1% Annual Mortality Rate) CONCLUSION: 1. Negative examination. Electronically signed by: Guillermina Lee MD Board Certified Radiologist 12/06/2018 12:08 PM KATEIRNE Brice
--- NOTE | 2018-12-06 14:46 | TR ---
Date Performed: 12/06/2018 Time Performed: 11:14:01 DOCTOR: Nilesh Purvis DRUG LIST: CLINICAL HISTORY: ANGINA REASON FOR TEST: Angina REASON FOR ENDING: OBSERVATION: CONCLUSION: COMMENTS: Lexiscan stress test was performed under standard four minute protocol. Radionuclide was injected one minute prior to ending the test. No electrocardiographic abormalities were present t o suggest ischemia. Nuclear imaging and interpretation are pending.
--- NOTE | 2018-12-07 07:29 | ECG ---
Date Performed: 12/06/2018 Time Performed: 01:26:53 PTAGE: 43 years EKG: Sinus rhythm POSSIBLE RIGHT VENTRICULAR CONDUCTION DELAY INFERIOR MYOCARDIAL INFARCTION ABNORMAL ECG PREVIOUS TRACING : 12/05/2018 17.41 Since previous tracing, no significant change noted DOCTOR: Harpreet Akhtar Interpretating Date/Time 12/07/2018 07:29:20
--- NOTE | 2018-12-07 07:29 | ECG ---
Date Performed: 12/06/2018 Time Performed: 06:24:39 PTAGE: 43 years EKG: Sinus rhythm INFERIOR MYOCARDIAL INFARCTION ABNORMAL ECG PREVIOUS TRACING : 12/06/2018 01.26 Since previous tracing, no significant change noted DOCTOR: Harpreet Akhtar Interpretating Date/Time 12/07/2018 07:29:07
--- NOTE | 2018-12-07 07:30 | ECG ---
Date Performed: 12/05/2018 Time Performed: 17:41:47 PTAGE: 43 years EKG: Sinus rhythm PROBABLE INFERIOR MYOCARDIAL INFARCTION ABNORMAL ECG NO PREVIOUS TRACING DOCTOR: Harpreet Akhtar Interpretating Date/Time 12/07/2018 07:29:28
== END 2018-12-06 13:24 | disposition home or self-care (01) ==
LOC: NEPC 17:25 → NEDA 17:25 → NEPFCDU 22:56
CPT/HCPCS: 71010; 71045; 74176; 78452; 80053; 82550; 82552; 83735; 84484; 85025; 85610; 85730; 90760; 93005; 93017; 96360; 96361; 99285; A9502; G0378; J2785; J7030; Q9969